=== PATIENT | female | born 1955 | race Caucasian/White ===

== ENCOUNTER → 2020-03-20 12:28 | Outpatient (BNVA) | payer MEDICARE, OTHER, SELFPAY | PROVIDERS: PCP Internal Medicine; Visit Provider Internal Medicine Gastroenterology | DX: Z13.89 Encounter for screening for other disorder (principal) | CPT/HCPCS: Q3014 ==

== ENCOUNTER 2020-05-21 09:00 | Day surgery (SDC) | payer MEDICARE, OTHER, SELFPAY ==
[2020-05-13 17:59] VITALS: BMI 26.9
--- NOTE | 2020-05-17 09:42 | HO.ANESPROP2 ---
Documented by User: Liyah Venessa 05/17/20 09:42 HPI - Anesthesia Eval Consult details Narrative: 65yo F for Colonoscopy PMFSH Active Problems Active Problems: All Active Problems (Updated 05/13/20 @ 17:54 by Jovana Meyers RN) Obstructive sleep apnea (Acute) Rectocele (Acute) Tubular adenoma of colon (Acute) GERD (gastroesophageal reflux disease) (Acute) Past Medical History Medical History Arthritis Asthma Depression GERD (gastroesophageal reflux disease) Hypothyroidism ALISON on CPAP Rectocele Tubular adenoma of colon Family History Family History Father No problems noted. Mother No problems noted. Sister Osteoporosis Surgical History Surgical History History of Hx laparoscopic cholecystectomy Hx of colonoscopy Social History Social History Household Members: Spouse Alcohol intake: current Alcohol intake frequency: holidays/special occasions only Smoking Status: Never smoker Second Hand Smoke Exposure: No Use of substances other than those prescribed or required for medical reasons: No Advance Directives: No Advance Directives Information Provided: No Advance Directives on File: No Recently lost weight without trying: No Current occupational status: retired Meds Allergies Allergy/AdvReac Type Severity Reaction Status Date / Time Environmental Allergy Unknown Unknown Verified 05/21/20 09:42 Erythromycin Allergy Unknown bloating, Verified 05/21/20 09:42 constipation erythromycin base AdvReac Intermediate STOMACH Verified 05/21/20 09:42 [ERYTHROMYCIN BASE] UPSET Home Medications Medication Instructions Recorded Confirmed Last Taken Type fluticasone propionate 50 1 spray INTRANASAL DAILY 03/20/20 05/13/20 Unknown History mcg/actuation nasal spray,suspension venlafaxine 75 mg capsule,extended 75 mg PO DAILY 03/20/20 05/13/20 Unknown History release 24 hr Ca carb-Ca gluc-Mg ox-Mg gluco 1 tab PO DAILY 05/13/20 05/13/20 Unknown History [Calcium Magnesium] boron 3 mg PO BID 05/13/20 05/13/20 Unknown History loratadine 10 mg PO DAILY 05/13/20 05/13/20 Unknown History multivitamin 1 tab PO DAILY 05/13/20 05/13/20 Unknown History thiamine mononitrate (vit B1) 100 mg PO DAILY 05/13/20 05/13/20 Unknown History venlafaxine 37.5 mg PO DAILY 05/13/20 05/13/20 Unknown History Exam Exam Date and Time: May 17, 2020941 Height,Weight and Vital Signs: Height 5 ft 5 in Weight 73.482 kg Assessment and Plan Assessment Anesthesia Assessment: Chart Reviewed Documented by User: Jennie Pino 05/21/20 09:53 [facility] Past Medical History Medical History Arthritis Asthma Depression GERD (gastroesophageal reflux disease) Hypothyroidism ALISON on CPAP Rectocele Tubular adenoma of colon Family History Family History Father No problems noted. Mother No problems noted. Sister Osteoporosis Family history of problems with anesthesia: No Surgical History Surgical History History of Hx laparoscopic cholecystectomy Hx of colonoscopy History of Problems with Anesthesia: No Social History Social History Household Members: Spouse Alcohol intake: current Alcohol intake frequency: holidays/special occasions only Smoking Status: Never smoker Second Hand Smoke Exposure: No Use of substances other than those prescribed or required for medical reasons: No Advance Directives: No Advance Directives Information Provided: No Advance Directives on File: No Recently lost weight without trying: No Current occupational status: retired Meds Allergies Allergy/AdvReac Type Severity Reaction Status Date / Time Environmental Allergy Unknown Unknown Verified 05/21/20 09:42 Erythromycin Allergy Unknown bloating, Verified 05/21/20 09:42 constipation erythromycin base AdvReac Intermediate STOMACH Verified 05/21/20 09:42 [ERYTHROMYCIN BASE] UPSET Home Medications Medication Instructions Recorded Confirmed Last Taken Type fluticasone propionate 50 1 spray INTRANASAL DAILY 03/20/20 05/13/20 Unknown History mcg/actuation nasal spray,suspension venlafaxine 75 mg capsule,extended 75 mg PO DAILY 03/20/20 05/13/20 Unknown History release 24 hr Ca carb-Ca gluc-Mg ox-Mg gluco 1 tab PO DAILY 05/13/20 05/13/20 Unknown History [Calcium Magnesium] boron 3 mg PO BID 05/13/20 05/13/20 Unknown History loratadine 10 mg PO DAILY 05/13/20 05/13/20 Unknown History multivitamin 1 tab PO DAILY 05/13/20 05/13/20 Unknown History thiamine mononitrate (vit B1) 100 mg PO DAILY 05/13/20 05/13/20 Unknown History venlafaxine 37.5 mg PO DAILY 05/13/20 05/13/20 Unknown History Exam Height,Weight and Vital Signs: Vital Signs Temp Pulse Resp BP Pulse Ox 05/21/20 09:36 97.5 F 89 16 143/83 H 98 Airway Mallampati Class: II TM Dist: >3cm Neck ROM: Full Heart: RRR Lungs: CTAB Assessment and Plan Assessment Anesthesia Assessment: Anesthesia Plan Discussed and Chart Reviewed Final Anesthetic Review NPO: Yes ASA Class: III Final Preanesthetic Review: No Changes in Pt Med Stat, Meds/Allgs Chart Reviewed, Consent Obtained/Reviewed and Anes Risks/Benef Reviewed Patient Risk: Intermediate Procedure Risk: Low Assessment/Block/Sedation in SS: Assess/Block/Sedation-SS Anesthetic Plan Anesthetic Plan: MAC: Disposition: Standard PACU
[2020-05-21 09:36] VITALS: BP 143/83; PULSE 89; RESP 16; TEMP 36.4; O2SAT 98; BMI 27.4
--- NOTE | 2020-05-21 09:36 | MHC.SHP ---
Pre-Procedural Eval Section B Chief Complaint: benign neoplasm of colon Details of Present Illness: COLON CANCER SCREENING--+FAMILY HX OF COLON POLYPS;PERSONAL HX TA HX ALISON ANX/DEPRESSIVE DISORDER--RECENT INCREASE IN EFFEXOR CONSTIPATION/RECTOCOELE Relevant Family History (Specify if Yes): Yes Relevant Social History: None Present Medications: see Short Stay Collaborative assessment Medical History: Significant History (HYPOTHRYROID ON REPLACEMENT, SEE ABOVE) History of Previous Operations: Relevant previous surgery/procedure and date(s) (S/P COLO) Allergies: Allergies Allergy/AdvReac Type Severity Reaction Status Date / Time Environmental Allergy Unknown Unverified 11/13/19 00:00 Erythromycin Allergy Unknown bloating, Unverified 11/13/19 00:00 constipation erythromycin base AdvReac Intermediate STOMACH Unverified 12/21/19 15:32 [ERYTHROMYCIN BASE] UPSET Review of Systems Sugical H&P ROS: Negative: Constitution, Cardiovascular and Neurological and Yes, Specify: Respiratory (USES ADVAIR, HAS NO RESCUE INHALER), Psychiatric (MEDS WORKING WELL) and Gastrointestinal (CONSTIPATION) Exam Surgical H&P Exam: Normal: HEENT, Normal: Heart, Normal: Lungs and Normal: Extremities Plan Diagnosis/Plan: Unchanged I have reviewed the history and physical and performed a pertinent physical examination on my patient. No changes have occurred unless specified.YES
[2020-05-21] MEDS: Lactated Ringers 1,000 ML 100 ML IVCONT (09:41)
[2020-05-21 10:30] VITALS: BP 124/71; PULSE 93; RESP 18; TEMP 36.3; O2SAT 100
--- NOTE | 2020-05-21 10:30 | PM.OP ---
Brief Operative Note Date of Service: 05/21/20 Pre-op diagnosis: COLON CANCER SCREENING, HX OF TA Post-op diagnosis: other (COLON POLYPS) Procedure: COLONOSCOPY WITH EXCISIONAL POLYPECTOMY X2(COLD BX FORCEPS) Implants: NO Surgeon: Enedelia Short MD Anesthesia: MAC (LIEBIENIC, INSULATION BLOWER) Estimated blood loss (mL): 5 Pathology: other (POLYP ON ILEOCECAL VALVE, TRANSVERSE COLON BOTH DIMINUTIVE.) Condition: stable Disposition: PACU
[2020-05-21 10:45] VITALS: BP 130/65; PULSE 74; RESP 20
--- NOTE | 2020-05-21 13:32 | W.PM.OPN ---
Operative Note Operative Note Date of Service: 05/21/20 Narrative: OPERATIVE NOTE Date of Service: 05/21/20 Pre-op diagnosis: COLON CANCER SCREENING, HX OF TA Post-op diagnosis: other (COLON POLYPS) Procedure: COLONOSCOPY WITH EXCISIONAL POLYPECTOMY X2(COLD BX FORCEPS) Implants: NO Surgeon: Enedelia Short MD Anesthesia: MAC (LIEBIENIC, [employer] SKIN) FINDINGS: MARIA ISABEL-Sphincter tone adequate. Scope introdued to the sigmoid colon--mild redundancy(? element of prolapse?). Scope advanced into descending, transverse colon with gentle assist into the cecum. PREP: GOOD Small polyp noted on valve removed excisionally, with cold bx forceps, second smaller polyp removed in similar fashion in the proximal transverse colon. No additional lesions noted. ARV-CLEAR--There was Anal Papillary hypertrophy noted. Estimated blood loss (mL): 5 Pathology: other (POLYP ON ILEOCECAL VALVE, TRANSVERSE COLON BOTH DIMINUTIVE.) Condition: stable Disposition: PACU PLAN: CURRENT RECOMMENDATIONS FOR REPEAT SCREENING IS 5 YEARS.
== END 2020-05-21 11:29 | disposition home or self-care (01) ==
PROVIDERS: PCP Internal Medicine; Visit Provider Internal Medicine Gastroenterology
PROC: 0DJD8ZZ Inspection of Lower Intestinal Tract, Via Natural or Artificial Opening Endoscopic (ICD-10-PCS; CPT 45378; principal; 2020-05-21 10:30)
DX: Z12.11 Encounter for screening for malignant neoplasm of colon (principal); D12.0 Benign neoplasm of cecum; K63.5 Polyp of colon; K62.89 Other specified diseases of anus and rectum; Q43.8 Other specified congenital malformations of intestine; Z86.010 Personal history of colon polyps; Z83.71 Family history of colonic polyps
CPT/HCPCS: 45380; 88305; J2405

== ENCOUNTER → 2020-06-12 14:29 | Outpatient (BNVA) | payer MEDICARE, OTHER, SELFPAY | PROVIDERS: PCP Internal Medicine; Visit Provider Internal Medicine Gastroenterology | DX: K64.4 Residual hemorrhoidal skin tags (principal); D12.6 Benign neoplasm of colon, unspecified | CPT/HCPCS: 99212 ==

== ENCOUNTER 2020-07-02 08:51 | Outpatient (REF) | payer MEDICARE, OTHER, SELFPAY | END 2020-07-02 08:52 | disposition home or self-care (01) | LOC: HO.LAB 08:51 | PROVIDERS: PCP Internal Medicine; Visit Provider Hospitalist | DX: G47.33 Obstructive sleep apnea (adult) (pediatric) (principal); J45.40 Moderate persistent asthma, uncomplicated | CPT/HCPCS: 36415; 82785; 86003; 99202 ==

== ENCOUNTER 2020-08-29 13:01 | Outpatient (REF) | payer MEDICARE, OTHER, SELFPAY ==
--- NOTE | ~2020-08-29 | XR_ITS ---
EXAMINATION: XR CHEST CLINICAL INFORMATION: Moderate persistent asthma. COMPARISON: Chest 03/13/2019 TECHNIQUE: 2 views of the chest were obtained. FINDINGS: No significant abnormality is noted involving the heart, lungs, mediastinum, bony thorax or soft tissues. XR/XR chest 2V IMPRESSION: Unremarkable chest examination.
--- NOTE | 2020-08-29 15:31 | PFT_ITS ---
INDICATION: Asthma. SPIROMETRY: The FEV1 to FVC of 79% with an FEV1 of 1.84 L, which is 77% predicted, and an FVC of 2.32 L, which is 74% predicted. Bronchodilators were not used due to the fact that she had recently used her bronchodilator. Maximum voluntary ventilation is 87% predicted. LUNG VOLUMES: Total lung capacity 95% predicted. DIFFUSION CAPACITY: DLCO 70% predicted. COMPARISONS: PFTs from May 2019. INTERPRETATION: No obstructive nor restrictive ventilatory defects identified. Again, bronchodilators were not used. Maximum voluntary ventilation within normal limits. Lung volumes within normal limits. The patient does have a mild isolated diffusion impairment. When compared to 2019, there was a trend increase in the FVC, no significant change in the FEV1, significant improvement in the total lung capacity, and no significant change in the diffusion capacity. My suspicion is that total lung capacity from 2019 was probably erroneous. Clinical correlation warranted. MD MUMTAZ [place]ANS / [id number]
== END 2020-08-29 13:02 | disposition home or self-care (01) ==
LOC: HO.RESP 13:01
PROVIDERS: PCP Internal Medicine; Visit Provider Hospitalist
DX: J45.40 Moderate persistent asthma, uncomplicated (principal); J30.9 Allergic rhinitis, unspecified; G47.33 Obstructive sleep apnea (adult) (pediatric); K21.9 Gastro-esophageal reflux disease without esophagitis
CPT/HCPCS: 71046; 94010; 94727; 94729; 99212

== ENCOUNTER 2020-09-10 09:18 | Outpatient (REF) | payer MEDICARE, OTHER, SELFPAY ==
[2020-09-10 12:04] LABS: Hematocrit 37.5 % (37-47); Hemoglobin 12.6 g/dl (12.0-16.0); Mean Corpuscular HGB Conc 33.6 g/dl (31.0-35.0); Mean Corpuscular Hemoglobin 31.4 pg (27.0-33.0); Mean Corpuscular Volume 93.5 fL (80-98); Mean Platelet Volume 9.8 fL (9.4-12.3); Platelet Count 217 X10*3/uL (160-400); Red Blood Count 4.01 X10*6/uL (4.20-5.50); Red Cell Distribution Width 11.8 % (11.0-16.0); White Blood Count 4.1 X10*3/uL (4.8-10.8)
[2020-09-10 12:38] LABS: TSH reflex Free T4 0.41 uIU/mL (0.32-4.0)
[2020-09-10 13:09] LABS: Alanine Aminotransferase 13 U/L (0-31); Albumin Level 3.7 g/dL (3.5-5.0); Alkaline Phosphatase 63 U/L (39-117); Anion Gap 10 (12-20); Aspartate Amino Transferase 20 U/L (5-31); Bilirubin Total 0.8 mg/dL (0.0-1.0); Blood Urea Nitrogen 12 mg/dL (9-16); Calcium 8.7 mg/dL (8.4-10.2); Carbon Dioxide 26 mmol/L (22-29); Chloride 109 mmol/L (96-108); Cholesterol 178 mg/dL; Estimated Glomerular Filt Rate > 60; Glucose Fasting 82 mg/dL (60-99); HDL Cholesterol 67 mg/dL; LDL Cholesterol Calculated 104 mg/dl; Potassium 3.8 mmol/L (3.3-5.1); Sodium 141 mmol/L (135-145); Total Protein 5.9 g/dL (6.5-8.0); Triglycerides 35 mg/dL
== END 2020-09-10 09:19 | disposition home or self-care (01) ==
LOC: HO.HMGCLDS 09:18
PROVIDERS: PCP Internal Medicine; Visit Provider Internal Medicine
DX: J45.40 Moderate persistent asthma, uncomplicated (principal); R60.9 Edema, unspecified
CPT/HCPCS: 36415; 80053; 80061; 84443; 85027

== ENCOUNTER 2020-09-23 11:30 | Outpatient (REF) | payer MEDICARE, OTHER, SELFPAY ==
--- NOTE | ~2020-09-23 | US_ITS ---
EXAMINATION: US THYROID CLINICAL INFORMATION: Nontoxic multinodular goiter. COMPARISON: Ultrasound thyroid soft tissues neck 09/22/2018. TECHNIQUE: Linear transducer grayscale and color Doppler examination with attention to the region of the thyroid. FINDINGS: SIZE: Measurements of the thyroid lobes and nodules are given in sagittal, anteroposterior and transverse dimensions respectively. Right Thyroid Lobe: 3.0 x 0.8 x 0.8 cm, volume 1.0 mL. Previously 2.8 x 0.7 x 0.7 cm, volume 0.6 mL. Parenchyma: The gland echotexture is heterogeneous. Thyroid vascularity is increased. Left Thyroid Lobe: 3.0 x 0.6 x 0.5 cm, volume 0.5 mL. Previously 2.5 x 0.5 x 0.6 cm, volume 0.4 mL. Parenchyma: The gland echotexture is heterogeneous. Thyroid vascularity is increased. Isthmus: 0.1 cm in maximum AP dimension. Previously 0.2 cm. Estimated total number of nodules greater than or equal to 1 cm: 0. Aircraft Mechanic nodules are described as follows: 1. Location: Right upper. Size: 0.3 x 0.2 x 0.2 cm, volume 0.01 mL. Previously: 0.3 x 0.2 x 0.3 cm, volume 0.01 mL. Nodule characteristics: Composition: Cystic(0). Echogenicity: Anechoic (0). Shape: Not taller than wide (0). Margins: Smooth (0). Echogenic Foci: None (0). ACR TI-RADS total points: 0 ACR TI-RADS category: 1 Significant change in size (>/= 20% in 2 dimensions and minimal increase of 2 mm or 50% or greater increase in volume): No Change in features: No Change in ACR TI-RADS risk category: No 2. Location: Left upper. Size: 0.3 x 0.2 x 0.2 cm, volume 0.01 mL. Previously: 0.3 x 0.1 x 0.2 cm, volume 0.003 mL. Nodule characteristics: Composition: Cystic(0). Echogenicity: Anechoic (0). Shape: Not taller than wide (0). Margins: Smooth (0). Echogenic Foci: None (0). ACR TI-RADS total points: 0 ACR TI-RADS category: 1 Significant change in size (>/= 20% in 2 dimensions and minimal increase of 2 mm or 50% or greater increase in volume): No Change in features: Yes. This appears cystic. Change in ACR TI-RADS risk category: No NODES: No lymphadenopathy is seen in the tissue surrounding the thyroid gland. US/US thyroid IMPRESSION: Small heterogeneous slightly hypervascular thyroid gland. Small bilateral cystic nodules.. ACR TI-RADS RECOMMENDATION REFERENCE: Ultrasound-guided fine-needle aspiration, followup ultrasound, no further follow up. * TR1 (0 point) and TR 2 (2 points): No FNA or follow up * TR3 (3 points): FNA if more than or equal to 2.5 cm in maximum dimension, followup ultrasound in 1, 3 and 5 years if 1.5 to 2.4 cm in maximum dimension. * TR4 (4-6 points): FNA if more than or equal to 1.5 cm in maximum dimension, followup ultrasound in 1, 2, 3 and 5 years if 1 to 1.4 cm in maximum dimension. * TR5 (more than or equal to 7 points): FNA if more than or equal to 1 cm in maximum dimension, followup ultrasound every year for 5 years if 0.5 to 0.9 cm in maximum dimension. * TR3, TR4 or TR5 nodules that are below the size threshold for follow up receive no follow up.
== END 2020-09-23 11:31 | disposition home or self-care (01) ==
LOC: HO.HMGCX 11:30
PROVIDERS: PCP Internal Medicine; Visit Provider Internal Medicine
DX: E04.2 Nontoxic multinodular goiter (principal)
CPT/HCPCS: 76536

== ENCOUNTER 2020-10-03 12:46 | Outpatient (REF) | payer MEDICARE, OTHER, SELFPAY ==
--- NOTE | ~2020-10-03 | MM_ITS ---
EXAMINATION: BONE DENSITOMETRY CLINICAL INDICATION: Other specified disorders of bone density and structure. COMPARISON: Previous BD dated 09/09/2018 and baseline BD dated 02/15/2015. TECHNIQUE: Using a [employer] DXA System (software version: 13.1) manufactured by [employer], dual-energy x-ray absorptiometry was performed of the lumbar spine and left hip. The images are of good technical quality. Summary results are attached. FINDINGS: AP SPINE L1-L4: Current: BMD 1.023 g/cm2, Z-score 0.0, T-score -1.3, osteopenia, 0.3% increase from previous, 5.5% decrease from baseline (<5% change is not significant). Prior: BMD 1.020 g/cm2. Baseline: BMD 1.082 g/cm2. LEFT FEMUR, NECK: Current: BMD 0.733 g/cm2, Z-score -0.9, T-score -2.2, osteopenia. Prior: BMD 0.763 g/cm2. Baseline: BMD 0.890 g/cm2. LEFT FEMUR, TOTAL: Current: BMD 0.751 g/cm2, Z-score -1.0, T-score -2.0, osteopenia, 3.5% decrease from previous, 12.7% decrease from baseline (<5% change is not significant). Prior: BMD 0.778 g/cm2. Baseline: BMD 0.860 g/cm2. IDENTIFIED RISK FACTORS: Recurrent falls, height loss, family history (parental hip fracture), history of fracture (adult). Early menopause, secondary osteoporosis. HISTORY OF FRACTURE: Other. MEDICATIONS: Calcium supplements or multivitamin. MM/XR DEXA axial skeleton IMPRESSION: 1. DIAGNOSIS: Osteopenia based on the lowest T-score value of -2.2 in the femoral neck applying World Health Organization criteria. 2. 10-YEAR FRACTURE RISK PREDICTION, FRAX: Major osteoporotic fracture (clinical spine, forearm, hip or shoulder) 32.3%. Hip fracture 4.8%. 3. Treatment Recommendations: NOF guidelines recommend consideration for treatment in postmenopausal women and men age 50 and older presenting with the following: -A hip or vertebral (clinical or morphometric) fracture. -T-score less than or equal to -2.5 at the femoral neck or spine after appropriate evaluation to exclude secondary causes. -Low bone mass at the hip or spine and a 10-year fracture probability by FRAX of greater than or equal to 3% for hip fracture or greater than or equal to 20% for major osteoporotic fracture based on the [place] adapted WHO algorithm. 4. Other Recommendations: All treatment decisions require clinical judgment and consideration of individual patient factors, including patient preferences, comorbidities, previous drug use, risk factors not captured in the FRAX model (e.g. frailty, falls, vitamin D deficiency, increased bone turnover, interval significant decline in bone density) and possible under or overestimation of fracture risk by FRAX. Additional medical evaluation for secondary cause of low bone mineral density may be appropriate. FUTURE SCAN RECOMMENDATION: People with diagnosed cases of osteoporosis or at high risk for fracture should have regular bone mineral density tests. For patients eligible for Medicare, routine testing is allowed once every 2 years. The testing frequency can be increased to one year for patients who have rapidly progressing disease, those who are receiving or discontinuing medical therapy to restore bone mass, or have additional risk factors.
--- NOTE | ~2020-10-03 | US_ITS ---
EXAMINATION: US DIAGNOSTIC ULTRASOUND BREAST, LEFT CLINICAL INFORMATION: Palpable abnormality left breast 2:00 position approximately 8 cm from the nipple.. COMPARISON: Mammography of same day as well as studies dating back to August 13, 2016. TECHNIQUE: Ultrasound of the breast is performed with real-time freeman scale imaging and color Doppler. FINDINGS: There is no focal suspicious finding. There is no solid mass, architectural abnormality, duct ectasia, or edema in the soft tissue planes. Results are discussed with the patient at time of visit. US/US breast LT limited IMPRESSION: No suspicious left breast findings. ASSESSMENT: BI-RADS 1: Negative RECOMMENDATION: Routine annual mammography screening due in 12 months. This patient's information was entered into a reminder system with a target due date for their next mammogram.
--- NOTE | ~2020-10-03 | MM_ITS ---
EXAMINATION: MM DIAGNOSTIC DIGITAL BREAST TOMOSYNTHESIS, BILATERAL US BREAST LIMITED, LEFT CLINICAL INFORMATION: Left breast lumps for 6 months. The lifetime risk of breast cancer based on the Tyrer-Cuzick Model is 5.2%. COMPARISON: Mammography: 10/02/2019 and studies dating back to 08/13/2016 TECHNIQUE: Digital breast tomosynthesis is performed in both the craniocaudal and mediolateral oblique views along with computer-aided detection (CAD). Synthesized 2-D images are generated from the tomosynthesis. Targeted left breast ultrasound. FINDINGS: There are scattered areas of fibroglandular density (ACR BI-RADS breast composition Category b). There are no significant masses, abnormal calcifications, or other abnormalities. Targeted left breast ultrasound did not demonstrate any abnormal cystic or solid masses. No region of abnormal distal sound shadowing. No edematous changes seen. Results are discussed with the patient at time of visit. MM/MM tomosynthesis diagnostic BI IMPRESSION: There are no significant changes from prior study. ASSESSMENT: BI-RADS 1: Negative. RECOMMENDATION: Routine annual mammography screening due in 12 months. This patient's information was entered into a reminder system with a target due date for their next mammogram.
== END 2020-10-03 12:47 | disposition home or self-care (01) ==
LOC: HO.MAMMO 12:46
PROVIDERS: Visit Provider Internal Medicine
DX: R92.8 Other abnormal and inconclusive findings on diagnostic imaging of breast (principal); M81.8 Other osteoporosis without current pathological fracture; M85.80 Other specified disorders of bone density and structure, unspecified site; Z78.0 Asymptomatic menopausal state
CPT/HCPCS: 76642; 77062; 77066; 77080

== ENCOUNTER → 2020-10-23 09:46 | Outpatient (BNVA) | payer MEDICARE, OTHER, SELFPAY | PROVIDERS: Visit Provider Internal Medicine | CPT/HCPCS: Q3014 ==

== ENCOUNTER 2020-10-30 09:46 | Outpatient (REF) | payer MEDICARE, OTHER, SELFPAY ==
[2020-10-30 11:11] LABS: Glucose Urine UA NEG (NEG); Leukocyte Esterase Urine NEG (NEG); Nitrite Urine NEG (NEG); Specific Gravity - Urine <= 1.005 (1.005-1.025); Urine Blood NEG (NEG); Urine Ketones NEG (NEG); Urine Protein NEG (NEG-TRACE)
[2020-10-30 11:13] LABS: Appearance Urine CLEAR; Color Urine STRAW
== END 2020-10-30 09:47 | disposition home or self-care (01) ==
LOC: HO.HMGCLDS 09:46
PROVIDERS: PCP Internal Medicine; Visit Provider Internal Medicine
DX: R30.0 Dysuria (principal)
CPT/HCPCS: 81003

== ENCOUNTER → 2021-02-25 14:05 | Outpatient (BNVA) | payer MEDICARE, OTHER, SELFPAY | PROVIDERS: PCP Internal Medicine; Visit Provider Hospitalist | DX: J45.40 Moderate persistent asthma, uncomplicated (principal); J30.9 Allergic rhinitis, unspecified; G47.33 Obstructive sleep apnea (adult) (pediatric); K21.9 Gastro-esophageal reflux disease without esophagitis | CPT/HCPCS: 99212 ==

== ENCOUNTER 2021-04-14 08:19 | Outpatient (REF) | payer MEDICARE, OTHER, SELFPAY ==
--- NOTE | ~2021-04-14 | FL_ITS ---
EXAMINATION: FL BARIUM SWALLOW CLINICAL INFORMATION: Gastroesophageal reflux disease without esophagitis. COMPARISON: None TECHNIQUE: Barium swallow examination is performed using fluoroscopic evaluation in addition to multiple fluoroscopic spot views. The patient is imaged both upright and prone and using both thick and thin sulfate along with effervescent granules. Fluoroscopy time: 8 minutes and 27 seconds. DAP: 20.99 Gycm2 Images: 68 FINDINGS: Following oral administration of thick barium and effervescent granules in upright view and different projections there is normal propagation bolus from the oral cavity through the pharynx, esophagus into stomach without any evidence of obstruction, narrowing or stricture. The course, caliber and peristalsis of the stomach and the duodenal bulb is normal. On placing patient supine and prone there is a small sliding hiatal hernia without any gastroesophageal reflux. Rest of the visualized course of the stomach is unremarkable. FL/FL barium swallow IMPRESSION: Small sliding hiatal hernia without reflux.
== END 2021-04-14 08:20 | disposition home or self-care (01) ==
LOC: HO.XRAY 08:19
PROVIDERS: PCP Internal Medicine; Visit Provider Hospitalist
DX: K21.9 Gastro-esophageal reflux disease without esophagitis (principal)
CPT/HCPCS: 74220

== ENCOUNTER → 2021-05-29 14:04 | Outpatient (BNVA) | payer MEDICARE, OTHER, SELFPAY | PROVIDERS: PCP Internal Medicine; Visit Provider Hospitalist | DX: J45.40 Moderate persistent asthma, uncomplicated (principal); J30.9 Allergic rhinitis, unspecified; G47.33 Obstructive sleep apnea (adult) (pediatric); K21.9 Gastro-esophageal reflux disease without esophagitis; K44.9 Diaphragmatic hernia without obstruction or gangrene | CPT/HCPCS: 99212 ==

== ENCOUNTER → 2021-06-19 11:35 | Outpatient (BNVA) | payer MEDICARE, OTHER, SELFPAY | PROVIDERS: PCP Internal Medicine; Referring Provider Internal Medicine; Visit Provider Internal Medicine Gastroenterology | DX: K44.9 Diaphragmatic hernia without obstruction or gangrene (principal); K21.9 Gastro-esophageal reflux disease without esophagitis; D12.6 Benign neoplasm of colon, unspecified | CPT/HCPCS: 99212 ==

== ENCOUNTER 2021-10-07 13:17 | Outpatient (REF) | payer MEDICARE, OTHER, SELFPAY ==
--- NOTE | ~2021-10-07 | MM_ITS ---
EXAMINATION: MM SCREENING DIGITAL BREAST TOMOSYNTHESIS, BILATERAL CLINICAL INFORMATION: Screening. Asymptomatic. The lifetime risk of breast cancer based on the Tyrer-Cuzick Model is 3%. COMPARISON: Mammography: 10/03/2020, 10/02/2019, 09/26/2018 TECHNIQUE: Digital breast tomosynthesis is performed in both the craniocaudal and mediolateral oblique views along with computer-aided detection (CAD). Synthesized 2D images are generated from the tomosynthesis. FINDINGS: There are scattered areas of fibroglandular density (ACR BI-RADS breast composition Category b). There are no significant masses, abnormal calcifications, or other abnormalities. Parenchymal pattern is similar to prior studies. The axilla are unremarkable. MM/MM tomosynthesis screening BI IMPRESSION: No mammographic evidence of malignancy. ASSESSMENT: BI-RADS 1: Negative RECOMMENDATION: Routine annual mammography screening. This patient's information was entered into a reminder system with a target due date for their next mammogram.
== END 2021-10-07 13:18 | disposition home or self-care (01) ==
LOC: HO.MAMMO 13:17
PROVIDERS: Visit Provider Internal Medicine
DX: Z12.31 Encounter for screening mammogram for malignant neoplasm of breast (principal)
CPT/HCPCS: 77063; 77067

== ENCOUNTER 2021-11-06 06:59 | Outpatient (REF) | payer MEDICARE, OTHER, SELFPAY ==
[2021-11-06 11:11] LABS: MANUAL DIFF FLAG NO
[2021-11-06 11:22] LABS: Basophils Percent Auto 0.9 % (0-2); Eosinophils Absolute Auto 0.1 X10*3/uL (0.0-0.4); Eosinophils Percent Auto 1.3 % (0-4); Hematocrit 39.8 % (37.0-47.0); Imm Gran Abs Auto 0.01 X10*3/uL (0.00-0.03); Imm Gran Pct Auto 0.2 % (0.0-0.4); Lymphocytes Absolute Auto 1.9 X10*3/uL (1.2-4.9); Lymphocytes Percent Auto 42.2 % (20-40); Mean Corpuscular HGB Conc 32.7 g/dl (31.0-35.0); Mean Corpuscular Hemoglobin 30.6 pg (27.0-33.0); Mean Corpuscular Volume 93.6 fL (80.0-98.0); Mean Platelet Volume 9.8 fL (9.4-12.3); Monocytes Absolute Auto 0.3 X10*3/uL (0.1-1.2); Monocytes Percent Auto 7.4 % (2-11); Neutrophils Absolute Auto 2.2 x10*3/uL (2.0-8.3); Platelet Count 266 X10*3/uL (160-400); Red Blood Count 4.25 X10*6/uL (4.20-5.50); Red Cell Distribution Width 11.9 % (11.0-16.0); White Blood Count 4.6 X10*3/uL (4.8-10.8)
[2021-11-06 11:42] LABS: Alanine Aminotransferase 16 U/L (0-31); Alkaline Phosphatase 76 U/L (39-117); Anion Gap 13 (12-20); Aspartate Amino Transferase 20 U/L (5-31); Bilirubin Total 0.6 mg/dL (0.0-1.0); Blood Urea Nitrogen 13 mg/dL (9-16); Calcium 8.9 mg/dL (8.4-10.2); Carbon Dioxide 27 mmol/L (22-29); Chloride 105 mmol/L (96-108); Cholesterol 239 mg/dL; Estimated Glomerular Filt Rate > 60; Glucose Fasting 95 mg/dL (60-99); HDL Cholesterol 71 mg/dL; LDL Cholesterol Calculated 161 mg/dl; Potassium 4.5 mmol/L (3.3-5.1); Sodium 140 mmol/L (135-145); Total Protein 6.5 g/dL (6.5-8.0); Triglycerides 35 mg/dL
[2021-11-06 12:00] LABS: TSH reflex Free T4 0.87 uIU/mL (0.32-4.0); Vitamin D 25-OH Total 33.8 ng/mL (>30)
[2021-11-06 12:06] LABS: Folate 19.6 ng/mL (> or = 4.0); Vitamin B12 702 pg/mL (200-900)
== END 2021-11-06 07:00 | disposition home or self-care (01) ==
LOC: HO.HMGCLDS 06:59
PROVIDERS: PCP Internal Medicine; Visit Provider Internal Medicine
DX: E03.9 Hypothyroidism, unspecified (principal); E04.2 Nontoxic multinodular goiter; G47.33 Obstructive sleep apnea (adult) (pediatric); J45.40 Moderate persistent asthma, uncomplicated
CPT/HCPCS: 36415; 80053; 80061; 82306; 82607; 82746; 84443; 85025

== ENCOUNTER 2021-11-17 10:32 | Outpatient (REF) | payer MEDICARE, OTHER, SELFPAY ==
--- NOTE | ~2021-11-17 | XR_ITS ---
EXAMINATION: XR KNEE, LEFT CLINICAL INFORMATION: Left knee pain. COMPARISON: Left knee done on 05/31/2019. TECHNIQUE: Four views of the left knee. FINDINGS: Moderate osteoarthrosis of the medial compartment, patellofemoral compartment and mild osteoarthrosis of the lateral compartment of the left knee, shows interval progression since 05/31/2019. Moderate diffuse osteopenia. No evidence of any joint effusion. Soft tissues are unremarkable. XR/XR knee LT 4V IMPRESSION: Tricompartmental osteoarthrosis with most pronounced changes seen at the medial compartment, shows significant disease progression since 05/31/2019.
== END 2021-11-17 10:33 | disposition home or self-care (01) ==
LOC: HO.HMGCX 10:32
PROVIDERS: PCP Internal Medicine; Visit Provider Physician Assistant
DX: M25.562 Pain in left knee (principal)
CPT/HCPCS: 73564

== ENCOUNTER 2021-12-18 13:00 | Outpatient (RCR) | payer MEDICARE, OTHER, SELFPAY ==
--- NOTE | 2021-11-12 17:30 | MHC.PT.EP ---
[facility] [place] Office [place] Office [place] Office [address] [phone] F: [phone] F: [phone] F: [phone] F: [phone] Physical Therapy Plan of Care Date of Evaluation: Date of Surgery: Diagnosis: Sciatica Assessment: Pt is a 66 y/o female referred to PT for eval and treat of sciatica who presents with signs and Sx consistent with R LE dysfunction with possible R hamstring injury resulting in decreased tolerance for standing, walking, negotiating stairs, performing heavy HH chores as well as pain with sit to stand transfers secondary to TTP for R hamstring group, decreased R LE strength, pain with R knee flexion MMT, gait abnormality, decreased B knee ROM and pain. Pt is deemed an appropriate candidate to receive skilled PT in order to address her physical limitations to improve her functional ability. Frequency and Duration: The patient will be seen 1 x / wk x 5 wks. Short Term Goals: initiate HEP. 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 Pt will be able to walk long distances with managed Sx; initial: limited to moderate distances d/t pain. Pt will no longer have pain with standing. improve R knee flexion MMT by at least 1/2 MMT grade. Treatment Plan: Modalities to reduce pain, spasms and effusion. Manual therapy to restore motion and function. Therapeutic exercise to improve strength and flexibility. Neuromuscular re-education for posture and balance. Therapeutic activities to return to functional activities of daily living. Electronically signed by: Almas Hernandez PT. Please sign and return to therapist. Thank you for your referral.
--- NOTE | 2021-12-18 16:31 | MHC.PT.DC ---
[facility] [place] Office [place] Office [place] Office [address] Nyla Kapoor [address] [facility] [phone] F: [phone] F: [phone] F: [phone] F: [phone] Physical Therapy Discharge Report Diagnosis: Sciatica Date of Surgery: Date of Evaluation: 11/12/21 Date of Discharge: 12/18/21 Treatments to Date: 10 Cancellations to Date: No Shows to Date: Discharge Status: Achieved Goals Improved Function Independent with HEP Discharge Summary: 12/18: Ruma has been an active and motivated participant in her therapy in and out of the clinic she is in agreement with DC at this time as he has met all of her therapeutic goals, is I with her home program, and has been managed of her symptoms. Electronically signed by: Almas Hernandez PT. Please sign and return to therapist. Thank you for your referral.
== END 2021-12-19 08:22 | disposition home or self-care (01) ==
LOC: HO.PTCHIC 13:00
PROVIDERS: PCP Internal Medicine; Visit Provider Internal Medicine
DX: M54.30 Sciatica, unspecified side (principal)
CPT/HCPCS: 97110; 97112; 97140; 97162

== ENCOUNTER → 2022-01-19 14:06 | Outpatient (BNVA) | payer MEDICARE, OTHER, SELFPAY | PROVIDERS: PCP Internal Medicine; Visit Provider Hospitalist | DX: J45.40 Moderate persistent asthma, uncomplicated (principal); R91.8 Other nonspecific abnormal finding of lung field; J45.909 Unspecified asthma, uncomplicated; G47.33 Obstructive sleep apnea (adult) (pediatric); K21.9 Gastro-esophageal reflux disease without esophagitis; K44.9 Diaphragmatic hernia without obstruction or gangrene | CPT/HCPCS: 99212 ==

== ENCOUNTER 2022-01-23 12:56 | Outpatient (REF) | payer MEDICARE, OTHER, SELFPAY ==
[2022-01-23 13:57] LABS: MANUAL DIFF FLAG NO
[2022-01-23 14:08] LABS: Basophils Percent Auto 0.6 % (0-2); Eosinophils Absolute Auto 0.1 X10*3/uL (0.0-0.4); Eosinophils Percent Auto 1.1 % (0-4); Hematocrit 36.1 % (37.0-47.0); Hemoglobin 12.3 g/dl (12.0-16.0); Imm Gran Abs Auto 0.02 X10*3/uL (0.00-0.03); Imm Gran Pct Auto 0.4 % (0.0-0.4); Lymphocytes Absolute Auto 1.5 X10*3/uL (1.2-4.9); Lymphocytes Percent Auto 32.8 % (20-40); Mean Corpuscular HGB Conc 34.1 g/dl (31.0-35.0); Mean Corpuscular Hemoglobin 31.4 pg (27.0-33.0); Mean Corpuscular Volume 92.1 fL (80.0-98.0); Mean Platelet Volume 9.4 fL (9.4-12.3); Monocytes Absolute Auto 0.5 X10*3/uL (0.1-1.2); Neutrophils Absolute Auto 2.6 x10*3/uL (2.0-8.3); Neutrophils Percent Auto 55.1 % (45-73); Platelet Count 226 X10*3/uL (160-400); Red Blood Count 3.92 X10*6/uL (4.20-5.50); Red Cell Distribution Width 11.7 % (11.0-16.0); White Blood Count 4.7 X10*3/uL (4.8-10.8)
[2022-01-23 14:30] LABS: Anion Gap 13 (12-20); Blood Urea Nitrogen 7 mg/dL (9-16); Calcium 8.9 mg/dL (8.4-10.2); Carbon Dioxide 27 mmol/L (22-29); Chloride 101 mmol/L (96-108); Estimated Glomerular Filt Rate > 60; Glucose Random 89 mg/dL (60-115); Potassium 3.8 mmol/L (3.3-5.1); Sodium 137 mmol/L (135-145)
== END 2022-01-23 12:57 | disposition home or self-care (01) ==
LOC: HO.HMGCLDS 12:56
PROVIDERS: PCP Internal Medicine; Visit Provider Internal Medicine
DX: J34.2 Deviated nasal septum (principal)
CPT/HCPCS: 36415; 80048; 85025

== ENCOUNTER 2022-03-18 12:18 | Outpatient (REF) | payer MEDICARE, OTHER, SELFPAY ==
[2022-03-18 14:01] LABS: Hematocrit 35.7 % (37.0-47.0); Hemoglobin 11.9 g/dl (12.0-16.0); Mean Corpuscular HGB Conc 33.3 g/dl (31.0-35.0); Mean Corpuscular Hemoglobin 31.1 pg (27.0-33.0); Mean Corpuscular Volume 93.2 fL (80.0-98.0); Mean Platelet Volume 9.4 fL (9.4-12.3); Platelet Count 277 X10*3/uL (160-400); Red Blood Count 3.83 X10*6/uL (4.20-5.50); Red Cell Distribution Width 11.6 % (11.0-16.0); White Blood Count 4.9 X10*3/uL (4.8-10.8)
[2022-03-18 14:04] LABS: Prothrombin Time 11.4 SEC (10.0-13.1)
[2022-03-18 14:07] LABS: Partial Thromboplastin Time 35.1 SEC (26.0-36.4)
[2022-03-23 04:23] LABS: Vitamin K1 692 pg/mL (130-1500)
== END 2022-03-18 12:19 | disposition home or self-care (01) ==
LOC: HO.HMGCLDS 12:18
PROVIDERS: PCP Internal Medicine; Visit Provider Internal Medicine
DX: R58 Hemorrhage, not elsewhere classified (principal)
CPT/HCPCS: 36415; 84597; 85027; 85610; 85730

== ENCOUNTER 2022-04-02 10:59 | Outpatient (REF) | payer MEDICARE, OTHER, SELFPAY ==
[2022-04-02 13:17] LABS: Hematocrit 37.6 % (37.0-47.0); Hemoglobin 12.8 g/dl (12.0-16.0); Mean Corpuscular Hemoglobin 31.6 pg (27.0-33.0); Mean Corpuscular Volume 92.8 fL (80.0-98.0); Mean Platelet Volume 9.5 fL (9.4-12.3); Platelet Count 241 X10*3/uL (160-400); Red Blood Count 4.05 X10*6/uL (4.20-5.50); Red Cell Distribution Width 11.7 % (11.0-16.0); White Blood Count 5.4 X10*3/uL (4.8-10.8)
[2022-04-02 14:05] LABS: Ferritin 77 ng/mL (10-250); Iron 92 mcg/dL (30-160); Percent Iron Saturation 33 % (15-50); Total Iron Binding Capacity 283 mcg/dL (228-428); Unsaturated Iron Binding 191 ug/dL
== END 2022-04-02 11:00 | disposition home or self-care (01) ==
LOC: HO.LAB 10:59
PROVIDERS: PCP Internal Medicine; Visit Provider Internal Medicine Gastroenterology
DX: D12.6 Benign neoplasm of colon, unspecified (principal); D64.9 Anemia, unspecified; K21.9 Gastro-esophageal reflux disease without esophagitis; N81.6 Rectocele; K44.9 Diaphragmatic hernia without obstruction or gangrene; K59.09 Other constipation
CPT/HCPCS: 36415; 82728; 83540; 85027; 99212

== ENCOUNTER 2022-05-04 12:10 | Outpatient (REF) | payer MEDICARE, OTHER, SELFPAY ==
[2022-05-04 14:08] LABS: MANUAL DIFF FLAG NO
[2022-05-04 14:20] LABS: Basophils Percent Auto 0.7 % (0-2); Eosinophils Absolute Auto 0.1 X10*3/uL (0.0-0.4); Eosinophils Percent Auto 1.3 % (0-4); Hematocrit 38.4 % (37.0-47.0); Hemoglobin 12.8 g/dl (12.0-16.0); Lymphocytes Absolute Auto 1.5 X10*3/uL (1.2-4.9); Lymphocytes Percent Auto 33.2 % (20-40); Mean Corpuscular HGB Conc 33.3 g/dl (31.0-35.0); Mean Corpuscular Hemoglobin 31.3 pg (27.0-33.0); Mean Corpuscular Volume 93.9 fL (80.0-98.0); Mean Platelet Volume 9.6 fL (9.4-12.3); Monocytes Absolute Auto 0.3 X10*3/uL (0.1-1.2); Monocytes Percent Auto 7.3 % (2-11); Neutrophils Absolute Auto 2.6 x10*3/uL (2.0-8.3); Neutrophils Percent Auto 57.5 % (45-73); Platelet Count 229 X10*3/uL (160-400); Red Blood Count 4.09 X10*6/uL (4.20-5.50); Red Cell Distribution Width 11.8 % (11.0-16.0); White Blood Count 4.5 X10*3/uL (4.8-10.8)
[2022-05-04 14:50] LABS: Alanine Aminotransferase 18 U/L (0-31); Alkaline Phosphatase 82 U/L (39-117); Anion Gap 12 (12-20); Aspartate Amino Transferase 24 U/L (5-31); Bilirubin Total 0.4 mg/dL (0.0-1.0); Blood Urea Nitrogen 10 mg/dL (9-16); Calcium 9.1 mg/dL (8.4-10.2); Carbon Dioxide 28 mmol/L (22-29); Chloride 106 mmol/L (96-108); Estimated Glomerular Filt Rate > 60; Glucose Random 92 mg/dL (60-115); Potassium 4.3 mmol/L (3.3-5.1); Sodium 142 mmol/L (135-145); Total Protein 6.2 g/dL (6.5-8.0)
[2022-05-04 15:06] LABS: Folate 17.4 ng/mL (> or = 4.0); TSH reflex Free T4 1.66 uIU/mL (0.32-4.0); Vitamin B12 708 pg/mL (200-900)
== END 2022-05-04 12:11 | disposition home or self-care (01) ==
LOC: HO.HMGCLDS 12:10
PROVIDERS: Visit Provider Internal Medicine
DX: R26.89 Other abnormalities of gait and mobility (principal); D64.9 Anemia, unspecified
CPT/HCPCS: 36415; 80053; 82607; 82746; 84443; 85025

== ENCOUNTER 2022-06-26 13:00 | Outpatient (RCR) | payer MEDICARE, OTHER, SELFPAY ==
--- NOTE | 2022-05-28 10:59 | MHC.PT.EP ---
[facility] [place] [facility] [place] [facility] [place] Office [address] [phone] F: [phone] F: [phone] F: [phone] F: [phone] Physical Therapy Plan of Care Date of Evaluation: Date of Surgery: Diagnosis: other abnormalities of gait and mobility Assessment: Patient is a 67 year old R handed female who presents with s/s consistent with abnormalities of gait and mobility. She does not work and has been having a tough time at home due to a who hoards. Patient past medical history includes depression and osteopenia. Current impairments include pain, balance, frequence falls, ROM, strength, activity tolerance and functional mobility. Functional limitations include decreased ability to walk, transfer, negotiate stairs, kneel, and garden. Patient is motivated with good rehab potential. Skilled PT will address impairments and functional limitations in order to achieve goals. Frequency and Duration: The patient will be seen 2x/week for 5 weeks Short Term Goals: I with HEP - 2 weeks DF 10 b/l - 3 weeks no falls for 3 weeks [employer] Goals: LEFS 58/80 - 5 weeks DGI improved by 4 points - 5 weeks LE strength 4/5 grossly - 5 weeks no falls for 5 weeks - 5 weeks Treatment Plan: Modalities to reduce pain, spasms and effusion. Manual therapy to restore motion and function. Therapeutic exercise to improve strength and flexibility. Neuromuscular re-education for posture and balance. Therapeutic activities to return to functional activities of daily living. Electronically signed by: Connor Mcmillan, PT Please sign and return to therapist. Thank you for your referral.
--- NOTE | 2022-09-14 08:49 | MHC.PT.DC ---
[facility] [place] [address] [facility] [place] [facility] [address] Nyla Kapoor [address] [phone] F: [phone] F: [phone] F: [phone] F: [phone] Physical Therapy Discharge Report Diagnosis: other abnormalities of gait and mobility Date of Surgery: Date of Evaluation: 05/28/22 Date of Discharge: 07/21/22 Treatments to Date: 9 Cancellations to Date: No Shows to Date: Discharge Status: Improved Function Independent with HEP Discharge Summary: 06/26/22: pt has progressed well over the course of skilled PT. denies any recent falls. DF 10. I with HEP. LE strength 4/5 grossly. 06/19: Pt reported some hall and calf discomfort Pt reports likely from over performing HR/ TR so these were skipped today. 06/19/22: pt progressing well with balance, strength. continue to progress as tolerated. 06/15/22: pt has been feeling a bit better but has had difficulty with new HEP since she lost the paper. I encouraged her to be consistent now that she has her new HEP again. 06/12/22: pt notes responding well to balance and strength components of program. progressed HEP with standing ex. 06/08/22: pt noted improved capabilities with balance work. Knee pain was too much on the stepper so held this as well as hip abductions with GTB. Step up leading with LLE was more challenging than the R. 06/05/22: pt has difficulty with wobble board > in ant/post. difficulty in single leg stance. conitnue to progress with focus on functional movement and safety. 06/01/22: pt has been feeling better overall with HEP. initiated balance intervention. assess response Nv. Patient is a 67 year old R handed female who presents with s/s consistent with abnormalities of gait and mobility. She does not work and has been having a tough time at home due to a who hoards. Patient past medical history includes depression and osteopenia. Current impairments include pain, balance, frequence falls, ROM, strength, activity tolerance and functional mobility. Functional limitations include decreased ability to walk, transfer, negotiate stairs, kneel, and garden. Patient is motivated with good rehab potential. Skilled PT will address impairments and functional limitations in order to achieve goals. Electronically signed by: Connor Mcmillan, PT Please sign and return to therapist. Thank you for your referral.
== END 2022-09-14 09:21 | disposition home or self-care (01) ==
LOC: HO.PTCHIC 13:00
PROVIDERS: PCP Internal Medicine; Visit Provider Internal Medicine
DX: R26.89 Other abnormalities of gait and mobility (principal)
CPT/HCPCS: 97110; 97112; 97163

== ENCOUNTER → 2022-07-02 13:01 | Outpatient (BNVA) | payer MEDICARE, OTHER, SELFPAY | PROVIDERS: PCP Internal Medicine; Visit Provider Internal Medicine Gastroenterology | DX: K59.09 Other constipation (principal); K21.9 Gastro-esophageal reflux disease without esophagitis; K44.9 Diaphragmatic hernia without obstruction or gangrene | CPT/HCPCS: 99212 ==

== ENCOUNTER → 2022-07-14 13:53 | Outpatient (BNVA) | payer MEDICARE, OTHER, SELFPAY | PROVIDERS: PCP Internal Medicine; Visit Provider Hospitalist | DX: J45.40 Moderate persistent asthma, uncomplicated (principal); J30.9 Allergic rhinitis, unspecified; G47.33 Obstructive sleep apnea (adult) (pediatric); K21.9 Gastro-esophageal reflux disease without esophagitis; K44.9 Diaphragmatic hernia without obstruction or gangrene | CPT/HCPCS: 99212 ==

== ENCOUNTER 2022-10-19 13:13 | Outpatient (REF) | payer MEDICARE, OTHER, SELFPAY ==
--- NOTE | ~2022-10-19 | MM_ITS ---
EXAMINATION: MM SCREENING DIGITAL BREAST TOMOSYNTHESIS, BILATERAL CLINICAL INFORMATION: Screening. Asymptomatic. The lifetime risk of breast cancer based on the Tyrer-Cuzick Model is 3.3%. COMPARISON: Mammography: This study is compared with prior exams dating back to 2018. TECHNIQUE: Digital breast tomosynthesis is performed in both the craniocaudal and mediolateral oblique views along with computer-aided detection (CAD). Synthesized 2D images are generated from the tomosynthesis. FINDINGS: The breasts are almost entirely fatty (ACR BI-RADS breast composition Category a). There are no significant masses, abnormal calcifications, or other abnormalities. MM/MM tomosynthesis screening BI IMPRESSION: No mammographic evidence of malignancy. ASSESSMENT: BI-RADS BI-RADS 1 - Negative RECOMMENDATION: Routine annual mammography screening. 1 year F/U This examination should not preclude the clinical evaluation of a suspicious palpable abnormality. This patient's information was entered into a reminder system with a target due date for their next mammogram.
== END 2022-10-19 13:14 | disposition home or self-care (01) ==
LOC: HO.MAMMO 13:13
PROVIDERS: PCP Internal Medicine; Visit Provider Internal Medicine
DX: Z12.31 Encounter for screening mammogram for malignant neoplasm of breast (principal)
CPT/HCPCS: 77063; 77067

== ENCOUNTER → 2022-10-19 13:30 | Outpatient (BNV) | payer MEDICARE, OTHER, SELFPAY | PROVIDERS: PCP Internal Medicine; Visit Provider Radiology Diagnostic Radiology | DX: Z12.31 Encounter for screening mammogram for malignant neoplasm of breast (principal) | CPT/HCPCS: 77063; 77067 ==

== ENCOUNTER 2022-10-27 08:49 | Outpatient (AMB) | payer MEDICARE, OTHER, SELFPAY ==
--- NOTE | 2022-10-27 10:07 | AM.OFFWIN_ITS ---
Intake Vital Signs 10/27/22 10:10 BP 118/70 Blood Pressure Location Lt brachial Position Sitting Pulse 76 Pulse Source Pulse Oximeter Temp 98.4 F Temp Source Temporal Artery Scan Pulse Oximetry (%) 96 Oxygen Delivery Method Room Air Intake Visit Reasons: EP, Bump on head Intake Note: Patient here because she had a fall about 3 weeks ago and has a bump on the left side of forehead and it has not gone away which is concerning to pt. Patient Tobacco Use Status: Never used Tobacco Allergies environmental allergies Allergy (Intermediate, Verified 10/27/22 10:09) Unknown erythromycin base [ERYTHROMYCIN BASE] Adverse Reaction (Intermediate, Verified 10/27/22 10:09) Stomach Upset, Bloating, Constipation Do you need a note to return to daycare/school/sports/work: No HPI HPI Comments History of Present Illness Details 67-year-old female presents for evaluation for a lump on the left side of her forehead along the hairline. Patient states that this lump has been there since her fall approximately 3 weeks ago. Patient states that she fell, tripped over a small fence in her yd, and hit her face on the ground. She does have some bruising to the left side of face radiating down to her neck, and some abrasions to her arms and knees. She is not reporting any pain or concerns due to that fall other than the lump on the side of her head. [facility] Medical History Annual physical exam Arthritis Asthma Chronic allergic rhinitis Depression Dysuria Edema External hemorrhoid GERD (gastroesophageal reflux disease) Hiatal hernia Hypothyroidism Mammogram normal Multinodular thyroid ALISON on CPAP Osteopenia Osteopenia Rectocele Seasonal allergic rhinitis Tubular adenoma of colon Varicose veins of both legs with edema Surgical History History of History of esophagogastroduodenoscopy (EGD) Hx laparoscopic cholecystectomy Hx of colonoscopy Family History Father Colon polyp Mother Colon polyp Sister Osteoporosis Colon polyp Sister Colon polyp Social History Household Members: Spouse Housing: House Alcohol intake: current Alcohol intake frequency: holidays/special occasions only Patient Tobacco Use Status: Never used Tobacco e-Cigarette/Vaping Use: Never Used Second Hand Smoke Exposure: No service: No Current occupational status: retired Cognitive needs: No Hearing needs: No Vision needs: Yes Review of Systems Const Details: Constitutional: No Fever, No Chills Cardiovascular: No Chest Pain, No SOB Respiratory: No Cough, No Dyspnea Gastrointestinal: No Nausea, No Vomiting, No Diarrhea, No abdominal Pain Genitourinary: No Dysuria, No Hematuria Musculoskeletal: No joint pain, No Myalgias, No Joint Swelling Skin: Small lump to the left forehead, bruising to the left eye, cheek, neck, healed abrasions to the arms and knees. No Skin lacerations, No rash Neuro: No Weakness, No Dizziness, No Headache All systems reviewed & are unremarkable except as noted in HPI and below Physical Exam Vital Signs: Last Vital Signs Temp 98.4 F 10/27/22 10:10 Pulse 76 10/27/22 10:10 BP 118/70 10/27/22 10:10 Pulse Ox 96 10/27/22 10:10 Oxygen Delivery Method Room Air 10/27/22 10:10 Appearance: Alert. Oriented X3. No acute distress. Eyes: Pupils equal, round and reactive to light. EOMI. No indication of entrapment. ENT: Pharynx normal. Neck: Normal inspection. Neck supple. CVS: Normal heart rate and rhythm. Pulses normal. Respiratory: No respiratory distress. Breath sounds normal. Skin: Left sided forehead ecchymosis extending down and surrounding the left orbit, infraorbital hollow to the posterior cheek and down to the sternocleidomastoid. Skin warm and dry. Multiple superficial abrasions to forearms and knees. Small approximately 1 mm in diameter movable hard lump to the left forehead. Extremities: No lower extremity edema. Gait well balanced well coordinated. Neuro: No motor deficit. No sensory deficit. Cranial nerves 2-12 intact. HEENT Head images: 1. 1 mm in diameter movable hard lump, nontender Assessment & Plan Assessment & Plan (1) Lump on face: Code(s): R22.0 - Localized swelling, mass and lump, head Plan 67-year-old female presents for evaluation for a lump on the left side of her forehead along the hairline. Patient states that this lump has been there since her fall approximately 3 weeks ago. Patient states that she fell, tripped over a small fence in her yd, and hit her face on the ground. She does have some bruising to the left side of face radiating down to her neck, and some abrasions to her arms and knees. She is not reporting any pain or concerns due to that fall other than the lump on the side of her head. Considering that this injury occurred 3 weeks ago, and patient has no neurovascular deficits, NIH stroke scale 0, [place] coma Scale 15, I do not feel that imaging is required at this time. She is ambulatory with an even steady gait, and is reporting no pain. The lump on her forehead is not tender to palpation, and is approximately 1 mm in diameter. This lump is movable, and I do not feel that this is associated with a possible foreign body as there are no abrasions or scabbing to the site. This could possibly be hematoma or soft tissue injury due to the fall. Low likelihood of infection or malignancy at this time. No further care required. Patient should follow-up with primary care provider. Patient verbalized understanding of discharge instructions. Verbalized understandings of signs and symptoms indicating need for emergent intervention. Patient Instructions: You were evaluated for a small hard spot on the hairline of the left forehead. Low likelihood of a foreign body or concerning mass. This is most likely due to the injuries sustained from her fall. Thank you for choosing this urgent care for evaluation. Please follow-up with primary care physician as needed. Return to the emergency department for any new, concerning, or worsening symptoms. Coding Level of Care Code Est Pt Level 3 (86744) Diagnoses Lump on face R22.0
[2022-10-27 10:10] VITALS: BP 118/70; PULSE 76; TEMP 36.9; O2SAT 96
== END 2022-10-27 10:23 | disposition home or self-care (01) ==
PROVIDERS: PCP Internal Medicine; Visit Provider Nurse Practitioner Family
DX: R22.0 Localized swelling, mass and lump, head (principal)
CPT/HCPCS: 99213

== ENCOUNTER 2022-11-04 08:55 | Outpatient (AMB) | payer MEDICARE, OTHER, SELFPAY ==
--- NOTE | 2022-11-04 08:57 | AM.OFFVISMDC ---
Intake Vital Signs 11/04/22 08:59 Height 5 ft 4 in Weight 141 lb BMI 24.2 BP 124/70 Blood Pressure Location Rt brachial Position Sitting Pulse 75 Pulse Source Pulse Oximeter Pulse Oximetry (%) 100 Oxygen Delivery Method Room Air Intake Visit Reasons: AWV Intake Note: Pt is here today for for AWV Allergies environmental allergies Allergy (Intermediate, Verified 11/04/22 09:00) Unknown erythromycin base [ERYTHROMYCIN BASE] Adverse Reaction (Intermediate, Verified 11/04/22 09:00) Stomach Upset, Bloating, Constipation Medication List - Last Reconciled 11/04/22 by Emmanuelle Paige MD azelastine-fluticasone 137-50 mcg/spray (Dymista) 1 spray intranasal BID 30 days boron citrate mg PO bupropion HCl 100 mg PO DAILY fluticasone propion-salmeterol 500-50 mcg/dose (Advair Diskus) 1 ea inhalation BID lamotrigine 150 mg PO DAILY levothyroxine 75 mcg PO DAILY 90 days loratadine 10 mg PO DAILY multivitamin 1 tab PO DAILY sennosides (senna) 8.6 mg PO BEDTIME 30 days thiamine mononitrate (vit B1) 100 mg PO DAILY venlafaxine ER 150 mg PO DAILY HPI AWV HPI Details Pt presents for annualInitiated the conversation about Advanced Directives. Advanced Directives help? patients prepare for current and future decisions about their medical treatment? and place of care. Discussed with patient that it is a process where a patients? current condition and prognosis are reviewed, their wishes for information? regarding their illness are elicited, and likely medical dilemmas are presented? and options discussed. The form can be amended as needed, reviewed yearly and? make changes as needed IPPE/AWV ? year old presents? for her ? Annual? Wellness Visit, initial visit.? Medical / Social History Reviewed? Past Medical History ?Yes? . ? [place]? of Care / Care Team list updated ?Yes . ? Surgical/Hospitalization? History ?Yes . ? Current Medications? (including OTC and supplements) ?Yes . ? Family History ?Yes? . ? Tobacco? Control form ?Yes . ? AUDIT-C (Alcohol use) form? ?Yes . ? Illicit drug use in Social? History ?Yes . ? Current diagnosis of? depression? ?No ? Appropriate PHQ2/PHQ9? completed ?Yes . ? Data entered by ?Medical? [facility] and reviewed by provider ? Fall Risk ? Fall? History? Have you had any falls with? injury in the past year? ?No . ? Have you had two or more? falls in the past year? ?No . ? Fall Risk Assessment: ?No? falls in the past year . ? HRA filled out by? the patient, reviewed by Provider and scanned. ? IPPE/AWV ? Balance? [place]? ?Yes . ? Tandem? walk ?Yes . ? Walk and? Turn ?Yes . ? Rise from? sit to stand ?Yes . ?Vision? Corrective? lens ?Yes ? Vision? screen ? Up-to-date, has an appointment [] for vision? screening and glaucoma screening ?Hearing? Whisper? test ?pass .? Initiated the conversation about Advanced Directives. Advanced Directives help? patients prepare for current and future decisions about their medical treatment? and place of care. Discussed with patient that it is a process where a patients? current condition and prognosis are reviewed, their wishes for information? regarding their illness are elicited, and likely medical dilemmas are presented? and options discussed. The form can be amended as needed, reviewed yearly and? make changes as needed Written? Plan?Completed. See Patient? Documents. [facility] Medical History Annual physical exam Arthritis Asthma Chronic allergic rhinitis Depression Dysuria Edema External hemorrhoid GERD (gastroesophageal reflux disease) Hiatal hernia Hypothyroidism Mammogram normal Multinodular thyroid ALISON on CPAP Osteopenia Osteopenia Rectocele Seasonal allergic rhinitis Tubular adenoma of colon Varicose veins of both legs with edema Surgical History History of History of esophagogastroduodenoscopy (EGD) Hx laparoscopic cholecystectomy Hx of colonoscopy Family History Father Colon polyp Mother Colon polyp Sister Osteoporosis Colon polyp Sister Colon polyp Social History Household Members: Spouse Housing: House Alcohol intake: current Alcohol intake frequency: holidays/special occasions only Patient Tobacco Use Status: Never used Tobacco e-Cigarette/Vaping Use: Never Used Second Hand Smoke Exposure: No service: No Current occupational status: retired Cognitive needs: No Hearing needs: No Vision needs: Yes Questionnaire Medicare Wellness Checkup [age] What gender do you identify with?: female During the past 4 weeks, how much have you been bothered by emotional problems such as feeling anxious, depressed, irritable, sad or downhearted, and blue?: not at all During the past 4 weeks, has your physical & emotional health limited your social activities with family, friends, neighbors, or groups?: not at all During the past 4 weeks, how much bodily pain have you generally had?: very mild pain During the past 4 weeks, was someone available to help you if you needed & wanted help?: yes, as much as I wanted During the past 4 weeks, what was the hardest physical activity you could do for at least 2 minutes?: heavy Can you get to places out of walking distance without help? (For eg., can you travel alone on buses, taxis or drive your car?): Yes Can you go shopping for groceries or clothes without someone's help?: Yes Can you prepare your own meals?: Yes Can you do your housework without help?: Yes Because of any health problems, do you need the help of another person with your personal care needs such as eating, bathing, dressing or getting around the house?: Yes Can you handle your own money without help?: Yes During the past 4 weeks, how would you rate your health in general?: very good During the past 4 weeks how have things been going for you?: pretty well Are you having difficulties driving your car?: no Do you always fasten your seat belt when you are in a car?: yes, usually During past 4 weeks, have you been bothered by the following: never: Trouble eating well?, Teeth or denture problems? and Problems using the telephone?, seldom: Falling or dizzy when standing up and Tiredness or fatigue? and always: Sexual problems? Have you fallen 2 or more times in the past year?: Yes Are you afraid of falling?: Yes Are you a smoker?: no During the past 4 weeks, how many drinks of wine, beer, or other alcoholic beverages did you have?: no alcohol at all Do you exercise for about 20 minutes 3 or more times a week?: yes, some of the time Have you been given information to help with the following?: no: Hazards in your house that might hurt you? and no: Keeping track of your medications? How often do you have trouble taking medicines the way you have been told to take them?: I always take medicine as prescribed How confident are you that you can control & manage most of your health problems?: very confident What is your race?: White Mini Mental State Exam (MMSE) Orientation What is the (year) (season) (date) (day) (month)?: year, season, date, day and month Where are we (state) ([facility]) (town or city) (hospital) (floor)?: state, county, town or city, hospital/clinic and floor Registration Name of 3 unrelated objects clearly and slowly, then ask patient to repeat all 3 of them. (1st repeat determines score. Make sure they can repeat all three): object 1, object 2 and object 3 Attention & Calculation (CHOOSE ONE) Spell WORLD backwards (DLROW): 5 letters Recall Ask patient to repeat the 3 items from question #3.: object 1, object 2 and object 3 Language Show patient a wristwatch & ask what it is. Repeat for pencil.: watch and pencil Ask the patient to repeat the phrase 'No ifs, ands, or buts' after you.: correct Ask the patient to 'take a piece of paper with their right hand' 'fold paper in half' 'place paper on floor': take paper in right hand, fold paper in half and place paper on floor Print the sentence 'CLOSE YOUR EYES' on a piece. If patient actually closes eyes then score.: followed written direction Give patient a blank piece of paper & ask to write a sentence. Score if it contains a noun & verb.: sentence contains subject and verb Ask patient to copy figure of intersecting pentagons exactly. Score if all 10 angles & 2 intersects are included.: all 10 angles present & 2 are intersected Score Score: 30 PHQ-9 Over the last 2 weeks, how often have you been bothered by any of the following problems? 1. Little interest or pleasure in doing things: not at all 2. Feeling down, depressed, or hopeless: not at all 3. Trouble falling or staying asleep, or sleeping too much: not at all 4. Feeling tired or having little energy: not at all 5. Poor appetite or overeating: not at all 6. Feeling bad about yourself - or that you are a failure or have let yourself or your family down: not at all 7. Trouble concentrating on things, such as reading the newspaper or watching television: not at all 8. Moving or speaking so slowly that other people could have noticed. Or the opposite - being so fidgety or restless that you have been moving around a lot more than usual: not at all 9. Thoughts that you would be better off or of hurting yourself in some way: not at all Total score: 0 Depression Screening Interpretation: Negative 52377 - PHQ-9 Billing: Yes Source: Developed by Drs. Shakeel Gonzalez, Raven Hernandez, Jim Hill and colleagues, with an educational jamee from [employer]. Review of Systems Const All systems reviewed & are unremarkable except as noted in HPI and below Reports no additional complaints Eyes Reports no additional complaints ENT Reports no additional complaints Card Reports no additional complaints Resp Reports no additional complaints GI Reports no additional complaints Reports no additional complaints Musc Reports no additional complaints Physical Exam Vital Signs: Last Vital Signs Pulse 75 11/04/22 08:59 BP 124/70 11/04/22 08:59 Pulse Ox 100 11/04/22 08:59 Oxygen Delivery Method Room Air 11/04/22 08:59 BMI result Body Mass Index 24.2 Const General: no acute distress HEENT Head: Yes normal to inspection Eyes General: appearance normal, both eyes and all related structures Neck Neck: Yes no lymphadenopathy and Yes supple Resp Effort & Inspection: normal respiratory effort Auscultation: clear to auscultation bilaterally Cardio Rhythm: regular rhythm Heart sounds: S1 normal heart sound present and S2 normal heart sound present GI Inspection: Yes normal to inspection Palpation (GI): Soft to palpation Percussion: Yes normal to percussion Auscultation: normal bowel sounds Skin General skin exam: no rashes or lesions noted Extrem General: Yes no clubbing, cyanosis or edema Assessment & Plan Assessment & Plan (1) Hyperlipidemia: Code(s): E78.5 - Hyperlipidemia, unspecified Plan: Continue low-cholesterol diet check lipid profile today (2) Annual physical exam: Code(s): Z00.00 - Encounter for general adult medical examination without abnormal findings Plan: Well-balanced diet regular exercise discussed with the patient she is up-to-date with mammogram colonoscopy and DEXA will be scheduled (3) Depression: Comment: f/u [facility] Code(s): F32.9 - Major depressive disorder, single episode, unspecified Plan: Continue current medications and follow-up with psychiatrist (4) Vitamin D deficiency: Code(s): E55.9 - Vitamin D deficiency, unspecified Plan: Check vitamin D3 level (5) Anemia: Code(s): D64.9 - Anemia, unspecified Plan: Check iron Orders: Orders Comprehensive [place]. Panel Fast Today E55.9 - Vitamin D deficiency, unspecified, E78.5 - Hyperlipidemia, unspecified, F32.9 - Major depressive disorder, single episode, unspecified, Z00.00 - Encounter for general adult medical examination without abnormal findings Lipid Panel Today E55.9 - Vitamin D deficiency, unspecified, E78.5 - Hyperlipidemia, unspecified, F32.9 - Major depressive disorder, single episode, unspecified, Z00.00 - Encounter for general adult medical examination without abnormal findings TSH reflex Free T4 Today E55.9 - Vitamin D deficiency, unspecified, E78.5 - Hyperlipidemia, unspecified, F32.9 - Major depressive disorder, single episode, unspecified, Z00.00 - Encounter for general adult medical examination without abnormal findings Vitamin D 25-OH Total Today E55.9 - Vitamin D deficiency, unspecified, E78.5 - Hyperlipidemia, unspecified, F32.9 - Major depressive disorder, single episode, unspecified, Z00.00 - Encounter for general adult medical examination without abnormal findings Complete Blood Count Auto Diff Today E55.9 - Vitamin D deficiency, unspecified, E78.5 - Hyperlipidemia, unspecified, F32.9 - Major depressive disorder, single episode, unspecified, Z00.00 - Encounter for general adult medical examination without abnormal findings XR DEXA axial skeleton Today E55.9 - Vitamin D deficiency, unspecified, E78.5 - Hyperlipidemia, unspecified, F32.9 - Major depressive disorder, single episode, unspecified, Z00.00 - Encounter for general adult medical examination without abnormal findings IRON PROFILE Today D64.9 - Anemia, unspecified Quality Reporting (2019) Depression/Bipolar (159/160/161/177) PHQ-9: Total score: 0 Coding Level of Care Code Medicare Subsequent (G0439) Diagnoses Hyperlipidemia E78.5 Annual physical exam Z00.00 Depression F32.9 Vitamin D deficiency E55.9 Anemia D64.9 CPT Codes Advance Care Planning - Time spent: 1-15 minutes, not on file ([id number]) Advance Care Planning Advance Care Planning discussion: Exists, not on file Forms completed: Health Care Proxy Time spent: 1-15 minutes, not on file
[2022-11-04 08:59] VITALS: BP 124/70; PULSE 75; O2SAT 100; BMI 24.2
== END 2022-11-04 09:41 | disposition home or self-care (01) ==
PROVIDERS: Visit Provider Internal Medicine
DX: Z00.00 Encounter for general adult medical examination without abnormal findings (principal); F32.9 Major depressive disorder, single episode, unspecified; E55.9 Vitamin D deficiency, unspecified; E78.5 Hyperlipidemia, unspecified; D64.9 Anemia, unspecified
CPT/HCPCS: 1124F; G0439

== ENCOUNTER 2022-11-04 09:41 | Outpatient (REF) | payer MEDICARE, OTHER, SELFPAY ==
[2022-11-04 11:14] LABS: MANUAL DIFF FLAG NO
[2022-11-04 11:55] LABS: Basophils Absolute Auto 0.1 X10*3/uL (0.0-0.2); Basophils Percent Auto 1.2 % (0-2); Eosinophils Absolute Auto 0.1 X10*3/uL (0.0-0.4); Eosinophils Percent Auto 2.9 % (0-4); Hematocrit 37.5 % (37.0-47.0); Hemoglobin 12.6 g/dl (12.0-16.0); Lymphocytes Absolute Auto 1.7 X10*3/uL (1.2-4.9); Mean Corpuscular HGB Conc 33.6 g/dl (31.0-35.0); Mean Corpuscular Hemoglobin 31.4 pg (27.0-33.0); Mean Corpuscular Volume 93.5 fL (80.0-98.0); Mean Platelet Volume 9.4 fL (9.4-12.3); Monocytes Absolute Auto 0.5 X10*3/uL (0.1-1.2); Monocytes Percent Auto 10.4 % (2-11); Neutrophils Absolute Auto 2.4 x10*3/uL (2.0-8.3); Neutrophils Percent Auto 49.5 % (45-73); Platelet Count 250 X10*3/uL (160-400); Red Blood Count 4.01 X10*6/uL (4.20-5.50); Red Cell Distribution Width 11.4 % (11.0-16.0); White Blood Count 4.8 X10*3/uL (4.8-10.8)
[2022-11-04 12:38] LABS: Alanine Aminotransferase 16 U/L (0-31); Albumin Level 3.9 g/dL (3.5-5.0); Alkaline Phosphatase 75 U/L (39-117); Anion Gap 16 (12-20); Aspartate Amino Transferase 22 U/L (5-31); Bilirubin Total 0.6 mg/dL (0.0-1.0); Blood Urea Nitrogen 9 mg/dL (9-16); Calcium 9.4 mg/dL (8.4-10.2); Carbon Dioxide 24 mmol/L (22-29); Chloride 103 mmol/L (96-108); Cholesterol 197 mg/dL; Estimated Glomerular Filt Rate > 60; Glucose Fasting 81 mg/dL (60-99); HDL Cholesterol 72 mg/dL; Iron 101 mcg/dL (30-160); LDL Cholesterol Calculated 118 mg/dl; Percent Iron Saturation 38 % (15-50); Potassium 3.9 mmol/L (3.3-5.1); Sodium 139 mmol/L (135-145); Total Iron Binding Capacity 265 mcg/dL (228-428); Total Protein 6.5 g/dL (6.5-8.0); Triglycerides 38 mg/dL; Unsaturated Iron Binding 164 ug/dL
[2022-11-04 12:43] LABS: TSH reflex Free T4 0.75 uIU/mL (0.32-4.0); Vitamin D 25-OH Total 61.8 ng/mL (>30)
== END 2022-11-04 09:42 | disposition home or self-care (01) ==
LOC: HO.HMGCLDS 09:41
PROVIDERS: PCP Internal Medicine; Visit Provider Internal Medicine
DX: Z00.00 Encounter for general adult medical examination without abnormal findings (principal); E55.9 Vitamin D deficiency, unspecified; E78.5 Hyperlipidemia, unspecified; F32.9 Major depressive disorder, single episode, unspecified; D64.9 Anemia, unspecified
CPT/HCPCS: 36415; 80053; 80061; 82306; 83540; 84443; 85025

== ENCOUNTER → 2022-12-03 10:30 | Outpatient (BNV) | payer MEDICARE, OTHER, SELFPAY | PROVIDERS: PCP Internal Medicine; Visit Provider Radiology Diagnostic Radiology | DX: M81.0 Age-related osteoporosis without current pathological fracture (principal) | CPT/HCPCS: 77080 ==

== ENCOUNTER 2022-12-03 10:40 | Outpatient (REF) | payer MEDICARE, OTHER, SELFPAY ==
--- NOTE | ~2022-12-03 | MM_ITS ---
EXAMINATION: BONE DENSITOMETRY CLINICAL INDICATION: Hyperlipidemia, unspecified. COMPARISON: Previous BD dated 10/03/2020 and baseline BD dated 02/15/2015. TECHNIQUE: Using a [employer] DXA System (software version: 13.1) manufactured by [id number], dual-energy x-ray absorptiometry was performed of the lumbar spine and left hip. The images are of good technical quality. Summary results are attached. FINDINGS: LEFT FEMUR, NECK: Current: BMD 0.726 g/cm2, Z-score -0.8, T-score -2.2, osteopenia. Prior: BMD 0.733 g/cm2. Baseline: BMD 0.890 g/cm2. LEFT FEMUR, TOTAL: Current: BMD 0.682 g/cm2, Z-score -1.4, T-score -2.6, osteoporosis, 9.2% decrease from previous, 20.7% decrease from baseline (<5% change is not significant). Prior: BMD 0.751 g/cm2. Baseline: BMD 0.860 g/cm2. AP SPINE L1-L4: Current: BMD 0.972 g/cm2, Z-score -0.4, T-score -1.7, osteopenia, 5.0% decrease from previous, 10.2% decrease from baseline (<5% change is not significant). Prior: BMD 1.023 g/cm2. Baseline: BMD 1.082 g/cm2. IDENTIFIED RISK FACTORS: Early menopause, secondary osteoporosis, history of fracture (adult), recurrent falls, osteoporosis. HISTORY OF FRACTURE: Other. MEDICATIONS: Calcium supplements or multivitamin, vitamin D. MM/XR DEXA axial skeleton IMPRESSION: 1. DIAGNOSIS: Osteoporosis based on the lowest T-score value of -2.6 in the total femur applying World Health Organization criteria. 2. 10-YEAR FRACTURE RISK PREDICTION, FRAX: According to the guidelines, FRAX calculation should only be performed on patients in the osteopenia bone density category. Therefore, FRAX was not performed on this patient. 3. Treatment Recommendations: NOF guidelines recommend consideration for treatment in postmenopausal women and men age 50 and older presenting with the following: -A hip or vertebral (clinical or morphometric) fracture. -T-score less than or equal to -2.5 at the femoral neck or spine after appropriate evaluation to exclude secondary causes. -Low bone mass at the hip or spine and a 10-year fracture probability by FRAX of greater than or equal to 3% for hip fracture or greater than or equal to 20% for major osteoporotic fracture based on the [place] adapted WHO algorithm. 4. Other Recommendations: All treatment decisions require clinical judgment and consideration of individual patient factors, including patient preferences, comorbidities, previous drug use, risk factors not captured in the FRAX model (e.g. frailty, falls, vitamin D deficiency, increased bone turnover, interval significant decline in bone density) and possible under or overestimation of fracture risk by FRAX. Additional medical evaluation for secondary cause of low bone mineral density may be appropriate. FUTURE SCAN RECOMMENDATION: People with diagnosed cases of osteoporosis or at high risk for fracture should have regular bone mineral density tests. For patients eligible for Medicare, routine testing is allowed once every 2 years. The testing frequency can be increased to one year for patients who have rapidly progressing disease, those who are receiving or discontinuing medical therapy to restore bone mass, or have additional risk factors.
== END 2022-12-03 10:41 | disposition home or self-care (01) ==
LOC: HO.MAMMO 10:40
PROVIDERS: PCP Internal Medicine; Visit Provider Internal Medicine
DX: Z13.820 Encounter for screening for osteoporosis (principal); Z78.0 Asymptomatic menopausal state
CPT/HCPCS: 77080

== ENCOUNTER 2022-12-31 13:05 | Outpatient (AMB) | payer MEDICARE, OTHER, SELFPAY ==
--- NOTE | 2022-12-31 13:13 | MHC.OFFVIS ---
Intake Vital Signs 12/31/22 13:14 Height 5 ft 4 in Weight 141 lb BMI 24.2 BP 130/72 Blood Pressure Location Lt brachial Position Sitting Pulse 88 Intake Visit Reasons: 4 month fu Intake Note: Patient follow for Patient denies any GI issues. Glove Stitcher Required: No Accompanied by: Self / Same As Patient Allergies environmental allergies Allergy (Intermediate, Verified 12/31/22 13:13) Unknown erythromycin base [ERYTHROMYCIN BASE] Adverse Reaction (Intermediate, Verified 12/31/22 13:13) Stomach Upset, Bloating, Constipation Medication List - Last Reconciled 12/31/22 by Shiv Mccann MD azelastine-fluticasone 137-50 mcg/spray (Dymista) 1 spray intranasal BID 30 days boron citrate mg PO bupropion HCl 100 mg PO DAILY calcium carbonate-mag hydroxid 350-150 mg tabs PO cholecalciferol (vitamin D3) 125 mcg PO DAILY compress.stocking,knee,reg,med As directed 15-20cm fluticasone propion-salmeterol 500-50 mcg/dose (Advair Diskus) 1 ea inhalation BID lamotrigine 150 mg PO DAILY levothyroxine 75 mcg PO DAILY 90 days loratadine 10 mg PO DAILY multivitamin 1 tab PO DAILY sennosides (senna) 8.6 mg PO BEDTIME 30 days thiamine mononitrate (vit B1) 100 mg PO DAILY venlafaxine ER (Effexor XR) 150 mg PO BEDTIME HPI 4 month fu HPI Details GI clinic visit for this 67 YF for fu of GERD, colon polyps and hemorrhoids Pt's daughter (Garry Marcelo) is also my patient. Patient has sleep apnea and uses a CPAP machine. ENDOSCOPIC STUDIES: 05/2020 [address] WAS PERFORMED [address] BLACKMAN: MARIA ISABEL-Sphincter tone adequate. Scope introdued to the sigmoid colon--mild redundancy(? element of prolapse?). Scope advanced into descending, transverse colon with gentle assist into the cecum.? PREP: GOOD Small polyp noted on valve removed excisionally, with cold bx forceps - TUBULAR ADENOMA on biopsy second smaller polyp removed in similar fashion in the proximal transverse colon. No additional lesions noted. ARV-CLEAR--There was Anal Papillary hypertrophy noted. 04/14/21 BARIUM SWALLOW SHOWED: Small sliding hiatal hernia without reflux. TODAY'S VISIT: Has a soft BM 3-4 times a day Every once in a while little mikel come out Has increased her water intake Has not noted acid reflux since the new year. Swallowing is fine Stopped taking the Senna since she was going fine - advised to take it prn. PAST VISIT: Intermittent constipation and takes Senna at bedtime for constipation. Constipation is better is she drinks a glass of water in the afternoon. Drinking warm water can help with constipation. On a vegan diet since October, due to high cholesterol Holidays were quite since daughter was sick and unable to come Still gets heartburn once in a while - infrequently she has regurgitation while working in the garden Switched to a vegan diet due to high cholesterol No heartburn since she changed her diet. Has been drinking a glass of warm water. Still has to use her finger to initiate a BM. Takes citrucil three times a day - advised to decrease to once a day Has to urinate three times at night. Thinks she has depression and can sleep till 10 am if she does not have anything planned. Takes a mood pill. Suicidal incident after she was started in [employer] and had to quit her job. Lives with a hoarder and finds it depressing to walk the halls while avoiding piled up objects. PAST VISITS: GERD well controlled with diet - stopped eating chocolate She was taking Prilosec and stopped due to concern for side effects Can have reflux if she bends down after lunch. Taking prune and citrucil twice a day for constipation Denies problems with hemorrhoids since she is having a BM daily [place] and chicken is hard to swallow. Barium swallow was normal Patient denies symptoms of heartburn, nausea, vomiting, change in appetite or weight.? Denies recent change in bowel habits, constipation, diarrhea, black stools or rectal bleeding. Family hx of colon polyps - parents and 2 siblings [facility] Medical History (Updated 12/31/22 @ 13:42 by Shiv Mccann MD) Hiatal hernia Varicose veins of both legs with edema Annual physical exam Mammogram normal Seasonal allergic rhinitis Dysuria Multinodular thyroid Osteopenia Edema Osteopenia Chronic allergic rhinitis External hemorrhoid Arthritis Depression ALISON on CPAP Asthma Hypothyroidism Rectocele Tubular adenoma of colon GERD (gastroesophageal reflux disease) Surgical History History of esophagogastroduodenoscopy (EGD) Hx laparoscopic cholecystectomy History of Hx of colonoscopy Family History Father Colon polyp Mother Colon polyp Sister Osteoporosis Colon polyp Sister Colon polyp Social History Household Members: Spouse Housing: House Alcohol intake: current Alcohol intake frequency: holidays/special occasions only Patient Tobacco Use Status: Never used Tobacco e-Cigarette/Vaping Use: Never Used Second Hand Smoke Exposure: No service: No Current occupational status: retired Cognitive needs: No Hearing needs: No Vision needs: Yes Review of Systems Const All systems reviewed & are unremarkable except as noted in HPI and below Physical Exam Vital Signs: Last Vital Signs Pulse 88 12/31/22 13:14 BP 130/72 12/31/22 13:14 BMI result Body Mass Index 30.6 Const General: healthy appearing and no acute distress Nutritional Appearance: average body habitus Orientation/consciousness: patient oriented x3 Limitations: no limitations HEENT Head: Yes normal to inspection Ears: hearing grossly normal bilaterally Eyes Sclerae: sclerae normal Pupils: Equal, round and reactive pupils present Neck Neck: Yes normal visual inspection Chest Chest palpation & inspection: normal inspection of the chest Resp Effort & Inspection: normal respiratory effort Auscultation: clear to auscultation bilaterally Cardio Palpation: normal PMI Rate: regular rate Rhythm: regular rhythm Heart sounds: S1 normal heart sound present, S2 normal heart sound present and no murmurs GI Palpation (GI): Soft to palpation, nontender and No hepatosplenomegaly present Auscultation: normal bowel sounds Rectal Exam - Female: deferred Skin General skin exam: no rashes or lesions noted Neuro General: patient oriented x3, gait normal and moves all extremities Cranial nerves: Yes Equal, round and reactive pupils present Psych Appearance: grossly normal Mental Status: mental status grossly normal Assessment & Plan Assessment & Plan (1) Chronic constipation: Code(s): K59.09 - Other constipation (2) Anemia: Code(s): D64.9 - Anemia, unspecified (3) GERD (gastroesophageal reflux disease): Code(s): K21.9 - Gastro-esophageal reflux disease without esophagitis Qualifiers: Esophagitis presence: without esophagitis Qualified Code(s): K21.9 - Gastro-esophageal reflux disease without esophagitis (4) Tubular adenoma of colon: Comment: May 2020 Small polyp noted on valve removed excisionally, with cold bx forceps - TUBULAR ADENOMA on biopsy second smaller hyperplastic polyp removed in similar fashion in the proximal transverse colon. Photograph of past colonoscopy reviewed - polyp over ICV appears to be a flat polyp Pt advised repeat colonoscopy in 3 yrs (05/2023) to check polypectomy site. Code(s): D12.6 - Benign neoplasm of colon, unspecified Plan 67 year female followed in GI for GERD, colon polyps and hemorrhoids Pt complains of dysphagia to solid food. Barium swallow was normal.? Dysphagia is likely due to esophageal motility disorder. Patient was advised to decrease Citrucel to once a day and takes senna at bedtime daily to every other day for constipation. Pt instructions: 1. Please drink 3-4 glasses of water a day. 2. You can take 4-5 dried apricots daily for constipation. 3. Warm water with 1-2 teaspoons of honey is a natural laxative Repeat CBC and iron studies checked for FU of mild anemia and repeat labs were normal. 12/31/22 Pt advised to schedule a colonoscopy for FU of colon polyps Patient was advised follow-up in 5 months Medications: New polyethylene glycol 3350 (Miralax) Mix Miralax with 64 oz(8 cups) of Crystal light. Take 2 tablets of Dulcolax qt 12 pm. Wait to have your 1st bowel movement, then begin drinking Miralax. Drink a glass of Miralax every 10-15 minutes until you are finished. You will drink at least another 4 cups of clear liquid of your choice over the next 2 hours. Please drink as many clear liquids as possible You may have clear liquids up to four hours before your procedure 17 grams PO DAILY 1 day 238 grams 0RF colon prep bisacodyl (Dulcolax (bisacodyl)) 10 mg (2 x 5 mg) PO BEDTIME 2 days 4 tabs 0RF colon prep Coding Level of Care Code Est Pt Level 4 (37963) Diagnoses Chronic constipation K59.09 Anemia D64.9 Gastroesophageal reflux disease without esophagitis K21.9 Esophagitis presence: without esophagitis Tubular adenoma of colon D12.6 Time Spent (min) 22
[2022-12-31 13:14] VITALS: BP 130/72; PULSE 88; BMI 24.2
== END 2022-12-31 15:21 | disposition home or self-care (01) ==
PROVIDERS: Visit Provider Internal Medicine Gastroenterology
DX: K59.09 Other constipation (principal); D64.9 Anemia, unspecified; K21.9 Gastro-esophageal reflux disease without esophagitis; D12.6 Benign neoplasm of colon, unspecified
CPT/HCPCS: 99214

== ENCOUNTER → 2022-12-31 13:05 | Outpatient (BNVA) | payer MEDICARE, OTHER, SELFPAY | PROVIDERS: Visit Provider Internal Medicine Gastroenterology | DX: K59.09 Other constipation (principal); D64.9 Anemia, unspecified; K21.9 Gastro-esophageal reflux disease without esophagitis; Z86.010 Personal history of colon polyps | CPT/HCPCS: 99212 ==

== ENCOUNTER 2023-01-17 15:02 | Emergency (ER) | payer MEDICARE, OTHER, SELFPAY ==
--- NOTE | ~2023-01-17 | CT_ITS ---
CT head/brain wo IV con CLINICAL INFORMATION: Reason for Exam head trauma/fall COMPARISON: No prior CT scan available for comparison. TECHNIQUE: Department standard protocol. This CT examination was performed using dose optimization techniques as appropriate, variously including the following: *Automated exposure control *Adjustment of mA and/or kV according to patient size (this includes techniques or standardized protocols for targeted exams where dose is matched to indication/reason for exam; i.e. extremities or head) *Use of iterative reconstruction technique DLP: 640 mGy-cm FINDINGS: CEREBRAL HEMISPHERES: There is no evidence of intra-axial or extra-axial mass, hemorrhage or acute infarct. BRAIN PARENCHYMA: Normal freeman-white matter differentiation. SUBDURAL SPACE: No bleed. BASAL GANGLIA AND PINEAL GLAND: Unremarkable VENTRICLES: Symmetric and normal in size. CEREBELLUM AND BRAINSTEM: No space-occupying mass, hemorrhage or acute infarct. CEREBELLOPONTINE ANGLES: No lesion found. ORBITS: No intraorbital mass. VESSELS: Unremarkable SKULL BASE: Unremarkable INCLUDED SINUSES AT SKULL BASE: Clear SKULL AND SKIN: There is extracalvarial subcutaneous hematoma right frontoparietal region at 3.[address]/CT head/brain wo IV con IMPRESSION: * No CT evidence of intracranial space-occupying mass, bleed or infarct. * Extracalvarial subcutaneous hematoma right frontoparietal region 3.4 cm.
--- NOTE | ~2023-01-17 | CT_ITS ---
EXAMINATION: CT FACIAL BONES CLINICAL INFORMATION: Fall COMPARISON: None TECHNIQUE: Noncontrast CT scan, DLP [address] examination was performed using dose optimization techniques as appropriate, variously including the following: *Automated exposure control *Adjustment of mA and/or kV according to patient size (this includes techniques or standardized protocols for targeted exams where dose is matched to indication/reason for exam; i.e. extremities or head) *Use of iterative reconstruction technique FINDINGS : SKULL BASE: Included structures at skull base are normal. BONES: Skull base, orbital bones, nasal bones, maxillary bones, mandibles, zygomatic arches, and included cervical vertebrae are normal. ORBITS: Globes are symmetric. Orbital structures are normal. SALIVARY GLANDS: Unremarkable SINUSES: Clear There are degenerative osteoarthritic changes involving both temporomandibular joints. CT/CT facial bones wo IV con IMPRESSION: * No CT evidence of facial bone fractures. 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
--- NOTE | ~2023-01-17 | XR_ITS ---
EXAMINATION: XR knee LT 4V, XR knee RT 4V CLINICAL INFORMATION: Female of 68 years with history of Reason for Exam Fall knee pain COMPARISON: Left knee 11/17/2021 TECHNIQUE: Four views of the each knee. FINDINGS: LEFT KNEE: Bones and soft tissues are normal. No fracture or joint effusion. Alignment is anatomic. There is narrowing of medial compartment of left knee joint and there is narrowing of patellofemoral compartment there is no evidence of joint effusion or fractures. RIGHT KNEE: Bones and soft tissues are normal. No fracture or joint effusion. Alignment is anatomic. Joint spaces are well maintained. No abnormal soft tissue calcification. The medial, lateral and patellofemoral compartments are preserved. No evidence of osteophytosis. No evidence of erosive changes. Mild hypertrophic overgrowth of the inferior patella. No suprapatellar joint effusion. No evidence of chondrocalcinosis or abnormal calcifications. No intra-articular foreign body. . XR/XR knee RT 4V IMPRESSION: Mild degenerative changes in left knee joint and medial and patellofemoral compartment Normal right knee.
--- NOTE | ~2023-01-17 | CT_ITS ---
EXAMINATION: CT CERVICAL SPINE without contrast CLINICAL INFORMATION: Reason for Exam Fall unto head COMPARISON: No prior CT available, TECHNIQUE: Computed axial sagittal and coronal images acquired using department's standard protocol. This CT examination was performed using dose optimization techniques as appropriate, variously including the following: *Automated exposure control *Adjustment of mA and/or kV according to patient size (this includes techniques or standardized protocols for targeted exams where dose is matched to indication/reason for exam; i.e. extremities or head) *Use of iterative reconstruction technique CONTRAST: None DLP: 1071 mGy-cm FINDINGS: SKULL BASE: Visualized structures at skull base are normal, Included facial sinuses are clear, CERVICAL VERTEBRAE: Seven cervical vertebrae identified maintaining proper height and alignment, DISCS: Loss of intervertebral disc spaces at C3-C4, C4-C5, C5-C6 suggests underlying degenerative disc disease. C1-C2: There is no CT evidence of significant osseous narrowing of the central canal or neural foramen. C2-C3: There is no CT evidence of significant osseous narrowing of the central canal or neural foramen. C3-C4: Bilateral facet joints arthropathy, combined with developed osteophyte ridge from the endplates cause narrowing of the right foramen, cannot rule out right foraminal stenosis. There is no fracture. C4-C5: Facet joints arthropathy. No fracture. Developed osteophyte from the edges of endplates, no significant osseous a stenosis of central canal or neural foramen. C5-C6: Degenerative disc disease and facet joints arthropathy, there is no significant central or foraminal stenosis. No fractures. C6-C7: There is no CT evidence of significant osseous narrowing of the central canal or neural foramen. C7-T1: There is no CT evidence of significant osseous narrowing of the central canal or neural foramen. PARAVERTEBRAL SOFT TISSUE: Paravertebral soft tissues unremarkable. CT/CT cervical spine wo IV con IMPRESSION: * No CT evidence of cervical spine fracture. * Loss of intervertebral disc spaces at C3-C4, C4-C5 and C5-C6 suggests underlying degenerative disc disease. * Developed osteophyte from the edges of endplates cause narrowing of the right foramen at C3-C4, cannot rule out right foraminal stenosis. If patient has neurological symptoms may consider correlation with MRI.
--- NOTE | ~2023-01-17 | XR_ITS ---
EXAMINATION: XR knee LT 4V, XR knee RT 4V CLINICAL INFORMATION: Female of 68 years with history of Reason for Exam Fall knee pain COMPARISON: Left knee 11/17/2021 TECHNIQUE: Four views of the each knee. FINDINGS: LEFT KNEE: Bones and soft tissues are normal. No fracture or joint effusion. Alignment is anatomic. There is narrowing of medial compartment of left knee joint and there is narrowing of patellofemoral compartment there is no evidence of joint effusion or fractures. RIGHT KNEE: Bones and soft tissues are normal. No fracture or joint effusion. Alignment is anatomic. Joint spaces are well maintained. No abnormal soft tissue calcification. The medial, lateral and patellofemoral compartments are preserved. No evidence of osteophytosis. No evidence of erosive changes. Mild hypertrophic overgrowth of the inferior patella. No suprapatellar joint effusion. No evidence of chondrocalcinosis or abnormal calcifications. No intra-articular foreign body. . XR/XR knee LT 4V IMPRESSION: Mild degenerative changes in left knee joint and medial and patellofemoral compartment Normal right knee.
[2023-01-17 15:12] VITALS: BP 151/71; PULSE 74; RESP 18; TEMP 36.3; O2SAT 99; BMI 23.5
--- NOTE | 2023-01-17 15:18 | ED_ITS ---
HPI - General Adult General Chief complaint: Fall Stated complaint: Fall/Hematoma to head Time Seen by Provider: 01/17/23 17:59 Source: patient and family Mode of arrival: ambulatory Limitations: no limitations History of Present Illness HPI narrative: 68-year-old female with a history of asthma, depression, arthritis, hypothyroidism, osteopenia presents to the ER with complaints of fall. Per patient she was walking in her garden when she believes she may have fallen on an object falling forward landing on both knees and hitting her right face. No loss of consciousness. Patient reports immediately after she had headache, felt nauseous and dizzy. Her nausea and dizziness have resolved but she still has mild headache. She denies any neck pain, vomiting, chest pain, abdominal pain, back pain. Patient does report that both her knees are painful and this is worsened with weight-bearing. She is unsure of her tetanus status. She denies any AC therapy use. Related Data Home Medications Medication Instructions Recorded Confirmed loratadine 10 mg tablet 10 mg PO DAILY 05/13/20 12/31/22 multivitamin 1 tab PO DAILY 05/13/20 12/31/22 thiamine mononitrate (vit B1) 100 100 mg PO DAILY 05/13/20 12/31/22 mg tablet boron citrate 3 mg tablet mg PO 11/03/21 12/31/22 lamotrigine 150 mg tablet 150 mg PO DAILY 01/23/22 12/31/22 bupropion HCl 100 mg tablet,12 hr 100 mg PO DAILY 07/14/22 12/31/22 sustained-release calcium carbonate-magnesium tab PO 12/31/22 12/31/22 hydroxide 350 mg-150 mg chewable tablet cholecalciferol (vitamin D3) 125 125 mcg PO DAILY 12/31/22 12/31/22 mcg (5,000 unit) capsule venlafaxine 150 mg 150 mg PO BEDTIME 12/31/22 12/31/22 capsule,extended release 24 hr (Effexor XR) Previous Rx's Medication Instructions Recorded sennosides 8.6 mg capsule (senna) 8.6 mg PO BEDTIME 30 days #30 caps 05/15/22 levothyroxine 75 mcg tablet 75 mcg PO DAILY 90 days #90 tabs 07/01/22 azelastine-fluticasone 137 mcg-50 1 spray intranasal BID 30 days #23 07/27/22 mcg/spray nasal spray (Dymista) grams fluticasone 500 mcg-salmeterol 50 1 ea inhalation BID #60 ea 09/17/22 mcg/dose blistr powdr for inhalation (Advair Diskus) compress.stocking,knee,reg,med #2 ea 12/11/22 bisacodyl 5 mg tablet,delayed 10 mg (2 x 5 mg) PO BEDTIME colon 12/31/22 release (Dulcolax (bisacodyl)) prep 2 days #4 tabs polyethylene glycol 3350 17 17 g PO DAILY colon prep 1 day 12/31/22 gram/dose oral powder (Miralax) #238 grams Allergies Allergy/AdvReac Type Severity Reaction Status Date / Time environmental allergies Allergy Intermediate Unknown Verified 12/31/22 13:13 erythromycin base AdvReac Intermediate Stomach Verified 12/31/22 13:13 [ERYTHROMYCIN BASE] Upset, Bloating, Constipation Review of Systems 2 Review of Systems: Yes all other systems are reviewed and are negative Constitutional: Constitutional: Reports no additional constitutional complaints, Denies body ache(s), Denies chills, Denies fever(s), Reports headache(s) and Denies weakness Eyes: Eyes: Reports no additional eye complaints and Denies change in vision ENT: Reports system reviewed and no additional complaints, except as documented, Reports dizziness, Reports headache(s), Denies nasal congestion, Denies nasal discharge and Denies neck pain Cardiovascular: Cardiovascular: Reports no additional cardiovascular complaints, Denies chest pain, Denies leg edema and Denies dyspnea Respiratory: Respiratory: Reports no additional respiratory complaints, Denies cough and Denies dyspnea Gastrointestinal: Gastrointestinal: Reports no additional gastrointestinal complaints, Denies abdominal pain, Denies diarrhea, Reports nausea and Denies vomiting Genitourinary: Genitourinary: Reports no additional female genitourinary complaints and Denies urinary incontinence Musculoskeletal: Musculoskeletal: Reports no additional musculoskeletal complaints, Denies back pain, Reports arthralgias, Denies joint swelling, Denies neck pain, Denies numbness and Denies tingling Integumentary/Breasts: Skin/Breast: Reports system reviewed and no additional complaints, except as docu, Denies rash and Reports wounds Neurologic: Reports system reviewed and no additional complaints, except as documented, Denies Abnormal speech present, Reports dizziness, Reports headache(s), Denies numbness, Denies tingling and Denies weakness [facility] Past Medical History Attestation statement: The following information was validated with the patient. Source: old records reviewed and nursing notes reviewed Medical History Hiatal hernia Varicose veins of both legs with edema Annual physical exam Mammogram normal Seasonal allergic rhinitis Dysuria Multinodular thyroid Osteopenia Edema Osteopenia Chronic allergic rhinitis External hemorrhoid Arthritis Depression ALISON on CPAP Asthma Hypothyroidism Rectocele Tubular adenoma of colon GERD (gastroesophageal reflux disease) Surgical History History of esophagogastroduodenoscopy (EGD) Hx laparoscopic cholecystectomy History of Hx of colonoscopy Family History Family History Father Colon polyp Mother Colon polyp Sister Osteoporosis Colon polyp Sister Colon polyp Social History Social History Household Members: Spouse Housing: House Alcohol intake: current Alcohol intake frequency: holidays/special occasions only Patient Tobacco Use Status: Never used Tobacco e-Cigarette/Vaping Use: Never Used Second Hand Smoke Exposure: No Advance Directives: No Advance Directives Information Provided: Yes service: No Current occupational status: retired Cognitive needs: No Hearing needs: No Vision needs: Yes Physical Exam ED Vital Signs: Vital Signs - 24 hr 01/17/23 15:12 Temperature 97.4 F Pulse Rate 74 Respiratory Rate 18 Blood Pressure 151/71 H Pulse Oximetry 99 Oxygen Delivery Method Room Air BMI result Body Mass Index 23.5 Const General: cooperative, healthy appearing, comfortable and no acute distress Orientation/consciousness: patient oriented x3 Limitations: no limitations HENMT Other: no hemotypanum Head: Yes normal to inspection, No Tapia's sign and Yes raccoon eyes (right side ) Head images: 2 1. +ecchymosis/swelling/abrasion Ears: hearing grossly normal bilaterally and TM's normal bilaterally General nose exam: Normal external nose present Face and sinus: Yes normal facial exam Mouth: Normal oral and palatal mucosa present Throat: Yes posterior oropharynx normal Eyes General: appearance normal, both eyes and all related structures Pupils: Equal, round and reactive pupils present Neck Other: No cervical midline tenderness, step-offs deformities Neck: Yes normal visual inspection, Yes full ROM and Yes no lymphadenopathy Chest Chest palpation & inspection: normal inspection of the chest Resp Effort & Inspection: normal respiratory effort Auscultation: clear to auscultation bilaterally Cardio Rate: regular rate Rhythm: regular rhythm Peripheral pulses: Peripheral pulses 2+ throughout GI Inspection: Yes normal to inspection Palpation (GI): Soft to palpation and nontender Auscultation: normal bowel sounds Back/Spine/Pelvis Thoracic/Lumbar Spine: thoracic and lumbar spine normal to inspection Skin General skin exam: no rashes or lesions noted Neuro General: patient oriented x3, moves all extremities, no focal motor deficits and normal sensation to monofilament Cranial nerves: Yes CN's II-XII intact bilaterally, Yes Equal, round and reactive pupils present, Yes Bilaterally intact EOM present, Yes Nystagmus not present, Yes Normal facial strength present and Yes Midline tongue present Cognition (Neuro): normal cognition Speech: No Abnormal speech present Motor exam (neuro): 5/5 motor strength present throughout Sensory Exam: Normal double simultaneous stimulation for sensation Coordination: [id number] test normal Extrem Other: to bilateral anterior knees there are abrasions with local ecchymosis. Passive and active flexion and extension of the knees are normal. Normal distal sensation. Normal DP and PT pulses distal. Normal active and passive range of motion of the ankles bilaterally Course Course Course Narrative: RME: 68 yold female presents to the ED for right frontal hematoma after tripping and falling unto her head in the garden. patient states bilateral knee pain Reevaluation(s) Reevaluation #1: Reviewed imaging. Abrasions cleansed by nursing. Randolph bandages applied to knees. Tetanus updated. APAP for pain. will discharge home with head injury care. Reviewed worrisome signs and symptoms of when to return to the emergency room. Comfortable plan for discharge home. Procedures Orthopedic Splinting/Casting Injury #1: Side: right Lower Extremity Injury Location: knee Lower Extremity Immobilizer: Randolph wrap Injury #2: Side: left Lower Extremity Injury Location: knee Lower Extremity Immobilizer: Randolph wrap Medical Decision Making Medical Decision Making MDM Narrative: 68-year-old female with a history of asthma, depression, arthritis, hypothyroidism, osteopenia presents to the ER with complaints of fall. Per patient she was walking in her garden when she believes she may have fallen on an object falling forward landing on both knees and hitting her right face. No loss of consciousness. Patient reports immediately after she had headache, felt nauseous and dizzy. Her nausea and dizziness have resolved but she still has mild headache. She denies any neck pain, vomiting, chest pain, abdominal pain, back pain. Patient does report that both her knees are painful and this is worsened with weight-bearing. She is unsure of her tetanus status. She denies any AC therapy use. To the right face there is a racoon eye with abrasion, no tapia sign or hemotypanum. Normal neuro exam with no focal deficits. to bilateral anterior knees there are abrasions with local ecchymosis. Passive and active flexion and extension of the knees are normal. Normal distal sensation. Normal DP and PT pulses distal. Normal active and passive range of motion of the ankles bilaterally. Will review CT head/facial bones/cervical spine from triage, x-ray of bilateral knees. Will need tetanus updated, APAP for pain Differential Diagnosis Differential Diagnoses: The differential diagnosis associated with the presentation includes -head-contusion, concussion, ICH, skull fracture -knee-contusion, fracture, low concern for vascular injury/dislocation Admission/Observation Consideration of admission/observation: Escalation of care including admission/observation considered Negative CT head/facial bones/cervical spine and x-rays with no need for emergent consultation from specialist, transfer to tertiary care center or admission Independent Interpretation I performed an independent interpretation of an: Plain X-Ray and CT Scan Interpretation: I independently reviewed the CT scan/x-ray and agree with rad report Radiology Impression Discussion of test interpretation with radiology: I have reviewed the radiologist's reading. Radiologist Impression: FINDINGS: CEREBRAL HEMISPHERES: There is no evidence of intra-axial or extra-axial mass, hemorrhage or acute infarct. BRAIN PARENCHYMA: Normal freeman-white matter differentiation. SUBDURAL SPACE: No bleed. BASAL GANGLIA AND PINEAL GLAND: Unremarkable VENTRICLES: Symmetric and normal in size. CEREBELLUM AND BRAINSTEM: No space-occupying mass, hemorrhage or acute infarct. CEREBELLOPONTINE ANGLES: No lesion found. ORBITS: No intraorbital mass. VESSELS: Unremarkable SKULL BASE: Unremarkable INCLUDED SINUSES AT SKULL BASE: Clear SKULL AND SKIN: There is extracalvarial subcutaneous hematoma right frontoparietal region at 3.[address]/CT head/brain wo IV con IMPRESSION: * No CT evidence of intracranial space-occupying mass, bleed or infarct. * Extracalvarial subcutaneous hematoma right frontoparietal region 3.[address] [address] [address] Scan Report Signed Patient: Ruma Marcelo MR#: [id number] : 1955 Acct:[id number] Age/Sex: 68 / F ADM Date: 01/17/23 Loc: HO.ED Attending Dr: Ordering Physician: Kelton Brewer Date of Service: 01/17/23 Procedure(s): CT facial bones wo IV con Accession Number(s): [id number] cc: Kelton Brewer; Emmanuelle Paige MD~ EXAMINATION: CT FACIAL BONES CLINICAL INFORMATION: Fall COMPARISON: None TECHNIQUE: Noncontrast CT scan, DLP [address] examination was performed using dose optimization techniques as appropriate, variously including the following: *Automated exposure control *Adjustment of mA and/or kV according to patient size (this includes techniques or standardized protocols for targeted exams where dose is matched to indication/reason for exam; i.e. extremities or head) *Use of iterative reconstruction technique FINDINGS : SKULL BASE: Included structures at skull base are normal. BONES: Skull base, orbital bones, nasal bones, maxillary bones, mandibles, zygomatic arches, and included cervical vertebrae are normal. ORBITS: Globes are symmetric. Orbital structures are normal. SALIVARY GLANDS: Unremarkable SINUSES: Clear There are degenerative osteoarthritic changes involving both temporomandibular joints. CT/CT facial bones wo IV con IMPRESSION: * No CT evidence of facial bone fractures. 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 [address] [address] [address] Scan Report Signed Patient: Ruma Marcelo MR#: [id number] : 1955 Acct:[id number] Age/Sex: 68 / F ADM Date: 01/17/23 Loc: HO.ED Attending Dr: Ordering Physician: Kelton Brewer Date of Service: 01/17/23 Procedure(s): CT cervical spine wo IV con Accession Number(s): [id number] cc: Kelton Brewer; Emmanuelle Paige MD~ EXAMINATION: CT CERVICAL SPINE without contrast CLINICAL INFORMATION: Reason for Exam Fall unto head COMPARISON: No prior CT available, TECHNIQUE: Computed axial sagittal and coronal images acquired using department's standard protocol. This CT examination was performed using dose optimization techniques as appropriate, variously including the following: *Automated exposure control *Adjustment of mA and/or kV according to patient size (this includes techniques or standardized protocols for targeted exams where dose is matched to indication/reason for exam; i.e. extremities or head) *Use of iterative reconstruction technique CONTRAST: None DLP: 1071 mGy-cm FINDINGS: SKULL BASE: Visualized structures at skull base are normal, Included facial sinuses are clear, CERVICAL VERTEBRAE: Seven cervical vertebrae identified maintaining proper height and alignment, DISCS: Loss of intervertebral disc spaces at C3-C4, C4-C5, C5-C6 suggests underlying degenerative disc disease. C1-C2: There is no CT evidence of significant osseous narrowing of the central canal or neural foramen. C2-C3: There is no CT evidence of significant osseous narrowing of the central canal or neural foramen. C3-C4: Bilateral facet joints arthropathy, combined with developed osteophyte ridge from the endplates cause narrowing of the right foramen, cannot rule out right foraminal stenosis. There is no fracture. C4-C5: Facet joints arthropathy. No fracture. Developed osteophyte from the edges of endplates, no significant osseous a stenosis of central canal or neural foramen. C5-C6: Degenerative disc disease and facet joints arthropathy, there is no significant central or foraminal stenosis. No fractures. C6-C7: There is no CT evidence of significant osseous narrowing of the central canal or neural foramen. C7-T1: There is no CT evidence of significant osseous narrowing of the central canal or neural foramen. PARAVERTEBRAL SOFT TISSUE: Paravertebral soft tissues unremarkable. CT/CT cervical spine wo IV con IMPRESSION: * No CT evidence of cervical spine fracture. * Loss of intervertebral disc spaces at C3-C4, C4-C5 and C5-C6 suggests underlying degenerative disc disease. * Developed osteophyte from the edges of endplates cause narrowing of the right foramen at C3-C4, cannot rule out right foraminal stenosis. If patient has neurological symptoms may consider correlation with MRI. [address] [address] XRay Report Signed Patient: Ruma Marcelo MR#: [id number] : 1955 Acct:[id number] Age/Sex: 68 / F ADM Date: 01/17/23 Loc: HO.ED Attending Dr: Ordering Physician: Kelton Brewer Date of Service: 01/17/23 Procedure(s): XR knee LT 4V Accession Number(s): [id number] cc: Kelton Brewer; Emmanuelle Paige MD~ EXAMINATION: XR knee LT 4V, XR knee RT 4V CLINICAL INFORMATION: Female of 68 years with history of Reason for Exam Fall knee pain COMPARISON: Left knee 11/17/2021 TECHNIQUE: Four views of the each knee. FINDINGS: LEFT KNEE: Bones and soft tissues are normal. No fracture or joint effusion. Alignment is anatomic. There is narrowing of medial compartment of left knee joint and there is narrowing of patellofemoral compartment there is no evidence of joint effusion or fractures. RIGHT KNEE: Bones and soft tissues are normal. No fracture or joint effusion. Alignment is anatomic. Joint spaces are well maintained. No abnormal soft tissue calcification. The medial, lateral and patellofemoral compartments are preserved. No evidence of osteophytosis. No evidence of erosive changes. Mild hypertrophic overgrowth of the inferior patella. No suprapatellar joint effusion. No evidence of chondrocalcinosis or abnormal calcifications. No intra-articular foreign body. . XR/XR knee LT 4V IMPRESSION: Mild degenerative changes in left knee joint and medial and patellofemoral compartment Normal right knee. Independent Historian Clinical information obtained from an independent historian. History obtained from or confirmed by: Spouse Tests considered The following testing was considered but not selected: Ct cervical spine shows - Developed osteophyte from the edges of endplates cause narrowing of the right foramen at C3-C4, cannot rule out right foraminal stenosis. If patient has neurological symptoms may consider correlation with MRI. No pain exam with normal neuro, no need for emergent MRI Discharge Plan Discharge Clinical Impression: Contusion of knee, left, Contusion of knee, right, Abrasion, Concussion Patient Disposition: Home, Self-Care Instructions: Concussion (ED), Contusion in Adults (ED) Additional Instructions: take Tylenol for pain as needed Use the Randolph bandages for compression Apply ice elevate the legs Get plenty of brain rest. Limit screen time. Return for worsening headache, vomiting, behavior change. Prescriptions: No Action senna 8.6 mg capsule 8.6 mg PO BEDTIME 30 Days Qty: 30 3RF levothyroxine 75 mcg tablet 75 mcg PO DAILY 90 Days Qty: 90 11RF azelastine-fluticasone [Dymista] 137-50 mcg/spray spray,non-aerosol 1 spray intranasal BID 30 Days Qty: 23 6RF Rx Instructions: administer into each nostril fluticasone propion-salmeterol [Advair Diskus] 500-50 mcg/dose blister with device 1 ea inhalation BID Qty: 60 6RF (DME) compress.stocking,knee,reg,med Misc See Rx Instructions .Route Qty: 2 2RF Rx Instructions: As directed 15-20cm multivitamin Tablet 1 tab PO DAILY loratadine 10 mg Tablet 10 mg PO DAILY thiamine mononitrate (vit B1) 100 mg Tablet 100 mg PO DAILY boron citrate 3 mg tablet PO lamotrigine 150 mg tablet 150 mg PO DAILY bupropion HCl 100 mg tablet sustained-release 12 hr 100 mg PO DAILY venlafaxine [Effexor XR] 150 mg capsule,extended release 24hr 150 mg PO BEDTIME cholecalciferol (vitamin D3) 125 mcg (5,000 unit) capsule 125 mcg PO DAILY calcium carbonate-mag hydroxid 350-150 mg tablet,chewable PO bisacodyl [Dulcolax (bisacodyl)] 5 mg tablet,delayed release (DR/EC) 10 mg PO BEDTIME 2 Days Qty: 4 0RF polyethylene glycol 3350 [Miralax] 17 gram/dose powder 17 g PO DAILY 1 Days Qty: 238 0RF Rx Instructions: Mix Miralax with 64 oz(8 cups) of Crystal light. Take 2 tablets of Dulcolax qt 12 pm. Wait to have your 1st bowel movement, then begin drinking Miralax. Drink a glass of Miralax every 10-15 minutes until you are finished. You will drink at least another 4 cups of clear liquid of your choice over the next 2 hours. Please drink as many clear liquids as possible You may have clear liquids up to four hours before your procedure Referrals: Emmanuelle Paige MD [Primary Care Provider] - 1 week
[2023-01-17] MEDS: Acetaminophen 325 MG TABLET 975 MG PO (18:47)
[2023-01-17] MEDS: Diphth,Pertus(ACell),Tet Adult 0.5 ML SYRINGE IM (18:51)
== END 2023-01-17 19:10 | disposition home or self-care (01) ==
PROVIDERS: Emergency Provider Emergency Medicine; PCP Internal Medicine
DX: S06.0X0A Concussion without loss of consciousness, initial encounter (principal); S80.02XA Contusion of left knee, initial encounter; S80.01XA Contusion of right knee, initial encounter; S00.81XA Abrasion of other part of head, initial encounter; R51.9 Headache, unspecified; M54.2 Cervicalgia; R11.2 Nausea with vomiting, unspecified; R42 Dizziness and giddiness; W01.10XA Fall on same level from slipping, tripping and stumbling with subsequent striking against unspecified object, initial encounter; Y93.9 Activity, unspecified; Y92.9 Unspecified place or not applicable; Y99.9 Unspecified external cause status; Z79.899 Other long term (current) drug therapy; Z23 Encounter for immunization
CPT/HCPCS: 29505; 70450; 70486; 72125; 73564; 90471; 90715; 99282; 99284

== ENCOUNTER 2023-01-29 11:04 | Outpatient (AMB) | payer MEDICARE, OTHER, SELFPAY ==
[2023-01-29 11:08] VITALS: BP 110/70; PULSE 88; TEMP 36.3; O2SAT 98; BMI 24.0
--- NOTE | 2023-01-29 11:08 | MHC.OFFWIV ---
Intake Vital Signs 01/29/23 11:08 Height 5 ft 4 in Weight 140 lb BMI 24.0 BP 110/70 Blood Pressure Location Rt brachial Position Sitting Pulse 88 Pulse Source Pulse Oximeter Temp 97.4 F Pulse Oximetry (%) 98 Oxygen Delivery Method Room Air Intake Visit Reasons: EP, rash in left lower leg Intake Note: pt is here today for rash on left lower leg Patient Tobacco Use Status: Never used Tobacco Allergies environmental allergies Allergy (Intermediate, Verified 01/29/23 11:08) Unknown erythromycin base [ERYTHROMYCIN BASE] Adverse Reaction (Intermediate, Verified 01/29/23 11:08) Stomach Upset, Bloating, Constipation Do you need a note to return to daycare/school/sports/work: No HPI HPI Comments History of Present Illness Details This is a 68-year-old female who presents to the office today for sick visit. Patient complaining of a rash on her left lower extremity that has been present for 1-2 months. She denies any fevers or chills. She is otherwise feeling well without chest pain, shortness breath, abdominal pain, or nausea/vomiting/diarrhea [facility] Medical History Hiatal hernia Varicose veins of both legs with edema Annual physical exam Mammogram normal Seasonal allergic rhinitis Dysuria Multinodular thyroid Osteopenia Edema Osteopenia Chronic allergic rhinitis External hemorrhoid Arthritis Depression ALISON on CPAP Asthma Hypothyroidism Rectocele Tubular adenoma of colon GERD (gastroesophageal reflux disease) Surgical History History of esophagogastroduodenoscopy (EGD) Hx laparoscopic cholecystectomy History of Hx of colonoscopy Family History Father Colon polyp Mother Colon polyp Sister Osteoporosis Colon polyp Sister Colon polyp Social History Household Members: Spouse Housing: House Alcohol intake: current Alcohol intake frequency: holidays/special occasions only Patient Tobacco Use Status: Never used Tobacco e-Cigarette/Vaping Use: Never Used Second Hand Smoke Exposure: No service: No Current occupational status: retired Cognitive needs: No Hearing needs: No Vision needs: Yes Review of Systems Const All systems reviewed & are unremarkable except as noted in HPI and below Reports no additional complaints Eyes Reports no additional complaints ENT Reports no additional complaints Card Reports no additional complaints Resp Reports no additional complaints GI Reports no additional complaints Reports no additional complaints Musc Reports no additional complaints Skin/Breast Reports system reviewed and no additional complaints, except as documented Neuro Reports no additional complaints Psych Reports no additional complaints Endo Reports no additional complaints Royal/Lymph Reports no additional complaints Aller/Immun Reports no additional complaints Physical Exam Const Other: Vital signs reviewed. Constitutional: Non-toxic appearing. No acute distress. Well-developed and well-nourished. HEENT: Normocephalic and atraumatic. Skin: Small area of brown hyperpigmentation on the anterior hall of left lower extremity. No erythema or fluctuance/induration. No lymphangitic streaking. No drainage. Neck: Full and painless range of motion. No cervical lymphadenopathy. Cardio: Regular rate. No lower extremity edema. No JVD. Pulmonary: No respiratory distress. No accessory muscle usage. Gastrointestinal: Soft, nontender, and nondistended in all 4 quadrants. Musculoskeletal: Normal range of motion in joints throughout the body. No deformity or other signs of injury. Neuro: Alert and oriented x4. Cranial nerves 2-12 grossly intact. No focal deficits appreciated. Psych: Normal mood and affect. Assessment & Plan Assessment & Plan (1) Venous stasis of lower extremity: Code(s): I87.8 - Other specified disorders of veins Plan: This is a 68-year-old female presenting to the office complaining of a rash of her left lower extremity. On physical examination, there is no rash or erythema but there is an area of hyperpigmentation on the anterior hall of her left lower extremity. Patient wears a compression stocking of her right lower extremity due to swelling but does not wear compression stocking of her left lower extremity. History and physical most consistent with venous stasis changes of the left lower extremity; no evidence of cellulitis or contact/irritant dermatitis. Her vital signs are stable, her physical exam is otherwise benign, and she is overall nontoxic appearing. I recommended patient follow-up with her primary care physician as soon as possible as she very likely has venous insufficiency/chronic venous stasis. Patient was encouraged to elevate her lower extremities as much as possible as well as avoid long periods of sitting/standing. Patient verbalizes her understanding and she is in agreement with the plan. Coding Level of Care Code Est Pt Level 3 (68652) Diagnoses Venous stasis of lower extremity I87.8
== END 2023-01-29 11:33 | disposition home or self-care (01) ==
PROVIDERS: PCP Internal Medicine; Visit Provider Physician Assistant Medical
DX: I87.8 Other specified disorders of veins (principal)
CPT/HCPCS: 99213

== ENCOUNTER 2023-03-05 12:13 | Outpatient (AMB) | payer MEDICARE, OTHER, SELFPAY ==
--- NOTE | 2023-03-05 12:37 | MHC.PC.OV ---
Vital Signs 03/05/23 12:38 Height 5 ft 4 in Weight 142 lb 8 oz BMI 24.5 BP 130/74 Blood Pressure Location Lt brachial Position Sitting Pulse 84 Pulse Source Pulse Oximeter Pulse Oximetry (%) 100 Oxygen Delivery Method Room Air Intake Visit Reasons: discuss rash Intake Note: pt is here for a rash on her left lower leg Allergies environmental allergies Allergy (Intermediate, Verified 03/05/23 12:42) Unknown erythromycin base [ERYTHROMYCIN BASE] Adverse Reaction (Intermediate, Verified 03/05/23 12:42) Stomach Upset, Bloating, Constipation Tobacco use date assessed: 03/05/23 Fall risk assessment: 2 + Falls in past year Last assessed Fall Risk: 03/05/23 Dental Screening Dental Screen Date: 03/05/23 Did you have a dental visit in the last 12 months?: Yes Did you have a dental problem in the last 6 months where you did not have access to dental care?: No Was dental information given to patient?: Patient has dentist HPI discuss rash HPI Details PATIENT PRESENTS FOR THE FOLLOW-UP OF CHRONIC ASTHMA CONTROLLED ON BREO. CHRONIC DEPRESSION IS STABLE ON CURRENT MEDICATIONS AND PATIENT FOLLOWS UP WITH PSYCHIATRIST. She complains of persistent brownish discoloration of her both shins left more than right. She was prescriber cream by urgent care provider without significant improvement [facility] Medical History Hiatal hernia Varicose veins of both legs with edema Annual physical exam Mammogram normal Seasonal allergic rhinitis Dysuria Multinodular thyroid Osteopenia Edema Osteopenia Chronic allergic rhinitis External hemorrhoid Arthritis Depression ALISON on CPAP Asthma Hypothyroidism Rectocele Tubular adenoma of colon GERD (gastroesophageal reflux disease) Surgical History History of esophagogastroduodenoscopy (EGD) Hx laparoscopic cholecystectomy History of Hx of colonoscopy Family History Father Colon polyp Mother Colon polyp Sister Osteoporosis Colon polyp Sister Colon polyp Social History Household Members: Spouse Housing: House Alcohol intake: current Alcohol intake frequency: holidays/special occasions only Patient Tobacco Use Status: Never used Tobacco e-Cigarette/Vaping Use: Never Used Second Hand Smoke Exposure: No service: No Current occupational status: retired Cognitive needs: No Hearing needs: No Vision needs: Yes Questionnaire Thrive Questionnaire Date Thrive assessed: 01/23/22 ALBERTA-7 AMB Questionnaire ALBERTA-7 Date ALBERTA - 7 assessed: 01/23/22 Source: Developed by Drs. Shakeel Gonzalez, Raven Hernandez, Jim Hill and colleagues, with an educational jamee from [employer]. Review of Systems Const All systems reviewed & are unremarkable except as noted in HPI and below Eyes Reports no additional complaints ENT Reports no additional complaints Card Reports no additional complaints Resp Reports no additional complaints GI Reports no additional complaints Physical exam (Primary Care) Vital Signs: Last Vital Signs Pulse 84 03/05/23 12:38 BP 130/74 03/05/23 12:38 Pulse Ox 100 03/05/23 12:38 Oxygen Delivery Method Room Air 03/05/23 12:38 BMI result Body Mass Index 24.5 Tobacco/Smoking Status: Tobacco use Status Tobacco use date assessed 03/05/23 03/05/23 12:46 Patient Tobacco Use Status Never used Tobacco 03/05/23 12:46 e-Cigarette/Vaping Use Never Used 03/05/23 12:46 Thrive Assessment: Date of Thrive Assessment Date Thrive assessed 01/23/22 03/05/23 12:46 Const General: no acute distress HENMT Face and sinus: Yes normal facial exam Neck Neck: Yes supple Resp Auscultation: clear to auscultation bilaterally Cardio Rhythm: regular rhythm Heart sounds: S1 normal heart sound present and S2 normal heart sound present Skin Other: Chronic venous stasis discoloration of both shins left more than right no ulcers or edema Assessment and Plan Assessment & Plan (1) Hyperlipidemia: Code(s): E78.5 - Hyperlipidemia, unspecified Plan: cont low cholesterol diet (2) Depression: Comment: f/u [facility] Code(s): F32.9 - Major depressive disorder, single episode, unspecified Plan: cont meds and f/u with psychiatry (3) Asthma: Code(s): J45.909 - Unspecified asthma, uncomplicated Qualifiers: Asthma severity: moderate Asthma persistence: persistent Asthma complication type: uncomplicated Qualified Code(s): J45.40 - Moderate persistent asthma, uncomplicated Plan: cont Breo (4) Venous insufficiency of both lower extremities: Code(s): I87.2 - Venous insufficiency (chronic) (peripheral) Plan: Pt was advised to wear compression knee highs Medications: Discontinued fluticasone propion-salmeterol 500-50 mcg/dose (Advair Diskus) Discontinued Reason: Doctor's Order 1 ea inhalation BID 60 ea 6RF Coding Level of Care Code Est Pt Level 4 (59128) Diagnoses Hyperlipidemia E78.5 Depression F32.9 Moderate persistent asthma without complication J45.40 Asthma severity: moderate Asthma persistence: persistent Asthma complication type: uncomplicated Venous insufficiency of both lower extremities I87.2
[2023-03-05 12:38] VITALS: BP 130/74; PULSE 84; O2SAT 100; BMI 24.5
== END 2023-03-05 14:03 | disposition home or self-care (01) ==
PROVIDERS: PCP Internal Medicine; Visit Provider Internal Medicine
DX: E78.5 Hyperlipidemia, unspecified (principal); F33.9 Major depressive disorder, recurrent, unspecified; J45.40 Moderate persistent asthma, uncomplicated; I87.2 Venous insufficiency (chronic) (peripheral)
CPT/HCPCS: 99214

== ENCOUNTER 2023-04-12 07:15 | Day surgery (SDC) | payer MEDICARE, OTHER, SELFPAY ==
[2023-04-08 14:28] VITALS: BMI 24.5
--- NOTE | 2023-04-09 11:45 | HO.ANESPROP2 ---
Documented by User: Liyah Clifford NP 04/09/23 11:46 HPI - Anesthesia Eval Consult details Narrative: 68yo F for Colonoscopy PMFSH Active Problems Active Problems: All Active Problems (Updated 04/08/23 @ 14:30 by Lorna Zarate RN) Venous insufficiency of both lower extremities (Acute) Postmenopausal (Acute) Vitamin D deficiency (Acute) Lump on face (Acute) Memory loss (Acute) Frequent falls (Acute) Poor balance (Acute) Blurred vision (Acute) Chronic constipation (Acute) Anemia (Acute) Bleeding (Acute) Hyperlipidemia (Acute) Deviated nasal septum (Acute) Sciatica (Acute) Deviated nasal septum (Acute) Obstructive sleep apnea (Acute) Hiatal hernia (Acute) Varicose veins of both legs with edema (Acute) Annual physical exam (Acute) Mammogram normal (Acute) Seasonal allergic rhinitis (Acute) Dysuria (Acute) Depression (Acute) Multinodular thyroid (Acute) Osteopenia (Acute) Hypothyroidism (Acute) Edema (Acute) Osteopenia (Acute) Chronic allergic rhinitis (Acute) External hemorrhoid (Acute) Asthma (Acute) Rectocele (Acute) Tubular adenoma of colon (Acute) GERD (gastroesophageal reflux disease) (Acute) Past Medical History Medical History Environmental allergies Hiatal hernia Varicose veins of both legs with edema Annual physical exam Mammogram normal Seasonal allergic rhinitis Dysuria Multinodular thyroid Edema Osteopenia Chronic allergic rhinitis External hemorrhoid Arthritis Depression ALISON on CPAP Asthma Hypothyroidism Rectocele Tubular adenoma of colon GERD (gastroesophageal reflux disease) Family History Family History Father Colon polyp Mother Colon polyp Sister Osteoporosis Colon polyp Sister Colon polyp Family history of problems with anesthesia: No Surgical History Surgical History History of esophagogastroduodenoscopy (EGD) Hx laparoscopic cholecystectomy History of Hx of colonoscopy History of Problems with Anesthesia: No Social History Social History Household Members: Spouse Housing: House Alcohol intake: current Alcohol intake frequency: holidays/special occasions only Patient Tobacco Use Status: Never used Tobacco e-Cigarette/Vaping Use: Never Used Second Hand Smoke Exposure: No Are you DNR?: No Advance Directives: No Advance Directives Information Provided: Yes service: No Current occupational status: retired Cognitive needs: No Hearing needs: No Vision needs: Yes Meds Allergies Allergy/AdvReac Type Severity Reaction Status Date / Time erythromycin base AdvReac Intermediate Stomach Verified 03/05/23 12:42 [ERYTHROMYCIN BASE] Upset, Bloating, Constipation Home Medications Medication Instructions Recorded Confirmed Last Taken Type loratadine 10 mg tablet 10 mg PO DAILY 05/13/20 03/05/23 Unknown History multivitamin 1 tab PO DAILY 05/13/20 03/05/23 Unknown History thiamine mononitrate (vit B1) 100 100 mg PO DAILY 05/13/20 03/05/23 Unknown History mg tablet boron citrate 3 mg tablet mg PO 11/03/21 03/05/23 Unknown History lamotrigine 150 mg tablet 150 mg PO DAILY 01/23/22 03/05/23 04/12/23 History bupropion HCl 100 mg tablet,12 hr 100 mg PO DAILY 07/14/22 03/05/23 04/12/23 History sustained-release calcium carbonate-magnesium tab PO 12/31/22 03/05/23 Unknown History hydroxide 350 mg-150 mg chewable tablet cholecalciferol (vitamin D3) 125 125 mcg PO DAILY 12/31/22 03/05/23 Unknown History mcg (5,000 unit) capsule venlafaxine 150 mg 150 mg PO BEDTIME 12/31/22 03/05/23 04/12/23 History capsule,extended release 24 hr (Effexor XR) Exam Height,Weight and Vital Signs: Height 5 ft 4 in Weight 64.864 kg Pertinent Lab Results Pertinent Lab Results: Laboratory Tests 11/04/22 07:47 WBC 4.8 Hgb 12.6 Hct 37.5 Plt Count 250 Sodium 139 Potassium 3.9 Chloride 103 Carbon Dioxide 24 BUN 9 Creatinine 0.69 Assessment and Plan Assessment Anesthesia Assessment: Chart Reviewed Final Anesthetic Review Family History of Problems with Anesthesia: No History of Problems with Anesthesia: No Documented by User: Teri Strong MD 04/12/23 09:36 [facility] Past Medical History Medical History Environmental allergies Hiatal hernia Varicose veins of both legs with edema Annual physical exam Mammogram normal Seasonal allergic rhinitis Dysuria Multinodular thyroid Edema Osteopenia Chronic allergic rhinitis External hemorrhoid Arthritis Depression ALISON on CPAP Asthma Hypothyroidism Rectocele Tubular adenoma of colon GERD (gastroesophageal reflux disease) Family History Family History Father Colon polyp Mother Colon polyp Sister Osteoporosis Colon polyp Sister Colon polyp Surgical History Surgical History History of esophagogastroduodenoscopy (EGD) Hx laparoscopic cholecystectomy History of Hx of colonoscopy Social History Social History Household Members: Spouse Housing: House Alcohol intake: current Alcohol intake frequency: holidays/special occasions only Patient Tobacco Use Status: Never used Tobacco e-Cigarette/Vaping Use: Never Used Second Hand Smoke Exposure: No Are you DNR?: No Advance Directives: No Advance Directives Information Provided: Yes service: No Current occupational status: retired Cognitive needs: No Hearing needs: No Vision needs: Yes Meds Allergies Allergy/AdvReac Type Severity Reaction Status Date / Time erythromycin base AdvReac Intermediate Stomach Verified 03/05/23 12:42 [ERYTHROMYCIN BASE] Upset, Bloating, Constipation Home Medications Medication Instructions Recorded Confirmed Last Taken Type loratadine 10 mg tablet 10 mg PO DAILY 05/13/20 03/05/23 Unknown History multivitamin 1 tab PO DAILY 05/13/20 03/05/23 Unknown History thiamine mononitrate (vit B1) 100 100 mg PO DAILY 05/13/20 03/05/23 Unknown History mg tablet boron citrate 3 mg tablet mg PO 11/03/21 03/05/23 Unknown History lamotrigine 150 mg tablet 150 mg PO DAILY 01/23/22 03/05/23 04/12/23 History bupropion HCl 100 mg tablet,12 hr 100 mg PO DAILY 07/14/22 03/05/23 04/12/23 History sustained-release calcium carbonate-magnesium tab PO 12/31/22 03/05/23 Unknown History hydroxide 350 mg-150 mg chewable tablet cholecalciferol (vitamin D3) 125 125 mcg PO DAILY 12/31/22 03/05/23 Unknown History mcg (5,000 unit) capsule venlafaxine 150 mg 150 mg PO BEDTIME 12/31/22 03/05/23 04/12/23 History capsule,extended release 24 hr (Effexor XR) Exam Airway Mallampati Class: II TM Dist: >3cm Neck ROM: Limited Loose/Missing/Broken Teeth: No Heart: RRR Lungs: CTA Assessment and Plan Assessment Anesthesia Assessment: Anesthesia Plan Discussed Final Anesthetic Review NPO: Yes ASA Class: III Final Preanesthetic Review: Meds/Allgs Chart Reviewed, Consent Obtained/Reviewed and Anes Risks/Benef Reviewed Patient Risk: Intermediate Procedure Risk: Low Anesthetic Plan Anesthetic Plan: MAC: Disposition: Standard PACU
[2023-04-12 08:17] VITALS: BP 152/74; PULSE 73; RESP 16; TEMP 36.9; O2SAT 100
--- NOTE | 2023-04-12 08:43 | MHC.SHP ---
Pre-Procedural Eval Section A Date of Service: 04/12/23 The patient is an INPATIENT: No The History & Physical has been completed within 30 days and I have reviewed it.: No Section B Chief Complaint: Colon cancer screening Relevant Family History (Specify if Yes): Yes Relevant Social History: None Present Medications: see Short Stay Collaborative assessment Medical History: Significant History (Dysuria Multinodular thyroid Osteopenia Edema Osteopenia Chronic allergic rhinitis External hemorrhoid Arthritis Depression ALISON on CPAP Asthma Hypothyroidism Rectocele Tubular adenoma of colon GERD (gastroesophageal reflux disease)) History of Previous Operations: Relevant previous surgery/procedure and date(s) (History of esophagogastroduodenoscopy (EGD) Hx laparoscopic cholecystectomy History of Hx of colonoscopy) Allergies: Allergies Allergy/AdvReac Type Severity Reaction Status Date / Time erythromycin base AdvReac Intermediate Stomach Verified 03/05/23 12:42 [ERYTHROMYCIN BASE] Upset, Bloating, Constipation Review of Systems Sugical H&P ROS: Negative: Constitution, Cardiovascular, Respiratory and Gastrointestinal Exam Surgical H&P Exam: Normal: Heart, Normal: Lungs, Normal: Extremities and Normal: Abdomen Plan Diagnosis/Plan: Unchanged I have reviewed the history and physical and performed a pertinent physical examination on my patient. No changes have occurred unless specified. Time Spent With Patient Time: Total time managing care of this patient today ____ minutes.
--- NOTE | 2023-04-12 09:22 | P.OP_ITS ---
Operative Note Operative Note Date of Service: 04/12/23 Narrative: COLONOSCOPY TILL CECUM WITH BIOPSIES, SNARE POLYPECTOMY AND HEMOCLIP PLACEMENT Pre-op diagnosis: Surveillance for colon polyps Post-op diagnosis:? Colon polyps, diverticulosis, hemorrhoids Endoscopist:? Shiv Mccann MD Anesthesia:?MAC Consent: Indications for the procedure and potential complications of bleeding, perforation, reaction to medications and missed diagnosis were discussed with the patient and informed consent was obtained. Instrument: Olympus PCF H 190 L variable stiffness pediatric colonoscope Monitoring: Vital signs and clinical assessment, intermittent blood pressure monitoring, continuous EKG monitoring, Pulse oximetry and Carbon Dioxide monitoring were done throughout the procedure. Please see anesthesia flowsheet. Colon withdrawl time was 31 minutes. Procedure: The patient was placed in the left lateral decubitis position and pre-procedure medications were administered. After a digital rectal examination of the ano-rectum, the video colonoscope was inserted into the rectum and advanced through the colon to the cecum. The colonoscope was slowly withdrawn in a retrograde panoramic fashion and the colon mucosa was carefully examined including a retroflexed view of the rectum. Findings and interventions are described below. Procedure Difficulty: Colon was long and tortuous and there was spasm and loop formation. LLQ pressure was applied to intubate the transverse colon Findings: Terminal Ileum: Not evaluated Cecum: A 4-5 mm sessile polyp - removed with a cold biopsy Ascending Colon: Four 10 to 15 mm sessile polyps - removed with a hot snare. Transverse Colon: A 2 cms pedunculated polyp at 60 cms - removed with a hot snare. Polypectomy site was closed with 1 hemoclip. A 10-12 mm sessile polyp - removed with a hot snare Descending Colon: Moderate diverticulosis Sigmoid Colon: A 10 mm sessile polyp - removed with a hot snare. Severe diverticulosis with luminal narrowing Rectum: Normal Ano-rectum: Small internal hemorrhoids Colon preparation: Good after some irrigation [place] Bowel Preparation Scale Right colon; 2 Transverse colon: 2 Left colon; 2 (0 = Unprepared colon segment with mucosa not seen due to solid stool that cannot be cleared. 1 = Portion of mucosa of the colon segment seen, but other areas of the colon segment not well seen due to staining, residual stool and/or opaque liquid. 2 = Minor amount of residual staining, small fragments of stool and/or opaque liquid, but mucosa of colon segment seen well. 3 = Entire mucosa of colon segment seen well with no residual staining, small fragments of stool or opaque liquid) Impression and Post Procedure Diagnosis: Colonoscopy Findings: One small and seven medium sized polyps removed Moderate to severe diverticulosis seen in the left colon Small hemorrhoids on retroflexed exam. Plan: Await pathology results Patient has an appointment on 04/29/22 in the GI Clinic with Shiv Mccann M.D. Repeat Colonoscopy interval based on path results - in 2 years if polyps are adenomatous and 5 years if polyps are hyperplastic. Above findings were reviewed with the patient and colon polyps and diverticulosis handouts were given in the discharge area
[2023-04-12 10:25] VITALS: BP 131/71; PULSE 68; RESP 16; TEMP 36.1; O2SAT 100
[2023-04-12 10:40] VITALS: BP 134/64; PULSE 68; RESP 16; TEMP 36.9; O2SAT 100
== END 2023-04-12 11:41 | disposition home or self-care (01) ==
PROVIDERS: PCP Internal Medicine; Visit Provider Internal Medicine Gastroenterology
PROC: 0DJD8ZZ Inspection of Lower Intestinal Tract, Via Natural or Artificial Opening Endoscopic (ICD-10-PCS; CPT 45378; principal; 2023-04-12 09:20)
DX: Z12.11 Encounter for screening for malignant neoplasm of colon (principal); Z86.010 Personal history of colon polyps; D12.0 Benign neoplasm of cecum; D12.2 Benign neoplasm of ascending colon; D12.3 Benign neoplasm of transverse colon; K63.5 Polyp of colon; K57.30 Diverticulosis of large intestine without perforation or abscess without bleeding; K64.8 Other hemorrhoids; K64.4 Residual hemorrhoidal skin tags; K21.9 Gastro-esophageal reflux disease without esophagitis; E04.2 Nontoxic multinodular goiter; E03.9 Hypothyroidism, unspecified; N81.6 Rectocele; M85.80 Other specified disorders of bone density and structure, unspecified site; G47.33 Obstructive sleep apnea (adult) (pediatric); J45.909 Unspecified asthma, uncomplicated; R30.0 Dysuria; R60.9 Edema, unspecified; F32.A Depression, unspecified; Z79.899 Other long term (current) drug therapy; Z99.89 Dependence on other enabling machines and devices; Z88.1 Allergy status to other antibiotic agents; Z90.49 Acquired absence of other specified parts of digestive tract
CPT/HCPCS: 45385; 45380; 88305; J1100; J2405; J2704

== ENCOUNTER → 2023-04-12 07:15 | Outpatient (BNV) | payer MEDICARE, OTHER, SELFPAY | PROVIDERS: PCP Internal Medicine; Visit Provider Internal Medicine Gastroenterology | DX: Z12.11 Encounter for screening for malignant neoplasm of colon (principal); D12.0 Benign neoplasm of cecum; D12.2 Benign neoplasm of ascending colon; D12.3 Benign neoplasm of transverse colon; D12.5 Benign neoplasm of sigmoid colon; K57.30 Diverticulosis of large intestine without perforation or abscess without bleeding; K64.8 Other hemorrhoids | CPT/HCPCS: 45380; 45385 ==

== ENCOUNTER 2023-04-29 13:31 | Outpatient (AMB) | payer MEDICARE, OTHER, SELFPAY ==
[2023-04-29 13:44] VITALS: BP 136/76; PULSE 83; BMI 23.8
--- NOTE | 2023-04-29 13:44 | A.OFFVIS_ITS ---
Intake Vital Signs 04/29/23 13:44 Height 5 ft 4 in Weight 138 lb 14.259 oz BMI 23.8 BP 136/76 Blood Pressure Location Lt brachial Position Sitting Pulse 83 Intake Visit Reasons: S/P [place]; Dr. Mccann Intake Note: Ruma presents in the office as a follow up colonoscopy. CC: She is not having any concerns at this time. Administrative Assistant Coordinator Required: No Allergies erythromycin base [ERYTHROMYCIN BASE] Adverse Reaction (Intermediate, Verified 04/29/23 13:48) Stomach Upset, Bloating, Constipation Medication List - Last Reconciled 04/29/23 by Shiv Mccann MD alendronate 70 mg PO QWEEK azelastine-fluticasone 137-50 mcg/spray 1 spray intranasal BID boron citrate mg PO Breo Ellipta 200-25 mcg/dose (fluticasone furoate-vilanterol) 1 inh inhalation DAILY NS bupropion HCl 100 mg PO DAILY calcium carbonate-mag hydroxid 350-150 mg tabs PO cholecalciferol (vitamin D3) 125 mcg PO DAILY compress.stocking,knee,reg,med As directed 15-20cm lamotrigine 150 mg PO DAILY levothyroxine 75 mcg PO DAILY 90 days loratadine 10 mg PO DAILY multivitamin 1 tab PO DAILY thiamine mononitrate (vit B1) 100 mg PO DAILY venlafaxine ER (Effexor XR) 150 mg PO BEDTIME HPI S/P [place]; Dr. Mccann HPI Details GI clinic visit for this 67 YF for fu of GERD, colon polyps and hemor rhoids Pt's daughter (Garry Marcelo) is also my patient. Patient has sleep apnea and uses a CPAP machine. ENDOSCOPIC STUDIES: 04/12/23 COLONOSCOPY SHOWED: One small and seven medium sized polyps removed Moderate to severe diverticulosis seen in the left colon Small hemorrhoids on retroflexed exam. Plan: Repeat Colonoscopy interval based on path results - in 2 years if polyps are adenomatous and 5 years if polyps are hyperplastic. 05/[address] BLACKMAN: MARIA ISABEL-Sphincter tone adequate. Scope introdued to the sigmoid colon--mild redundancy(? element of prolapse?). Scope advanced into descending, transverse colon with gentle assist into the cecum.? PREP: GOOD Small polyp noted on valve removed excisionally, with cold bx forceps - TUBULAR ADENOMA on biopsy second smaller polyp removed in similar fashion in the proximal transverse colon. No additional lesions noted. ARV-CLEAR--There was Anal Papillary hypertrophy noted. 04/14/21 BARIUM SWALLOW SHOWED:Small slid ing hiatal hernia without reflux. TODAY'S VISIT: Patient is accompanied by her Colonoscopy and bx results erviewed. Pt had a BM about a week after having the colonoscopy. Notes intermittent hard stools. PAST VISIT: Has a soft BM 3-4 times a day Every once in a while little mikel come out Has increased her water intake Has not noted acid reflux since the new year. Swallowing is fine Stopped taking the Senna since she was going fine - advised to take it prn. Intermittent constipation and takes Senna at bedtime for constipation. Constipation is better is she drinks a glass of water in the afternoon. Drinking warm water can help with constipation. On a vegan diet since October, due to high cholesterol Holidays were quite since daughter was sick and unable to come Still gets heartburn once in a while - infrequently she has regurgitation while working in the garden Switched to a vegan diet due to high cholesterol No heartburn since she changed her diet. Has been drinking a glass of warm water. Still has to use her finger to initiate a BM. Takes citrucil three times a day - advised to decrease to once a day Has to urinate three times at night. Thinks she has depression and can sleep till 10 am if she does not have anything planned. Takes a mood pill. Suicidal incident after she was started in [employer] and had to quit her job. Lives with a hoarder and finds it depressing to walk the halls while avoiding piled up objects. PAST VISITS: GERD well controlled with diet - stopped eating chocolate She was taking Prilosec and stopped due to concern for side effects Can have reflux if she bends down after lunch. Taking prune and citrucil twice a day for constipation Denies problems with hemorrhoids since she is having a BM daily Baxter and chicken is hard to swallow. Barium swallow was normal Patient denies symptoms of heartburn, nausea, vomiting, change in appetite or weight.? Denies recent change in bowel habits, constipation, diarrhea, black stools or rectal bleeding. Family hx of colon polyps - parents and 2 siblings [facility] Medical History Environmental allergies Hiatal hernia Varicose veins of both legs with edema Annual physical exam Mammogram normal Seasonal allergic rhinitis Dysuria Multinodular thyroid Edema Osteopenia Chronic allergic rhinitis External hemorrhoid Arthritis Depression ALISON on CPAP Asthma Hypothyroidism Rectocele Tubular adenoma of colon GERD (gastroesophageal reflux disease) Surgical History History of esophagogastroduodenoscopy (EGD) Hx laparoscopic cholecystectomy History of Hx of colonoscopy Family History Father Colon polyp Mother Colon polyp Sister Osteoporosis Colon polyp Sister Colon polyp Social History Household Members: Spouse Housing: House Alcohol intake: current Alcohol intake frequency: holidays/special occasions only Patient Tobacco Use Status: Never used Tobacco e-Cigarette/Vaping Use: Never Used Second Hand Smoke Exposure: No service: No Current occupational status: retired Cognitive needs: No Hearing needs: No Vision needs: Yes Review of Systems Const All systems reviewed & are unremarkable except as noted in HPI and below Physical Exam Vital Signs: Last Vital Signs Pulse 83 04/29/23 13:44 BP 136/76 04/29/23 13:44 BMI result Body Mass Index 23.8 Const General: healthy appearing and no acute distress Nutritional Appearance: average body habitus Orientation/consciousness: patient oriented x3 Limitations: no limitations HEENT Head: Yes normal to inspection Ears: hearing grossly normal bilaterally Eyes Sclerae: sclerae normal Pupils: Equal, round and reactive pupils present Neck Neck: Yes normal visual inspection Chest Chest palpation & inspection: normal inspection of the chest Resp Effort & Inspection: normal respiratory effort Auscultation: clear to auscultation bilaterally Cardio Palpation: normal PMI Rate: regular rate Rhythm: regular rhythm Heart sounds: S1 normal heart sound present, S2 normal heart sound present and no murmurs GI Palpation (GI): Soft to palpation, nontender and No hepatosplenomegaly present Auscultation: normal bowel sounds Rectal Exam - Female: deferred Skin General skin exam: no rashes or lesions noted Neuro General: patient oriented x3, gait normal and moves all extremities Cranial nerves: Yes Equal, round and reactive pupils present Psych Appearance: grossly normal Mental Status: mental status grossly normal Assessment & Plan Assessment & Plan (1) Chronic constipation: Code(s): K59.09 - Other constipation (2) Anemia: Code(s): D64.9 - Anemia, unspecified (3) Hiatal hernia: Code(s): K44.9 - Diaphragmatic hernia without obstruction or gangrene (4) Tubular adenoma of colon: Comment: May 2020 Small polyp noted on valve removed excisionally, with cold bx forceps - TUBULAR ADENOMA on biopsy second smaller hyperplastic polyp removed in similar fashion in the proximal transverse colon. Photograph of past colonoscopy reviewed - polyp over ICV appears to be a flat polyp Pt advised repeat colonoscopy in 3 yrs (05/2023) to check polypectomy site. Code(s): D12.6 - Benign neoplasm of colon, unspecified (5) GERD (gastroesophageal reflux disease): Code(s): K21.9 - Gastro-esophageal reflux disease without esophagitis Qualifiers: Esophagitis presence: without esophagitis Qualified Code(s): K21.9 - Gastro-esophageal reflux disease without esophagitis (6) Rectocele: Code(s): N81.6 - Rectocele Plan 68 year female followed in GI for GERD, colon polyps and hemorrhoids Pt complains of dysphagia to solid food. Barium swallow was normal.? Dysphagia is likely due to esophageal motility disorder. Patient was advised to decrease Citrucel to once a day and takes senna at bedtime daily to every other day for constipation. Pt instructions: 1. Please drink 3-4 glasses of water a day. 2. You can take 4-5 dried apricots daily for constipation. 3. Warm water with 1-2 teaspoons of honey is a natural laxative Repeat CBC and iron studies checked for FU of mild anemia and repeat labs were normal. 04/29/23 colonoscopy results were reviewed. Patient was advised to take MiraLax twice a week for intermittent constipation. Patient was advised follow-up in 12 months Medications: New polyethylene glycol 3350 (Miralax) 17 grams orally twice a week; 238 grams 3RF 30 days K59.09 - Other constipation Coding Level of Care Code Est Pt Level 3 (50001) Diagnoses Chronic constipation K59.09 Anemia D64.9 Hiatal hernia K44.9 Tubular adenoma of colon D12.6 Gastroesophageal reflux disease without esophagitis K21.9 Esophagitis presence: without esophagitis Rectocele N81.6 Time Spent (min) 18
== END 2023-04-29 14:36 | disposition home or self-care (01) ==
PROVIDERS: PCP Internal Medicine; Visit Provider Internal Medicine Gastroenterology
DX: K59.09 Other constipation (principal); D64.9 Anemia, unspecified; K44.9 Diaphragmatic hernia without obstruction or gangrene; D12.6 Benign neoplasm of colon, unspecified; K21.9 Gastro-esophageal reflux disease without esophagitis; N81.6 Rectocele
CPT/HCPCS: 99213

== ENCOUNTER → 2023-04-29 13:31 | Outpatient (BNVA) | payer MEDICARE, OTHER, SELFPAY | PROVIDERS: PCP Internal Medicine; Visit Provider Internal Medicine Gastroenterology | DX: K59.09 Other constipation (principal); D64.9 Anemia, unspecified; K44.9 Diaphragmatic hernia without obstruction or gangrene; D12.6 Benign neoplasm of colon, unspecified; K21.9 Gastro-esophageal reflux disease without esophagitis; N81.6 Rectocele | CPT/HCPCS: 99212 ==

== ENCOUNTER 2023-06-22 06:34 | Emergency (ER) | payer MEDICARE, OTHER, SELFPAY ==
[2023-06-22 06:47] VITALS: BP 162/82; PULSE 80; O2SAT 99
[2023-06-22 06:55] VITALS: BP 159/79; PULSE 75; RESP 18; TEMP 36.9; O2SAT 98; BMI 23.7
[2023-06-22 07:12] LABS: MANUAL DIFF FLAG NO
[2023-06-22 07:17] LABS: Basophils Absolute Auto 0.1 X10*3/uL (0.0-0.2); Basophils Percent Auto 1.4 % (0-2); Eosinophils Absolute Auto 0.1 X10*3/uL (0.0-0.4); Eosinophils Percent Auto 3.1 % (0-4); Hematocrit 38.7 % (37.0-47.0); Hemoglobin 13.1 g/dl (12.0-16.0); Imm Gran Abs Auto 0.01 X10*3/uL (0.00-0.03); Imm Gran Pct Auto 0.2 % (0.0-0.4); Lymphocytes Absolute Auto 1.8 X10*3/uL (1.2-4.9); Lymphocytes Percent Auto 43.4 % (20-40); Mean Corpuscular HGB Conc 33.9 g/dl (31.0-35.0); Mean Corpuscular Hemoglobin 31.6 pg (27.0-33.0); Mean Corpuscular Volume 93.5 fL (80.0-98.0); Mean Platelet Volume 9.1 fL (9.4-12.3); Monocytes Absolute Auto 0.4 X10*3/uL (0.1-1.2); Monocytes Percent Auto 9.2 % (2-11); Neutrophils Absolute Auto 1.8 x10*3/uL (2.0-8.3); Neutrophils Percent Auto 42.7 % (45-73); Platelet Count 206 X10*3/uL (160-400); Red Blood Count 4.14 X10*6/uL (4.20-5.50); Red Cell Distribution Width 11.6 % (11.0-16.0); White Blood Count 4.2 X10*3/uL (4.8-10.8)
[2023-06-22 07:21] LABS: Prothrombin Time 11.6 SEC (11.1-13.3)
--- NOTE | 2023-06-22 08:04 | ED.EPISTAXIS ---
History of Present Illness General Chief Complaint: Epistaxis Stated Complaint: NOSEBLEED Time Seen by Provider: 06/22/23 08:03 Source: patient Mode of arrival: ambulatory Limitations: no limitations History of Present Illness HPI Narrative: This is a 68-year-old female presenting with nosebleed that started at approximately 06:00 this morning patient woke up with a nosebleed. Got nervous because the blood did not seem to stop, she reports her entire life she has been getting nose bleeds every day her entire life. Patient has no known bleeding disorders, not on blood thinners. Denies trauma to nose. Denies headache, vision changes, dizziness, weakness, nausea, vomiting, abdominal pain, chest pain and shortness of breath. Related Data Home Medications Medication Instructions Recorded Confirmed loratadine 10 mg tablet 10 mg PO DAILY 05/13/20 04/29/23 multivitamin 1 tab PO DAILY 05/13/20 04/29/23 thiamine mononitrate (vit B1) 100 100 mg PO DAILY 05/13/20 04/29/23 mg tablet boron citrate 3 mg tablet mg PO 11/03/21 04/29/23 lamotrigine 150 mg tablet 150 mg PO DAILY 01/23/22 04/29/23 bupropion HCl 100 mg tablet,12 hr 100 mg PO DAILY 07/14/22 04/29/23 sustained-release calcium carbonate-magnesium tab PO 12/31/22 04/29/23 hydroxide 350 mg-150 mg chewable tablet cholecalciferol (vitamin D3) 125 125 mcg PO DAILY 12/31/22 04/29/23 mcg (5,000 unit) capsule venlafaxine 150 mg 150 mg PO BEDTIME 12/31/22 04/29/23 capsule,extended release 24 hr (Effexor XR) Previous Rx's Medication Instructions Recorded compress.stocking,knee,reg,med #2 ea 01/29/23 Breo Ellipta 200 mcg-25 mcg/dose 1 inh inhalation DAILY #60 ea 02/23/23 powder for inhalation (fluticasone furoate-vilanterol) levothyroxine 75 mcg tablet 75 mcg PO DAILY 90 days #90 tabs 03/31/23 polyethylene glycol 3350 17 17 g PO .COMPLEX 30 days #238 grams 04/29/23 gram/dose oral powder (Miralax) azelastine 137 mcg-fluticasone 50 1 spray intranasal BID #23 grams 06/17/23 mcg/spray nasal spray alendronate 70 mg tablet 70 mg PO QWEEK #13 tabs 06/22/23 Allergies Allergy/AdvReac Type Severity Reaction Status Date / Time erythromycin base AdvReac Intermediate Stomach Verified 06/22/23 06:58 [ERYTHROMYCIN BASE] Upset, Bloating, Constipation Review of Systems Review of Systems: Yes all other systems are reviewed and are negative PMFSH Past Medical History Attestation statement: The following information was validated with the patient. Source: old records reviewed and nursing notes reviewed Medical History Environmental allergies Hiatal hernia Varicose veins of both legs with edema Annual physical exam Mammogram normal Seasonal allergic rhinitis Dysuria Multinodular thyroid Edema Osteopenia Chronic allergic rhinitis External hemorrhoid Arthritis Depression ALISON on CPAP Asthma Hypothyroidism Rectocele Tubular adenoma of colon GERD (gastroesophageal reflux disease) Surgical History History of esophagogastroduodenoscopy (EGD) Hx laparoscopic cholecystectomy History of Hx of colonoscopy Family History Family History Father Colon polyp Mother Colon polyp Sister Osteoporosis Colon polyp Sister Colon polyp Social History Social History Household Members: Spouse Housing: House Alcohol intake: current Alcohol intake frequency: holidays/special occasions only Patient Tobacco Use Status: Never used Tobacco e-Cigarette/Vaping Use: Never Used Second Hand Smoke Exposure: No Advance Directives: Yes Advance Directives Information Provided: Yes Advance Directives on File: No service: No Current occupational status: retired Cognitive needs: No Hearing needs: No Vision needs: Yes Physical Exam Vital Signs: Vital Signs: Last Vital Signs Temp 98.4 F 06/22/23 06:55 Pulse 75 06/22/23 06:55 Resp 18 06/22/23 06:55 BP 159/79 H 06/22/23 06:55 Pulse Ox 98 06/22/23 06:55 O2 Del Method Room Air 06/22/23 06:55 BMI result Body Mass Index 23.7 vss Appearance: Alert.? Oriented X3.? No acute distress.? Head: Normocephalic, atraumatic, no step-offs or deformities Eyes: Pupils equal, round and reactive to light.? ENT: Pharynx normal.? Neck: Normal inspection.? Neck supple.? CVS: Normal heart rate and rhythm.? Pulses normal.? Respiratory: No respiratory distress.? Breath sounds normal.? Abdomen: Soft and nontender.? Skin: Skin warm and dry.? Normal skin color.? Normal skin turgor.? Extremities: No lower extremity edema.? No calf ttp. 5/5 strength to bilateral upper and lower extremities Back: No midline tenderness, no C-spine tenderness, full range of motion, no CVA tenderness bilaterally Neuro: Oriented X 3.? No motor deficit.? No sensory deficit. CN 2-12 intact Course Reevaluation(s) Reevaluation #1: CBC no acute findings appears to be at her baseline. Coags unremarkable. Time: 08:07 Reevaluation #2: Not having bleeding anymore. Will have her follow up with PCP and likely hematology but will require pcp referral she tells me she will call. Educated patient on diagnosis and treatment plan, answered all question, patient verbalizes understanding. At this time patient will be discharged home, advised to return with new or worsening symptoms. Educated on worrisome signs and symptoms and when to return. At this time I feel comfortable discharge home. Time: 08:45 Reevaluation #3: Patient sent home w/ Afrin. Educated patient on diagnosis and treatment plan, answered all question, patient verbalizes understanding. At this time patient will be discharged home, advised to return with new or worsening symptoms. Educated on worrisome signs and symptoms and when to return. At this time I feel comfortable discharge home. Medical Decision Making Medical Decision Making [facility] [place] Narrative: [id number] 68-year-old female presents with complaints of nosebleed that started upon waking at 06:00. Not on blood thinner no trauma. Physical exam nose is no longer bleeding. Dried blood noted in the right nares. History and physical exam concerning for epistaxis likely a posterior bleed. No signs of hypertensive urgency, emergency, stroke, acute blood loss anemia. Unlikely metabolic derangements. Plan at this time basic labs and coags ordered. Differential Diagnosis Differential Diagnoses: The differential diagnosis associated with the presentation includes History and physical exam concerning for epistaxis likely a posterior bleed. No signs of hypertensive urgency, emergency, stroke, acute blood loss anemia. Unlikely metabolic derangements. Admission/Observation Consideration of admission/observation: Escalation of care including admission/observation considered Unlikely Lab Data MDM Lab Attestation statement: I reviewed the patient's lab results. 06/22/23 07:07 Labs: Lab Results 06/22/23 Range/Units 07:07 WBC 4.2 L (4.8-10.8) X10*3/uL RBC 4.14 L (4.20-5.50) X10*6/uL Hgb 13.1 (12.0-16.0) g/dl Hct 38.7 (37.0-47.0) % MCV 93.5 (80.0-98.0) fL MCH 31.6 (27.0-33.0) pg MCHC 33.9 (31.0-35.0) g/dl RDW 11.6 (11.0-16.0) % Plt Count 206 (160-400) X10*3/uL MPV 9.1 L (9.4-12.3) fL Immature Gran % (Auto) 0.2 (0.0-0.4) % Neut % (Auto) 42.7 L (45-73) % Lymph % (Auto) 43.4 H (20-40) % [place] % (Auto) 9.2 (2-11) % Eos % (Auto) 3.1 (0-4) % Baso % (Auto) 1.4 (0-2) % Lymph # (Auto) 1.8 (1.2-4.9) X10*3/uL [place] # (Auto) 0.4 (0.1-1.2) X10*3/uL Eos # (Auto) 0.1 (0.0-0.4) X10*3/uL Baso # (Auto) 0.1 (0.0-0.2) X10*3/uL Abs Immat Gran (auto) 0.01 (0.00-0.03) X10*3/uL Absolute Neuts (auto) 1.8 L (2.0-8.3) x10*3/uL Absolute Nucleated RBC 0.000 (0.0-0.012) X10*3/uL Nucleated RBC % (auto) 0.0 (0.0-0.2) /100WBC PT 11.6 (11.1-13.3) SEC INR 1.0 (0.9-1.1) Chronic Conditions Patient?s care impacted by: Other (ALISON, deviated septum, venous insufficiency, hiatal hernia, hypothyroidism, external hemorrhoids, asthma, rectocele, GERD, tubular adenoma of the colon) Critical Care Time Critical Care Time Critical Care Time: No Discharge Plan Discharge Clinical Impression: Epistaxis Patient Disposition: Home, Self-Care Instructions: Nosebleed (ED) Additional Instructions: Take your medications as prescribed. If you were prescribed antibiotics today, it is important that you take your medication to their entirety, do not skip any doses, do not finish them early. Follow-up with your primary care provider this week. Return to the emergency department with new or worsening symptoms. Such as fevers, chills, chest pain, shortness of breath, nausea, vomiting, dizziness, headache, vision changes, lethargy In case of emergency call 911 Prescriptions: No Action (DME) compress.stocking,knee,reg,med Misc See Rx Instructions .Route Qty: 2 2RF Rx Instructions: As directed 15-20cm fluticasone furoate-vilanterol [Breo Ellipta] 200-25 mcg/dose blister with device 1 inh inhalation DAILY Qty: 60 6RF levothyroxine 75 mcg tablet 75 mcg PO DAILY 90 Days Qty: 90 0RF azelastine-fluticasone 137-50 mcg/spray spray,non-aerosol 1 spray intranasal BID Qty: 23 6RF alendronate 70 mg tablet 70 mg PO QWEEK Qty: 13 3RF multivitamin Tablet 1 tab PO DAILY loratadine 10 mg Tablet 10 mg PO DAILY thiamine mononitrate (vit B1) 100 mg Tablet 100 mg PO DAILY boron citrate 3 mg tablet PO lamotrigine 150 mg tablet 150 mg PO DAILY bupropion HCl 100 mg tablet sustained-release 12 hr 100 mg PO DAILY polyethylene glycol 3350 [Miralax] 17 gram/dose powder 17 g PO .COMPLEX 30 Days Qty: 238 3RF Rx Instructions: 17 grams orally twice a week; venlafaxine [Effexor XR] 150 mg capsule,extended release 24hr 150 mg PO BEDTIME cholecalciferol (vitamin D3) 125 mcg (5,000 unit) capsule 125 mcg PO DAILY calcium carbonate-mag hydroxid 350-150 mg tablet,chewable PO Referrals: ED Physician,Generic [Physician] - 2 days Stand Alone Forms: Work/School Release
[2023-06-22 09:38] VITALS: BP 119/73; PULSE 77; RESP 16; TEMP 36.8; O2SAT 100
[2023-06-22] MEDS: Oxymetazoline HCl 0.05 % Nasal 15 ML SPRAY 2 SPRAY NOSTRIL-B (09:42)
[2023-06-22 09:45] VITALS: BP 119/73; PULSE 77; RESP 16; TEMP 36.8; O2SAT 100
--- NOTE | 2023-06-22 09:46 | PC.NURSE ---
pt provided w/ afrin to take home. medication not administered at this time d/t epistaxis episode subsiding prior to being discharged. pt provided w/ d/c paperwork. [place] [facility] time.
== END 2023-06-22 09:47 | disposition home or self-care (01) ==
PROVIDERS: Emergency Provider Emergency Medicine; PCP Internal Medicine
DX: R04.0 Epistaxis (principal); G47.33 Obstructive sleep apnea (adult) (pediatric); E03.9 Hypothyroidism, unspecified; Z79.899 Other long term (current) drug therapy
CPT/HCPCS: 36415; 85025; 85610; 99283; 99284

== ENCOUNTER 2023-07-27 15:10 | Emergency (ER) | payer MEDICARE, OTHER, SELFPAY ==
[2023-07-27] VITALS (8 sets, daily range): BP systolic 110–142; BP diastolic 55–64; PULSE 66–76; RESP 15–19; TEMP 35.9–36.6; O2SAT 96–100; BMI 25.7
--- NOTE | 2023-07-27 | ECG_ITS ---
Test Reason : SYNCOPE Blood Pressure : / mmHG Vent. Rate : 067 BPM Atrial Rate : 000 BPM P-R Int : 000 ms QRS Dur : 078 ms QT Int : 402 ms P-R-T Axes : 000 079 069 degrees QTc Int : 424 ms Poor data quality Normal sinus rhythm Normal ECG When compared with ECG of 29-APR-2017 11:00, No significant changes seen Referred By: Generic ED Physician Electronically Signed By:NATHANIEL PHILLIPS MD
--- NOTE | ~2023-07-27 | XR_ITS ---
EXAMINATION: XR CHEST CLINICAL INFORMATION: Syncope. COMPARISON: Chest radiograph 08/29/2020. TECHNIQUE: Frontal view of the chest was obtained. FINDINGS: Normal heart size. Mildly increased interstitial markings compared to 2020. No dense consolidation, pleural effusion or pneumothorax. No acute osseous findings. XR/XR chest 1V IMPRESSION: Mildly increased interstitial markings are indeterminate could be related with small airways disease or atypical/viral infection. No consolidation or pleural effusion.
[2023-07-27 15:39] LABS: Hematocrit 38.5 % (37.0-47.0); Hemoglobin 13.1 g/dl (12.0-16.0); Mean Corpuscular Hemoglobin 31.7 pg (27.0-33.0); Mean Corpuscular Volume 93.2 fL (80.0-98.0); Mean Platelet Volume 9.2 fL (9.4-12.3); Platelet Count 206 X10*3/uL (160-400); Red Blood Count 4.13 X10*6/uL (4.20-5.50); Red Cell Distribution Width 11.6 % (11.0-16.0); White Blood Count 4.5 X10*3/uL (4.8-10.8)
--- NOTE | 2023-07-27 15:42 | PC.NURSE ---
pt biba from home d/t possible vasovagal episode. pt was outside doing yardwork when she went back into the house to have a BM. pt states that she remembers bearing down and the next thing she knew - she woke up on the ground. pt's daughter found pt on ground. pt originally denied feeling dizzy/lightheaded but then stated that sx increased w/ movement of the bed when she was being changed into hospital attire. upon ED arrival - pt a&ox4, vss and up to date, nsr on the circus rider. pt denies pain. no sob/wob noted. respirations even and unlabored. 20gIV placed in the left forearm - labs obtained/sent to lab. ekg performed by tech. orthostatic vs currently being performed by tech. pt waiting to be seen by ED provider. plan of care ongoing. call vance placed within reach.
--- NOTE | 2023-07-27 16:06 | ED.GENADULT ---
HPI - General Adult General Chief complaint: Syncope Stated complaint: syncopal episode on toilet Time Seen by Provider: 07/27/23 16:05 Source: patient, EMS and RN notes reviewed Mode of arrival: EMS Limitations: no limitations History of Present Illness HPI narrative: Patient is a 68-year-old female with history of osteopenia, arthritis, depression, ALISON, asthma, hypothyroidism, GERD presenting to the emergency department after feeling lightheaded at home. EMS reported to RN that daughter found patient on the floor of the bathroom. Patient is denying this, states that she was sitting on the toilet leaning forward with her head hanging down and that EMS needed to assist her in pulling up her pants when they arrived. She states that she was outside for a few minutes in the garden but came back inside because she did not have the correct tool. Once inside, she felt the urge to have a bowel movement and went to the bathroom. States that while sitting on the toilet she felt hot and lightheaded. She denies actual syncope or loss of consciousness. She denies any nausea or vomiting. She denies any recent illness. She does report that she is currently being worked up for Alzheimer's by her primary care provider. She denies any chest pain, palpitations, dyspnea. Denies abdominal pain or nausea at this time. MD complaint: presyncope/syncope Onset (ago): hour(s) Related Data Home Medications ?Medication ?Instructions ?Recorded ?Confirmed loratadine 10 mg tablet 10 mg PO DAILY 05/13/20 04/29/23 multivitamin 1 tab PO DAILY 05/13/20 04/29/23 thiamine mononitrate (vit B1) 100 100 mg PO DAILY 05/13/20 04/29/23 mg tablet boron citrate 3 mg tablet mg PO 11/03/21 04/29/23 lamotrigine 150 mg tablet 150 mg PO DAILY 01/23/22 04/29/23 bupropion HCl 100 mg tablet,12 hr 100 mg PO DAILY 07/14/22 04/29/23 sustained-release calcium carbonate-magnesium tab PO 12/31/22 04/29/23 hydroxide 350 mg-150 mg chewable tablet cholecalciferol (vitamin D3) 125 125 mcg PO DAILY 12/31/22 04/29/23 mcg (5,000 unit) capsule venlafaxine 150 mg 150 mg PO BEDTIME 12/31/22 04/29/23 capsule,extended release 24 hr (Effexor XR) Previous Rx's ?Medication ?Instructions ?Recorded compress.stocking,knee,reg,med #2 ea 01/29/23 Breo Ellipta 200 mcg-25 mcg/dose 1 inh inhalation DAILY #60 ea 02/23/23 powder for inhalation (fluticasone furoate-vilanterol) polyethylene glycol 3350 17 17 g PO .COMPLEX 30 days #238 grams 04/29/23 gram/dose oral powder (Miralax) azelastine 137 mcg-fluticasone 50 1 spray intranasal BID #23 grams 06/17/23 mcg/spray nasal spray alendronate 70 mg tablet 70 mg PO QWEEK #13 tabs 06/22/23 levothyroxine 75 mcg tablet 75 mcg PO DAILY 90 days #90 tabs 07/16/23 Allergies Allergy/AdvReac Type Severity Reaction Status Date / Time erythromycin base AdvReac Intermediate Stomach Verified 07/27/23 15:27 [ERYTHROMYCIN BASE] Upset, Bloating, Constipation Review of Systems Review of Systems: As per HPI. Yes all other systems are reviewed and are negative Constitutional: Constitutional: Reports as per HPI PMF Past Medical History Medical History Environmental allergies Hiatal hernia Varicose veins of both legs with edema Annual physical exam Mammogram normal Seasonal allergic rhinitis Dysuria Multinodular thyroid Edema Osteopenia Chronic allergic rhinitis External hemorrhoid Arthritis Depression ALISON on CPAP Asthma Hypothyroidism Rectocele Tubular adenoma of colon GERD (gastroesophageal reflux disease) Surgical History History of esophagogastroduodenoscopy (EGD) Hx laparoscopic cholecystectomy History of Hx of colonoscopy Family History Family History Father Colon polyp Mother Colon polyp Sister Osteoporosis Colon polyp Sister Colon polyp Social History Social History Household Members: Spouse Housing: House Alcohol intake: current Alcohol intake frequency: holidays/special occasions only Patient Tobacco Use Status: Never used Tobacco Smoked in Last 30 Days: No e-Cigarette/Vaping Use: Never Used Second Hand Smoke Exposure: No Use of substances other than those prescribed or required for medical reasons: No Advance Directives: No Advance Directives Information Provided: No Do you have a plan to hurt others: No Plan service: No Current occupational status: retired Cognitive needs: No Hearing needs: No Vision needs: Yes Physical Exam ED Vital Signs: Vital Signs - 24 hr 07/27/23 15:24 07/27/23 15:40 07/27/23 15:41 Temperature 97.5 F Pulse Rate 73 67 Respiratory Rate 16 Blood Pressure 111/55 L 113/57 L Pulse Oximetry 99 100 Oxygen Delivery Method Room Air Room Air 07/27/23 15:41 07/27/23 15:43 07/27/23 15:50 Temperature 97.8 F Pulse Rate 70 73 67 Respiratory Rate 19 Blood Pressure 110/57 L 111/58 L 119/61 Pulse Oximetry 98 Oxygen Delivery Method Room Air 07/27/23 18:33 Temperature 96.7 F L Pulse Rate 76 Respiratory Rate 16 Blood Pressure 142/61 H Pulse Oximetry 100 Oxygen Delivery Method Room Air BMI result Body Mass Index 25.7 Vital signs have been reviewed and appear to be correct. Blood pressure normal. Heart rate normal. Respiratory rate normal. Temperature normal. Oxygen saturation normal. Const General: cooperative, healthy appearing and no acute distress Orientation/consciousness: oriented to person, oriented to place, oriented to time and patient oriented x3 Limitations: no limitations HENMT Head: Yes normocephalic and Yes atraumatic Ears: external ears normal General nose exam: Normal external nose present Face and sinus: Yes face symmetric Mouth: oropharynx normal and moist mucous membranes Throat: Yes uvula midline Eyes Pupils: Equal, round and reactive pupils present Neck Neck: Yes normal visual inspection and Yes supple Resp Effort & Inspection: normal respiratory effort and able to speak in complete sentences Auscultation: clear to auscultation bilaterally Cardio Rate: regular rate Rhythm: regular rhythm Heart sounds: S1 normal heart sound present and S2 normal heart sound present GI Palpation (GI): Soft to palpation and nontender Auscultation: normoactive bowel sounds General: Yes no CVA tenderness Back/Spine/Pelvis Back: no CVA tenderness Skin General skin exam: elasticity normal and turgor normal Neuro General: oriented to person, oriented to place, oriented to time, patient oriented x3, tone normal, moves all extremities, Normal light touch and pain sensation, no focal motor deficits, CN's II-XI intact bilaterally and deep tendon reflexes 2+ bilaterally Cranial nerves: Yes Equal, round and reactive pupils present Cognition (Neuro): normal cognition Motor exam (neuro): 5/5 motor strength present throughout, Pronator motor function not present, no tremor noted, Normal motor muscle tone present throughout and Motor abnormalities not present Sensory Exam: Normal double simultaneous stimulation for sensation Extrem General: Yes full ROM, Yes no pedal edema and Yes no calf tenderness Psych Mental Status: mental status grossly normal Affect: normal affect Thought process: Normal thought process present Medical Decision Making Medical Decision Making MDM Narrative: Patient is a 68-year-old female with history of osteopenia, arthritis, depression, ALISON, asthma, hypothyroidism, GERD presenting to the emergency department after feeling lightheaded at home. On exam patient is awake, A+Ox3, VS WNL, afebrile, normal neurological exam without focal deficits, physical exam findings as above. Given reported symptoms and physical exam findings, initial differential includes cardiac arrhythmia, electrolyte abnormality, dehydration, syncope. EMS initially reported that patient was found by her daughter on the floor of the bathroom. Spoke with patient's daughter, Netta, via telephone who states that this is not the case, that she found the patient leaning forward on the toilet with her eyes open and patient was not found on the floor. CT head and C-spine initially ordered which patient refused, after speaking with patient's daughter and clarifying that patient did not fall to the floor, do not feel this imaging is indicated. Patient is also A+Ox3 and within sound mind to refuse this exam. Labs unremarkable, negative troponin, no evidence of APRIL . EKG shows normal sinus rhythm. No evidence of orthostatic intolerance on orthostatic vital signs. X-ray notable for mildly increased interstitial markings, no consolidation or effusion. My interpretation is in agreement with the radiologist's interpretation. Viral swabs negative. Urinalysis shows trace leukocytes, negative nitrites, no bacteria noted. Will wait for culture before initiating treatment with antibiotics as patient is asymptomatic. Feel patient is stable for discharge home at this time. Spoke with Netta, patient's daughter, via telephone who is in agreement with this, and patient is agreeable as well. All results discussed with patient all questions answered. Instructed patient to follow-up with primary care provider. Return precautions discussed at bedside. Patient verbalized understanding of and agreement with plan. Differential Diagnosis Differential Diagnoses: The differential diagnosis associated with the presentation includes As per [facility]. Admission/Observation Consideration of admission/observation: Escalation of care including admission/observation considered Patient would have been admitted to the hospital had their work up had any findings where hospital admission was appropriate and their clinical presentation warranted hospital admission. Lab Data [facility] Lab Attestation statement: I reviewed the patient's lab results. As per [facility] 07/27/23 15:33 07/27/23 16:32 Labs: Lab Results 07/27/23 07/27/23 07/27/23 Range/Units 15:33 16:32 17:02 WBC 4.5 L (4.8-10.8) X10*3/uL RBC 4.13 L (4.20-5.50) X10*6/uL Hgb 13.1 (12.0-16.0) g/dl Hct 38.5 (37.0-47.0) % MCV 93.2 (80.0-98.0) fL MCH 31.7 (27.0-33.0) pg MCHC 34.0 (31.0-35.0) g/dl RDW 11.6 (11.0-16.0) % Plt Count 206 (160-400) X10*3/uL MPV 9.2 L (9.4-12.3) fL Absolute Nucleated RBC 0.000 (0.0-0.012) X10*3/uL Nucleated RBC % (auto) 0.0 (0.0-0.2) /100WBC PT 12.0 (11.1-13.3) SEC INR 1.0 (0.9-1.1) Sodium 138 (135-145) mmol/L Potassium 4.0 (3.3-5.1) mmol/L Chloride 107 (96-108) mmol/L Carbon Dioxide 22 (22-29) mmol/L Anion Gap 13 (12-20) BUN 12 (9-16) mg/dL Creatinine 0.73 (0.5-1.4) mg/dL Estim Creat Clear Calc 68.9 Estimated GFR > 60 Random Glucose 107 (60-115) mg/dL Calcium 9.5 (8.4-10.2) mg/dL Total Bilirubin 0.3 (0.0-1.0) mg/dL AST 28 (5-31) U/L ALT 20 (0-31) U/L Alkaline Phosphatase 68 (39-117) U/L Troponin I High Sens < 2.7 (<3.5-17.0) ng/L Total Protein 6.7 (6.5-8.0) g/dL Albumin 4.0 (3.5-5.0) g/dL Urine Color Urine Appearance Urine pH (5.0-9.0) Ur Specific [place] (1.005-1.025) Urine Protein (Neg-Trace) mg/dL Urine Glucose (UA) (Negative) mg/dL Urine Ketones (Negative) mg/dL Urine Blood (Negative) Urine Nitrite (Negative) Ur Leukocyte Esterase (Negative) Urine RBC (0-2) /HPF Urine WBC (0-5) /HPF Ur Squamous Epith Cells (0-2) /HPF Urine Bacteria (None Seen) Hyaline Casts (0-2) /LPF Influenza Type A (PCR) (Negative) Influenza Type B (PCR) (Negative) RSV RNA Qual (PCR) (Negative) SARS-CoV-2 RNA (RT-PCR) (Negative) 07/27/23 07/27/23 Range/Units 18:20 18:45 WBC (4.8-10.8) X10*3/uL RBC (4.20-5.50) X10*6/uL Hgb (12.0-16.0) g/dl Hct (37.0-47.0) % MCV (80.0-98.0) fL MCH (27.0-33.0) pg MCHC (31.0-35.0) g/dl RDW (11.0-16.0) % Plt Count (160-400) X10*3/uL MPV (9.4-12.3) fL Absolute Nucleated RBC (0.0-0.012) X10*3/uL Nucleated RBC % (auto) (0.0-0.2) /100WBC PT (11.1-13.3) SEC INR (0.9-1.1) Sodium (135-145) mmol/L Potassium (3.3-5.1) mmol/L Chloride (96-108) mmol/L Carbon Dioxide (22-29) mmol/L Anion Gap (12-20) BUN (9-16) mg/dL Creatinine (0.5-1.4) mg/dL Estim Creat Clear Calc Estimated GFR Random Glucose (60-115) mg/dL Calcium (8.4-10.2) mg/dL Total Bilirubin (0.0-1.0) mg/dL AST (5-31) U/L ALT (0-31) U/L Alkaline Phosphatase (39-117) U/L Troponin I High Sens (<3.5-17.0) ng/L Total Protein (6.5-8.0) g/dL Albumin (3.5-5.0) g/dL Urine Color Yellow Urine Appearance Clear Urine pH 6.5 (5.0-9.0) Ur Specific [place] 1.010 (1.005-1.025) Urine Protein Trace (Neg-Trace) mg/dL Urine Glucose (UA) Negative (Negative) mg/dL Urine Ketones Negative (Negative) mg/dL Urine Blood Negative (Negative) Urine Nitrite Negative (Negative) Ur Leukocyte Esterase Trace H (Negative) Urine RBC 0-2 (0-2) /HPF Urine WBC 6-10 H (0-5) /HPF Ur Squamous Epith Cells 0-2 (0-2) /HPF Urine Bacteria None Seen (None Seen) Hyaline Casts 0-2 (0-2) /LPF Influenza Type A (PCR) NEGATIVE (Negative) Influenza Type B (PCR) NEGATIVE (Negative) RSV RNA Qual (PCR) NEGATIVE (Negative) SARS-CoV-2 RNA (RT-PCR) NEGATIVE (Negative) Independent Interpretation I performed an independent interpretation of an: Plain X-Ray Interpretation: No evidence of pneumonia on chest x-ray. Radiology Impression Discussion of test interpretation with radiology: I have reviewed the radiologist's reading. Radiologist Impression: XR/XR chest 1V IMPRESSION: Mildly increased interstitial markings are indeterminate could be related with small airways disease or atypical/viral infection. No consolidation or pleural effusion. External Record Review External record reviewed: Inpatient record, Office record and Outpatient record Discharge Plan Discharge Clinical Impression: Vasovagal near syncope Patient Disposition: Home, Self-Care Instructions: Near Syncope (ED), Syncope in Older Adults (ED) Additional Instructions: You were evaluated in the emergency department today after feeling lightheaded while using the bathroom. Your evaluation including labs, urinalysis, viral testing, chest x-ray, and EKG did not reveal evidence of any conditions requiring emergent medical treatment at this time. Please follow-up with your primary care provider. Return to the emergency department if you develop chest pain, palpitations, shortness of breath, additional episodes of dizziness or lightheadedness, fainting or any other concerning symptoms. Prescriptions: No Action (DME) compress.stocking,knee,reg,med Misc See Rx Instructions .Route Qty: 2 2RF Rx Instructions: As directed 15-20cm fluticasone furoate-vilanterol [Breo Ellipta] 200-25 mcg/dose blister with device 1 inh inhalation DAILY Qty: 60 6RF azelastine-fluticasone 137-50 mcg/spray spray,non-aerosol 1 spray intranasal BID Qty: 23 6RF alendronate 70 mg tablet 70 mg PO QWEEK Qty: 13 3RF levothyroxine 75 mcg tablet 75 mcg PO DAILY 90 Days Qty: 90 1RF multivitamin Tablet 1 tab PO DAILY loratadine 10 mg Tablet 10 mg PO DAILY thiamine mononitrate (vit B1) 100 mg Tablet 100 mg PO DAILY boron citrate 3 mg tablet PO lamotrigine 150 mg tablet 150 mg PO DAILY bupropion HCl 100 mg tablet sustained-release 12 hr 100 mg PO DAILY polyethylene glycol 3350 [Miralax] 17 gram/dose powder 17 g PO .COMPLEX 30 Days Qty: 238 3RF Rx Instructions: 17 grams orally twice a week; venlafaxine [Effexor XR] 150 mg capsule,extended release 24hr 150 mg PO BEDTIME cholecalciferol (vitamin D3) 125 mcg (5,000 unit) capsule 125 mcg PO DAILY calcium carbonate-mag hydroxid 350-150 mg tablet,chewable PO Print Language: Croatian
[2023-07-27 16:56] LABS: Alanine Aminotransferase 20 U/L (0-31); Alkaline Phosphatase 68 U/L (39-117); Anion Gap 13 (12-20); Aspartate Amino Transferase 28 U/L (5-31); Bilirubin Total 0.3 mg/dL (0.0-1.0); Blood Urea Nitrogen 12 mg/dL (9-16); Calcium 9.5 mg/dL (8.4-10.2); Carbon Dioxide 22 mmol/L (22-29); Chloride 107 mmol/L (96-108); Creatinine Clr Calc Pharmacy 68.9; Estimated Glomerular Filt Rate > 60; Glucose Random 107 mg/dL (60-115); Sodium 138 mmol/L (135-145); Total Protein 6.7 g/dL (6.5-8.0)
[2023-07-27 17:04] LABS: Troponin-I High Sensitivity < 2.7 ng/L (<3.5-17.0)
--- NOTE | 2023-07-27 17:29 | PC.NURSE ---
pt refusing for scans to be obtained d/t worry of cost. PA notified/aware. plan of care ongoing.
--- NOTE | 2023-07-27 17:37 | PC.NURSE ---
Nteta (daughter's) phone number - [phone]
[2023-07-27 18:31] LABS: Appearance Urine Clear; Color Urine Yellow; Glucose Urine UA Negative (Negative); Leukocyte Esterase Urine Trace (Negative); Nitrite Urine Negative (Negative); PH 6.5 (5.0-9.0); UMIC TRIGGER UACC YES; Urine Blood Negative (Negative); Urine Ketones Negative (Negative); Urine Protein Trace mg/dL (Neg-Trace)
[2023-07-27 18:36] LABS: Bacteria Urine None Seen (None Seen); Hyaline Casts Urine 0-2 /LPF (0-2); RBC Urine 0-2 /HPF (0-2); Squamous Epithelial Cell Urine 0-2 /HPF (0-2); UACC Culture Trigger YES
[2023-07-27 19:33] LABS: Influenza A PCR NEGATIVE (Negative); Influenza B PCR NEGATIVE (Negative); Resp Syncy Virus RNA Qual PCR NEGATIVE (Negative); SARS COV2 PCR INHOUSE NEGATIVE (Negative)
--- NOTE | 2023-07-27 19:33 | PC.NURSE ---
This RN assumed pt care @ 1900. Pt ca&ox3, no signs of distress. Pt resting comfortably in bed. Plan of care ongoing.
--- NOTE | 2023-07-27 19:58 | PC.NURSE ---
Provider d/c pt, spoke with daughter and on his way to come and get the pt. Plan of care ongoing.
== END 2023-07-27 20:17 | disposition home or self-care (01) ==
PROVIDERS: Registered Nurse Emergency; Emergency Provider Emergency Medicine Emergency Medical Services; PCP Internal Medicine
DX: R55 Syncope and collapse (principal); E78.5 Hyperlipidemia, unspecified; D64.9 Anemia, unspecified; R30.0 Dysuria; J45.909 Unspecified asthma, uncomplicated; Z03.818 Encounter for observation for suspected exposure to other biological agents ruled out; Z79.899 Other long term (current) drug therapy
CPT/HCPCS: 0241U; 36415; 71045; 80053; 81001; 84484; 85027; 85610; 87086; 93005; 99283; 99285

== ENCOUNTER → 2023-07-27 15:31 | Outpatient (BNV) | payer MEDICARE, OTHER, SELFPAY | PROVIDERS: Emergency Provider Emergency Medicine Emergency Medical Services; Visit Provider Internal Medicine Cardiovascular Disease | DX: R55 Syncope and collapse (principal) | CPT/HCPCS: 93010 ==

== ENCOUNTER 2023-10-28 13:16 | Outpatient (REF) | payer MEDICARE, OTHER, SELFPAY | END 2023-10-28 13:17 | disposition home or self-care (01) | LOC: HO.MAMMO 13:16 | PROVIDERS: PCP Internal Medicine; Visit Provider Internal Medicine | DX: Z12.31 Encounter for screening mammogram for malignant neoplasm of breast (principal) | CPT/HCPCS: 77063; 77067 ==

== ENCOUNTER → 2023-10-28 13:30 | Outpatient (BNV) | payer MEDICARE, OTHER, SELFPAY | PROVIDERS: PCP Internal Medicine; Visit Provider Radiology Diagnostic Radiology | DX: Z12.31 Encounter for screening mammogram for malignant neoplasm of breast (principal) | CPT/HCPCS: 77063; 77067 ==

== ENCOUNTER 2023-11-08 08:52 | Outpatient (AMB) | payer MEDICARE, OTHER, SELFPAY ==
[2023-11-08 08:54] VITALS: BP 125/78; PULSE 89; O2SAT 100; BMI 25.5
--- NOTE | 2023-11-08 08:54 | AM.OFFVISMDC ---
Intake Vital Signs 11/08/23 08:54 Height 5 ft 4 in Weight 148 lb 8 oz BMI 25.5 BP 125/78 Blood Pressure Location Rt brachial Position Standing Pulse 89 Pulse Source Pulse Oximeter Pulse Oximetry (%) 100 Oxygen Delivery Method Room Air Intake Visit Reasons: SWV Allergies erythromycin base [ERYTHROMYCIN BASE] Adverse Reaction (Intermediate, Verified 11/08/23 08:54) Stomach Upset, Bloating, Constipation Medication List - Last Reconciled 11/08/23 by Emmanuelle Paige MD alendronate 70 mg PO QWEEK azelastine-fluticasone 137-50 mcg/spray 1 spray intranasal BID boron citrate mg PO Breo Ellipta 200-25 mcg/dose (fluticasone furoate-vilanterol) 1 inh inhalation DAILY NS bupropion HCl SR 100 mg PO DAILY calcium carbonate-mag hydroxid 350-150 mg tabs PO cholecalciferol (vitamin D3) 125 mcg PO DAILY compress.stocking,knee,reg,med As directed 15-20cm lamotrigine 150 mg PO DAILY levothyroxine 75 mcg PO DAILY 90 days loratadine 10 mg PO DAILY multivitamin 1 tab PO DAILY polyethylene glycol 3350 (Miralax) 17 grams orally twice a week; 30 days thiamine mononitrate (vit B1) 100 mg PO DAILY venlafaxine 25 mg PO DAILY venlafaxine ER (Effexor XR) 150 mg PO BEDTIME Do you need a note to return to daycare/school/sports/work: No HPI SWV HPI Details Initiated the conversation about Advanced Directives. Advanced Directives help? patients prepare for current and future decisions about their medical treatment? and place of care. Discussed with patient that it is a process where a patients? current condition and prognosis are reviewed, their wishes for information? regarding their illness are elicited, and likely medical dilemmas are presented? and options discussed. The form can be amended as needed, reviewed yearly and? make changes as needed IPPE/AWV ? year old presents? for her ? Annual? Wellness Visit, initial visit.? Medical / Social History Reviewed? Past Medical History ?Yes? . ? [facility]? of Care / Care Team list updated ?Yes . ? Surgical/Hospitalization? History ?Yes . ? Current Medications? (including OTC and supplements) ?Yes . ? Family History ?Yes? . ? Tobacco? Control form ?Yes . ? AUDIT-C (Alcohol use) form? ?Yes . ? Illicit drug use in Social? History ?Yes . ? Current diagnosis of? depression? ?No ? Appropriate PHQ2/PHQ9? completed ?Yes . ? Data entered by ?Medical? [facility] Work[facility] and reviewed by provider ? Fall Risk ? Fall? History? Have you had any falls with? injury in the past year? ?No . ? Have you had two or more? falls in the past year? ?No . ? Fall Risk Assessment: ?No? falls in the past year . ? HRA filled out by? the patient, reviewed by Provider and scanned. ? IPPE/AWV ? Balance? [place]? ?Yes . ? Tandem? walk ?Yes . ? Walk and? Turn ?Yes . ? Rise from? sit to stand ?Yes . ?Vision? Corrective? lens ?Yes ? Vision? screen ? Up-to-date, has an appointment [] for vision? screening and glaucoma screening ?Hearing? Whisper? test ?pass .? Initiated the conversation about Advanced Directives. Advanced Directives help? patients prepare for current and future decisions about their medical treatment? and place of care. Discussed with patient that it is a process where a patients? current condition and prognosis are reviewed, their wishes for information? regarding their illness are elicited, and likely medical dilemmas are presented? and options discussed. The form can be amended as needed, reviewed yearly and? make changes as needed Written? Plan?Completed. See Patient? Documents. [facility] Medical History (Updated 11/08/23 @ 15:57 by Emmanuelle Paige MD) Memory loss Environmental allergies Hiatal hernia Varicose veins of both legs with edema Annual physical exam Mammogram normal Seasonal allergic rhinitis Dysuria Multinodular thyroid Edema Osteopenia Chronic allergic rhinitis External hemorrhoid Arthritis Depression ALISON on CPAP Asthma Hypothyroidism Rectocele Tubular adenoma of colon GERD (gastroesophageal reflux disease) Surgical History History of esophagogastroduodenoscopy (EGD) Hx laparoscopic cholecystectomy History of Hx of colonoscopy Family History Father Colon polyp Mother Colon polyp Sister Osteoporosis Colon polyp Sister Colon polyp Social History Household Members: Spouse Housing: House Alcohol intake: current Alcohol intake frequency: holidays/special occasions only Patient Tobacco Use Status: Never used Tobacco e-Cigarette/Vaping Use: Never Used Second Hand Smoke Exposure: No service: No Current occupational status: retired Cognitive needs: No Hearing needs: No Vision needs: Yes Questionnaire Medicare Wellness Checkup [age] What gender do you identify with?: female During the past 4 weeks, how much have you been bothered by emotional problems such as feeling anxious, depressed, irritable, sad or downhearted, and blue?: extremely During the past 4 weeks, has your physical & emotional health limited your social activities with family, friends, neighbors, or groups?: extremely During the past 4 weeks, how much bodily pain have you generally had?: moderate pain During the past 4 weeks, was someone available to help you if you needed & wanted help?: yes, as much as I wanted During the past 4 weeks, what was the hardest physical activity you could do for at least 2 minutes?: moderate Can you get to places out of walking distance without help? (For eg., can you travel alone on buses, taxis or drive your car?): No Can you go shopping for groceries or clothes without someone's help?: No Can you prepare your own meals?: No Can you do your housework without help?: No Because of any health problems, do you need the help of another person with your personal care needs such as eating, bathing, dressing or getting around the house?: No Can you handle your own money without help?: No During the past 4 weeks, how would you rate your health in general?: fair During the past 4 weeks how have things been going for you?: good & bad parts about equal Are you having difficulties driving your car?: yes, often Do you always fasten your seat belt when you are in a car?: yes, usually During past 4 weeks, have you been bothered by the following: never: Trouble eating well? and Teeth or denture problems?, sometimes: Falling or dizzy when standing up and Problems using the telephone? and always: Sexual problems? and Tiredness or fatigue? Have you fallen 2 or more times in the past year?: No Are you afraid of falling?: Yes Are you a smoker?: no During the past 4 weeks, how many drinks of wine, beer, or other alcoholic beverages did you have?: no alcohol at all Do you exercise for about 20 minutes 3 or more times a week?: no, I usually do not exercise this much Have you been given information to help with the following?: yes: Hazards in your house that might hurt you? and yes: Keeping track of your medications? How often do you have trouble taking medicines the way you have been told to take them?: I always take medicine as prescribed How confident are you that you can control & manage most of your health problems?: not very confident What is your race?: White Mini Mental State Exam (MMSE) Orientation What is the (year) (season) (date) (day) (month)?: year, season, date, day and month Where are we (state) (county) (town or city) (hospital) (floor)?: state, county, town or city, hospital/clinic and floor Registration Name of 3 unrelated objects clearly and slowly, then ask patient to repeat all 3 of them. (1st repeat determines score. Make sure they can repeat all three): object 1, object 2 and object 3 Attention & Calculation (CHOOSE ONE) Spell WORLD backwards (DLROW): 2 letters Recall Ask patient to repeat the 3 items from question #3.: object 1 Language Show patient a wristwatch & ask what it is. Repeat for pencil.: watch and pencil Ask the patient to repeat the phrase 'No ifs, ands, or buts' after you.: correct Ask the patient to 'take a piece of paper with their right hand' 'fold paper in half' 'place paper on floor': take paper in right hand, fold paper in half and place paper on floor Print the sentence 'CLOSE YOUR EYES' on a piece. If patient actually closes eyes then score.: followed written direction Give patient a blank piece of paper & ask to write a sentence. Score if it contains a noun & verb.: sentence contains subject and verb Score Score: 24 PHQ-9 Over the last 2 weeks, how often have you been bothered by any of the following problems? 1. Little interest or pleasure in doing things: nearly every day 2. Feeling down, depressed, or hopeless: nearly every day 3. Trouble falling or staying asleep, or sleeping too much: nearly every day 4. Feeling tired or having little energy: nearly every day 5. Poor appetite or overeating: more than half the days 6. Feeling bad about yourself - or that you are a failure or have let yourself or your family down: not at all 7. Trouble concentrating on things, such as reading the newspaper or watching television: nearly every day 8. Moving or speaking so slowly that other people could have noticed. Or the opposite - being so fidgety or restless that you have been moving around a lot more than usual: not at all 9. Thoughts that you would be better off or of hurting yourself in some way: not at all Total score: 17 Depression Screening Interpretation: Positive Depression Screening Done: Yes 42710 - PHQ-9 Billing: Yes Source: Developed by Drs. Shakeel Gonzalez, Raven Hernandez, Jim Hill and colleagues, with an educational jamee from [employer]. Review of Systems Const All systems reviewed & are unremarkable except as noted in HPI and below Eyes Reports no additional complaints ENT Reports no additional complaints Card Reports no additional complaints Resp Reports no additional complaints GI Reports no additional complaints Reports no additional complaints Physical Exam Vital Signs: Last Vital Signs Pulse 89 11/08/23 08:54 BP 125/78 11/08/23 08:54 Pulse Ox 100 11/08/23 08:54 Oxygen Delivery Method Room Air 11/08/23 08:54 BMI result Body Mass Index 25.5 Const General: no acute distress HEENT Head: Yes normal to inspection Eyes General: appearance normal, both eyes and all related structures Neck Neck: Yes no lymphadenopathy and Yes supple Resp Effort & Inspection: normal respiratory effort Auscultation: clear to auscultation bilaterally Cardio Rhythm: regular rhythm Heart sounds: S1 normal heart sound present and S2 normal heart sound present GI Inspection: Yes normal to inspection Palpation (GI): Soft to palpation Percussion: Yes normal to percussion Auscultation: normal bowel sounds Extrem General: Yes no clubbing, cyanosis or edema Assessment & Plan Assessment & Plan (1) Hypothyroidism: Code(s): E03.9 - Hypothyroidism, unspecified Plan: Continue levothyroxine check TSH (2) Depression: Comment: f[facility]u [facility] Code(s): F32.9 - Major depressive disorder, single episode, unspecified Plan: Follow-up with the Psychiatry (3) Annual physical exam: Code(s): Z00.00 - Encounter for general adult medical examination without abnormal findings Plan: Well-balanced diet regular physical activity discussed with the patient (4) Hyperlipidemia: Code(s): E78.5 - Hyperlipidemia, unspecified Plan: Continue low-cholesterol diet (5) Vitamin D deficiency: Code(s): E55.9 - Vitamin D deficiency, unspecified Plan: Continue vitamin-D. (6) Memory loss: Code(s): R41.3 - Other amnesia Plan: Follow-up with neurology Orders: Orders Comprehensive [place]. Panel Fast Today E03.9 - Hypothyroidism, unspecified, E55.9 - Vitamin D deficiency, unspecified, E78.5 - Hyperlipidemia, unspecified, F32.9 - Major depressive disorder, single episode, unspecified, Z00.00 - Encounter for general adult medical examination without abnormal findings Lipid Panel Today E03.9 - Hypothyroidism, unspecified, E55.9 - Vitamin D deficiency, unspecified, E78.5 - Hyperlipidemia, unspecified, F32.9 - Major depressive disorder, single episode, unspecified, Z00.00 - Encounter for general adult medical examination without abnormal findings TSH reflex Free T4 Today E03.9 - Hypothyroidism, unspecified, E55.9 - Vitamin D deficiency, unspecified, E78.5 - Hyperlipidemia, unspecified, F32.9 - Major depressive disorder, single episode, unspecified, Z00.00 - Encounter for general adult medical examination without abnormal findings Complete Blood Count Auto Diff Today E03.9 - Hypothyroidism, unspecified, E55.9 - Vitamin D deficiency, unspecified, E78.5 - Hyperlipidemia, unspecified, F32.9 - Major depressive disorder, single episode, unspecified, Z00.00 - Encounter for general adult medical examination without abnormal findings Vitamin B12 and Folate Today E03.9 - Hypothyroidism, unspecified, E55.9 - Vitamin D deficiency, unspecified, E78.5 - Hyperlipidemia, unspecified, F32.9 - Major depressive disorder, single episode, unspecified, Z00.00 - Encounter for general adult medical examination without abnormal findings Vitamin D 25-OH Total Today E03.9 - Hypothyroidism, unspecified, E55.9 - Vitamin D deficiency, unspecified, E78.5 - Hyperlipidemia, unspecified, F32.9 - Major depressive disorder, single episode, unspecified, Z00.00 - Encounter for general adult medical examination without abnormal findings IRON PROFILE Today E03.9 - Hypothyroidism, unspecified, E55.9 - Vitamin D deficiency, unspecified, E78.5 - Hyperlipidemia, unspecified, F32.9 - Major depressive disorder, single episode, unspecified, Z00.00 - Encounter for general adult medical examination without abnormal findings Quality Reporting (2019) Depression/Bipolar (159/160/161/177) PHQ-9: Total score: 17 Coding Level of Care Code Medicare Subsequent (G0439) Diagnoses Hypothyroidism E03.9 Depression F32.9 Annual physical exam Z00.00 Hyperlipidemia E78.5 Vitamin D deficiency E55.9 Memory loss R41.3 CPT Codes Advance Care Planning - Advance Care Planning discussion: On file, no changes ([id number]) Advance Care Planning - Time spent: 1-15 minutes, on File ([id number]) Advance Care Planning Advance Care Planning discussion: On file, no changes Forms completed: Health Care Proxy Time spent: 1-15 minutes, on File
== END 2023-11-08 11:48 | disposition home or self-care (01) ==
PROVIDERS: PCP Internal Medicine; Visit Provider Internal Medicine
DX: Z00.00 Encounter for general adult medical examination without abnormal findings (principal); E03.9 Hypothyroidism, unspecified; F33.9 Major depressive disorder, recurrent, unspecified; E78.5 Hyperlipidemia, unspecified; E55.9 Vitamin D deficiency, unspecified; R41.3 Other amnesia
CPT/HCPCS: 1123F; G0439

== ENCOUNTER 2023-11-23 07:09 | Outpatient (REF) | payer MEDICARE, OTHER, SELFPAY ==
[2023-11-23 09:55] LABS: MANUAL DIFF FLAG NO
[2023-11-23 10:12] LABS: Basophils Absolute Auto 0.1 X10*3/uL (0.0-0.2); Basophils Percent Auto 1.1 % (0-2); Eosinophils Absolute Auto 0.1 X10*3/uL (0.0-0.4); Eosinophils Percent Auto 3.1 % (0-4); Hematocrit 39.5 % (37.0-47.0); Hemoglobin 13.3 g/dl (12.0-16.0); Imm Gran Abs Auto 0.01 X10*3/uL (0.00-0.03); Imm Gran Pct Auto 0.2 % (0.0-0.4); Lymphocytes Absolute Auto 2.2 X10*3/uL (1.2-4.9); Lymphocytes Percent Auto 48.7 % (20-40); Mean Corpuscular HGB Conc 33.7 g/dl (31.0-35.0); Mean Corpuscular Hemoglobin 32.2 pg (27.0-33.0); Mean Corpuscular Volume 95.6 fL (80.0-98.0); Monocytes Absolute Auto 0.4 X10*3/uL (0.1-1.2); Monocytes Percent Auto 9.1 % (2-11); Neutrophils Absolute Auto 1.7 x10*3/uL (2.0-8.3); Neutrophils Percent Auto 37.8 % (45-73); Platelet Count 222 X10*3/uL (160-400); Red Blood Count 4.13 X10*6/uL (4.20-5.50); Red Cell Distribution Width 12.1 % (11.0-16.0); White Blood Count 4.5 X10*3/uL (4.8-10.8)
[2023-11-23 10:33] LABS: Alanine Aminotransferase 26 U/L (0-31); Alkaline Phosphatase 65 U/L (39-117); Anion Gap 11 (12-20); Aspartate Amino Transferase 27 U/L (5-31); Bilirubin Total 0.3 mg/dL (0.0-1.0); Blood Urea Nitrogen 10 mg/dL (9-16); Calcium 9.4 mg/dL (8.4-10.2); Carbon Dioxide 30 mmol/L (22-29); Chloride 103 mmol/L (96-108); Cholesterol 253 mg/dL (<200); Estimated Glomerular Filt Rate > 60; Glucose Fasting 85 mg/dL (60-99); HDL Cholesterol 94 mg/dL (>40); Iron 75 mcg/dL (30-160); LDL Cholesterol Calculated 149 mg/dL (<100); Percent Iron Saturation 25 % (15-50); Potassium 4.6 mmol/L (3.3-5.1); Sodium 139 mmol/L (135-145); Total Iron Binding Capacity 299 mcg/dL (228-428); Total Protein 6.7 g/dL (6.5-8.0); Triglycerides 53 mg/dL (<150); Unsaturated Iron Binding 224 ug/dL
[2023-11-23 10:54] LABS: TSH reflex Free T4 15.83 uIU/mL (0.32-4.0); Vitamin D 25-OH Total 87.4 ng/mL (>30)
[2023-11-23 10:58] LABS: Folate 11.7 ng/mL (> or = 4.0); Vitamin B12 551 pg/mL (200-900)
[2023-11-23 13:15] LABS: Free T4 (Free Thyroxine) 0.83 ng/dL (0.71-1.85)
== END 2023-11-23 07:10 | disposition home or self-care (01) ==
LOC: HO.HMGCLDS 07:09
PROVIDERS: PCP Internal Medicine; Visit Provider Internal Medicine
DX: Z00.00 Encounter for general adult medical examination without abnormal findings (principal); E03.9 Hypothyroidism, unspecified; F32.9 Major depressive disorder, single episode, unspecified; E78.5 Hyperlipidemia, unspecified; E55.9 Vitamin D deficiency, unspecified
CPT/HCPCS: 36415; 80053; 80061; 82306; 82607; 82746; 83540; 84439; 84443; 85025

== ENCOUNTER 2024-01-20 07:26 | Outpatient (REF) | payer MEDICARE, OTHER, SELFPAY ==
[2024-01-20 11:28] LABS: TSH reflex Free T4 4.74 uIU/mL (0.32-4.0)
[2024-01-20 12:10] LABS: Free T4 (Free Thyroxine) 1.12 ng/dL (0.71-1.85)
== END 2024-01-20 07:27 | disposition home or self-care (01) ==
LOC: HO.HMGCLDS 07:26
PROVIDERS: PCP Internal Medicine; Visit Provider Internal Medicine
DX: E78.5 Hyperlipidemia, unspecified (principal); E03.9 Hypothyroidism, unspecified
CPT/HCPCS: 36415; 84439; 84443

== ENCOUNTER 2024-02-01 12:23 | Outpatient (AMB) | payer MEDICARE, OTHER, SELFPAY ==
--- NOTE | 2024-02-01 12:26 | MHC.PC.OV ---
Vital Signs 02/01/24 12:27 Height 5 ft 4 in Weight 154 lb BMI 26.4 BP 134/76 Blood Pressure Location Lt brachial Position Sitting Pulse 83 Pulse Source Pulse Oximeter Pulse Oximetry (%) 99 Oxygen Delivery Method Room Air Intake Visit Reasons: Labs f/u Intake Note: Pt is here today for a follow up visit on labs. Allergies erythromycin base [ERYTHROMYCIN BASE] Adverse Reaction (Intermediate, Verified 02/01/24 12:28) Stomach Upset, Bloating, Constipation Medication List - Last Reconciled 02/01/24 by Emmanuelle Paige MD alendronate 70 mg PO QWEEK azelastine-fluticasone 137-50 mcg/spray 1 spray intranasal BID boron citrate mg PO Breo Ellipta 200-25 mcg/dose (fluticasone furoate-vilanterol) 1 inh inhalation DAILY NS bupropion HCl SR 100 mg PO DAILY calcium carbonate-mag hydroxid 350-150 mg tabs PO cholecalciferol (vitamin D3) 125 mcg PO DAILY compress.stocking,knee,reg,med As directed 15-20cm lamotrigine 150 mg PO DAILY levothyroxine 88 mcg PO DAILY loratadine 10 mg PO DAILY multivitamin 1 tab PO DAILY polyethylene glycol 3350 (Miralax) 17 grams orally twice a week; 30 days thiamine mononitrate (vit B1) 100 mg PO DAILY venlafaxine 25 mg PO DAILY venlafaxine ER (Effexor XR) 150 mg PO BEDTIME Tobacco use date assessed: 02/01/24 Fall risk assessment: No Falls in past year Last assessed Fall Risk: 02/01/24 Dental Screening Dental Screen Date: 02/01/24 Did you have a dental visit in the last 12 months?: Yes Did you have a dental problem in the last 6 months where you did not have access to dental care?: No Was dental information given to patient?: Patient has dentist HPI Labs f/u HPI Details Pt presents for f/u hypothyroid, osteoporosis, chronic asthma, chronic depression controlled on medications, vascular dementia. [facility] Medical History (Updated 02/01/24 @ 13:29 by Emmanuelle Paige MD) Environmental allergies Hiatal hernia Varicose veins of both legs with edema Annual physical exam Mammogram normal Seasonal allergic rhinitis Dysuria Multinodular thyroid Edema Osteopenia Chronic allergic rhinitis External hemorrhoid Arthritis Depression ALISON on CPAP Asthma Hypothyroidism Rectocele Tubular adenoma of colon GERD (gastroesophageal reflux disease) Surgical History History of esophagogastroduodenoscopy (EGD) Hx laparoscopic cholecystectomy History of Hx of colonoscopy Family History Father Colon polyp Mother Colon polyp Sister Osteoporosis Colon polyp Sister Colon polyp Social History Household Members: Spouse Housing: House Alcohol intake: current Alcohol intake frequency: holidays/special occasions only Patient Tobacco Use Status: Never used Tobacco e-Cigarette/Vaping Use: Never Used Second Hand Smoke Exposure: No service: No Current occupational status: retired Cognitive needs: No Hearing needs: No Vision needs: Yes Questionnaire Thrive Questionnaire Date Thrive assessed: 11/01/23 I am a: Patient What is your living situation today?: I have a steady place to live Within the past 12 months, did the food you bought not last and you didn't have the money to get more?: Never true Within the past 12 months, did you worry whether your food would run out before you got money to buy more?: Never true Do you have trouble paying for medicines?: No Do you have trouble getting transportation to medical appointments?: No Do you have trouble paying your heating and electricity bill?: No Do you have trouble taking care of your child, family member or friend?: No Do you have trouble with day-to-day activities such as bathing, preparing meals, shopping, managing finances, etc.?: Yes Are you currently unemployed and looking for a job?: No Are you interested in more education?: No Please select the resources that you would like help with: Care for elder or disabled Currently or been in a relationship where the following occur: No concerns reported THRIVE Score: 0 AUDIT C Alcohol Use Questionnaire (AUDIT-C) 1. How often do you have a drink containing alcohol?: Never 3. How often do you have six or more drinks on one occasion?: Never Total Score: 0 ALBERTA-7 AMB Questionnaire ALBERTA-7 Date ALBERTA - 7 assessed: 01/23/22 Source: Developed by Drs. Shakeel Gonzalez, Raven Jim Holliday and colleagues, with an educational jamee from [employer]. Review of Systems Const All systems reviewed & are unremarkable except as noted in HPI and below ENT Reports no additional complaints Card Reports no additional complaints Resp Reports no additional complaints GI Reports no additional complaints Reports no additional complaints Physical exam (Primary Care) Vital Signs: Last Vital Signs Pulse 83 02/01/24 12:27 BP 134/76 02/01/24 12:27 Pulse Ox 99 02/01/24 12:27 Oxygen Delivery Method Room Air 02/01/24 12:27 BMI result Body Mass Index 26.4 Tobacco/Smoking Status: Tobacco use Status Tobacco use date assessed 02/01/24 02/01/24 12:34 Patient Tobacco Use Status Never used Tobacco 02/01/24 12:27 e-Cigarette/Vaping Use Never Used 02/01/24 12:27 Thrive Assessment: Date of Thrive Assessment Date Thrive assessed 11/01/23 02/01/24 12:27 Currently or been in a relationship where the following occur: No concerns reported Const General: no acute distress HENMT Head: Yes normal to inspection Mouth: Normal oral and palatal mucosa present Eyes General: appearance normal, both eyes and all related structures Neck Neck: Yes supple Resp Effort & Inspection: normal respiratory effort Auscultation: clear to auscultation bilaterally Cardio Rhythm: regular rhythm Heart sounds: S1 normal heart sound present and S2 normal heart sound present GI Inspection: Yes normal to inspection Palpation (GI): Soft to palpation Percussion: Yes normal to percussion Auscultation: normal bowel sounds Coding Level of Care Code Est Pt Level 4 (06339) Diagnoses Hypothyroidism E03.9 Hyperlipidemia E78.5 Depression F32.9 Moderate persistent asthma without complication J45.40 Asthma severity: moderate Asthma persistence: persistent Asthma complication type: uncomplicated Osteoporosis M81.0 Vascular dementia F01.50 Assessment & Plan Assessment & Plan (1) Hypothyroidism: Code(s): E03.9 - Hypothyroidism, unspecified Category: Medical Plan: Increase levothyroxine to 100 mcg check TSH in 2 months (2) Hyperlipidemia: Code(s): E78.5 - Hyperlipidemia, unspecified Category: Medical Plan: Continue low-cholesterol diet check lipid profile (3) Depression: Comment: f[facility]u [facility] Code(s): F32.9 - Major depressive disorder, single episode, unspecified Category: Medical Plan: Continue medications and follow-up with the Psychiatry (4) Asthma: Code(s): J45.909 - Unspecified asthma, uncomplicated Category: Medical Qualifiers: Asthma severity: moderate Asthma persistence: persistent Asthma complication type: uncomplicated Qualified Code(s): J45.40 - Moderate persistent asthma, uncomplicated Plan: Controlled on Breo (5) Osteoporosis: Comment: DEXA 11/2022 T score -2.6, started Fosamax Code(s): M81.0 - Age-related osteoporosis without current pathological fracture Category: Medical Plan: Continue Fosamax (6) Vascular dementia: Comment: Follows up with Neurology Code(s): F01.50 - Vascular dementia, unspecified severity, without behavioral disturbance, psychotic disturbance, mood disturbance, and anxiety Category: Medical Plan: Follow-up with neurology Orders: Orders TSH reflex Free T4 2 Months E03.9 - Hypothyroidism, unspecified Lipid Panel 2 Months E03.9 - Hypothyroidism, unspecified Comprehensive [place]. Panel Fast 6 Months E03.9 - Hypothyroidism, unspecified, E04.2 - Nontoxic multinodular goiter, E78.5 - Hyperlipidemia, unspecified Complete Blood Count Auto Diff 6 Months E03.9 - Hypothyroidism, unspecified, E04.2 - Nontoxic multinodular goiter, E78.5 - Hyperlipidemia, unspecified Lipid Panel 6 Months E03.9 - Hypothyroidism, unspecified, E04.2 - Nontoxic multinodular goiter, E78.5 - Hyperlipidemia, unspecified TSH reflex Free T4 6 Months E03.9 - Hypothyroidism, unspecified, E04.2 - Nontoxic multinodular goiter, E78.5 - Hyperlipidemia, unspecified Medications: New levothyroxine 100 mcg PO DAILY 90 tabs 0RF
[2024-02-01 12:27] VITALS: BP 134/76; PULSE 83; O2SAT 99; BMI 26.4
== END 2024-02-01 13:01 | disposition home or self-care (01) ==
LOC: HO.HMCC 12:23
PROVIDERS: PCP Internal Medicine; Visit Provider Internal Medicine
DX: E03.9 Hypothyroidism, unspecified (principal); F01.50 Vascular dementia, unspecified severity, without behavioral disturbance, psychotic disturbance, mood disturbance, and anxiety; E78.5 Hyperlipidemia, unspecified; F32.9 Major depressive disorder, single episode, unspecified; J45.40 Moderate persistent asthma, uncomplicated; M81.0 Age-related osteoporosis without current pathological fracture

== ENCOUNTER → 2024-02-01 12:23 | Outpatient (BNVA) | payer MEDICARE, OTHER, SELFPAY | PROVIDERS: PCP Internal Medicine; Visit Provider Internal Medicine | DX: E03.9 Hypothyroidism, unspecified (principal); E78.5 Hyperlipidemia, unspecified; F32.9 Major depressive disorder, single episode, unspecified; J45.40 Moderate persistent asthma, uncomplicated; M81.0 Age-related osteoporosis without current pathological fracture; F01.50 Vascular dementia, unspecified severity, without behavioral disturbance, psychotic disturbance, mood disturbance, and anxiety | CPT/HCPCS: 99212 ==

== ENCOUNTER 2024-04-13 10:26 | Outpatient (AMB) | payer MEDICARE, OTHER, SELFPAY ==
[2024-04-13 11:09] VITALS: BP 130/68; PULSE 84; TEMP 36.6; O2SAT 98; BMI 25.9
--- NOTE | 2024-04-13 11:09 | AM.OFFWIN_ITS ---
Intake Vital Signs 04/13/24 11:09 Height 5 ft 4 in Weight 151 lb BMI 25.9 BP 130/68 Blood Pressure Location Lt brachial Position Sitting Pulse 84 Pulse Source Pulse Oximeter Temp 97.8 F Temp Source Oral Pulse Oximetry (%) 98 Oxygen Delivery Method Room Air Intake Visit Reasons: EP RT hip/leg pain Intake Note: Pt is here today c/o Rt hip and leg pain: No injury noted Patient Tobacco Use Status: Never used Tobacco Allergies erythromycin base [ERYTHROMYCIN BASE] Adverse Reaction (Intermediate, Verified 02/01/24 12:28) Stomach Upset, Bloating, Constipation HPI HPI Comments History of Present Illness Details History of Present Illness - The patient is a 69-year-old female pr esenting with acute right-sided hip pain which radiates down her right leg. This pain initially manifested intermittently but began worsening two days ago, culminating in significant distress and difficulty with certain positions due to sharp, shooting pain. The patient identifies the origin of the pain as her right hip, extending down the right leg to the knee. Notably, she has not experienced any bowel or bladder incontinence. Previous attempts to manage pain with a heating pad did not yield relief. There is no history of falls or gastrointestinal bleeding. Physical Exam General: Cooperative, healthy appearing, comfortable, no acute distress and well developed Orientation: Patient oriented x3 Limitations: dementia Head: Normal to inspection Ears: Hearing grossly normal bilaterally Nose: Normal external nose present Face and sinus: Normal facial exam Eyes: Appearance normal, both eyes and all related structures Neck: Normal visual inspection and Yes full ROM Respiratory: Normal respiratory effort and able to speak in complete sentences Skin: No rashes or lesions noted Neuro: Patient oriented x3 Extremities: Normal to inspection, + straight leg test right side [facility] Medical History (Updated 04/13/24 @ 11:35 by Jolanta Eubanks PA-C) Environmental allergies Hiatal hernia Varicose veins of both legs with edema Annual physical exam Mammogram normal Seasonal allergic rhinitis Dysuria Multinodular thyroid Edema Osteopenia Chronic allergic rhinitis External hemorrhoid Arthritis Depression ALISON on CPAP Asthma Hypothyroidism Rectocele Tubular adenoma of colon GERD (gastroesophageal reflux disease) Surgical History History of esophagogastroduodenoscopy (EGD) Hx laparoscopic cholecystectomy History of Hx of colonoscopy Family History Father Colon polyp Mother Colon polyp Sister Osteoporosis Colon polyp Sister Colon polyp Social History Household Members: Spouse Housing: House Alcohol intake: current Alcohol intake frequency: holidays/special occasions only Patient Tobacco Use Status: Never used Tobacco e-Cigarette/Vaping Use: Never Used Second Hand Smoke Exposure: No service: No Current occupational status: retired Cognitive needs: No Hearing needs: No Vision needs: Yes Review of Systems Const All systems reviewed & are unremarkable except as noted in HPI and below Physical Exam Vital Signs: Last Vital Signs Temp 97.8 F 04/13/24 11:09 Pulse 84 04/13/24 11:09 BP 130/68 04/13/24 11:09 Pulse Ox 98 04/13/24 11:09 Oxygen Delivery Method Room Air 04/13/24 11:09 BMI result Body Mass Index 25.9 Assessment & Plan Assessment & Plan (1) Sciatica of right side: Code(s): M54.31 - Sciatica, right side Plan: The management plan for the patient's sciatica focuses on the administration of Aleve for its anti-inflammatory properties, taken every 12 hours ATC x 3 days then using PRN, while avoiding simultaneous use with other NSAIDs like ibuprofen, Advil or Motrin. The patient is also instructed to apply ice to the painful area to assist in reducing inflammation. Should this conservative treatment not suffice, referral for consideration of more potent medications such as oral steroids will be made. Immediate assessment via the ED would be required if she develops alarming symptoms like bowel or bladder incontinence. Additionally, education about sciatic nerve pain relief through specialized exercises from credible resources is provided to potentially prevent future episodes. Patient was informed and verbally consented to the use of an ambient scribe for clinic note documentation during this visit. Coding Level of Care Code Est Pt Level 3 (76517) Diagnoses Sciatica of right side M54.31
== END 2024-04-13 11:52 | disposition home or self-care (01) ==
PROVIDERS: PCP Internal Medicine; Visit Provider Physician Assistant
DX: M54.31 Sciatica, right side (principal)

== ENCOUNTER → 2024-04-13 10:26 | Outpatient (BNVA) | payer MEDICARE, OTHER, SELFPAY | PROVIDERS: PCP Internal Medicine; Visit Provider Physician Assistant | DX: M54.31 Sciatica, right side (principal) | CPT/HCPCS: 99212 ==

== ENCOUNTER 2024-04-20 08:55 | Outpatient (AMB) | payer MEDICARE, OTHER, SELFPAY ==
--- NOTE | 2024-04-20 09:22 | MHC.OFFWIV ---
Intake Vital Signs 04/20/24 09:23 Height 5 ft 4 in Weight 151 lb BMI 25.9 BP 120/66 Blood Pressure Location Rt brachial Position Sitting Pulse 88 Pulse Source Pulse Oximeter Pulse Oximetry (%) 97 Oxygen Delivery Method Room Air Intake Visit Reasons: EP pain on RT side from hip down Intake Note: Pt is here today for a walk in visit. Pt c/o pain R hip goes down her knee. Pt was seen for this last week in a walk in and was given Aleve which pt been taking and the pain is not better. Pt was told to come back to the walk in if not better and she will be given steroid. Patient Tobacco Use Status: Never used Tobacco Allergies erythromycin base [ERYTHROMYCIN BASE] Adverse Reaction (Intermediate, Verified 04/20/24 09:26) Stomach Upset, Bloating, Constipation HPI HPI Comments History of Present Illness Details History of Present Illness - The patient is a 69-year-old female presenting with persistence of right-sided sciatica symptoms. - Previously diagnosed with sciatica involving right-sided hip pain with radiation down the right leg. - Initially experienced symptoms two days prior to April 13 and advised to take Aleve at initial [place] visit. - patient states it did work initially while she was taking the Aleve but is soon as the Aleve wore off, her symptoms returned - she is here today with a family member. Physical Exam General: Cooperative, healthy appearing, comfortable, no acute distress and well developed Orientation: Patient oriented x3 Limitations: No limitations Head: Normal to inspection Ears: Hearing grossly normal bilaterally Nose: Normal external nose present Face and sinus: Normal facial exam Eyes: Appearance normal, both eyes and all related structures Neck: Normal visual inspection and Yes full ROM Respiratory: Normal respiratory effort and able to speak in complete sentences. Skin: No rashes or lesions noted Neuro: Patient oriented x3 Extremities: + straight leg test right side [facility] Medical History (Updated 04/13/24 @ 11:35 by Jolanta Eubanks PA-C) Environmental allergies Hiatal hernia Varicose veins of both legs with edema Annual physical exam Mammogram normal Seasonal allergic rhinitis Dysuria Multinodular thyroid Edema Osteopenia Chronic allergic rhinitis External hemorrhoid Arthritis Depression ALISON on CPAP Asthma Hypothyroidism Rectocele Tubular adenoma of colon GERD (gastroesophageal reflux disease) Surgical History History of esophagogastroduodenoscopy (EGD) Hx laparoscopic cholecystectomy History of Hx of colonoscopy Family History Father Colon polyp Mother Colon polyp Sister Osteoporosis Colon polyp Sister Colon polyp Social History Household Members: Spouse Housing: House Alcohol intake: current Alcohol intake frequency: holidays/special occasions only Patient Tobacco Use Status: Never used Tobacco e-Cigarette/Vaping Use: Never Used Second Hand Smoke Exposure: No service: No Current occupational status: retired Cognitive needs: No Hearing needs: No Vision needs: Yes Review of Systems Const All systems reviewed & are unremarkable except as noted in HPI and below Physical Exam Vital Signs: Last Vital Signs Pulse 88 04/20/24 09:23 BP 120/66 04/20/24 09:23 Pulse Ox 97 04/20/24 09:23 Oxygen Delivery Method Room Air 04/20/24 09:23 BMI result Body Mass Index 25.9 Assessment & Plan Assessment & Plan (1) Sciatica of right side: Code(s): M54.31 - Sciatica, right side Plan: For the recurrence of right-sided sciatica, focusing on effective symptom management remains a priority. Past recommendations included the use of Aleve, a decision based on initial symptom presentation. However, she only had temporary improvement in her symptoms with Aleve necessitating alternative interventions with the progression of symptoms. Therefore, we will RX 30mg prednisone x 5 days. Pt has no hx of GI bleeding, stomach ulcers or similar. Gave risks vs benefits of steroid use. Patient was informed and verbally consented to the use of an ambient scribe for clinic note documentation during this visit. Medications: New prednisone 30 mg (3 x 10 mg) PO DAILY 5 days 15 tabs 0RF Coding Level of Care Code Est Pt Level 3 (84483) Diagnoses Sciatica of right side M54.31
[2024-04-20 09:23] VITALS: BP 120/66; PULSE 88; O2SAT 97; BMI 25.9
== END 2024-04-20 10:19 | disposition home or self-care (01) ==
PROVIDERS: PCP Internal Medicine; Visit Provider Physician Assistant
DX: M54.31 Sciatica, right side (principal)

== ENCOUNTER → 2024-04-20 08:55 | Outpatient (BNVA) | payer MEDICARE, OTHER, SELFPAY | PROVIDERS: PCP Internal Medicine; Visit Provider Physician Assistant | DX: M54.31 Sciatica, right side (principal) | CPT/HCPCS: 99212 ==

== ENCOUNTER 2024-04-27 07:00 | Outpatient (REF) | payer MEDICARE, OTHER, SELFPAY ==
[2024-04-27 10:59] LABS: Cholesterol 187 mg/dL (<200); HDL Cholesterol 79 mg/dL (>40); LDL Cholesterol Calculated 95 mg/dL (<100); Triglycerides 66 mg/dL (<150)
== END 2024-04-27 07:01 | disposition home or self-care (01) ==
LOC: HO.HMGCLDS 07:00
PROVIDERS: PCP Internal Medicine; Visit Provider Internal Medicine
DX: E03.9 Hypothyroidism, unspecified (principal); Z13.220 Encounter for screening for lipoid disorders
CPT/HCPCS: 36415; 80061; 84443

== ENCOUNTER 2024-05-08 23:13 | Emergency (ER) | payer MEDICARE, OTHER, SELFPAY ==
--- NOTE | ~2024-05-08 | XR_ITS ---
CLINICAL HISTORY: pain doersum foot 3 view left foot Comparison: CR - FOOT LEFT COMPLETE [id number] - 07/04/15 11:33 EDT Findings: Bones are osteopenic. No ankle effusion. No radiopaque foreign body. Calcaneal plantar and Achilles enthesopathy noted. Os peroneus noted. IMPRESSION: 1. No acute findings. This document has been electronically signed by: Efrain Rodriguez MD, PHD on 05/09/2024 04:42:14
[2024-05-09 00:10] VITALS: BP 150/61; PULSE 79; RESP 18; TEMP 36.8; O2SAT 98; BMI 25.2
--- NOTE | 2024-05-09 01:01 | PC.NURSE ---
Pt a&ox4, no signs of distress. Pt reports mh of vascular dementia Pt reports only pain to touch Discoloration, swelling, cold and pain to palpation noted on pts left foot. Pedal pulses 2 + Pt reports onset yesterday Pts family at bedside Plan of care ongoing.
[2024-05-09 02:36] VITALS: BP 137/66; PULSE 69; RESP 16; TEMP 36.6; O2SAT 97
--- NOTE | 2024-05-09 03:50 | ED_ITS ---
HPI - Extremity Problem General Chief complaint: Extremity Problem Stated complaint: L foot swollen blue? Time Seen by Provider: 05/09/24 03:22 Source: patient and family Mode of arrival: ambulatory Limitations: no limitations History of Present Illness ED Provider: Dr. Alisha Vanegas HPI Narrative: Patient comes in the emergency room complaining of bruise on the dorsum of the left foot. Patient states that it does not hurt, denies any injury. Patient states that she noticed the ecchymosis on the dorsum of the foot and then came to the emergency room. Otherwise, patient has no complaints. Patient denies any additional leg swelling, denies any toe pain or discoloration. Denies any calf pain. Patient states that she is not on blood thinners. Related Data Home Medications ?Medication ?Instructions ?Recorded ?Confirmed loratadine 10 mg tablet 10 mg PO DAILY 05/13/20 02/01/24 multivitamin 1 tab PO DAILY 05/13/20 02/01/24 boron citrate 3 mg tablet mg PO 11/03/21 02/01/24 lamotrigine 150 mg tablet 150 mg PO DAILY 01/23/22 02/01/24 bupropion HCl 100 mg tablet,12 hr 100 mg PO DAILY 07/14/22 02/01/24 sustained-release calcium carbonate-magnesium tab PO 12/31/22 02/01/24 hydroxide 350 mg-150 mg chewable tablet venlafaxine 150 mg 150 mg PO BEDTIME 12/31/22 02/01/24 capsule,extended release 24 hr (Effexor XR) venlafaxine 25 mg tablet 25 mg PO DAILY 11/08/23 02/01/24 bupropion HCl 75 mg tablet mg PO QAM 04/20/24 carboxymethylcellulose sodium 0.5 1 drp ophthalmic (eye) QID PRN 04/20/24 % eye drops (Refresh Tears) cholecalciferol (vitamin D3) 125 125 mcg PO .every other day 04/20/24 mcg (5,000 unit) capsule memantine 10 mg tablet mg PO DAILY 04/20/24 sennosides 8.6 mg capsule (senna) 8.6 mg PO DAILY 04/20/24 thiamine mononitrate (vit B1) 100 400 mg PO DAILY 04/20/24 mg tablet vitamin A 1,250 1 cap PO DAILY 04/20/24 unit-ergocalciferol (vitamin D2) 135 unit capsule (Singaporean Cod Liver Oil) Previous Rx's ?Medication ?Instructions ?Recorded compress.stocking,knee,reg,med #2 ea 01/29/23 polyethylene glycol 3350 17 17 g PO .COMPLEX 30 days #238 grams 04/29/23 gram/dose oral powder (Miralax) alendronate 70 mg tablet 70 mg PO QWEEK #13 tabs 06/22/23 Breo Ellipta 200 mcg-25 mcg/dose 1 inh inhalation DAILY #180 ea 04/02/24 powder for inhalation (fluticasone furoate-vilanterol) prednisone 10 mg tablet 30 mg (3 x 10 mg) PO DAILY 5 days 04/20/24 #15 tabs azelastine 137 mcg-fluticasone 50 1 spray intranasal BID #23 grams 04/27/24 mcg/spray nasal spray levothyroxine 100 mcg tablet 100 mcg PO DAILY #90 tabs 04/27/24 Allergies Allergy/AdvReac Type Severity Reaction Status Date / Time erythromycin base AdvReac Intermediate Stomach Verified 05/09/24 00:16 [ERYTHROMYCIN BASE] Upset, Bloating, Constipation Review of Systems Review of Systems: Constitutional : No Weight loss, No Fever, No Chills, No Night Sweats, No Fatigue, No Malaise ENT/Mouth : No Hearing loss, No Ear Pain, No Nasal Congestion, No Sinus Pain, No Hoarseness, No sore throat, No Rhinorrhea, No Swallowing Difficulty Eyes: No Eye Pain, No Swelling, No Redness, No Foreign Body, No Discharge, No Vision Changes Cardiovascular : No Chest Pain, No SOB, No Dyspnea on Exertion, No Orthopnea, No Edema, No Palpitations Respiratory : No Cough, No Sputum, No Wheezing, No Smoke Exposure, No Dyspnea Gastrointestinal : No Nausea, No Vomiting, No Diarrhea, No Constipation, No abdominal Pain, No Hematochezia, No Melena Genitourinary : no irregular bleeding, No Dysuria, No Urinary Frequency, No Hematuria, No Urinary Incontinence, No Urgency, No Flank Pain, No Urinary Flow Changes, No Hesitancy Musculoskeletal : No joint pain, No Myalgias, No Joint Swelling Skin : Complaining of a bruise on the dorsum of the left foot Neuro : No Weakness, No Numbness, No Paresthesias, No Loss of Consciousness, No Dizziness, No Headache Psych : No Anxiety/Panic, No Depression, No SI/HI/AH/VH, No Social Issues, Heme/Lymph: No Bruising, No Bleeding,No Lymphadenopathy Endocrine : No Polyuria, No Polydipsia, No Temperature Intolerance [facility] Past Medical History Medical History Environmental allergies Hiatal hernia Varicose veins of both legs with edema Annual physical exam Mammogram normal Seasonal allergic rhinitis Dysuria Multinodular thyroid Edema Osteopenia Chronic allergic rhinitis External hemorrhoid Arthritis Depression ALISON on CPAP Asthma Hypothyroidism Rectocele Tubular adenoma of colon GERD (gastroesophageal reflux disease) Surgical History History of esophagogastroduodenoscopy (EGD) Hx laparoscopic cholecystectomy History of Hx of colonoscopy Family History Family History Father Colon polyp Mother Colon polyp Sister Osteoporosis Colon polyp Sister Colon polyp Social History Social History Household Members: Spouse Housing: House Alcohol intake: current Alcohol intake frequency: does not drink Patient Tobacco Use Status: Never used Tobacco Smoked in Last 30 Days: No e-Cigarette/Vaping Use: Never Used Second Hand Smoke Exposure: No Use of substances other than those prescribed or required for medical reasons: No Advance Directives: No Advance Directives Information Provided: Yes service: No Current occupational status: retired Cognitive needs: No Hearing needs: No Vision needs: Yes Physical Exam Vital Signs: Vital Signs: Last Vital Signs Temp 98.9 F 05/09/24 04:40 Pulse 72 05/09/24 04:40 Resp 16 05/09/24 04:40 BP 142/71 H 05/09/24 04:40 Pulse Ox 97 05/09/24 04:40 O2 Del Method Room Air 05/09/24 04:40 BMI result Body Mass Index 25.2 Const: Other: Appearance: Alert. Oriented X3. No acute distress. Eyes: Pupils equal, round and reactive to light. ENT: Pharynx normal. Neck: Normal inspection. Neck supple. No lymph nodes noted. No crepitus CVS: Normal heart rate and rhythm. Pulses normal. Normal S1 and S2 Respiratory: No respiratory distress. Breath sounds normal. No Wheezing. No rales Abdomen: Soft and nontender. No rigidity. No distention. Skin: Skin warm and dry. Normal skin color. Normal skin turgor. Extremities: No lower extremity edema. Of the left foot, there is ecchymosis and pain to palpation over the metatarsals 3rd and 4th. Good pedal pulses, toes within normal limits. No plantar foot pain on palpation or walking. Good steady gait. Patient has good capillary refill in toes. No ecchymosis on the plantar aspect of the foot. No pain to palpation in the ankle or the calf: No swelling, reproducible pain to palpation over the dorsum of the foot Neuro: Oriented X 3. No motor deficit. No sensory deficit. Moving all extremities. No slurred speech. CN 2 through 12 grossly intact Psych: calm, cooperative, normal affect Medical Decision Making Medical Decision Making MDM Narrative: My interpretation of x-ray: There is a heel spur. However, the metatarsals do not show any significant abnormality. Patient has an ecchymosis on the dorsum of the foot. Patient has good capillary refill, no swelling Patient denies any injury. However, patient does have history of vascular dementia. Patient is not on blood thinners X-rays negative Independent Interpretation I performed an independent interpretation of an: Plain X-Ray Radiology Impression Discussion of test interpretation with radiology: I have reviewed the radiologist's reading. Radiologist Impression: Bones are osteopenic. No ankle effusion. No radiopaque foreign body. Calcaneal plantar and Achilles enthesopathy noted. Os peroneus noted. IMPRESSION: 1. No acute findings. Discharge Plan Discharge Clinical Impression: Superficial bruising of foot Patient Disposition: Home, Self-Care Instructions: Foot Contusion (ED) Additional Instructions: Please follow-up with your primary care physician tomorrow. If you have any worsening or new symptoms, please return to the emergency room or call 911 Prescriptions: No Action (DME) compress.stocking,knee,reg,med Misc See Rx Instructions .Route Qty: 2 2RF Rx Instructions: As directed 15-20cm alendronate 70 mg tablet 70 mg PO QWEEK Qty: 13 3RF fluticasone furoate-vilanterol [Breo Ellipta] 200-25 mcg/dose blister with device 1 inh inhalation DAILY Qty: 180 1RF azelastine-fluticasone 137-50 mcg/spray spray,non-aerosol 1 spray intranasal BID Qty: 23 6RF levothyroxine 100 mcg tablet 100 mcg PO DAILY Qty: 90 0RF multivitamin Tablet 1 tab PO DAILY loratadine 10 mg Tablet 10 mg PO DAILY thiamine mononitrate (vit B1) 100 mg tablet 400 mg PO DAILY boron citrate 3 mg tablet PO lamotrigine 150 mg tablet 150 mg PO DAILY venlafaxine 25 mg tablet 25 mg PO DAILY bupropion HCl 100 mg tablet sustained-release 12 hr 100 mg PO DAILY polyethylene glycol 3350 [Miralax] 17 gram/dose powder 17 g PO .COMPLEX 30 Days Qty: 238 3RF Rx Instructions: 17 grams orally twice a week; venlafaxine [Effexor XR] 150 mg capsule,extended release 24hr 150 mg PO BEDTIME calcium carbonate-mag hydroxid 350-150 mg tablet,chewable PO cholecalciferol (vitamin D3) 125 mcg (5,000 unit) capsule 125 mcg PO .every other day memantine 10 mg tablet PO DAILY bupropion HCl 75 mg tablet PO QAM Singaporean Cod Liver Oil 1,250-135 unit capsule 1 cap PO DAILY Rx Instructions: 400 mg senna 8.6 mg capsule 8.6 mg PO DAILY carboxymethylcellulose sodium [Refresh Tears] 0.5 % drops 1 drp ophthalmic (eye) QID PRN prednisone 10 mg tablet 30 mg PO DAILY 5 Days Qty: 15 0RF Print Language: Comoran
[2024-05-09 04:40] VITALS: BP 142/71; PULSE 72; RESP 16; TEMP 37.2; O2SAT 97
[2024-05-09 05:09] VITALS: BP 142/71; PULSE 72; RESP 16; TEMP 37.2; O2SAT 97
== END 2024-05-09 05:12 | disposition home or self-care (01) ==
PROVIDERS: Emergency Provider Emergency Medicine
DX: S90.32XA Contusion of left foot, initial encounter (principal); M79.672 Pain in left foot; M77.32 Calcaneal spur, left foot; X58.XXXA Exposure to other specified factors, initial encounter; Y93.9 Activity, unspecified; Y92.9 Unspecified place or not applicable; Y99.8 Other external cause status; Z79.899 Other long term (current) drug therapy
CPT/HCPCS: 73630; 99283; 99284

== ENCOUNTER → 2024-05-09 03:30 | Outpatient (BNV) | payer MEDICARE, OTHER, SELFPAY | PROVIDERS: Emergency Provider Emergency Medicine; Visit Provider General Practice | DX: M79.672 Pain in left foot (principal) | CPT/HCPCS: 73630 ==

== ENCOUNTER → 2024-05-10 14:13 | Outpatient (BNVA) | payer MEDICARE, OTHER, SELFPAY | PROVIDERS: Visit Provider Internal Medicine | DX: F32.9 Major depressive disorder, single episode, unspecified (principal); J45.40 Moderate persistent asthma, uncomplicated; S90.32XA Contusion of left foot, initial encounter | CPT/HCPCS: 96127; 99212 ==

== ENCOUNTER 2024-05-31 11:03 | Outpatient (REF) | payer MEDICARE, OTHER, SELFPAY ==
--- OUTSIDE RECORDS SUMMARY | 2024-05-31 13:52 | XMS_ITS | Encounter Summary ---
Author Organization [facility] Address [address] [place] [address] Care Team Providers Care Optical Design Engineer Name Role Phone Maximiliano Haddad MD Primary Care Provider [phone] Matti Hubbard MD Primary Care Provider Un available Encounter Details Date Type Department Care Team Description 02/20/2011 Pt. Non Urgent Medic al Question Chiropractic - [address] [address] Harjit Palm D.C. Social History Tobacco Use Types Packs/Day Years Used Date Smoking Tobacco: Never Alcohol Use Standard Drinks/Week Comments Yes 0 (1 standard drink = 0.6 oz pur e alcohol) socially Sex Assigned at Date Recorded Not on file documented as of this encounter Plan of Treatment Not on file documented as of this encounter Visit Diagnoses Not on filedocumented in this encounter Care Teams Optical Design Engineer Relationship Specialty Start Date End Date Maximiliano Haddad MD [address] [place] [id number] PCP - General 01/17/1993 12/13/14 Matti Hubbard MD [address] [place] [id number] PCP - General Internal Medicine 12/14/14 documented as of this encounter
--- OUTSIDE RECORDS SUMMARY | 2024-05-31 13:52 | XMS_ITS | Encounter Summary ---
Author Organization [facility] Address [address] [place] [address] Care Team Providers Care Econometrics Professor Name Role Phone Matti Hubbard MD Primary Care Provider Un available Reason for Visit * Reason Onset Date Comments Special Procedure 05/09/2017 Encounter Details Date Type Department Care Team Description 05/09/2017 Telephone Gastroenterology - [address] [address] Aiden Ash MD Special Procedure Social History Tobacco Use Types Packs/Day Years Used Date Smoking Tobacco: Never Smokeless Tobacco: Never Alcohol Use Standard Drinks/Week Comments Yes 0 (1 standard drink = 0.6 oz pur e alcohol) 1 drink per mo @ most Sex Assigned at Date Recorded Not on file documented as of this encounter Miscellaneous Notes * Telephone Encounter - Daysi Alston - 05/09/2017 8:41 AM EST [facility] has contacted this patient 3 times to schedule her repeat colonoscopy with no response. She will be removed from 's waitlist. Has not been to [place] since 2014 documented in this encounter Plan of Treatment Not on file documented as of this encounter Visit Diagnoses Not on filedocumented in this encounter Care Teams Econometrics Professor Relationship Specialty Start Date End Date Matti Hubbard MD PCP - General Internal Medicine 12/14/14 documented as of this encounter
--- OUTSIDE RECORDS SUMMARY | 2024-05-31 13:52 | XMS_ITS | Encounter Summary ---
Author Organization [facility] Address [address] [place] [address] Care Team Providers Care Foam Rubber Curer Name Role Phone Maximiliano Haddad MD Primary Care Provider [phone] Matti Hubbard MD Primary Care Provider Un available Encounter Details Date Type Department Care Team Description 05/12/2014 Telephone Eye Services-[address] [address] Rafael Glass OD Social History Tobacco Use Types Packs/Day Years Used Date Smoking Tobacco: Never Smokeless Tobacco: Never Alcohol Use Standard Drinks/Week Comments Yes 0 (1 standard drink = 0.6 oz pur e alcohol) 1 drink per mo @ most Sex Assigned at Date Recorded Not on file documented as of this encounter Miscellaneous Notes * Telephone Encounter - Rafael Glass OD - 05/12/2014 9:06 AM EST Schedule 1 year follow up with me documented in this encounter Plan of Treatment Not on file documented as of this encounter Visit Diagnoses Not on filedocumented in this encounter Care Teams Foam Rubber Curer Relationship Specialty Start Date End Date Maximiliano Haddad MD [address] [place] [id number] PCP - General 01/17/1993 12/13/14 Matti Hubbard MD [address] [place] [address] PCP - General Internal Medicine 12/14/14 documented as of this encounter
--- OUTSIDE RECORDS SUMMARY | 2024-05-31 13:52 | XMS_ITS | Encounter Summary ---
Author Organization [facility] Address [address] [place] [address] Care Team Providers Care Teaching Supervisor Name Role Phone Maximiliano Haddad MD Primary Care Provider [phone] Matti Hubbard MD Primary Care Provider Un available Encounter Details Date Type Department Care Team Description 07/03/2013 [place] [facility] [place] Log Report Medical Records [address] [place] [address] Nuris Tsai MD Social History Tobacco Use Types Packs/Day Years [...] on filedocumented in this encounter Care Teams Teaching Supervisor Relationship Specialty Start Date End Date Maximiliano Haddad MD [address] [place], [place] [id number] PCP - General 01/17/1993 12/13/14 Matti Hubbard MD [address] [place], [place] [id number] PCP - General Internal Medicine 12/14/14 documented as of this encounter
--- OUTSIDE RECORDS SUMMARY | 2024-05-31 13:52 | XMS_ITS | Clinical Summary ---
Author Organization [facility] Address [address] [place] [address] Care Team Providers Care [employer] Supervisor Name Role Phone Matti Hubbard MD Primary Care Provider Un available Allergies Active Allergy Reactions Severity Noted Date Comments Erythromycin 05/15/2005 constipation Medications Medication Sig Dispensed Refills Start Date End Date Status CALCIUM + D 600-200 MG-UNIT OR TABS 2 tabs daily 0 Active MULTIVITAMIN OR 1 tab qd 0 Active OMEGA 3 OR 1 tab bid 0 Active LORATIDINE TABS 10 MG (RAPID) OR 1 TABLET DAILY 0 Active CYTOMEL 5 MCG OR TABS 1 TABLET DAILY 0 Active POTASSIUM 99 MG OR TABS 1 tab daily 0 Active MAGNESIUM 200 MG OR TABS 1 Tab daily. 0 Active DHEA OR 10 mg daily 0 Active L-THYROXINE 75 MCG OR TABS 1 TABLET DAILY 0 Active CITALOPRAM HYDROBROMIDE 20 MG OR TABS 1 TABLET DAILY 0 Active BUPROPION HCL 100 MG OR TABS 1 elida qd 0 Active VITAMIN B 12 OR 1 po qd 0 Active ALBUTEROL SULFATE (PROAIR HFA) 108 (90 BASE) MCG/ACT AERS Inhale 2 Puffs into the lungs every 4 hours as needed. 0 Active budesonide-formoterol (SYMBICORT) 160-4.5 MCG/ACT inhaler Inhale 2 Puffs into the lungs every 12 hours. use w chamber, rinse gargle and spit after each second puff. 3 Inhaler 3 05/29/2014 Active Mometasone Furo-Formoterol Fum (DULERA) 200-5 MCG/ACT Aerosol Inhale 2 Puffs into the lungs every 12 hours. use with chamber, then rinse, gargle and spit after each second puff 1 Inhaler 3 07/26/2014 Active fluticasone 50 MCG/ACT nasal sprayIndications:Aller gic rhinitis, cause unspecified,Asthma, mild persistent, uncomplicated,Gastroes ophageal reflux disease without esophagitis 2 Sprays by Each Nare route daily. 3 Bottle 1 09/18/2014 Active omeprazole (PRILOSEC) 20 MG capsuleIndications:All ergic rhinitis, cause unspecified,Asthma, mild persistent, uncomplicated,Gastroes ophageal reflux disease without esophagitis Take 1 Cap by mouth daily. TAKE 1 CAPSULE DAILY 90 Cap 1 09/18/2014 Active Active Problems Problem Noted Date Asthma 01/01/2014 Lumbago 05/17/2008 Thoracic or lumbosacral neuritis or radi culitis, unspecified 05/17/2008 Overview: IMO update Disorders of sacrum 05/17/2008 Overview: IMO update GERD (gastroesophageal reflux disease) 0 04/30/2008 Family history of colonic polyps 007 Overview: Mother, father, two sisters all with colonic polyps. Both sisters diagnosed with colonic polyps in their 50s. No first or second degree relatives with colonic malignancy as of 03/14/2012. History of colonic polyps 11/03/2006 Overview: Colonoscopy 05/14/2003, Dr. Avinash Pennington, [facility]. Incomplete examination to the hepatic flexure. 3-cm tubulovillous adenoma removed from the proximal descending colon. Subsequent barium enema examination negative. CN 03/14/2012: 1 cm polyp transverse colon: Tubular adenoma. Next CN in 5 yrs. Allergic rhinitis, cause unspecified 01/2007 Hypothyroidism 09/22/2005 Depressive disorder, not elsewhere class ified 09/22/2005 Resolved Problems Problem Noted Date Resolved Date known multiple gall stones on ultrasound 200601/24/2010 Overview: IMO update Immunizations Name Administration Dates Next Due Influenza (> 6 Months) 01/03/2013,01/18/2012, Tdap 04/30/2008 Family History Medical History Relation Name Comments Cataract Father Colon Polyps Father Cataract Mother Colon Polyps Mother CA Breast Mother's side cousin Glaucoma Paternal Grandmother Colon Polyps Sister 3 dx age 50's Colon Polyps Sister 4 dx age 50's Blindness Negative Hx CA Colon Negative Hx as of 07/2012 CA Ovarian Negative Hx Macular Degeneration Negative Hx Strabismus Negative Hx Relation Name Status Comments Father (Age 72) emphysema Mother alzheimers oste oporosis COLON POLYPS Mother's side Alive Paternal Grandmother Sister 1 Alive osteoporosis CO HALIMA POLYPS Sister 2 Alive osteoporoisis C OLON POLYPS Sister 3 Sister 4 Social History Tobacco Use Types Packs/Day Years Used Date Smoking Tobacco: Never Smokeless Tobacco: Never Alcohol Use Standard Drinks/Week Comments Yes 0 (1 standard drink = 0.6 oz pur e alcohol) 1 drink per mo @ most Sex Assigned at Date Recorded Not on file Last Filed Vital Signs Vital Sign Reading Time Taken Comments Blood Pressure 132/74 09/28/2014 9:00 AM EDT Pulse 80 09/28/2014 9:00 AM EDT Temperature 36.9 ??C (98.4 ??F) 09/28/2014 9:00 AM ED T Respiratory Rate 12 09/28/2014 9:00 AM EDT Oxygen Saturation 99% 09/28/2014 9:00 AM EDT Inhaled Oxygen Concentration - - Weight 76.2 kg (168 lb) 09/28/2014 9:00 AM EDT Height 165.1 cm (5' 5 ) 09/28/2014 9:00 AM EDT Body Mass Index 27.96 09/28/2014 9:00 AM EDT Plan of Treatment Health Maintenance Due Date Last Done Comments Covid-19 Vaccine (#1) 1955 TOBACCO CHECK/ADVISE 01/07/1972 SHINGLES VACCINE (1 of 2) 01/07/2004 MAMMOGRAM 12/19/2015 12/18/2014, 12/04, 12/23/2012, Additional history exists COLON CANCER SCREENING 03/14/2017 03/14/2012, 2006 DTAP/TDAP/TD (2 - Td or Tdap) 04/30/2018 04/30/2008 CHOLESTEROL SCREENING 07/07/2018 07/07/2013 , 07/08/2012, 07/19/2009, Additional history exists BONE DENSITY SCREENING 2019 07/07/2013, 2006, 05/02/2003 PNEUMOCOCCAL VACCINE (1 - PCV) 2019 INFLUENZA (#1) 2023 01/03/2013, 01/18/2012, BMI CHECK/ADVISE 04/05/2024 03/06/2014, , 07/21/2013, Additional history exists HEPATITIS C SCREENING Completed 07/07/2013 Insurance Payer Benefit Plan / Group Subscriber ID Effective Dates Phone Address Type [employer] CH/UNICARE/$2 %/20V/PPO [id number] 2009-Presen t [phone] [facility] [address] [place] [id number] PPO Fee-for-S ervice [employer] PPO $15 [place] [id number] 2003-Pres t [address] [place] [phone] PPO Fee-for-S ervice [employer] PPO $20 [place] [id number] 2012-Pres t [phone] [facility] [address] [place] [phone] PPO Fee-for-S ervice Care Teams [employer] Supervisor Relationship Specialty Start Date End Date Matti Hubbard MD PCP - General Internal Medicine 12/14/14
--- OUTSIDE RECORDS SUMMARY | 2024-05-31 13:52 | XMS_ITS | Encounter Summary ---
Author Organization [facility] Address [address] [place] [address] Care Team Providers Care Staff Software Engineer Name Role Phone Maximiliano Haddad MD Primary Care Provider [phone] Matti Hubbard MD Primary Care Provider Un available Encounter Details Date Type Department Care Team Description 06/17/2011 Pt. Non Urgent Medical Question Adult Medicine [address] [address] Maximiliano Haddad MD [address] [place] [phone] Social History Tobacco Use Types Packs/Day Years Used Date Smoking Tobacco: Never Alcohol Use Standard Drinks/Week Comments Yes 0 (1 standard drink = 0.6 oz pur e alcohol) socially Sex Assigned at Date Recorded Not on file documented as of this encounter Plan of Treatment Not on file documented as of this encounter Visit Diagnoses Not on filedocumented in this encounter Care Teams Staff Software Engineer Relationship Specialty Start Date End Date Maximiliano Haddad MD [address] [place] [phone] PCP - General 01/17/1993 12/13/14 Matti Hubbard MD [address] [place] [id number] PCP - General Internal Medicine 12/14/14 documented as of this encounter
--- OUTSIDE RECORDS SUMMARY | 2024-05-31 13:52 | XMS_ITS | Encounter Summary ---
Author Organization [facility] Address [address] [place] [address] Care Team Providers Care Hospital Scientist Name Role Phone Maximiliano Haddad MD Primary Care Provider [phone] Matti Hubbard MD Primary Care Provider Un available Encounter Details Date Type Department Care Team Description 04/19/2007 Hospital Medical Records [address] [place] [id number] Luther Gunderson MD Social History Tobacco Use Types Packs/Day [...] on filedocumented in this encounter Care Teams Hospital Scientist Relationship Specialty Start Date End Date Maximiliano Haddad MD [address] [place], [place] [id number] PCP - General 01/17/1993 12/13/14 Matti Hubbard MD [address] [place] [id number] PCP - General Internal Medicine 12/14/14 documented as of this encounter
[2024-05-31 14:37] LABS: Vitamin D 25-OH Total 51.3 ng/mL (>30)
== END 2024-05-31 11:04 | disposition home or self-care (01) ==
LOC: HO.HMGCLDS 11:03
PROVIDERS: PCP Internal Medicine; Visit Provider Internal Medicine
DX: E55.9 Vitamin D deficiency, unspecified (principal)
CPT/HCPCS: 36415; 82306

== ENCOUNTER 2024-06-26 14:02 | Outpatient (REF) | payer MEDICARE, OTHER, SELFPAY ==
--- NOTE | ~2024-06-26 | XR_ITS ---
EXAMINATION: XR CHEST CLINICAL INFORMATION: M54.9 - Dorsalgia, unspecified COMPARISON: 07/27/2023. TECHNIQUE: 2 views of the chest were obtained. FINDINGS: The cardiac, hilar, and mediastinal contours are normal. Mild aortic calcification. Lungs are diffusely hyperaerated, however clear bilaterally. There is no pneumothorax or pleural effusion. There is no focal osseous or soft tissue abnormality. Mild osteopenia and degenerative changes of the spine. XR/XR chest 2V IMPRESSION: Findings suggesting underlying COPD. No active superimposed disease. Electronically signed by: Lon Antonio MD 06/27/2024 04:45 PM EDT
--- NOTE | ~2024-06-26 | XR_ITS ---
EXAMINATION: XR THORACIC SPINE CLINICAL INFORMATION: M54.9 - Dorsalgia, unspecified COMPARISON: None available. TECHNIQUE: 3 views of the thoracic spine were obtained. FINDINGS: There is diffuse osteopenia. Minimal levoconvex scoliosis centered at T5-T6. Mildly exaggerated kyphosis. No fracture or compression deformity. Normal alignment without subluxation. Moderate diffuse disc degeneration and mild diffuse facet degeneration. There are cholecystectomy clips present. Imaged lungs, heart, mediastinal contents, and soft tissues appear normal. XR/XR thoracic spine 2V IMPRESSION: 1. No acute findings of the thoracic spine. Osteopenia. 2. Mild to moderate degenerative spondylosis. Electronically signed by: Lon Antonio MD 06/27/2024 04:13 PM EDT
== END 2024-06-26 14:03 | disposition home or self-care (01) ==
LOC: HO.HMGCX 14:02
PROVIDERS: PCP Internal Medicine; Visit Provider Internal Medicine
DX: E03.9 Hypothyroidism, unspecified (principal); J45.40 Moderate persistent asthma, uncomplicated; M85.80 Other specified disorders of bone density and structure, unspecified site; M54.9 Dorsalgia, unspecified
CPT/HCPCS: 71046; 72070; 99212

== ENCOUNTER 2024-06-26 14:02 | Outpatient (AMB) | payer MEDICARE, OTHER, SELFPAY ==
[2024-06-26 14:08] VITALS: BP 124/78; PULSE 90; RESP 18; TEMP 36.8; O2SAT 98; BMI 25.9
--- NOTE | 2024-06-26 14:08 | A.OFFPC_ITS ---
Vital Signs 06/26/24 14:08 Height 5 ft 4 in Weight 151 lb BMI 25.9 BP 124/78 Blood Pressure Location Lt brachial Position Sitting Respiration 18 Pulse 90 Pulse Source Pulse Oximeter Temp 98.2 F Temp Source Oral Pulse Oximetry (%) 98 Oxygen Delivery Method Room Air Intake Visit Reasons: eval chest pressure for years Intake Note: Pt is here today for a follow up visit on chest pressure for years now. Allergies erythromycin base [ERYTHROMYCIN BASE] Adverse Reaction (Intermediate, Verified 06/26/24 14:17) Stomach Upset, Bloating, Constipation Medication List - Last Reconciled 06/26/24 by Emmanuelle Paige MD alendronate 70 mg PO QWEEK azelastine-fluticasone 137-50 mcg/spray 1 spray intranasal BID boron citrate mg PO Breo Ellipta 200-25 mcg/dose (fluticasone furoate-vilanterol) 1 inh inhalation DAILY NS bupropion HCl mg PO QAM bupropion HCl SR 100 mg PO DAILY calcium carbonate-mag hydroxid 350-150 mg tabs PO carboxymethylcellulose sodium 0.5% (Refresh Tears) 1 drp ophthalmic (eye) QID PRN cholecalciferol (vitamin D3) 125 mcg PO .every other day compress.stocking,knee,reg,med As directed 15-20cm lamotrigine 150 mg PO DAILY levothyroxine 100 mcg PO DAILY loratadine 10 mg PO DAILY memantine mg PO DAILY multivitamin 1 tab PO DAILY polyethylene glycol 3350 (Miralax) 17 grams orally twice a week; 30 days sennosides (senna) 8.6 mg PO DAILY thiamine mononitrate (vit B1) 400 mg PO DAILY venlafaxine 25 mg PO DAILY venlafaxine ER (Effexor XR) 150 mg PO BEDTIME vitamin A-ergocalciferol (D2) 1,250-135 unit ([place] Cod Liver Oil) 1 cap PO DAILY Tobacco use date assessed: 06/26/24 Fall risk assessment: 1 Fall in past year Last assessed Fall Risk: 06/26/24 Dental Screening Dental Screen Date: 05/10/24 HPI eval chest pressure for years HPI Details Pt c/o pressure sensation in the midback for 2 months, on and off, wor se when lying down upon waking up. Patient denies pain during the day, chest pain, shortness or breath, wheezing, fever chills night sweats GERD symptoms. Hypothyroidism, chronic depression and anxiety and asthma stable on current medications. [facility] Medical History Environmental allergies Hiatal hernia Varicose veins of both legs with edema Annual physical exam Mammogram normal Seasonal allergic rhinitis Dysuria Multinodular thyroid Edema Osteopenia Chronic allergic rhinitis External hemorrhoid Arthritis Depression ALISON on CPAP Asthma Hypothyroidism Rectocele Tubular adenoma of colon GERD (gastroesophageal reflux disease) Surgical History History of esophagogastroduodenoscopy (EGD) Hx laparoscopic cholecystectomy History of Hx of colonoscopy Family History Father Colon polyp Mother Colon polyp Sister Osteoporosis Colon polyp Sister Colon polyp Social History Household Members: Spouse Housing: House Alcohol intake: current Alcohol intake frequency: does not drink Patient Tobacco Use Status: Never used Tobacco e-Cigarette/Vaping Use: Never Used Second Hand Smoke Exposure: No service: No Current occupational status: retired Cognitive needs: No Hearing needs: No Vision needs: Yes Questionnaire Thrive Questionnaire Date Thrive assessed: 05/10/24 I am a: Patient What is your living situation today?: I have a steady place to live Within the past 12 months, did the food you bought not last and you didn't have the money to get more?: Never true Within the past 12 months, did you worry whether your food would run out before you got money to buy more?: Never true Do you have trouble paying for medicines?: No Do you have trouble getting transportation to medical appointments?: No Do you have trouble paying your heating and electricity bill?: No Do you have trouble taking care of your child, family member or friend?: No Do you have trouble with day-to-day activities such as bathing, preparing meals, shopping, managing finances, etc.?: No Are you currently unemployed and looking for a job?: No Are you interested in more education?: No Please select the resources that you would like help with: Daily support Currently or been in a relationship where the following occur: No concerns reported THRIVE Score: 0 ALBERTA-7 AMB Questionnaire ALBERTA-7 Date ALBERTA - 7 assessed: 05/10/24 Source: Developed by Drs. Shakeel Gonzalez, Raven Hernandez, Jim Hill and colleagues, with an educational jamee from [employer]. Review of Systems Const All systems reviewed & are unremarkable except as noted in HPI and below ENT Reports no additional complaints Card Reports no additional complaints Resp Reports no additional complaints GI Reports no additional complaints Reports no additional complaints Physical exam (Primary Care) Vital Signs: Last Vital Signs Temp 98.2 F 06/26/24 14:08 Pulse 90 06/26/24 14:08 Resp 18 06/26/24 14:08 BP 124/78 06/26/24 14:08 Pulse Ox 98 06/26/24 14:08 Oxygen Delivery Method Room Air 06/26/24 14:08 BMI result Body Mass Index 25.9 Tobacco/Smoking Status: Tobacco use Status Tobacco use date assessed 06/26/24 06/26/24 14:21 Patient Tobacco Use Status Never used Tobacco 06/26/24 14:09 e-Cigarette/Vaping Use Never Used 06/26/24 14:09 Thrive Assessment: Date of Thrive Assessment Date Thrive assessed 05/10/24 06/26/24 14:09 Currently or been in a relationship where the following occur: No concerns reported Const General: no acute distress HENMT Head: Yes normal to inspection Ears: hearing grossly normal bilaterally Neck Neck: Yes no lymphadenopathy and Yes supple Resp Effort & Inspection: normal respiratory effort Auscultation: clear to auscultation bilaterally Cardio Rhythm: regular rhythm Heart sounds: S1 normal heart sound present and S2 normal heart sound present GI Inspection: Yes normal to inspection Palpation (GI): Soft to palpation Percussion: Yes normal to percussion Auscultation: normal bowel sounds Back/Spine/Pelvis Other: Reproducible tenderness in midthoracic region spinal and paraspinal right more than left Coding Level of Care Code Est Pt Level 4 (68255) Diagnoses Hypothyroidism E03.9 Moderate persistent asthma without complication J45.40 Asthma severity: moderate Asthma persistence: persistent Asthma complication type: uncomplicated Osteopenia M85.80 Mid back pain M54.9 Assessment & Plan Assessment & Plan (1) Hypothyroidism: Code(s): E03.9 - Hypothyroidism, unspecified Category: Medical Plan: Continue levothyroxine, check TSH (2) Asthma: Code(s): J45.909 - Unspecified asthma, uncomplicated Category: Medical Qualifiers: Asthma severity: moderate Asthma persistence: persistent Asthma complication type: uncomplicated Qualified Code(s): J45.40 - Moderate persistent asthma, uncomplicated Plan: Continue Breo (3) Osteopenia: Code(s): M85.80 - Other specified disorders of bone density and structure, unspecified site Category: Medical Plan: Continue alendronate vitamin-D (4) Mid back pain: Code(s): M54.9 - Dorsalgia, unspecified Category: Medical Plan: EKG showed normal sinus rhythm no ST-T changes. Will obtain x-ray of chest and thoracic spine and refer to physical therapy Orders: Orders TSH reflex Free T4 Today E03.9 - Hypothyroidism, unspecified XR thoracic spine 2V Today J45.40 - Moderate persistent asthma, uncomplicated, M54.9 - Dorsalgia, unspecified, M85.80 - Other specified disorders of bone density and structure, unspecified site AMB EKG-In Office Today E03.9 - Hypothyroidism, unspecified, M54.9 - Dorsalgia, unspecified, R60.9 - Edema, unspecified Complete Blood Count Auto Diff Today E03.9 - Hypothyroidism, unspecified XR chest 1V Today J45.40 - Moderate persistent asthma, uncomplicated, M54.9 - Dorsalgia, unspecified, M85.80 - Other specified disorders of bone density and structure, unspecified site Comprehensive Met. Panel Today E03.9 - Hypothyroidism, unspecified, M85.80 - Other specified disorders of bone density and structure, unspecified site PT Evaluation and Treatment Today M54.9 - Dorsalgia, unspecified
== END 2024-06-26 15:07 | disposition home or self-care (01) ==
LOC: HO.HMCC 14:04
PROVIDERS: PCP Internal Medicine; Visit Provider Internal Medicine
DX: E03.9 Hypothyroidism, unspecified (principal); J45.40 Moderate persistent asthma, uncomplicated; M85.80 Other specified disorders of bone density and structure, unspecified site; M54.9 Dorsalgia, unspecified

== ENCOUNTER → 2024-06-26 15:09 | Outpatient (BNV) | payer MEDICARE, OTHER, SELFPAY | PROVIDERS: PCP Internal Medicine; Visit Provider Radiology Diagnostic Radiology | DX: M54.9 Dorsalgia, unspecified (principal) | CPT/HCPCS: 71046; 72070 ==

== ENCOUNTER 2024-07-21 09:18 | Outpatient (REF) | payer MEDICARE, OTHER, SELFPAY ==
[2024-07-21 13:15] LABS: MANUAL DIFF FLAG NO
[2024-07-21 13:31] LABS: Basophils Percent Auto 1.2 % (0-2); Eosinophils Absolute Auto 0.1 X10*3/uL (0.0-0.4); Hemoglobin 11.6 g/dl (12.0-16.0); Imm Gran Abs Auto 0.03 X10*3/uL (0.00-0.03); Imm Gran Pct Auto 0.9 % (0.0-0.4); Lymphocytes Percent Auto 29.8 % (20-40); Mean Corpuscular HGB Conc 33.1 g/dl (31.0-35.0); Mean Corpuscular Hemoglobin 31.1 pg (27.0-33.0); Mean Corpuscular Volume 93.8 fL (80.0-98.0); Mean Platelet Volume 10.5 fL (9.4-12.3); Monocytes Absolute Auto 0.4 X10*3/uL (0.1-1.2); Monocytes Percent Auto 12.5 % (2-11); Neutrophils Absolute Auto 1.7 x10*3/uL (2.0-8.3); Neutrophils Percent Auto 52.6 % (45-73); Platelet Count 198 X10*3/uL (160-400); Red Blood Count 3.73 X10*6/uL (4.20-5.50); Red Cell Distribution Width 11.8 % (11.0-16.0); White Blood Count 3.3 X10*3/uL (4.8-10.8)
[2024-07-21 14:18] LABS: Alanine Aminotransferase 25 U/L (0-31); Albumin Level 3.8 g/dL (3.5-5.0); Anion Gap 8 (12-20); Aspartate Amino Transferase 29 U/L (5-31); Bilirubin Total 0.5 mg/dL (0.0-1.0); Blood Urea Nitrogen 8 mg/dL (9-16); Calcium 8.9 mg/dL (8.4-10.2); Carbon Dioxide 28 mmol/L (22-29); Chloride 103 mmol/L (96-108); Cholesterol 191 mg/dL (<200); Estimated Glomerular Filt Rate > 60; Glucose Fasting 75 mg/dL (60-99); Glucose Random 74 mg/dL (60-115); HDL Cholesterol 75 mg/dL (>40); LDL Cholesterol Calculated 109 mg/dL (<100); Potassium 3.6 mmol/L (3.3-5.1); Sodium 135 mmol/L (135-145); Total Protein 6.1 g/dL (6.5-8.0); Triglycerides 39 mg/dL (<150)
[2024-07-21 14:34] LABS: TSH reflex Free T4 0.07 uIU/mL (0.32-4.0)
[2024-07-21 15:35] LABS: Free T4 (Free Thyroxine) 1.41 ng/dL (0.71-1.85)
[2024-07-21 19:44] LABS: Alkaline Phosphatase 61 U/L (39-117)
== END 2024-07-21 09:19 | disposition home or self-care (01) ==
LOC: HO.HMGCLDS 09:18
PROVIDERS: PCP Internal Medicine; Visit Provider Internal Medicine
DX: M85.80 Other specified disorders of bone density and structure, unspecified site (principal); E03.9 Hypothyroidism, unspecified; E04.2 Nontoxic multinodular goiter; E78.5 Hyperlipidemia, unspecified
CPT/HCPCS: 36415; 80053; 80061; 84439; 84443; 85025

== ENCOUNTER 2024-08-01 13:28 | Outpatient (REF) | payer MEDICARE, OTHER, SELFPAY ==
[2024-08-01 16:01] LABS: MANUAL DIFF FLAG NO
[2024-08-01 16:07] LABS: Basophils Absolute Auto 0.1 X10*3/uL (0.0-0.2); Basophils Percent Auto 1.2 % (0-2); Eosinophils Absolute Auto 0.1 X10*3/uL (0.0-0.4); Eosinophils Percent Auto 2.6 % (0-4); Hematocrit 37.4 % (37.0-47.0); Hemoglobin 12.5 g/dl (12.0-16.0); Imm Gran Abs Auto 0.01 X10*3/uL (0.00-0.03); Imm Gran Pct Auto 0.2 % (0.0-0.4); Lymphocytes Absolute Auto 0.9 X10*3/uL (1.2-4.9); Lymphocytes Percent Auto 20.9 % (20-40); Mean Corpuscular HGB Conc 33.4 g/dl (31.0-35.0); Mean Corpuscular Hemoglobin 31.5 pg (27.0-33.0); Mean Corpuscular Volume 94.2 fL (80.0-98.0); Mean Platelet Volume 10.5 fL (9.4-12.3); Monocytes Absolute Auto 0.5 X10*3/uL (0.1-1.2); Monocytes Percent Auto 10.9 % (2-11); Neutrophils Absolute Auto 2.7 x10*3/uL (2.0-8.3); Neutrophils Percent Auto 64.2 % (45-73); Platelet Count 234 X10*3/uL (160-400); Red Blood Count 3.97 X10*6/uL (4.20-5.50); Red Cell Distribution Width 11.8 % (11.0-16.0); White Blood Count 4.2 X10*3/uL (4.8-10.8)
[2024-08-01 16:29] LABS: Iron 72 mcg/dL (30-160); Percent Iron Saturation 26 % (15-50); Total Iron Binding Capacity 275 mcg/dL (228-428); Unsaturated Iron Binding 203 ug/dL
[2024-08-01 16:47] LABS: TSH reflex Free T4 0.06 uIU/mL (0.32-4.0)
[2024-08-01 16:50] LABS: Folate 14.3 ng/mL (> or = 4.0); Vitamin B12 567 pg/mL (200-900)
[2024-08-01 17:44] LABS: Free T4 (Free Thyroxine) 1.32 ng/dL (0.71-1.85)
== END 2024-08-01 13:29 | disposition home or self-care (01) ==
LOC: HO.HMGCLDS 13:28
PROVIDERS: PCP Internal Medicine; Visit Provider Internal Medicine
DX: D64.9 Anemia, unspecified (principal); E03.9 Hypothyroidism, unspecified; M81.0 Age-related osteoporosis without current pathological fracture; M62.81 Muscle weakness (generalized); R26.89 Other abnormalities of gait and mobility; F01.50 Vascular dementia, unspecified severity, without behavioral disturbance, psychotic disturbance, mood disturbance, and anxiety; F32.9 Major depressive disorder, single episode, unspecified; E04.2 Nontoxic multinodular goiter; E78.5 Hyperlipidemia, unspecified; Z79.899 Other long term (current) drug therapy
CPT/HCPCS: 36415; 82607; 82746; 83540; 84439; 84443; 85025; 99212

== ENCOUNTER 2024-08-01 13:28 | Outpatient (AMB) | payer MEDICARE, OTHER, SELFPAY ==
--- NOTE | 2024-08-01 13:30 | A.OFFPC_ITS ---
Vital Signs 08/01/24 13:35 Height 5 ft 4 in Weight 149 lb BMI 25.6 BP 110/68 Blood Pressure Location Rt brachial Position Sitting Respiration 18 Pulse 81 Pulse Source Pulse Oximeter Temp 98.3 F Temp Source Oral Pulse Oximetry (%) 99 Oxygen Delivery Method Room Air Intake Visit Reasons: 6 months f/up Intake Note: Pt is here today for 6 months follow up visit on lab results and xray result. Allergies erythromycin base [ERYTHROMYCIN BASE] Adverse Reaction (Intermediate, Verified 08/01/24 13:36) Stomach Upset, Bloating, Constipation Medication List - Last Reconciled 08/01/24 by Emmanuelle Paige MD alendronate 70 mg PO QWEEK azelastine-fluticasone 137-50 mcg/spray 1 spray intranasal BID boron citrate mg PO Breo Ellipta 200-25 mcg/dose (fluticasone furoate-vilanterol) 1 inh inhalation DAILY NS bupropion HCl mg PO QAM calcium carbonate-mag hydroxid 350-150 mg tabs PO carboxymethylcellulose sodium 0.5% (Refresh Tears) 1 drp ophthalmic (eye) QID PRN cholecalciferol (vitamin D3) 125 mcg PO .every other day compress.stocking,knee,reg,med As directed 15-20cm lamotrigine 150 mg PO DAILY levothyroxine 1/2 tabl one day a week, then 1 tabl qd orally daily; loratadine 10 mg PO DAILY memantine mg PO DAILY multivitamin 1 tab PO DAILY polyethylene glycol 3350 (Miralax) 17 grams orally twice a week; 30 days sennosides (senna) 8.6 mg PO DAILY thiamine mononitrate (vit B1) 400 mg PO DAILY venlafaxine 25 mg PO DAILY venlafaxine ER (Effexor XR) 150 mg PO BEDTIME vitamin A-ergocalciferol (D2) 1,250-135 unit ([place] Cod Liver Oil) 1 cap PO DAILY Tobacco use date assessed: 08/01/24 Fall risk assessment: 2 + Falls in past year Last assessed Fall Risk: 08/01/24 Dental Screening Dental Screen Date: 05/10/24 HPI 6 months f/up HPI Details Pt presents for f/u asthma and hypothyroid, stable on meds. Patient complains of poor balance and lower extremity weakness when walking tripping over but denies any recent falls or head injury. [facility] Medical History (Updated 08/01/24 @ 14:11 by Emmanuelle Paige MD) Environmental allergies Hiatal hernia Varicose veins of both legs with edema Annual physical exam Mammogram normal Seasonal allergic rhinitis Dysuria Multinodular thyroid Edema Osteopenia Chronic allergic rhinitis External hemorrhoid Arthritis Depression ALISON on CPAP Asthma Hypothyroidism Rectocele Tubular adenoma of colon GERD (gastroesophageal reflux disease) Surgical History History of esophagogastroduodenoscopy (EGD) Hx laparoscopic cholecystectomy History of Hx of colonoscopy Family History Father Colon polyp Mother Colon polyp Sister Osteoporosis Colon polyp Sister Colon polyp Social History Household Members: Spouse Housing: House Alcohol intake: current Alcohol intake frequency: does not drink Patient Tobacco Use Status: Never used Tobacco e-Cigarette/Vaping Use: Never Used Second Hand Smoke Exposure: No service: No Current occupational status: retired Cognitive needs: No Hearing needs: No Vision needs: Yes Questionnaire Thrive Questionnaire Date Thrive assessed: 05/10/24 I am a: Patient What is your living situation today?: I have a steady place to live Within the past 12 months, did the food you bought not last and you didn't have the money to get more?: Never true Within the past 12 months, did you worry whether your food would run out before you got money to buy more?: Never true Do you have trouble paying for medicines?: No Do you have trouble getting transportation to medical appointments?: No Do you have trouble paying your heating and electricity bill?: No Do you have trouble taking care of your child, family member or friend?: No Do you have trouble with day-to-day activities such as bathing, preparing meals, shopping, managing finances, etc.?: No Are you currently unemployed and looking for a job?: No Are you interested in more education?: No Please select the resources that you would like help with: Daily support Currently or been in a relationship where the following occur: No concerns reported THRIVE Score: 0 ALBERTA-7 AMB Questionnaire ALBERTA-7 Date ALBERTA - 7 assessed: 05/10/24 Source: Developed by Drs. Shakeel Gonzalez, Raven Hernandez, Jim Hill and colleagues, with an educational jamee from [employer]. Review of Systems Const All systems reviewed & are unremarkable except as noted in HPI and below Reports no additional complaints Eyes Reports no additional complaints ENT Reports no additional complaints Card Reports no additional complaints Resp Reports no additional complaints Physical exam (Primary Care) Vital Signs: Last Vital Signs Temp 98.3 F 08/01/24 13:35 Pulse 81 08/01/24 13:35 Resp 18 08/01/24 13:35 BP 110/68 08/01/24 13:35 Pulse Ox 99 08/01/24 13:35 Oxygen Delivery Method Room Air 08/01/24 13:35 BMI result Body Mass Index 25.6 Tobacco/Smoking Status: Tobacco use Status Tobacco use date assessed 08/01/24 08/01/24 13:42 Patient Tobacco Use Status Never used Tobacco 08/01/24 13:30 e-Cigarette/Vaping Use Never Used 08/01/24 13:30 Thrive Assessment: Date of Thrive Assessment Date Thrive assessed 05/10/24 08/01/24 13:30 Currently or been in a relationship where the following occur: No concerns reported Const General: no acute distress HENMT Head: Yes normal to inspection Eyes General: appearance normal, both eyes and all related structures Neck Neck: Yes supple Resp Effort & Inspection: normal respiratory effort Auscultation: clear to auscultation bilaterally Cardio Rhythm: regular rhythm Heart sounds: S1 normal heart sound present and S2 normal heart sound present GI Inspection: Yes normal to inspection Neuro Cranial nerves: Yes CN's II-XII intact bilaterally Gait exam (Neuro): Staggering gait present Motor exam (neuro): Pronator motor function not present Romberg Test: Negative Coding Level of Care Code Est Pt Level 4 (24562) Diagnoses Anemia D64.9 Hypothyroidism E03.9 Osteoporosis M81.0 Muscle weakness of lower extremity M62.81 Poor balance R26.89 Vascular dementia F01.50 Depression F32.9 Assessment & Plan Assessment & Plan (1) Anemia: Code(s): D64.9 - Anemia, unspecified Category: Medical Plan: Check iron vitamin B12 level (2) Hypothyroidism: Code(s): E03.9 - Hypothyroidism, unspecified Category: Medical Plan: Decrease levothyroxine to a half a tablet 1 day a week and a type 1 tablet for the rest of the week and repeat TSH in 2 months (3) Osteoporosis: Comment: DEXA 11/2022 T score -2.6, started Fosamax Code(s): M81.0 - Age-related osteoporosis without current pathological fracture Category: Medical Plan: Continue Fosamax and vitamin-D 3 (4) Muscle weakness of lower extremity: Code(s): M62.81 - Muscle weakness (generalized) Category: Medical Plan: Referred to physical therapy for deconditioning (5) Poor balance: Code(s): R26.89 - Other abnormalities of gait and mobility Category: Medical Plan: Referred to physical therapy and start walker (6) Vascular dementia: Comment: Follows up with Neurology Code(s): F01.50 - Vascular dementia, unspecified severity, without behavioral disturbance, psychotic disturbance, mood disturbance, and anxiety Category: Medical Plan: Continue Namenda follow-up with Neurology (7) Depression: Comment: f/u [facility] Code(s): F32.9 - Major depressive disorder, single episode, unspecified Category: Medical Plan: Continue current medications and follow-up with the Psychiatry Orders: Orders Vitamin B12 and Folate Today D64.9 - Anemia, unspecified Complete Blood Count Auto Diff 2 Months D64.9 - Anemia, unspecified, E03.9 - Hypothyroidism, unspecified TSH reflex Free T4 2 Months D64.9 - Anemia, unspecified, E03.9 - Hypothyroidism, unspecified IRON PROFILE Today D64.9 - Anemia, unspecified PT Evaluation and Treatment Today M62.81 - Muscle weakness (generalized), R26.89 - Other abnormalities of gait and mobility Medications: New walker with a seat 1 ea 0RF M62.81 - Muscle weakness (generalized), R26.89 - Other abnormalities of gait and mobility Changed From levothyroxine 100 mcg PO DAILY 90 tabs 1RF To levothyroxine 1/2 tabl one day a week, then 1 tabl qd orally daily; 90 tabs 1RF
[2024-08-01 13:35] VITALS: BP 110/68; PULSE 81; RESP 18; TEMP 36.8; O2SAT 99; BMI 25.6
== END 2024-08-01 14:21 | disposition home or self-care (01) ==
LOC: HO.HMCC 13:28
PROVIDERS: PCP Internal Medicine; Visit Provider Internal Medicine
DX: D64.9 Anemia, unspecified (principal); F01.50 Vascular dementia, unspecified severity, without behavioral disturbance, psychotic disturbance, mood disturbance, and anxiety; E03.9 Hypothyroidism, unspecified; M81.0 Age-related osteoporosis without current pathological fracture; M62.81 Muscle weakness (generalized); R26.89 Other abnormalities of gait and mobility; F32.9 Major depressive disorder, single episode, unspecified

== ENCOUNTER 2024-08-15 13:44 | Outpatient (REF) | payer MEDICARE, OTHER, SELFPAY ==
--- OUTSIDE RECORDS SUMMARY | 2024-08-15 14:53 | XMS_ITS | Encounter Summary ---
Author Organization [facility] Address [address] [place] [address] Care Team Providers Care Senior Ui Developer Name Role Phone Matti Hubbard MD Primary Care Provider Un available Reason for Visit * Reason Onset Date Comments Special Procedure 05/09/2017 Encounter Details Date Type Department Care Team Description 05/09/2017 Telephone Gastroenterology - [address] [address] Aiden Ash MD Special Procedure Social History [...] Daysi Alston - 05/09/2017 8:41 AM EST [facility] has contacted this patient 3 times to schedule her repeat colonoscopy with no response. She will be removed from 's waitlist. Has not been to [place] since 2014 documented in this encounter Plan of Treatment Not on file documented as of this encounter Visit Diagnoses Not on filedocumented in this encounter Care Teams Senior Ui Developer Relationship Specialty Start Date End Date Matti Hubbard MD PCP - General Internal Medicine 12/14/14 documented as of this encounter
--- OUTSIDE RECORDS SUMMARY | 2024-08-15 14:53 | XMS_ITS | Encounter Summary ---
Author Organization [facility] Address [address] [place] [address] Care Team Providers Care Hand Ii Blocker Name Role Phone Maximiliano Haddad MD Primary Care Provider [phone] Matti Hubbard MD Primary Care Provider Un available Encounter Details Date Type Department Care Team Description 10/13/2013 Pt. Non Urgent Medical Question Adult Medicine [facility] [address] [place] [address] Maximiliano Haddad MD [address] [place] [address] Social History Tobacco Use Types Packs/Day Years Used Date Smoking Tobacco: Never Smokeless Tobacco: Never Alcohol Use Standard Drinks/Week Comments Yes 0 (1 standard drink = 0.6 oz pur e alcohol) 1 drink per mo @ most Sex Assigned at Date Recorded Not on file documented as of this encounter Progress Notes * Ana RodriguezP.N. - 10/13/2013 4:12 PM EDTFrom: Ruma A Fozia To: Maximiliano Haddad MD Sent: 10/13/2013 4:11 PM EDT Subject: Pulmonology apt is not until January 01 Thank you for arranging for another xray. My Pulmonology apt. is not until 01/01 which is why I am asking for the xray. It seems a very long time to me to be coughing from to now and 01/01 seems abit late in the game. I will go to that apt. too unless we figure out why I am coughing before that. Thanks again, Ruma Marcelo documented in this encounter Plan of Treatment Not on file documented as of this encounter Visit Diagnoses Not on filedocumented in this encounter Care Teams Hand Ii Blocker Relationship Specialty Start Date End Date Maximiliano Haddad MD [address] [place] [address] PCP - General 01/17/1993 12/13/14 Matti Hubbard MD [address] [place] [address] PCP - General Internal Medicine 12/14/14 documented as of this encounter
--- OUTSIDE RECORDS SUMMARY | 2024-08-15 14:53 | XMS_ITS | Encounter Summary ---
Author Organization [facility] Address [address] [place] [address] Care Team Providers Care Back Tender Cloth Printing Name Role Phone Maximiliano Haddad MD Primary Care Provider [phone] Matti Hubbard MD Primary Care Provider Un available Encounter Details Date Type Department Care Team Description 06/17/2011 Pt. Non Urgent Medical Question Adult Medicine [address] [address] Maximiliano Haddad MD [address] [place] [address] Social History Tobacco Use Types Packs/Day Years Used Date Smoking Tobacco: Never Alcohol Use Standard Drinks/Week Comments Yes 0 (1 standard drink = 0.6 oz pur e alcohol) socially Sex Assigned at Date Recorded Not on file documented as of this encounter Plan of Treatment Not on file documented as of this encounter Visit Diagnoses Not on filedocumented in this encounter Care Teams Back Tender Cloth Printing Relationship Specialty Start Date End Date Maximiliano Haddad MD [address] [place] [address] PCP - General 01/17/1993 12/13/14 Matti Hubbard MD [address] [place] [address] PCP - General Internal Medicine 12/14/14 documented as of this encounter
--- OUTSIDE RECORDS SUMMARY | 2024-08-15 14:53 | XMS_ITS | Encounter Summary ---
Author Organization [facility] Address [address] [place] [address] Care Team Providers Care Construction Carpenters Helper Name Role Phone Maximiliano Haddad MD Primary Care Provider [phone] Matti Hubbard MD Primary Care Provider Un available Encounter Details Date Type Department Care Team Description 07/03/2013 Director Of Solutions Architecture Report Medical Records [address] [place], [place] [phone] Nuris Tsai MD Social History Tobacco Use [...] on filedocumented in this encounter Care Teams Construction Carpenters Helper Relationship Specialty Start Date End Date Maximiliano Haddad MD [address] [place], [place] [phone] PCP - General 01/17/1993 12/13/14 Matti Hubbard MD [address] [place], [place] [phone] PCP - General Internal Medicine 12/14/14 documented as of this encounter
--- OUTSIDE RECORDS SUMMARY | 2024-08-15 14:53 | XMS_ITS | Encounter Summary ---
Author Organization [facility] Address [address] [place] [address] Care Team Providers Care Hotbed Lever Operator Name Role Phone Maximiliano Haddad MD Primary Care Provider [phone] Matti Hubbard MD Primary Care Provider Un available Encounter Details Date Type Department Care Team Description 06/01/2014 Pickle Maker Report Medical Records [address] [place] [address] Nuris Tsai MD Social History Tobacco Use [...] on filedocumented in this encounter Care Teams Hotbed Lever Operator Relationship Specialty Start Date End Date Maximiliano Haddad MD [address] [place], [place] [phone] PCP - General 01/17/1993 12/13/14 Matti Hubbard MD [address] [place], [place] [phone] PCP - General Internal Medicine 12/14/14 documented as of this encounter
--- OUTSIDE RECORDS SUMMARY | 2024-08-15 14:53 | XMS_ITS | Encounter Summary ---
Author Organization [facility] Address [address] [place] [address] Care Team Providers Care Waterproof Bag Sewer Name Role Phone Maximiliano Haddad MD Primary Care Provider [phone] Matti Hubbard MD Primary Care Provider Un available Encounter Details Date Type Department Care Team Description 05/17/2012 Multiple Drum Sander Report Medical Records [address] [place] [address] Varun Trujillo MD Social History Tobacco Use Types Packs/Day [...] on filedocumented in this encounter Care Teams Waterproof Bag Sewer Relationship Specialty Start Date End Date Maximiliano Haddad MD [address] [place], [place] [phone] PCP - General 01/17/1993 12/13/14 Matti Hubbard MD [address] [place] [address] PCP - General Internal Medicine 12/14/14 documented as of this encounter
--- OUTSIDE RECORDS SUMMARY | 2024-08-15 14:53 | XMS_ITS | Clinical Summary ---
Author Organization [facility] Address [address] [place] [address] Care Team Providers Care Technology Coach Name Role Phone Matti Hubbard MD Primary [...] 11/03/2006 Overview: Colonoscopy 05/14/2003, Dr. Avinash Pennington, [facility]. Incomplete examination to the hepatic flexure. [...] 05/02/2003 PNEUMOCOCCAL VACCINE (1 - PCV) 2019 BMI CHECK/ADVISE 04/05/2024 03/06/2014, , 07/21/2013, Additional history exists INFLUENZA (Season Ended) 2024 01/03/2013, 01/03, 12/23/2009 HEPATITIS C SCREENING Completed 07/07/2013 Insurance Payer Benefit Plan / Group Subscriber ID Effective Dates Phone Address Type [employer] CH/UNICARE/$2 %/20V/PPO [id number] 2009-Presen t [phone] [facility] [address] [place] [id number] PPO Fee-for-S ervice [employer] PPO $15 [place] [id number] 2003-Presen t [address] [place] [phone] PPO Fee-for-S ervice [employer] PPO $20 [place] [id number] 2012-Presen t [facility] [address] [place] [phone] PPO Fee-for-S ervice Care Teams Technology Coach Relationship Specialty Start Date End Date Matti Hubbard MD PCP - General Internal Medicine 12/14/14
== END 2024-08-15 13:45 | disposition home or self-care (01) ==
LOC: HO.SH 13:44
PROVIDERS: Visit Provider Internal Medicine
DX: Z01.118 Encounter for examination of ears and hearing with other abnormal findings (principal); H90.3 Sensorineural hearing loss, bilateral
CPT/HCPCS: 92557; 92567

== ENCOUNTER 2024-08-15 14:57 | Outpatient (REF) | payer SELFPAY ==
--- NOTE | 2024-08-15 15:56 | MHC.AU.HA1 ---
Hearing Aid Evaluation Date of Visit: 08/15/24 Historical Information: Description of Hearing: Borderline normal gradually sloping to moderate sensorineural hearing loss, bilateral. Current personal amplification information, if applicable: None. Summary: Accompanied by and daughter. Amplification recommended to facilitate improved communication. Discussed hearing aid styles, technology levels, costs. Recommended SADIFeng Hendrix selected rechargeable, active performance level. Has Gogiro phone that she may like to pair with for streaming calls. Hearing Aid Prescription: Based on the individual?s shared listening needs, communication environments, dexterity, desire for connectivity, and personal preferences, the following prescription for amplification has been made: Right ear: Make, Model, Color: Phonak Audeo I 70 chestnut Battery Size: Rechargeable University Intern/Slim Tube: 1 M Type of Earmold/Dome/CShell/SlimTip: sm vented Left ear: Make, Model, Color: Phonak Audeo I 70 chestnut Battery Size: Rechargeable University Intern/Slim Tube: 1M Type of Earmold/Dome/CShell/SlimTip: sm vented Plan of Care: Patient wishes to purchase hearing aids as prescribed Action Taken/Action Needed: Medical Clearance to be requested from PCP/ENT Hearing Instrument Fitting to be scheduled when materials arrive Comments: Client to contact insurance to confirm hearing aid benefit and get instructions to submit for reimbursement. Primary Diagnosis: H90.3 Bilateral Sensorineural Hearing Loss Signature: Provider: Addison Kaplan, CCC-A
--- OUTSIDE RECORDS SUMMARY | 2024-08-15 15:58 | XMS_ITS | Encounter Summary ---
Author Organization [facility] Address [address] [place] [address] Care Team Providers Care Price Changer Name Role Phone Maximiliano Haddad MD Primary Care Provider [phone] Matti Hubbard MD Primary Care Provider Un available Encounter Details Date Type Department Care Team Description 07/03/2013 Sales And Merchandising Representative Report Medical Records [address] [place], [place] [phone] Nuris Tsai MD Social History Tobacco Use [...] on filedocumented in this encounter Care Teams Price Changer Relationship Specialty Start Date End Date Maximiliano Haddad MD [address] [place], [place] [phone] PCP - General 01/17/1993 12/13/14 Matti Hubbard MD [address] [place], [place] [phone] PCP - General Internal Medicine 12/14/14 documented as of this encounter
--- OUTSIDE RECORDS SUMMARY | 2024-08-15 15:58 | XMS_ITS | Encounter Summary ---
Author Organization [facility] Address [address] [place] [address] Care Team Providers Care Shotblast Equipment Operator Name Role Phone Maximiliano Haddad MD Primary Care Provider [phone] Matti Hubbard MD Primary Care Provider Un available Encounter Details Date Type Department Care Team Description 05/12/2014 Telephone Eye Services-[address] [address] Rafael Glass OD Social History Tobacco Use [...] on filedocumented in this encounter Care Teams Shotblast Equipment Operator Relationship Specialty Start Date End Date Maximiliano Haddad MD [address] [place] [address] PCP - General 01/17/1993 12/13/14 Matti Hubbard MD [address] [place] [address] PCP - General Internal Medicine 12/14/14 documented as of this encounter
--- OUTSIDE RECORDS SUMMARY | 2024-08-15 15:58 | XMS_ITS | Encounter Summary ---
Author Organization [facility] Address [address] [place] [address] Care Team Providers Care Manager Adult Name Role Phone Maximiliano Haddad MD Primary Care Provider [phone] Matti Hubbard MD Primary Care Provider Un available Encounter Details Date Type Department Care Team Description 07/24/2013 Darklight Inspector Report Medical Records [address] [place] [address] Nuris Tsai MD Social History Tobacco Use [...] on filedocumented in this encounter Care Teams Manager Adult Relationship Specialty Start Date End Date Maximiliano Haddad MD [address] [place], [place] [phone] PCP - General 01/17/1993 12/13/14 Matti Hubbard MD [address] [place], [place] [phone] PCP - General Internal Medicine 12/14/14 documented as of this encounter
--- OUTSIDE RECORDS SUMMARY | 2024-08-15 15:58 | XMS_ITS | Encounter Summary ---
Author Organization [facility] Address [address] [place] [address] Care Team Providers Care Enrollment Management Coordinator Name Role Phone Maximiliano Haddad MD Primary Care Provider [phone] Matti Hubbard MD Primary Care Provider Un available Encounter Details Date Type Department Care Team Description 02/20/2011 Pt. Non Urgent Medic al Question Chiropractic - [address] [address] Harjit Palm D.C. Social History Tobacco Use [...] on filedocumented in this encounter Care Teams Enrollment Management Coordinator Relationship Specialty Start Date End Date Maximiliano Haddad MD [address] [place] [address] PCP - General 01/17/1993 12/13/14 Matti Hubbard MD [address] [place] [address] PCP - General Internal Medicine 12/14/14 documented as of this encounter
--- OUTSIDE RECORDS SUMMARY | 2024-08-15 15:58 | XMS_ITS | Encounter Summary ---
Author Organization [facility] Address [address] [place] [address] Care Team Providers Care Collections Representative Name Role Phone Maximiliano Haddad MD Primary Care Provider [phone] Matti Hubbard MD Primary Care Provider Un available Encounter Details Date Type Department Care Team Description 05/17/2012 Back Up Worker Report Medical Records [address] [place] [address] Varun Trujillo MD Social History Tobacco Use [...] on filedocumented in this encounter Care Teams Collections Representative Relationship Specialty Start Date End Date Maximiliano Haddad MD [address] [place], [place] [phone] PCP - General 01/17/1993 12/13/14 Matti Hubbard MD [address] [place] [address] PCP - General Internal Medicine 12/14/14 documented as of this encounter
== END 2024-08-15 14:58 | disposition home or self-care (01) ==
LOC: HO.HAP 14:57
PROVIDERS: Visit Provider Internal Medicine
DX: Z46.1 Encounter for fitting and adjustment of hearing aid (principal); H90.3 Sensorineural hearing loss, bilateral
CPT/HCPCS: 92590

== ENCOUNTER 2024-09-15 14:00 | Outpatient (RCR) | payer MEDICARE, OTHER, SELFPAY ==
--- NOTE | 2024-08-16 14:47 | MHC.PT.EP ---
[facility] [place] Office [place] Office [place] Office [address] Nyla Kapoor [address] [phone] F: [phone] F: [phone] F: [phone] F: [phone] Physical Therapy Plan of Care Date of Evaluation: 08/16/24 Date of Surgery: n/a Diagnosis: abnormalities of gait and balance Assessment: Patient is a 69 year old female presenting to PT with complaints of balance issues. Pt reports onset of pain began about 2 years ago due to insidious onset. She presents today with impairments in balance, gait mechanics, endurance, LE strength. Pt's current occupation is retired, with baseline physical activities including ambulating, stair negotiation, ADLs. Pt expresses long-term goal of reducing pain, and is motivated to work towards this in PT. Clinical presentation today is most consistent with signs and sx associated with abnormalities of gait and balance and pt will benefit from skilled PT 2 week x 4 weeks to address the following problems and impairments noted upon evaluation: balance, gait mechanics, endurance, LE strength. These problems limit the patient with the following functional activities: ambulating, stair negotiation, ADLs. The prescribed treatment plan of care is medically necessary. Co-morbidities of osteopenia, depression, vascular dementia were identified and taken into considerations of plan of care. Pt was educated on HEP, role of PT, prognosis, POC. Frequency and Duration: The patient will be seen 2 x week x 4 weeks Short Term Goals: Pt will demonstrate improved LE MMT strength B by 1/3 grade in 2 weeks. Pt will demonstrate ability to awning hanger helper tandem with min to no sway x 30 sec in 2 weeks Pt will demonstrate ability to perform STS without use of UE in 2 weeks. Fdc Goals: Pt will demonstrate improved LEFI score by 9 points in 4 weeks for improved functional mobility. Pt will demonstrate improved TUG score by 3 sec in 4 weeks for decreased risk of falls. Pt will demonstrate improved DGI score by 2 points in 4 weeks for decreased risk of falls. Treatment Plan: Modalities to reduce pain, spasms and effusion. Manual therapy to restore motion and function. Therapeutic exercise to improve strength and flexibility. Neuromuscular re-education for posture and balance. Therapeutic activities to return to functional activities of daily living. Electronically signed by: Shira Jaquez, PT, DPT, ATC Please sign and return to therapist. Thank you for your referral.
--- NOTE | 2024-10-16 11:08 | MHC.PT.DC ---
[facility] [place] Office [place] Office [place] Office [address] Nyla Kapoor 140 [facility] [phone] F: [phone] F: [phone] F: [phone] F: [phone] Physical Therapy Discharge Report Diagnosis: abnormalities of gait and balance Date of Surgery: n/a Date of Evaluation: 08/16/24 Date of Discharge: 10/16/24 Treatments to Date: 5 Cancellations to Date: 0 No Shows to Date: 0 Discharge Status: Discharge Summary: Pt has not attended skilled PT in > 30 days. Therefore to be d/c. Electronically signed by: Shira Jaquez, PT, DPT, ATC Please sign and return to therapist. Thank you for your referral.
== END 2024-10-16 11:08 | disposition home or self-care (01) ==
LOC: HO.PTCHIC 14:00
PROVIDERS: PCP Internal Medicine; Visit Provider Internal Medicine
DX: M62.81 Muscle weakness (generalized) (principal); R26.89 Other abnormalities of gait and mobility; M54.9 Dorsalgia, unspecified
CPT/HCPCS: 97110; 97112; 97162

== ENCOUNTER 2024-09-21 10:30 | Outpatient (AMB) | payer MEDICARE, OTHER, SELFPAY ==
--- NOTE | 2024-09-21 10:36 | A.OFFVIS_ITS ---
Vital Signs 09/21/24 10:37 Height 5 ft 4 in Weight 148 lb BMI 25.4 BP 126/63 Blood Pressure Location Lt brachial Position Sitting Pulse 80 Pulse Oximetry (%) 96 Oxygen Delivery Method Room Air Intake Visit Reasons: 1 year f/u anemia Intake Note: Patient yearly follow up for Anemia. Patient cc: constipation, denies any other GI issues. 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 Accompanied by: Family/Other Allergies erythromycin base (ERYTHROMYCIN BASE) Adverse Reaction (Intermediate, Verified 09/21/24 10:44) Stomach Upset, Bloating, Constipation Medication List - Last Reconciled 09/21/24 by Shiv Mccann MD alendronate 70 mg PO QWEEK azelastine-fluticasone 137-50 mcg/spray 1 spray intranasal BID boron citrate mg PO Breo Ellipta 200-25 mcg/dose (fluticasone furoate-vilanterol) 1 inh inhalation DAILY NS calcium carbonate-mag hydroxid 350-150 mg tabs PO carboxymethylcellulose sodium 0.5% (Refresh Tears) 1 drp ophthalmic (eye) QID PRN cholecalciferol (vitamin D3) 125 mcg PO .every other day compress.stocking,knee,reg,med As directed 15-20cm lamotrigine 150 mg PO DAILY levothyroxine 1/2 tabl one day a week, then 1 tabl qd orally daily; loratadine 10 mg PO DAILY memantine 28 mg PO DAILY multivitamin 1 tab PO DAILY polyethylene glycol 3350 (Miralax) 17 grams orally twice a week; 30 days sennosides (senna) 8.6 mg PO DAILY thiamine mononitrate (vit B1) 400 mg PO DAILY venlafaxine 25 mg PO DAILY venlafaxine ER (Effexor XR) 150 mg PO BEDTIME vitamin A-ergocalciferol (D2) 1,250-135 unit (Liberian Cod Liver Oil) 1 cap PO DAILY walker with a seat HPI HPI 1 year f/u anemia: Details: GI clinic visit for this 69 YF for fu of GERD, colon polyps and hemorrhoids - last seen 04/29/23 Pt's daughter (Garry Marcelo) is also my patient. Patient has sleep apnea and uses a CPAP machine. TODAY'S VISIT: Patient cc: constipation, denies any other GI issues. Pt is accompanied by her daughter Netta Pt has been diagnosed with vascular dementia and daughter is accompanying her to all her appointments Denies heartburn, dysphagia, abd pain. Constipation improved with medication - has not needed Miralax recently Takes 2 Senna tab daily, honey, dates and prunes. PAST VISIT: Colonoscopy and bx results erviewed. Pt had a BM about a week after having the colonoscopy. Notes intermittent hard stools. Has a soft BM 3-4 times a day Every once in a while little mikel come out Has increased her water intake Has not noted acid reflux since the new year. Swallowing is fine Stopped taking the Senna since she was going fine - advised to take it prn. Intermittent constipation and takes Senna at bedtime for constipation. Constipation is better is she drinks a glass of water in the afternoon. Drinking warm water can help with constipation. On a vegan diet since October, due to high cholesterol Holidays were quite since daughter was sick and unable to come Still gets heartburn once in a while - infrequently she has regurgitation while working in the garden Switched to a vegan diet due to high cholesterol No heartburn since she changed her diet. Has been drinking a glass of warm water. Still has to use her finger to initiate a BM. Takes citrucil three times a day - advised to decrease to once a day Has to urinate three times at night. Thinks she has depression and can sleep till 10 am if she does not have anything planned. Takes a mood pill. Suicidal incident after she was started in [place] and had to quit her job. Lives with a hoarder and finds it depressing to walk the halls while avoiding piled up objects. PAST VISITS: GERD well controlled with diet - stopped eating chocolate She was taking Prilosec and stopped due to concern for side effects Can have reflux if she bends down after lunch. Taking prune and citrucil twice a day for constipation Denies problems with hemorrhoids since she is having a BM daily [place] and chicken is hard to swallow. Barium swallow was normal Patient denies symptoms of heartburn, nausea, vomiting, change in appetite or weight.? Denies recent change in bowel habits, constipation, diarrhea, black stools or rectal bleeding. Family hx of colon polyps - parents and 2 siblings ENDOSCOPIC STUDIES: 04/12/23 COLONOSCOPY SHOWED: One small and seven medium sized polyps removed Moderate to severe diverticulosis seen in the left colon Small hemorrhoids on retroflexed exam. Plan: Repeat Colonoscopy interval based on path results - in 2 years if polyps are adenomatous and 5 years if polyps are hyperplastic. 05/[address] BLACKMAN: MARIA ISABEL-Sphincter tone adequate. Scope introdued to the sigmoid colon--mild redundancy(? element of prolapse?). Scope advanced into descending, transverse colon with gentle assist into the cecum.? PREP: GOOD Small polyp noted on valve removed excisionally, with cold bx forceps - TUBULAR ADENOMA on biopsy second smaller polyp removed in similar fashion in the proximal transverse colon. No additional lesions noted. ARV-CLEAR--There was Anal Papillary hypertrophy noted. 04/14/21 BARIUM SWALLOW SHOWED:Small sliding hiatal hernia without reflux. [facility] Medical History Environmental allergies Hiatal hernia Varicose veins of both legs with edema Annual physical exam Mammogram normal Seasonal allergic rhinitis Dysuria Multinodular thyroid Edema Osteopenia Chronic allergic rhinitis External hemorrhoid Arthritis Depression ALISON on CPAP Asthma Hypothyroidism Rectocele Tubular adenoma of colon GERD (gastroesophageal reflux disease) Surgical History History of esophagogastroduodenoscopy (EGD) Hx laparoscopic cholecystectomy History of Hx of colonoscopy Family History Father Colon polyp Mother Colon polyp Sister Osteoporosis Colon polyp Sister Colon polyp Social History Household Members: Spouse Housing: House Alcohol intake: current Alcohol intake frequency: does not drink Patient Tobacco Use Status: Never used Tobacco e-Cigarette/Vaping Use: Never Used Second Hand Smoke Exposure: No service: No Current occupational status: retired Cognitive needs: No Hearing needs: No Vision needs: Yes Review of Systems Const Denies fever(s), Denies headache(s), Reports weight gain and Denies weight loss Eyes Denies eye discharge and Denies irritation ENT Reports Normal hearing present, Denies dysphagia, Denies dizziness and Denies headache(s) Card Denies chest pain, Denies leg edema and Denies dyspnea on exertion Resp Denies cough, Denies dyspnea on exertion and Denies wheezing GI Denies abdominal pain, Denies change in bowel habits, Denies dysphagia and Denies heartburn Denies difficulty voiding, Denies dysuria and Reports other (Frequent urination) Musc Denies back pain, Reports arthralgias and Reports other (Arthritis) Skin/Breast Denies pruritus, Denies rash and Denies jaundice Neuro Reports Normal hearing present, Denies Abnormal speech present, Denies dizziness, Denies headache(s), Reports memory loss (Vascular dementia) and Denies seizure-like activity Psych Reports anxiety, Reports depression, Reports memory loss (Vascular dementia) and Denies panic attacks Endo Denies cold intolerance, Denies flushing and Denies heat intolerance Royal/Lymph Denies easy bleeding and Denies easy bruising Aller/Immun Denies wheezing Physical Exam Vital Signs: Last Vital Signs Pulse 80 09/21/24 10:37 BP 126/63 09/21/24 10:37 Pulse Ox 96 09/21/24 10:37 Oxygen Delivery Method Room Air 09/21/24 10:37 BMI result Body Mass Index 25.4 Const General: healthy appearing and no acute distress Nutritional Appearance: average body habitus Orientation/consciousness: patient oriented x3 Limitations: other limitations (Diagnosed with dementia) HEENT Head: Yes normal to inspection Ears: hearing grossly normal bilaterally Eyes Sclerae: sclerae normal Pupils: Equal, round and reactive pupils present Neck Neck: Yes normal visual inspection Chest Chest palpation & inspection: normal inspection of the chest Resp Effort & Inspection: normal respiratory effort Auscultation: clear to auscultation bilaterally Cardio Palpation: normal PMI Rate: regular rate Rhythm: regular rhythm Heart sounds: S1 normal heart sound present, S2 normal heart sound present and no murmurs GI Palpation (GI): Soft to palpation, nontender and No hepatosplenomegaly present Auscultation: normal bowel sounds Rectal Exam - Female: deferred Skin General skin exam: no rashes or lesions noted Neuro General: patient oriented x3, gait normal and moves all extremities Cranial nerves: Yes Equal, round and reactive pupils present and Yes Normal hearing present Speech: No Abnormal speech present Psych Appearance: grossly normal Mental Status: mental status grossly normal Assessment & Plan Assessment & Plan (1) GERD (gastroesophageal reflux disease): Code(s): K21.9 - Gastro-esophageal reflux disease without esophagitis Category: Medical Qualifiers: Esophagitis presence: without esophagitis Qualified Code(s): K21.9 - Gastro-esophageal reflux disease without esophagitis (2) Tubular adenoma of colon: Comment: May 2020 Small polyp noted on valve removed excisionally, with cold bx forceps - TUBULAR ADENOMA on biopsy second smaller hyperplastic polyp removed in similar fashion in the proximal transverse colon. Photograph of past colonoscopy reviewed - polyp over ICV appears to be a flat polyp Pt advised repeat colonoscopy in 3 yrs (05/2023) to check polypectomy site. Code(s): D12.6 - Benign neoplasm of colon, unspecified Category: Medical (3) Hiatal hernia: Code(s): K44.9 - Diaphragmatic hernia without obstruction or gangrene Category: Medical (4) Chronic constipation: Code(s): K59.09 - Other constipation Category: Medical Plan 69 year female followed in GI for GERD, colon polyps and hemorrhoids Pt complains of dysphagia to solid food. Barium swallow was normal.? Dysphagia is likely due to esophageal motility disorder. Patient was advised to decrease Citrucel to once a day and takes senna at bedtime daily to every other day for constipation. Pt instructions: 1. Please drink 3-4 glasses of water a day. 2. You can take 4-5 dried apricots daily for constipation. 3. Warm water with 1-2 teaspoons of honey is a natural laxative Repeat CBC and iron studies checked for FU of mild anemia and repeat labs were normal. 04/29/23 colonoscopy results were reviewed. Patient was advised to take MiraLax twice a week for intermittent constipation. 09/21/24 Pt has been diagnosed with vascular dementia and daughter is accompanying her to all her appointments Denies heartburn, dysphagia, abd pain. Constipation improved with medication - has not needed Miralax recently Takes 2 Senna tab daily, honey, dates and prunes. Patient advised to schedule a colonoscopy in 2025 - for follow-up of multiple colon polyps. Patient was advised follow-up in 9 months Orders: Orders Colonoscopy - GI Use Only Today Coding Level of Care Code Est Pt Level 4 (62550) Diagnoses Gastroesophageal reflux disease without esophagitis K21.9 Esophagitis presence: without esophagitis Tubular adenoma of colon D12.6 Hiatal hernia K44.9 Chronic constipation K59.09 Time Spent (min) 21
[2024-09-21 10:37] VITALS: BP 126/63; PULSE 80; O2SAT 96; BMI 25.4
--- OUTSIDE RECORDS SUMMARY | 2024-09-21 11:58 | XMS_ITS | Encounter Summary ---
Author Organization [facility] Address [address] [place] [address] Care Team Providers Care Progress Worker Name Role Phone Maximiliano Haddad MD Primary Care Provider [phone] Matti Hubbard MD Primary Care Provider Un available Encounter Details Date Type Department Care Team Description 04/19/2007 Hospital Medical Records [address] [place] [id number] Luther Gunderson MD Social History Tobacco Use [...] on filedocumented in this encounter Care Teams Progress Worker Relationship Specialty Start Date End Date Maximiliano Haddad MD [address] [place], [place] [id number] PCP - General 01/17/1993 12/13/14 Matti Hubbard MD [address] [place] [id number] PCP - General Internal Medicine 12/14/14 documented as of this encounter
== END 2024-09-21 11:16 | disposition home or self-care (01) ==
LOC: HO.HGI 10:31
PROVIDERS: Visit Provider Internal Medicine Gastroenterology
DX: K21.9 Gastro-esophageal reflux disease without esophagitis (principal); D12.6 Benign neoplasm of colon, unspecified; K44.9 Diaphragmatic hernia without obstruction or gangrene; K59.09 Other constipation
CPT/HCPCS: 99214

== ENCOUNTER → 2024-09-21 10:30 | Outpatient (BNVA) | payer MEDICARE, OTHER, SELFPAY | PROVIDERS: Visit Provider Internal Medicine Gastroenterology | DX: K21.9 Gastro-esophageal reflux disease without esophagitis (principal); K44.9 Diaphragmatic hernia without obstruction or gangrene; K59.09 Other constipation; D12.6 Benign neoplasm of colon, unspecified | CPT/HCPCS: 99212 ==

== ENCOUNTER 2024-09-22 08:45 | Outpatient (REF) | payer SELFPAY ==
--- NOTE | 2024-09-22 13:17 | MHC.AU.HA2 ---
Hearing Instrument Fitting- Adult- Binaural Date of Visit: 09/22/24 Hearing Instruments Dispensed: Right Ear: Make, Model, Color, Serial Number: Phonak Audeo I 70 chestnut Railroad Firer/Fireman Repair Warranty: 09/24/2027 Railroad Firer/Fireman Loss and Damage Warranty: 09/24/2027 [facility] Service Plan: n/a Battery Size: Rechargeable Science And Operations Officer/Slim Tube: 1 M Earmold/Dome/CShell/SlimTip: sm vented Type of Wax Guard: Cerustop Left Ear: Make, Model, Color, Serial Number: Phonak Audeo I 70 chestnut Railroad Firer/Fireman Repair Warranty: 09/24/2027 Railroad Firer/Fireman Loss and Damage Warranty: 09/24/2027 [facility] Service Plan: n/a Battery Size: Rechargeable Science And Operations Officer/Slim Tube: 1M Earmold/Dome/CShell/SlimTip: sm vented Type of Wax Guard: Cerustop Accessories/Assistive Technology: Phonak Foot Orthopedist MAGNOLIA S#[id number] Summary of Fitting: Accompanied by daughter. Fit with and oriented to binaural Phonak Audeo I 70 R HAs. Verified to NAL NL2 targets. Counseled on adjustment to amplification. Good subjective comfort and benefit reported. Reviewed charging, maintenance, precautions. Practiced insertion and removal. Not paired with a phone at this time. Provided itemized receipt for insurance reimbursement. Recommendations: Recommendations: A hearing instrument follow-up was scheduled. Diagnosis Code(s): Primary Diagnosis: H90.3 Bilateral Sensorineural Hearing Loss Signature: Provider: Addison Kaplan, [facility]
== END 2024-09-22 08:46 | disposition home or self-care (01) ==
LOC: HO.HAP 08:45
PROVIDERS: Visit Provider Internal Medicine
DX: Z46.1 Encounter for fitting and adjustment of hearing aid (principal); H90.3 Sensorineural hearing loss, bilateral
CPT/HCPCS: V5261; V5299

== ENCOUNTER 2024-10-13 10:56 | Outpatient (REF) | payer SELFPAY ==
--- NOTE | 2024-10-13 14:25 | MHC.AU.HA3 ---
Hearing Instrument Follow-Up- Binaural Date of Visit: 10/13/24 Right Ear: Make, Model, Color, Serial Number: Joseph Saleho I 70 chestnut Parking Enforcement Specialist Repair Warranty: 09/24/2027 Parking Enforcement Specialist Loss and Damage Warranty: 09/24/2027 [facility] Service Plan: n/a Battery Size: Rechargeable Snow Removal/Plowing/Slim Tube: 1 M Earmold/Dome/CShell/SlimTip:sm vented Type of Wax Guard: Cerustop Dispensed By: [facility] Date of Fittin09/22/2024 Left Ear: Make, Model, Color, Serial Number: Joseph Loweo I 70 chestnut Parking Enforcement Specialist Repair Warranty: 09/24/2027 Parking Enforcement Specialist Loss and Damage Warranty: 09/24/2027 [facility] Service Plan: n/a Battery Size: Rechargeable Snow Removal/Plowing/Slim Tube: 1M Earmold/Dome/CShell/SlimTip: sm vented Type of Wax Guard: Cerustop Dispensed By: [facility] Date of Fittin09/22/2024 Follow-Up Summary: Seen for follow up. Reports things are going great with the hearing aids. Reports hearing well, comfortable, no concerns. Reports consistent daily use. Daughter notes seeing improvement. Practiced changing domes and wax guards today. Recommendations: Recommendations: Hearing instrument follow-up or maintenance as needed. Diagnosis Code(s): Primary Diagnosis: H90.3 Bilateral Sensorineural Hearing Loss Signature: Provider: Addison Kaplan, [facility]
== END 2024-10-13 10:57 | disposition home or self-care (01) ==
LOC: HO.HAP 10:56
PROVIDERS: Visit Provider Internal Medicine
DX: Z13.89 Encounter for screening for other disorder (principal)

== ENCOUNTER 2024-10-19 12:23 | Outpatient (REF) | payer OTHER, MEDICARE, SELFPAY ==
[2024-10-19 16:08] LABS: MANUAL DIFF FLAG NO
[2024-10-19 16:19] LABS: Hematocrit 35.5 % (37.0-47.0); Hemoglobin 11.9 g/dl (12.0-16.0); Imm Gran Abs Auto 0.01 X10*3/uL (0.00-0.03); Imm Gran Pct Auto 0.3 % (0.0-0.4); Lymphocytes Absolute Auto 1.0 X10*3/uL (1.2-4.9); Mean Corpuscular HGB Conc 33.5 g/dl (31.0-35.0); Mean Corpuscular Hemoglobin 31.5 pg (27.0-33.0); Mean Corpuscular Volume 93.9 fL (80.0-98.0); NRBC Abs Auto 0.000 X10*3/uL (0.0-0.012); NRBC Pct Auto 0.0 /100WBC (0.0-0.2); Platelet Count 201 X10*3/uL (160-400); Red Blood Count 3.78 X10*6/uL (4.20-5.50); White Blood Count 3.8 X10*3/uL (4.8-10.8)
[2024-10-19 16:40] LABS: Alanine Aminotransferase 19 U/L (0-31); Albumin Level 4.1 g/dL (3.5-5.0); Alkaline Phosphatase 66 U/L (39-117); Anion Gap 9 (12-20); Aspartate Amino Transferase 26 U/L (5-31); Blood Urea Nitrogen 7 mg/dL (9-16); Calcium 9.2 mg/dL (8.4-10.2); Carbon Dioxide 28 mmol/L (22-29); Chloride 105 mmol/L (96-108); Estimated Glomerular Filt Rate > 60; Potassium 4.0 mmol/L (3.3-5.1); Sodium 138 mmol/L (135-145); Total Protein 6.3 g/dL (6.5-8.0)
[2024-10-19 17:02] LABS: Folate 13.2 ng/mL (> or = 4.0); Vitamin B12 620 pg/mL (200-900)
[2024-10-19 18:50] LABS: Free T4 (Free Thyroxine) 1.28 ng/dL (0.71-1.85)
== END 2024-10-19 12:24 | disposition home or self-care (01) ==
LOC: HO.HMGCLDS 12:23
PROVIDERS: PCP Internal Medicine; Visit Provider Internal Medicine
DX: Z01.818 Encounter for other preprocedural examination (principal); E03.9 Hypothyroidism, unspecified; E55.9 Vitamin D deficiency, unspecified; J44.9 Chronic obstructive pulmonary disease, unspecified; F32.9 Major depressive disorder, single episode, unspecified; F01.50 Vascular dementia, unspecified severity, without behavioral disturbance, psychotic disturbance, mood disturbance, and anxiety; G47.33 Obstructive sleep apnea (adult) (pediatric); H26.9 Unspecified cataract; Z79.899 Other long term (current) drug therapy
CPT/HCPCS: 36415; 80053; 82306; 82607; 82746; 84439; 84443; 85025; 99212

== ENCOUNTER 2024-10-19 12:23 | Outpatient (AMB) | payer MEDICARE, OTHER, SELFPAY ==
--- NOTE | 2024-10-19 12:30 | A.OFFPC_ITS ---
Vital Signs 10/19/24 12:31 Height 5 ft 4 in Weight 147 lb BMI 25.2 BP 132/76 Blood Pressure Location Lt brachial Position Sitting Respiration 18 Pulse 90 Pulse Source Pulse Oximeter Temp 98.0 F Temp Source Oral Pulse Oximetry (%) 98 Oxygen Delivery Method Room Air Intake Visit Reasons: Pre op cataract surgery Intake Note: Pt is here today for a pre op visit. Pt is having cataract surgery on 10/26/24. Allergies erythromycin base (ERYTHROMYCIN BASE) Adverse Reaction (Intermediate, Verified 10/19/24 12:35) Stomach Upset, Bloating, Constipation Tobacco use date assessed: 08/01/24 Fall risk assessment: 2 + Falls in past year Last assessed Fall Risk: 10/19/24 Dental Screening Dental Screen Date: 05/10/24 HPI Pre op cataract surgery HPI Details Pt presents for preop for catarct surgery. COPD and hypothyroidism are stable on current medications. Patient is established with rehab aide and has tried different medications without significant improvement. Patient is looking for a therapist. Neuropsychiatric evaluation indicated early dementia patient was started on Namenda. She has not been using her CPAP regularly because of ill-fitting face mask. [facility] Medical History (Updated 10/19/24 @ 13:53 by Emmanuelle Paige MD) COPD (chronic obstructive pulmonary disease) Vascular dementia Environmental allergies Hiatal hernia Varicose veins of both legs with edema Annual physical exam Mammogram normal Seasonal allergic rhinitis Dysuria Multinodular thyroid Edema External hemorrhoid Arthritis Depression ALISON on CPAP Hypothyroidism Rectocele Tubular adenoma of colon GERD (gastroesophageal reflux disease) Surgical History History of esophagogastroduodenoscopy (EGD) Hx laparoscopic cholecystectomy History of Hx of colonoscopy Family History Father Colon polyp Mother Colon polyp Sister Osteoporosis Colon polyp Sister Colon polyp Social History Household Members: Spouse Housing: House Alcohol intake: current Alcohol intake frequency: does not drink Patient Tobacco Use Status: Never used Tobacco e-Cigarette/Vaping Use: Never Used Second Hand Smoke Exposure: No service: No Current occupational status: retired Cognitive needs: No Hearing needs: No Vision needs: Yes Questionnaire Thrive Questionnaire Date Thrive assessed: 05/10/24 I am a: Patient What is your living situation today?: I have a steady place to live Within the past 12 months, did the food you bought not last and you didn't have the money to get more?: Never true Within the past 12 months, did you worry whether your food would run out before you got money to buy more?: Never true Do you have trouble paying for medicines?: No Do you have trouble getting transportation to medical appointments?: No Do you have trouble paying your heating and electricity bill?: No Do you have trouble taking care of your child, family member or friend?: No Do you have trouble with day-to-day activities such as bathing, preparing meals, shopping, managing finances, etc.?: No Are you currently unemployed and looking for a job?: No Are you interested in more education?: No Please select the resources that you would like help with: Daily support Currently or been in a relationship where the following occur: No concerns reported THRIVE Score: 0 ALBERTA-7 AMB Questionnaire ALBERTA-7 Date ALBERTA - 7 assessed: 05/10/24 Source: Developed by Drs. Shakeel Gonzalez, Raven Hernandez, Jim Hill and colleagues, with an educational jamee from [employer]. Review of Systems Const All systems reviewed & are unremarkable except as noted in HPI and below Eyes Reports no additional complaints ENT Reports no additional complaints Card Reports no additional complaints Resp Reports no additional complaints GI Reports no additional complaints Reports no additional complaints Physical exam (Primary Care) Vital Signs: Last Vital Signs Temp 98.0 F 10/19/24 12:31 Pulse 90 10/19/24 12:31 Resp 18 10/19/24 12:31 BP 132/76 10/19/24 12:31 Pulse Ox 98 10/19/24 12:31 Oxygen Delivery Method Room Air 10/19/24 12:31 BMI result Body Mass Index 25.2 Tobacco/Smoking Status: Tobacco use Status Tobacco use date assessed 08/01/24 10/19/24 12:31 Patient Tobacco Use Status Never used Tobacco 10/19/24 12:31 e-Cigarette/Vaping Use Never Used 10/19/24 12:31 Thrive Assessment: Date of Thrive Assessment Date Thrive assessed 05/10/24 10/19/24 12:31 Currently or been in a relationship where the following occur: No concerns reported Const General: no acute distress HENMT Head: Yes normal to inspection General nose exam: Normal external nose present Face and sinus: Yes normal facial exam Mouth: Normal oral and palatal mucosa present Throat: Yes posterior oropharynx normal Eyes General: appearance normal, both eyes and all related structures Neck Neck: Yes no lymphadenopathy and Yes supple Resp Effort & Inspection: normal respiratory effort Auscultation: clear to auscultation bilaterally Cardio Rhythm: regular rhythm Heart sounds: S1 normal heart sound present and S2 normal heart sound present GI Inspection: Yes normal to inspection Palpation (GI): Soft to palpation Percussion: Yes normal to percussion Auscultation: normal bowel sounds Coding Level of Care Code Est Pt Level 4 (92642) Complex EM visit Add On G2211 Diagnoses Hypothyroidism E03.9 Vitamin D deficiency E55.9 COPD (chronic obstructive pulmonary disease) J44.9 Depression F32.9 Vascular dementia F01.50 Obstructive sleep apnea G47.33 Cataract H26.9 Assessment & Plan Assessment & Plan (1) Hypothyroidism: Code(s): E03.9 - Hypothyroidism, unspecified Category: Medical Plan: Continue levothyroxine check TSH level (2) Vitamin D deficiency: Code(s): E55.9 - Vitamin D deficiency, unspecified Category: Medical Plan: Continue vitamin-D (3) COPD (chronic obstructive pulmonary disease): Code(s): J44.9 - Chronic obstructive pulmonary disease, unspecified Category: Medical Plan: Continue Breo (4) Depression: Comment: For 40 years, treated with multiple medications in the past, f/u [facility] Code(s): F32.9 - Major depressive disorder, single episode, unspecified Category: Medical Plan: Patient was advised to get established with psychiatrist MD due to complicated long-lasting depression and start psychotherapy (5) Vascular dementia: Comment: Neuropsychiatric evaluation at [facility], brain MR small-vessel disease, no acute abnormalities, started on Namenda without improvement, referred to [facility] Neurology Code(s): F01.50 - Vascular dementia, unspecified severity, without behavioral disturbance, psychotic disturbance, mood disturbance, and anxiety Category: Medical Plan: Referred to [facility] Neurology (6) Obstructive sleep apnea: Code(s): G47.33 - Obstructive sleep apnea (adult) (pediatric) Category: Medical Plan: Compliance with the CPAP use discussed with the patient (7) Cataract: Code(s): H26.9 - Unspecified cataract Category: Medical Plan: Patient is medically cleared for cataract surgery Orders: Orders Complete Blood Count Auto Diff Today E03.9 - Hypothyroidism, unspecified, E55.9 - Vitamin D deficiency, unspecified, J44.9 - Chronic obstructive pulmonary disease, unspecified Vitamin B12 and Folate Today E03.9 - Hypothyroidism, unspecified, E55.9 - Vitamin D deficiency, unspecified, J44.9 - Chronic obstructive pulmonary disease, unspecified Comprehensive Met. Panel Today E03.9 - Hypothyroidism, unspecified, E55.9 - Vitamin D deficiency, unspecified, J44.9 - Chronic obstructive pulmonary disease, unspecified TSH reflex Free T4 Today E03.9 - Hypothyroidism, unspecified, E55.9 - Vitamin D deficiency, unspecified, J44.9 - Chronic obstructive pulmonary disease, unspecified Vitamin D 25-OH Total Today E03.9 - Hypothyroidism, unspecified, E55.9 - Vitamin D deficiency, unspecified, J44.9 - Chronic obstructive pulmonary disease, unspecified Referrals Neurology Referral F03.90 - Unspecified dementia, unspecified severity, without behavioral disturbance, psychotic disturbance, mood disturbance, and anxiety
[2024-10-19 12:31] VITALS: BP 132/76; PULSE 90; RESP 18; TEMP 36.7; O2SAT 98; BMI 25.2
--- OUTSIDE RECORDS SUMMARY | 2024-10-19 12:56 | XMS_ITS | Encounter Summary ---
Author Organization [facility] Address [address] [place] [address] Care Team Providers Care Seating Captain Name Role Phone Maximiliano Haddad MD Primary Care Provider [phone] Matti Hubbard MD Primary Care Provider Un available Encounter Details Date Type Department Care Team Description 04/19/2007 Hospital Medical Records [address] [place] [id number] Luther Gunderson MD Social History Tobacco Use [...] on filedocumented in this encounter Care Teams Seating Captain Relationship Specialty Start Date End Date Maximiliano Haddad MD [address] [place], [place] [phone] PCP - General 01/17/1993 12/13/14 Matti Hubbard MD [address] [place] [id number] PCP - General Internal Medicine 12/14/14 documented as of this encounter
== END 2024-10-19 13:57 | disposition home or self-care (01) ==
PROVIDERS: PCP Internal Medicine; Visit Provider Internal Medicine
DX: E03.9 Hypothyroidism, unspecified (principal); E55.9 Vitamin D deficiency, unspecified; J44.9 Chronic obstructive pulmonary disease, unspecified; F32.9 Major depressive disorder, single episode, unspecified; F01.50 Vascular dementia, unspecified severity, without behavioral disturbance, psychotic disturbance, mood disturbance, and anxiety; G47.33 Obstructive sleep apnea (adult) (pediatric); H26.9 Unspecified cataract

== ENCOUNTER 2024-11-02 12:50 | Outpatient (REF) | payer MEDICARE, OTHER, SELFPAY ==
--- OUTSIDE RECORDS SUMMARY | 2024-11-02 13:00 | XMS_ITS | Clinical Summary ---
Author Organization [facility] Address [address] [address] Phone Care Team Providers Care Computer Support Analyst Name Role Phone Unavailable Primary Care Provider Unavailabl e Allergies Active Allergy Reactions Criticality Noted Date Comments Erythromycin 02/12/2022 Medications fluticasone propion-salmete roL (ADVAIR DISKUS) 500-50 mcg/dose DISKUS Inhale 500 mcg/actuation of fluticasone into the lungs. Active azelastine (ASTELIN) 137 mcg (0.1 %) nasal spray 1 spray by Nasal route 2 (two) times a day. Use in each nostril as directed Active Ca cit-D3-mag#11-z yis-wwms-ilz-junie r (CALTRATE 600+D) 600 mg calcium- 800 unit-50 mg Tab Take 1 tablet by mouth daily. Active methylcellulose (CITRUCEL) 500 mg Tab Take 1 g by mouth daily. Active venlafaxine (EFFEXOR-XR) 150 MG 24 hr capsule Take 150 mg by mouth daily. Active fluticasone propionate (FLONASE) 50 mcg/actuation nasal spray 1 spray by Nasal route daily. Active lamoTRIgine (LAMICTAL) 150 MG IMMEDIATE release tablet Take 150 mg by mouth daily. Active levothyroxine (SYNTHROID, LEVOTHROID) 75 MCG tablet Take 75 mcg by mouth every morning. Active loratadine (CLARITIN) 10 mg tablet Take 10 mg by mouth daily. Active dpjbxxel-bkw-id rrous gluconate (CENTRUM WITH IRON) 9 mg iron/15 mL Liqd Take 15 mL by mouth daily. Active thiamine (VITAMIN B-1) 100 MG tablet Take 100 mg by mouth daily. Active Social History Tobacco Use Types Packs/Day Years Used Date Smoking Tobacco: Never Smokeless Tobacco: Never Tobacco Cessation:Counseling Given: Not Answered Alcohol Use Standard Drinks/Week Comments Yes 0 (1 standard drink = 0.6 oz pur e alcohol) on holidays Education Answer Date Recorded Are you interested in more education? Not on tray e 08/01/2022 Are you concerned about learning? Not on file 08/01/2022 No 08/01/2022 No 08/01/2022 Digital Access Answer Date Recorded No 08/30/2022 No 08/30/2022 No 08/30/2022 Reliable internet access at home? Not on file 08/30/2022 Device with a working camera? Not on file Comments No Sex and Gender Information Value Date Recorded Sex Assigned at Not on file Legal Sex Female 12:23 PM EDT Gender Identity Not on file Sexual Orientation Not on file Last Filed Vital Signs Vital Sign Reading Time Taken Comments Blood Pressure 127/75 02/12/2022 1:00 PM EST Pulse 78 02/12/2022 1:00 PM EST Temperature 36.5 C (97.7 F) 02/12/2022 11:45 AM EST Respiratory Rate 16 02/12/2022 1:00 PM EST Oxygen Saturation 99% 02/12/2022 1:00 PM EST Inhaled Oxygen Concentration - - Weight 65.3 kg (144 lb) 02/12/2022 7:59 AM EST Height 162.6 cm (5' 4 ) 02/12/2022 7:59 AM EST Body Mass Index 24.72 02/12/2022 7:59 AM EST Plan of Treatment Health Maintenance Due Date Last Done Comments LIPID PANEL 1954 TSH LEVEL 1954 DEPRESSION SCREENING 1966 HEPATITIS C SCREENING 01/07/1972 MAMMOGRAM 1994 COLOGUARD 1999 COLONOSCOPY 1999 COLORECTAL CANCER SCREENING 1999 FIT TEST 1999 FOBT 1999 SIGMOIDOSCOPY 1999 VIRTUAL COLONOSCOPY 1999 PNEUMOCOCCAL VACCINES (50+ years) (2 of 2 - PCV) 03/16/2017 03/16/2016 OSTEOPOROSIS SCREENING INITIAL (ONE-TIME) 2019 ZOSTER VACCINES (2 of 2) 08/27/2021 07/02/2021 COVID-19 VACCINE ( season) 2023 02/06/2022, 07/15/2021, 02/14/2021, Additional history exists Adult Td,Tdap Booster 03/16/2026 03/16/2016, 009 RSV VACCINE (1 - 1-dose 75+ series) 2029 SMOKING STATUS SCREENING (Once After 26 Yrs) Completed 02/12/2022 HEPATITIS A VACCINES Aged Out No long er eligible based on patient's age to complete this topic HIB VACCINES Aged Out No longer eligi ble based on patient's age to complete this topic MENINGOCOCCAL VACCINES (ACWY) Aged Out No longer eligible based on patient's age to complete this topic MENINGOCOCCAL VACCINES (B) Aged Out N o longer eligible based on patient's age to complete this topic Medical Devices Not on file Insurance MEDICARE PART A & B [facility] MEDICARE SUPPLEMENT MEDICARE PART A & B [facility] SUPPLEMENT MEDICARE PART A & B [facility] MEDICARE SUPPLEMENT MEDICARE PART A & B [facility] MEDICARE SUPPLEMENT MEDICARE PART A & B [facility] MEDICARE SUPPLEMENT MEDICARE PART A & B [facility] MEDICARE SUPPLEMENT MEDICARE PART A & B [facility] MEDIC[facility] SUPPLEMENT MEDICARE PART A & B [facility] MEDICARE SUPPLEMENT MEDICARE PART A & B [facility] MEDICARE SUPPLEMENT Additional Source Comments The information contained in this document represents components of the legal health record. It is not the complete legal health record.[facility]
--- OUTSIDE RECORDS SUMMARY | 2024-11-02 13:00 | XMS_ITS | Encounter Summary ---
Author Organization [facility] Address [address] [place] [address] Care Team Providers Care Low Voltage Electrician Name Role Phone Maximiliano Haddad MD Primary Care Provider [phone] Matti Hubbard MD Primary Care Provider Un available Encounter Details Date Type Department Care Team Description 04/19/2007 Hospital Medical Records [address] [place] [id number] Luther Gunderson MD Social History Tobacco Use [...] on filedocumented in this encounter Care Teams Low Voltage Electrician Relationship Specialty Start Date End Date Maximiliano Haddad MD [address] [place], [place] [phone] PCP - General 01/17/1993 12/13/14 Matti Hubbard MD [address] [place] [id number] PCP - General Internal Medicine 12/14/14 documented as of this encounter
== END 2024-11-02 12:51 | disposition home or self-care (01) ==
LOC: HO.MAMMO 12:50
PROVIDERS: PCP Internal Medicine; Visit Provider Internal Medicine
DX: Z12.31 Encounter for screening mammogram for malignant neoplasm of breast (principal)
CPT/HCPCS: 77063; 77067

== ENCOUNTER → 2024-11-02 13:00 | Outpatient (BNV) | payer MEDICARE, OTHER, SELFPAY | PROVIDERS: PCP Internal Medicine; Visit Provider Internal Medicine | DX: Z12.31 Encounter for screening mammogram for malignant neoplasm of breast (principal) | CPT/HCPCS: 77063; 77067 ==

== ENCOUNTER 2024-11-20 13:06 | Outpatient (AMB) | payer MEDICARE, OTHER, SELFPAY ==
[2024-11-20 13:22] VITALS: BP 134/66; PULSE 77; TEMP 36.7; O2SAT 97; BMI 25.4
--- NOTE | 2024-11-20 13:22 | MHC.OFFWIV ---
Intake Vital Signs 11/20/24 13:22 Height 5 ft 4 in Weight 148 lb BMI 25.4 BP 134/66 Blood Pressure Location Rt brachial Position Sitting Pulse 77 Pulse Source Pulse Oximeter Temp 98.0 F Temp Source Oral Pulse Oximetry (%) 97 Oxygen Delivery Method Room Air Intake Visit Reasons: EP-head pain from a fall Intake Note: pt presents with pain to left head/face, left elbow and left hippain after falling approximately 1.5 hours ago Patient Tobacco Use Status: Never used Tobacco Allergies erythromycin base (ERYTHROMYCIN BASE) Adverse Reaction (Intermediate, Verified 11/20/24 13:27) Stomach Upset, Bloating, Constipation Do you need a note to return to daycare/school/sports/work: No HPI HPI Comments History of Present Illness Details History of Present Illness - The patient is a 69-year-old female presenting with her daughter for a fall with head injury. - The fall occurred on the porch, resulting in the patient hitting her head on concrete. - The incident happened at approximately 12:10 PM today. - Post-fall, the patient experienced dizziness and required assistance to get up but she had no LOC and was able to call to her daughter who is her child care worker to help her up. - The patient has a history of concussion but is not on blood thinners or aspirin. - Complaints of pain in the elbow, cheek, and hip were noted post-fall. - The patient lives with her daughter and father, who are her caregivers. - The patient has a diagnosis of dementia, which is managed by her daughter. - She denies IKNG, confusion new from her baseline, CP, SOB, dizziness, weakness, swelling, abd pain, n/v/d. Physical Exam General: Cooperative, healthy appearing, comfortable, no acute distress and well developed Orientation: Patient oriented x3, no confusion or disorientation noted Limitations: No limitations Head: Normal to inspection, no bruising or tenderness noted Ears: Hearing grossly normal bilaterally Face and sinus: Normal facial exam, no bruising or tenderness noted Eyes: Appearance normal, both eyes and all related structures, no blurry vision Neck: Normal visual inspection, full ROM Respiratory: Normal respiratory effort and able to speak in complete sentences. Skin: No rashes or lesions noted, bruising noted on elbow Neuro: Patient oriented x3, CN 2-12 intact, gait normal, no dizziness or blurry vision currently Back/spine: no TTP cervical, thoracic or lumbar spine, tenderness noted on the back of the hip Extremities: Small bruise noted on the left lateral elbow. No swelling, FROM of the left elbow. Hand marketing ambassador is intact. Strength is 5/5 on the UE and LE. Patient was informed and verbally consented to the use of an ambient scribe for clinic note documentation during this visit. ON LICENSE OF [facility] Medical History (Updated 10/19/24 @ 13:53 by Emmanuelle Paige MD) COPD (chronic obstructive pulmonary disease) Vascular dementia Environmental allergies Hiatal hernia Varicose veins of both legs with edema Annual physical exam Mammogram normal Seasonal allergic rhinitis Dysuria Multinodular thyroid Edema External hemorrhoid Arthritis Depression ALISON on CPAP Hypothyroidism Rectocele Tubular adenoma of colon GERD (gastroesophageal reflux disease) Surgical History History of esophagogastroduodenoscopy (EGD) Hx laparoscopic cholecystectomy History of Hx of colonoscopy Family History Father Colon polyp Mother Colon polyp Sister Osteoporosis Colon polyp Sister Colon polyp Social History Household Members: Spouse Housing: House Alcohol intake: current Alcohol intake frequency: does not drink Patient Tobacco Use Status: Never used Tobacco e-Cigarette/Vaping Use: Never Used Second Hand Smoke Exposure: No service: No Current occupational status: retired Cognitive needs: No Hearing needs: No Vision needs: Yes Review of Systems Const All systems reviewed & are unremarkable except as noted in HPI and below Physical Exam Vital Signs: Last Vital Signs Temp 98.0 F 11/20/24 13:22 Pulse 77 11/20/24 13:22 BP 134/66 11/20/24 13:22 Pulse Ox 97 11/20/24 13:22 Oxygen Delivery Method Room Air 11/20/24 13:22 BMI result Body Mass Index 25.4 Assessment & Plan Assessment & Plan (1) Fall: Code(s): W19.XXXA - Unspecified fall, initial encounter Qualifiers: Encounter type: initial encounter Qualified Code(s): W19.XXXA - Unspecified fall, initial encounter (2) Head pain: Code(s): R51.9 - Headache, unspecified Qualifiers: Headache type: post-traumatic Headache chronicity pattern: acute headache Intractability: not intractable Qualified Code(s): G44.319 - Acute post-traumatic headache, not intractable (3) Left elbow pain: Code(s): M25.522 - Pain in left elbow Plan Most likely fall at home No signs of concussion today in the office plan - Monitor for 24 hours for signs of severe headache, persistent vomiting, or confusion. - No immediate need for CT scan as the patient is not displaying significant concussion symptoms. - Continue to monitor for any recurrent symptoms or complications. - rest and ice to the elbow - tylenol or motrin as needed - follow up with PCP Coding Level of Care Code Est Pt Level 4 (01174) Diagnoses Fall, initial encounter W19.XXXA Encounter type: initial encounter Acute post-traumatic headache, not intractable G44.319 Headache type: post-traumatic Headache chronicity pattern: acute headache Intractability: not intractable Left elbow pain M25.522
--- OUTSIDE RECORDS SUMMARY | 2024-11-20 14:00 | XMS_ITS | Encounter Summary ---
Author Organization [facility] Address [address] [facility] [address] [place] [phone] Phone Care Team Providers Care Metal Control Coordinator Name Role Phone Unavailable Primary Care Provider Unavailabl e Encounter Details Date Type Department Care Team (Late st Contact Info) Description 02/12/2022 Procedure Pass [place] Admitting Dept - Virtual Department [address] [place] [address] Social History Tobacco Use Types Packs/Day Years Used Date Smoking Tobacco: Never Smokeless Tobacco: Never Alcohol Use Standard Drinks/Week Comments Yes 0 (1 standard drink = 0.6 oz pur e alcohol) on holidays Comments No Sex and Gender Information Value Date Recorded Sex Assigned at Not on file Legal Sex Female 12:23 PM EDT Gender Identity Not on file Sexual Orientation Not on file documented as of this encounter Plan of Treatment Not on file documented as of this encounter Visit Diagnoses Not on filedocumented in this encounter Additional Source Comments The information contained in this document represents components of the legal health record. It is not the complete legal health record.[facility]
== END 2024-11-20 15:57 | disposition home or self-care (01) ==
PROVIDERS: PCP Internal Medicine; Visit Provider Physician Assistant Medical
DX: G44.319 Acute post-traumatic headache, not intractable (principal); M25.522 Pain in left elbow; W19.XXXA Unspecified fall, initial encounter

== ENCOUNTER → 2024-11-20 13:06 | Outpatient (BNVA) | payer MEDICARE, OTHER, SELFPAY | PROVIDERS: PCP Internal Medicine; Visit Provider Physician Assistant Medical | DX: G44.319 Acute post-traumatic headache, not intractable (principal); M25.522 Pain in left elbow; Z91.81 History of falling | CPT/HCPCS: 99212 ==

== ENCOUNTER 2024-11-22 14:57 | Outpatient (REF) | payer MEDICARE, OTHER, SELFPAY ==
--- NOTE | 2024-11-22 15:01 | PFT_ITS ---
Indication: COPD Spirometry FEV1 to FVC 81%; FEV1 1.92 L; FVC 2.36 L. No significant response to bronchodilators noted. Lung Volumes Total lung capacity 84% predicted; residual volume 92% predicted Diffusion Capacity DLCO 76% predicted Comparisons None Interpretation No obstructive nor restrictive ventilatory defects identified. No significant response to bronchodilators noted. Lung volumes are low normal and there is a mild diffusion impairment. No evidence of any obstructive airway disease. If asthma is in your differential, a methacholine challenge may be helpful for assessing for hyperreactive airways. Clinical correlation warranted. [facility]
[2024-11-22 15:43] VITALS: PULSE 85; O2SAT 99
--- OUTSIDE RECORDS SUMMARY | 2024-11-22 15:52 | XMS_ITS | Encounter Summary ---
Author Organization [facility] Address [address] [facility] [address] [place] [phone] Phone Care Team Providers Care Tool Grinding Technician Name Role Phone Unavailable Primary Care Provider Unavailabl e Encounter Details Date Type Department Care Team (Late st Contact Info) Description 02/12/2022 Procedure Pass [place] Admitting Dept - Virtual Department [address] [place] [address] Social History Tobacco Use Types Packs/Day Years [...] It is not the complete legal health record[facility]
== END 2024-11-22 14:58 | disposition home or self-care (01) ==
LOC: HO.RESP 14:57
PROVIDERS: PCP Internal Medicine; Visit Provider Internal Medicine
DX: J44.9 Chronic obstructive pulmonary disease, unspecified (principal)
CPT/HCPCS: 94010; 94640; 94727; 94729

== ENCOUNTER → 2024-11-22 15:01 | Outpatient (BNV) | payer MEDICARE, OTHER, SELFPAY | PROVIDERS: PCP Internal Medicine; Visit Provider Hospitalist | DX: J44.9 Chronic obstructive pulmonary disease, unspecified (principal) | CPT/HCPCS: 94060; 94727; 94729 ==

== ENCOUNTER 2024-12-05 13:36 | Outpatient (AMB) | payer MEDICARE, OTHER, SELFPAY ==
[2024-12-05 14:30] VITALS: BP 124/74; PULSE 76; RESP 17; TEMP 36.6; O2SAT 97; BMI 25.4
--- NOTE | 2024-12-05 14:30 | A.OFFPC_ITS ---
Vital Signs 12/05/24 14:30 Height 5 ft 4 in Weight 148 lb BMI 25.4 BP 124/74 Blood Pressure Location Lt brachial Position Sitting Respiration 17 Pulse 76 Pulse Source Pulse Oximeter Temp 97.8 F Temp Source Oral Pulse Oximetry (%) 97 Oxygen Delivery Method Room Air Intake Visit Reasons: Pre op cataract surgery 12/11/24 Intake Note: Pt is here today for a pre op visit. Pt is having cataract surgery on 12/11/24. Allergies erythromycin base (ERYTHROMYCIN BASE) Adverse Reaction (Intermediate, Verified 12/05/24 14:32) Stomach Upset, Bloating, Constipation Medication List - Last Reconciled 12/05/24 by Emmanuelle Paige MD alendronate 70 mg PO QWEEK azelastine-fluticasone 137-50 mcg/spray 1 spray intranasal BID boron citrate mg PO Breo Ellipta 200-25 mcg/dose (fluticasone furoate-vilanterol) 1 inh inhalation DAILY NS calcium carbonate-mag hydroxid 350-150 mg tabs PO carboxymethylcellulose sodium 0.5% (Refresh Tears) 1 drp ophthalmic (eye) QID PRN cholecalciferol (vitamin D3) 125 mcg PO .every other day compress.stocking,knee,reg,med As directed 15-20cm inulin (Fiber Gummies) PO lamotrigine 250 mg PO DAILY levothyroxine 1/2 tabl one day a week, then 1 tabl qd orally daily; loratadine 10 mg PO DAILY memantine 28 mg PO DAILY multivitamin 1 tab PO DAILY polyethylene glycol 3350 (Miralax) 17 grams orally twice a week; 30 days sennosides (senna) 8.6 mg PO DAILY thiamine mononitrate (vit B1) 400 mg PO DAILY venlafaxine 25 mg PO DAILY venlafaxine ER (Effexor XR) 150 mg PO BEDTIME vitamin A-ergocalciferol (D2) 1,250-135 unit (Citizen [place] Cod Liver Oil) 1 cap PO DAILY walker with a seat Tobacco use date assessed: 12/05/24 Fall risk assessment: 2 + Falls in past year Last assessed Fall Risk: 12/05/24 Dental Screening Dental Screen Date: 05/10/24 HPI Pre op cataract surgery 12/11/24 HPI Details COPD hypothyroidism stable on current medications. Patient is established with Psychiatry and Neurology for depression and dementia. Pt presents for preop cataract surgery. [facility] Medical History COPD (chronic obstructive pulmonary disease) Vascular dementia Environmental allergies Hiatal hernia Varicose veins of both legs with edema Annual physical exam Mammogram normal Seasonal allergic rhinitis Dysuria Multinodular thyroid Edema External hemorrhoid Arthritis Depression ALISON on CPAP Hypothyroidism Rectocele Tubular adenoma of colon GERD (gastroesophageal reflux disease) Surgical History History of esophagogastroduodenoscopy (EGD) Hx laparoscopic cholecystectomy History of Hx of colonoscopy Family History Father Colon polyp Mother Colon polyp Sister Osteoporosis Colon polyp Sister Colon polyp Social History Household Members: Spouse Housing: House Alcohol intake: current Alcohol intake frequency: does not drink Patient Tobacco Use Status: Never used Tobacco e-Cigarette/Vaping Use: Never Used Second Hand Smoke Exposure: No service: No Current occupational status: retired Cognitive needs: No Hearing needs: No Vision needs: Yes Questionnaire Thrive Questionnaire Date Thrive assessed: 05/10/24 I am a: Patient What is your living situation today?: I have a steady place to live Within the past 12 months, did the food you bought not last and you didn't have the money to get more?: Never true Within the past 12 months, did you worry whether your food would run out before you got money to buy more?: Never true Do you have trouble paying for medicines?: No Do you have trouble getting transportation to medical appointments?: No Do you have trouble paying your heating and electricity bill?: No Do you have trouble taking care of your child, family member or friend?: No Do you have trouble with day-to-day activities such as bathing, preparing meals, shopping, managing finances, etc.?: No Are you currently unemployed and looking for a job?: No Are you interested in more education?: No Please select the resources that you would like help with: Daily support Currently or been in a relationship where the following occur: No concerns reported THRIVE Score: 0 AUDIT C Alcohol Use Questionnaire (AUDIT-C) 1. How often do you have a drink containing alcohol?: Never 3. How often do you have six or more drinks on one occasion?: Never Total Score: 0 ALBERTA-7 AMB Questionnaire ALBERTA-7 Date ALBERTA - 7 assessed: 05/10/24 Source: Developed by Drs. Shakeel Gonzalez, Raven Hernandez, Jim Hill and colleagues, with an educational jamee from [employer]. Review of Systems Const All systems reviewed & are unremarkable except as noted in HPI and below Eyes Reports no additional complaints ENT Reports no additional complaints Card Reports no additional complaints Resp Reports no additional complaints GI Reports no additional complaints Reports no additional complaints Physical exam (Primary Care) Vital Signs: Last Vital Signs Temp 97.8 F 12/05/24 14:30 Pulse 76 12/05/24 14:30 Resp 17 12/05/24 14:30 BP 124/74 12/05/24 14:30 Pulse Ox 97 12/05/24 14:30 Oxygen Delivery Method Room Air 12/05/24 14:30 BMI result Body Mass Index 25.4 Tobacco/Smoking Status: Tobacco use Status Tobacco use date assessed 12/05/24 12/05/24 14:35 Patient Tobacco Use Status Never used Tobacco 12/05/24 14:35 e-Cigarette/Vaping Use Never Used 12/05/24 14:35 Thrive Assessment: Date of Thrive Assessment Date Thrive assessed 05/10/24 12/05/24 14:35 Currently or been in a relationship where the following occur: No concerns reported Const General: no acute distress HENMT Head: Yes normal to inspection Face and sinus: Yes normal facial exam Eyes General: appearance normal, both eyes and all related structures Neck Neck: Yes supple Resp Effort & Inspection: normal respiratory effort Auscultation: clear to auscultation bilaterally Cardio Rhythm: regular rhythm Heart sounds: S1 normal heart sound present and S2 normal heart sound present GI Inspection: Yes normal to inspection Palpation (GI): Soft to palpation Percussion: Yes normal to percussion Auscultation: normal bowel sounds Coding Level of Care Code Est Pt Level 4 (54796) Diagnoses Hypothyroidism E03.9 COPD (chronic obstructive pulmonary disease) J44.9 Cataract H26.9 Assessment & Plan Assessment & Plan (1) Hypothyroidism: Code(s): E03.9 - Hypothyroidism, unspecified Category: Medical Plan: Continue levothyroxine (2) COPD (chronic obstructive pulmonary disease): Code(s): J44.9 - Chronic obstructive pulmonary disease, unspecified Category: Medical Plan: Continue Breo (3) Cataract: Code(s): H26.9 - Unspecified cataract Category: Medical Plan: Patient is medically cleared for cataract surgery Orders: Orders TSH reflex Free T4 2 Months E03.9 - Hypothyroidism, unspecified Complete Blood Count Auto Diff 2 Months D64.9 - Anemia, unspecified, E03.9 - Hypothyroidism, unspecified Comprehensive Met. Panel 2 Months D64.9 - Anemia, unspecified, E03.9 - Hypothyroidism, unspecified Immunofixation Pnl, Serum 2 Months D64.9 - Anemia, unspecified, E03.9 - Hypothyroidism, unspecified Medications: Changed From levothyroxine 1/2 tabl one day a week, then 1 tabl qd orally daily; 90 tabs 1RF To levothyroxine 1 tabl qd except Wednesday orally daily; 90 tabs 1RF
--- OUTSIDE RECORDS SUMMARY | 2024-12-05 14:53 | XMS_ITS | Clinical Summary ---
Author Organization [facility] Address [address] [address] Phone Care Team Providers Care Grain Operator Name Role Phone Unavailable Primary Care Provider [...] each nostril as directed Active Ca cit-D3-mag#11-z dhm-eupb-ymm-junie r (CALTRATE 600+D) 600 mg calcium- 800 [...] Take 10 mg by mouth daily. Active guslpksv-hqm-te rrous gluconate (CENTRUM WITH IRON) 9 mg [...] file Insurance MEDICARE PART A & B [facility] MEDICARE SUPPLEMENT MEDICARE PART A & [facility] SUPPLE[facility] MEDICARE PART A & B [facility]ION MEDICARE SUPPLEMENT MEDICARE PART A & B [facility] MEDICARE SUPPLEMENT MEDICARE PART A & B [facility] MEDICARE SUPPLEMENT MEDICARE PART A & B [facility] MEDICARE SUPPLEMENT MEDICARE PART A & [facility] MEDICARE SUPPLEMENT MEDICARE PART A & B [facility]ION MEDICARE SUPPLEMENT MEDICARE PART A & B [facility] MEDICARE SUPPLEMENT Additional Source Comments The information contained in this document represents components of the legal health record. It is not the complete legal health record.[facility]
--- OUTSIDE RECORDS SUMMARY | 2024-12-05 14:53 | XMS_ITS | Encounter Summary ---
Author Organization [facility] Address [address] [place] [address] Care Team Providers Care Stress Engineer Name Role Phone Maximiliano Haddad MD Primary Care Provider [phone] Matti Hubbard MD Primary Care Provider Un available Encounter Details Date Type Department Care Team Description 08/29/2010 Pt. Non Urgent Medic al Question Chiropractic - [address] [address] Harjit Palm D.C. Social History Tobacco Use [...] on filedocumented in this encounter Care Teams Stress Engineer Relationship Specialty Start Date End Date Maximiliano Haddad MD [address] [place] [address] PCP - General 01/17/1993 12/13/14 Matti Hubbard MD [address] [place] [address] PCP - General Internal Medicine 12/14/14 documented as of this encounter
--- OUTSIDE RECORDS SUMMARY | 2024-12-05 14:53 | XMS_ITS | Clinical Summary ---
Author Organization [facility] Address [address] [place] [address] Care Team Providers Care Aquarium Tank Attendant Name Role Phone Matti Hubbard MD Primary [...] 11/03/2006 Overview: Colonoscopy 05/14/2003, Dr. Avinash Pennington, [facility]. Incomplete examination to the hepatic flexure. [...] 80 09/28/2014 9:00 AM EDT Temperature 36.9 C (98.4 F) 09/28/2014 9:00 AM EDT Respiratory Rate 12 09/28/2014 9:00 AM EDT [...] 03/06/2014, , 07/21/2013, Additional history exists INFLUENZA (#1) 2024 01/03/2013, 01/18/2012, HEPATITIS C SCREENING Completed 07/07/2013 Insurance Payer Benefit Plan / Group Subscriber ID Effective Dates Phone Address Type [employer] CH/UNICARE/$2 %/20V/PPO [id number] 2009-[facility]en t [facility] [address] [place] [address] PPO Fee-for-S ervice [employer] PPO $15 [place] [id number] 2003-Pres t [address] [place] [phone] PPO Fee-for-S ervice [employer] PPO $[id number] [place] [id number] 2012-[facility] t [facility] [address] [place] [address] PPO Fee-for-S ervice Care Teams Aquarium Tank Attendant Relationship Specialty Start Date End Date Matti Hubbard MD PCP - General Internal Medicine 12/14/14
--- OUTSIDE RECORDS SUMMARY | 2024-12-05 14:53 | XMS_ITS | Encounter Summary ---
Author Organization [facility] Address [address] [facility] [address] [place] [address] Phone Care Team Providers Care Filler Machine Operator Name Role Phone Unavailable Primary Care Provider Unavailabl e Encounter Details Date Type Department Care Team (Late st Contact Info) Description 02/12/2022 Procedure Pass OR Admitting Dept - Virtual Department [address] [place] [address] Social History Tobacco Use Types Packs/Day Years [...] It is not the complete legal health record.[facility]
--- OUTSIDE RECORDS SUMMARY | 2024-12-05 14:53 | XMS_ITS | Encounter Summary ---
Author Organization [facility] Address [address] [place] [address] Care Team Providers Care Watch And Clock Repairer Name Role Phone Maximiliano Haddad MD Primary Care Provider [phone] Matti Hubbard MD Primary Care Provider Un available Encounter Details Date Type Department Care Team Description 06/17/2011 Pt. Non Urgent Medical Question Adult Medicine [address] [address] Maximiliano Haddad MD [address] [place] [address] Social History Tobacco Use Types Packs/Day Years Used Date Smoking Tobacco: Never Alcohol Use Standard Drinks/Week Comments Yes 0 (1 standard drink = 0.6 oz pur e alcohol) socially Sex Assigned at Date Recorded Not on file documented as of this encounter Plan of Treatment Not on file documented as of this encounter Visit Diagnoses Not on filedocumented in this encounter Care Teams Watch And Clock Repairer Relationship Specialty Start Date End Date Maximiliano Haddad MD [address] [place] [address] PCP - General 01/17/1993 12/13/14 Matti Hubbard MD [address] [place] [address] PCP - General Internal Medicine 12/14/14 documented as of this encounter
--- OUTSIDE RECORDS SUMMARY | 2024-12-05 14:53 | XMS_ITS | Encounter Summary ---
Author Organization [facility] Address [address] [place] [address] Care Team Providers Care Play Writer Name Role Phone Maximiliano Haddad MD Primary Care Provider [phone] Matti Hubbard MD Primary Care Provider Un available Encounter Details Date Type Department Care Team Description 03/12/2011 Pt. Referral Request [facility] [place] [address] [place] [address] Md Markell Social History Tobacco Use Types Packs/Day Years Used Date Smoking Tobacco: Never Alcohol Use Standard Drinks/Week Comments Yes 0 (1 standard drink = 0.6 oz pur e alcohol) socially Sex Assigned at Date Recorded Not on file documented as of this encounter Plan of Treatment Not on file documented as of this encounter Visit Diagnoses Not on filedocumented in this encounter Care Teams Play Writer Relationship Specialty Start Date End Date Maximiliano Haddad MD [address] [place] [address] PCP - General 01/17/1993 12/13/14 Matti Hubbard MD [address] [place] [address] PCP - General Internal Medicine 12/14/14 documented as of this encounter
--- OUTSIDE RECORDS SUMMARY | 2024-12-05 14:53 | XMS_ITS | Encounter Summary ---
Author Organization [facility] Address [address] [place] [address] Care Team Providers Care Network Infrastructure Architect Name Role Phone Maximiliano Haddad MD Primary Care Provider [phone] Matti Hubbard MD Primary Care Provider Un available Encounter Details Date Type Department Care Team Description 07/03/2013 Making Machine Operator Report Medical Records [address] [place], [place] [id number] Nuris Tsai MD Social History Tobacco Use [...] on filedocumented in this encounter Care Teams Network Infrastructure Architect Relationship Specialty Start Date End Date Maximiliano Haddad MD [address] [place], [place] [phone] PCP - General 01/17/1993 12/13/14 Matti Hubbard MD [address] [place], [place] [phone] PCP - General Internal Medicine 12/14/14 documented as of this encounter
--- OUTSIDE RECORDS SUMMARY | 2024-12-05 14:53 | XMS_ITS | Encounter Summary ---
Author Organization [facility] Address [address] [place] [address] Care Team Providers Care Political Science Professor Name Role Phone Maximiliano Haddad MD Primary Care Provider [phone] Matti Hubbard MD Primary Care Provider Un available Encounter Details Date Type Department Care Team Description 05/17/2012 Supervisor Plating And Point Assembly Report Medical Records [address] [place] [address] Varun Trujillo MD Social History Tobacco Use [...] on filedocumented in this encounter Care Teams Political Science Professor Relationship Specialty Start Date End Date Maximiliano Haddad MD [address] [place], [place] [phone] PCP - General 01/17/1993 12/13/14 Matti Hubbard MD [address] [place] [address] PCP - General Internal Medicine 12/14/14 documented as of this encounter
--- OUTSIDE RECORDS SUMMARY | 2024-12-05 14:53 | XMS_ITS | Encounter Summary ---
Author Organization [facility] Address [address] [place] [address] Care Team Providers Care Supervisor International Reservations Name Role Phone Maximiliano Haddad MD Primary Care Provider [phone] Matti Hubbard MD Primary Care Provider Un available Encounter Details Date Type Department Care Team Description 07/24/2013 Food Safety Auditor Report Medical Records [address] [place] [address] Nuris Tsai MD Social History Tobacco Use [...] on filedocumented in this encounter Care Teams Supervisor International Reservations Relationship Specialty Start Date End Date Maximiliano Haddad MD [address] [place], [place] [phone] PCP - General 01/17/1993 12/13/14 Matti Hubbard MD [address] [place], [place] [phone] PCP - General Internal Medicine 12/14/14 documented as of this encounter
== END 2024-12-05 14:58 | disposition home or self-care (01) ==
LOC: HO.HMCC 13:37
PROVIDERS: PCP Internal Medicine; Visit Provider Internal Medicine
DX: E03.9 Hypothyroidism, unspecified (principal); J44.9 Chronic obstructive pulmonary disease, unspecified; H26.9 Unspecified cataract

== ENCOUNTER → 2024-12-05 13:36 | Outpatient (BNVA) | payer MEDICARE, OTHER, SELFPAY | PROVIDERS: PCP Internal Medicine; Visit Provider Internal Medicine | DX: G47.33 Obstructive sleep apnea (adult) (pediatric) (principal); J44.9 Chronic obstructive pulmonary disease, unspecified; E03.9 Hypothyroidism, unspecified; F32.A Depression, unspecified; F03.90 Unspecified dementia, unspecified severity, without behavioral disturbance, psychotic disturbance, mood disturbance, and anxiety; H26.9 Unspecified cataract; Z79.899 Other long term (current) drug therapy; Z99.89 Dependence on other enabling machines and devices | CPT/HCPCS: 99212 ==

== ENCOUNTER 2024-12-07 09:20 | Outpatient (REF) | payer MEDICARE, OTHER, SELFPAY ==
--- NOTE | ~2024-12-07 | US_ITS ---
EXAMINATION: US PELVIS LIMITED (BLADDER) CLINICAL INFORMATION: Urgency of urination.. COMPARISON: None available. TECHNIQUE: Real-time imaging of the bladder. FINDINGS: BLADDER: Fluid-filled. Bilateral ureteral jets are demonstrated. Prevoid bladder volume is 349 mL. Postvoid bladder volume is 20 mL. US/US bladder IMPRESSION: 20 cc of residual urine in a post void image.. Electronically signed by: Gt Cutler MD 12/07/2024 09:41 AM EDT
--- OUTSIDE RECORDS SUMMARY | 2024-12-07 10:00 | XMS_ITS | Clinical Summary ---
Author Organization [facility] Address [address] [address] Phone Care Team Providers Care Supervisor Component Assembler Name Role Phone Unavailable Primary Care Provider [...] each nostril as directed Active Ca cit-D3-mag#11-z bsl-fhvl-zkd-junie r (CALTRATE 600+D) 600 mg calcium- 800 [...] Take 10 mg by mouth daily. Active kuiskobx-ogo-ct rrous gluconate (CENTRUM WITH IRON) 9 mg [...] file Insurance MEDICARE PART A & B [facility] MEDICARE SUPPLEMENT MEDICARE PART A & B [facility] [employer] MEDICARE SUPPLEMENT MEDICARE PART A & B [employer] [facility] EXTENSION MEDICARE SUPPLEMENT MEDICARE PART A & B [facility] MEDICARE SUPPLEMENT MEDICARE PART A & B [facility] MEDICARE SUPPLEMENT MEDICARE PART A & B [facility] MEDICARE SUPPLEMENT MEDICARE PART A & B [facility] EXTENSION MEDICARE SUPPLEMENT MEDICARE PART A & B [facility] MEDICARE SUPPLEMENT MEDICARE PART A & B [facility] MEDICARE SUPPLEMENT Additional Source Comments The information contained in this document represents components of the legal health record. It is not the complete legal health record.[facility]
--- OUTSIDE RECORDS SUMMARY | 2024-12-07 10:00 | XMS_ITS | Encounter Summary ---
Author Organization [facility] Address [address] [facility] [address] [place] [address] Phone Care Team Providers Care Machinist Supervisor Outside Name Role Phone Unavailable Primary Care Provider Unavailabl e Encounter Details Date Type Department Care Team (Late st Contact Info) Description 02/12/2022 Procedure Pass OR Admitting Dept - Virtual Department [address] [place] [address] Social History Tobacco Use Types Packs/Day Years [...] It is not the complete legal health record.[facility]
== END 2024-12-07 09:21 | disposition home or self-care (01) ==
LOC: HO.HMGCX 09:20
PROVIDERS: PCP Internal Medicine; Visit Provider Internal Medicine
DX: R39.15 Urgency of urination (principal)
CPT/HCPCS: 76857

== ENCOUNTER → 2024-12-07 09:22 | Outpatient (BNV) | payer MEDICARE, OTHER, SELFPAY | PROVIDERS: PCP Internal Medicine; Visit Provider Radiology Diagnostic Radiology | DX: R39.15 Urgency of urination (principal) | CPT/HCPCS: 76857 ==

== ENCOUNTER 2024-12-19 12:26 | Emergency (ER) | payer MEDICARE, OTHER, SELFPAY ==
[2024-12-19 12:32] VITALS: BP 150/90; PULSE 65; O2SAT 100
[2024-12-19 12:35] VITALS: BP 146/75; PULSE 63; RESP 15; TEMP 36.9; O2SAT 100; BMI 24.2
--- NOTE | 2024-12-19 12:48 | ECG_ITS ---
Test Reason : CHEST PAIN Blood Pressure : */* mmHG Vent. Rate : 64 BPM Atrial Rate : 64 BPM P-R Int : 174 ms QRS Dur : 80 ms QT Int : 414 ms P-R-T Axes : 80 71 70 degrees QTcB Int : 427 ms Normal sinus rhythm Low voltage QRS Borderline ECG When compared with ECG of 27-Jul-2023 15:31, No significant changes seen Referred By: Daniela Ghotra Electronically Signed By: KERMIT CORONADO
[2024-12-19 13:13] LABS: MANUAL DIFF FLAG NO
[2024-12-19] MEDS: Lactated Ringers 1,000 ML 999 ML IV (13:13)
--- NOTE | 2024-12-19 13:15 | ED.NAVMDI ---
HPI - Nausea/Vomiting/Diarrhea General Chief complaint: Weakness Stated complaint: WEAK,NAUSEA SINCE T-1,VOMITED TODAY PER EMS Time Seen by Provider: 12/19/24 12:34 Source: patient, EMS and old records reviewed Mode of arrival: EMS Limitations: no limitations History of Present Illness ED Provider: DWIGHT HPI Narrative: 69 yo female with PMH of COPD, cataract, vascular dementia, anemia, HLD, ALISON, sciatica, depression, GERD here with c/o not feeling well after shopping today. She tells me she felt weak and her heart was racing. She then vomited. She notes this happened yesterday as well. I asked about pain she states she has pressure on her chest. She denies abdominal pain or diarrhea. She had her L cataract surgery yesterday. She was sitting in a cool car for 10 min per daughter before this all started. The patient states she feels pressure on her chest. She had a similar episode yesterday too but was less severe. MD elicited complaint: nausea, vomiting and other (CP) Onset (ago): hour(s) (1) Associated nausea: Yes Associated abdominal pain: No Location of pain: chest Pain consistency: constant Severity: moderate Quality: other (pressure) Exacerbating factors: none Relieving factors: none Context: other Associated symptoms: chest pain, loss of appetite, malaise and nausea/vomiting Related Data Home Medications ?Medication ?Instructions ?Recorded ?Confirmed loratadine 10 mg tablet 10 mg PO DAILY 05/13/20 12/05/24 multivitamin 1 tab PO DAILY 05/13/20 12/05/24 boron citrate 3 mg tablet mg PO 11/03/21 12/05/24 calcium carbonate-magnesium tab PO 12/31/22 12/05/24 hydroxide 350 mg-150 mg chewable tablet venlafaxine 150 mg 150 mg PO BEDTIME 12/31/22 12/05/24 capsule,extended release 24 hr (Effexor XR) venlafaxine 25 mg tablet 25 mg PO DAILY 11/08/23 12/05/24 carboxymethylcellulose sodium 0.5 1 drp ophthalmic (eye) QID PRN 04/20/24 12/05/24 % eye drops (Refresh Tears) cholecalciferol (vitamin D3) 125 125 mcg PO .every other day 04/20/24 12/05/24 mcg (5,000 unit) capsule sennosides 8.6 mg capsule (senna) 8.6 mg PO DAILY 04/20/24 12/05/24 thiamine mononitrate (vit B1) 100 400 mg PO DAILY 04/20/24 12/05/24 mg tablet vitamin A 1,250 1 cap PO DAILY 04/20/24 12/05/24 unit-ergocalciferol (vitamin D2) 135 unit capsule (Cub[place] Cod Liver Oil) memantine 28 mg capsule 28 mg PO DAILY 09/21/24 12/05/24 sprinkle,extended release 24hr inulin [Fiber Gummies] PO 10/19/24 12/05/24 lamotrigine 150 mg tablet 250 mg PO DAILY 11/20/24 12/05/24 Previous Rx's ?Medication ?Instructions ?Recorded polyethylene glycol 3350 17 17 g PO .COMPLEX 30 days #238 grams 04/29/23 gram/dose oral powder (Miralax) alendronate 70 mg tablet 70 mg PO QWEEK #13 tabs 05/11/24 compress.stocking,knee,reg,med #2 ea 06/01/24 walker #1 ea 09/19/24 Breo Ellipta 200 mcg-25 mcg/dose 1 inh inhalation DAILY #180 ea 10/02/24 powder for inhalation (fluticasone furoate-vilanterol) azelastine 137 mcg-fluticasone 50 1 spray intranasal BID #23 grams 11/12/24 mcg/spray nasal spray levothyroxine 100 mcg tablet See Rx Instructions PO DAILY #90 12/05/24 tabs Allergies Allergy/AdvReac Type Severity Reaction Status Date / Time erythromycin base AdvReac Intermediate Stomach Verified 12/19/24 12:39 (ERYTHROMYCIN BASE) Upset, Bloating, Constipation Review of Systems Review of Systems: Constitutional : No Weight loss, No Fever, No Chills ENT/Mouth : No sore throat, No Rhinorrhea Eyes: No Eye Pain, No Swelling Cardiovascular : pos Chest Pain, no SOB, no Dyspnea on Exertion, No Orthopnea, No Edema, No Palpitations Respiratory : No Cough, No Sputum Gastrointestinal : pos Nausea, pos Vomiting, No Diarrhea, No abdominal Pain, No Hematochezia, No Melena Genitourinary : No Dysuria, No Urinary Frequency Musculoskeletal : No joint pain, No Myalgias, No Joint Swelling Skin : No Skin Lesions, No rash Neuro : pos Weakness, No Numbness, No Dizziness, No Headache Psych : No Anxiety/Panic, No Depression All other systems reviewed and are negative Gastrointestinal: Gastrointestinal: Reports nausea PMFSH Past Medical History Attestation statement: The following information was validated with the patient. Source: old records reviewed Medical History COPD (chronic obstructive pulmonary disease) Vascular dementia Environmental allergies Hiatal hernia Varicose veins of both legs with edema Annual physical exam Mammogram normal Seasonal allergic rhinitis Dysuria Multinodular thyroid Edema External hemorrhoid Arthritis Depression ALISON on CPAP Hypothyroidism Rectocele Tubular adenoma of colon GERD (gastroesophageal reflux disease) Surgical History History of esophagogastroduodenoscopy (EGD) Hx laparoscopic cholecystectomy History of Hx of colonoscopy Family History Family History Father Colon polyp Mother Colon polyp Sister Osteoporosis Colon polyp Sister Colon polyp Social History Social History Household Members: Spouse Housing: House Alcohol intake: current Alcohol intake frequency: does not drink Patient Tobacco Use Status: Never used Tobacco e-Cigarette/Vaping Use: Never Used Second Hand Smoke Exposure: No Advance Directives: Yes Advance Directives Information Provided: Yes Advance Directives on File: No service: No Current occupational status: retired Cognitive needs: No Hearing needs: No Vision needs: Yes Physical Exam Vital Signs: Vital Signs: Last Vital Signs Temp 98.4 F 12/19/24 12:35 Pulse 70 12/19/24 16:00 Resp 19 12/19/24 16:00 BP 170/76 H 12/19/24 16:00 Pulse Ox 99 12/19/24 16:00 O2 Del Method Room Air 12/19/24 16:00 BMI result Body Mass Index 24.2 Appearance: Alert. Oriented X2.5 slightly confused on time. No acute distress. Eyes: Pupils equal, round and reactive to light. ENT: Pharynx normal. Neck: Normal inspection. Neck supple. CVS: Normal heart rate and rhythm. Pulses normal. Respiratory: No respiratory distress. Breath sounds normal. Abdomen: Soft and nontender. Skin: Skin warm and dry. Normal skin color. Normal skin turgor. Extremities: No lower extremity edema. Neuro: Oriented X 2.5. No motor deficit. No sensory deficit. CN2-12 intact Course Course Course Narrative: patient states she feels much better will repeat trop at 4pm Medications Administered Discontinued Medications Generic Name Dose Route Start Last Admin Trade Name Toya PRN Reason Stop Dose Admin Lactated Ringer's 1,000 mls @ 999 mls/hr 12/19/24 12:47 12/19/24 13:13 Lr IV 12/19/24 13:47 999 mls/hr .Q1H1M ONE Administration Acetaminophen 1,000 mg in 100 mls @ 400 mls/hr 12/19/24 12:54 12/19/24 13:19 Ofirmev IV 12/19/24 13:08 Not Given ONCE ONE Ondansetron HCl 4 mg 12/19/24 12:47 12/19/24 13:12 Ondansetron Hcl 4 Mg/2 Ml Vial IVPUSH 12/19/24 12:48 4 mg ONCE ONE Administration Medical Decision Making Medical Decision Making [facility] Narrative: 69 yo female with PMH of COPD, cataract, vascular dementia, anemia, HLD, ALISON, sciatica, depression, GERD here with c/o not feeling well feeling weak with chest pressure and nausea. She declines pain medications. She is low prob VTE, she had similar episode yesterday. At this time will obtain ddimer, trop x 2, repeat EKG. 2nd troponin is negative. D-dimer negative On reassessment patient remains chest pain-free. Discuss with the patient her results. We will plan to discharge patient at this time. Differential Diagnosis Differential Diagnoses: The differential diagnosis associated with the presentation includes ACS, low prob VTE, distal pulses intact doubt dissection Admission/Observation Consideration of admission/observation: Escalation of care including admission/observation considered Lab Data [facility] Lab Attestation statement: I reviewed the patient's lab results. ddimer negative 12/19/24 13:04 12/19/24 13:03 Labs: Lab Results 12/19/24 12/19/24 12/19/24 Range/Units 13:03 13:04 14:02 WBC 4.9 (4.8-10.8) X10*3/uL RBC 3.36 L (4.20-5.50) X10*6/uL Hgb 10.8 L (12.0-16.0) g/dl Hct 30.7 L (37.0-47.0) % MCV 91.4 (80.0-98.0) fL MCH 32.1 (27.0-33.0) pg MCHC 35.2 H (31.0-35.0) g/dl RDW 11.8 (11.0-16.0) % Plt Count 166 (160-400) X10*3/uL MPV 9.5 (9.4-12.3) fL Immature Gran % (Auto) 0.4 (0.0-0.4) % Neut % (Auto) 55.7 (45-73) % Lymph % (Auto) 30.4 (20-40) % [place] % (Auto) 10.3 (2-11) % Eos % (Auto) 2.0 (0-4) % Baso % (Auto) 1.2 (0-2) % Lymph # (Auto) 1.5 (1.2-4.9) X10*3/uL [place] # (Auto) 0.5 (0.1-1.2) X10*3/uL Eos # (Auto) 0.1 (0.0-0.4) X10*3/uL Baso # (Auto) 0.1 (0.0-0.2) X10*3/uL Abs Immat Gran (auto) 0.02 (0.00-0.03) X10*3/uL Absolute Neuts (auto) 2.8 (2.0-8.3) x10*3/uL Absolute Nucleated RBC 0.000 (0.0-0.012) X10*3/uL Nucleated RBC % (auto) 0.0 (0.0-0.2) /100WBC D-Dimer High Sensitivty 212 NG/ML Sodium 136 (135-145) mmol/L Potassium 3.6 (3.3-5.1) mmol/L Chloride 103 (96-108) mmol/L Carbon Dioxide 26 (22-29) mmol/L Anion Gap 11 L (12-20) BUN 10 (9-16) mg/dL Creatinine 0.63 (0.5-1.4) mg/dL Estim Creat Clear Calc 71.7 Estimated GFR > 60 Random Glucose 92 (60-115) mg/dL Calcium 8.1 L D (8.4-10.2) mg/dL Magnesium 2.1 (1.6-2.6) mg/dL Total Bilirubin 0.3 (0.0-1.0) mg/dL Direct Bilirubin 0.1 (0.0-0.5) mg/dL AST 28 (5-31) U/L ALT 17 (0-31) U/L Alkaline Phosphatase 59 (39-117) U/L Troponin I High Sens < 2.7 (<3.5-17.0) ng/L Total Protein 5.7 L (6.5-8.0) g/dL Albumin 3.7 (3.5-5.0) g/dL Lipase 21 (8-78) U/L Urine Color Yellow Urine Appearance Cloudy Urine pH >= 9.0 (5.0-9.0) Ur Specific [place] 1.010 (1.005-1.025) Urine Protein Negative (Neg-Trace) mg/dL Urine Glucose (UA) Negative (Negative) mg/dL Urine Ketones Trace (Negative) mg/dL Urine Blood Negative (Negative) Urine Nitrite Negative (Negative) Ur Leukocyte Esterase Negative (Negative) 12/19/24 Range/Units 16:09 WBC (4.8-10.8) X10*3/uL RBC (4.20-5.50) X10*6/uL Hgb (12.0-16.0) g/dl Hct (37.0-47.0) % MCV (80.0-98.0) fL MCH (27.0-33.0) pg MCHC (31.0-35.0) g/dl RDW (11.0-16.0) % Plt Count (160-400) X10*3/uL MPV (9.4-12.3) fL Immature Gran % (Auto) (0.0-0.4) % Neut % (Auto) (45-73) % Lymph % (Auto) (20-40) % [place] % (Auto) (2-11) % Eos % (Auto) (0-4) % Baso % (Auto) (0-2) % Lymph # (Auto) (1.2-4.9) X10*3/uL [place] # (Auto) (0.1-1.2) X10*3/uL Eos # (Auto) (0.0-0.4) X10*3/uL Baso # (Auto) (0.0-0.2) X10*3/uL Abs Immat Gran (auto) (0.00-0.03) X10*3/uL Absolute Neuts (auto) (2.0-8.3) x10*3/uL Absolute Nucleated RBC (0.0-0.012) X10*3/uL Nucleated RBC % (auto) (0.0-0.2) /100WBC D-Dimer High Sensitivty NG/ML Sodium (135-145) mmol/L Potassium (3.3-5.1) mmol/L Chloride (96-108) mmol/L Carbon Dioxide (22-29) mmol/L Anion Gap (12-20) BUN (9-16) mg/dL Creatinine (0.5-1.4) mg/dL Estim Creat Clear Calc Estimated GFR Random Glucose (60-115) mg/dL Calcium (8.4-10.2) mg/dL Magnesium (1.6-2.6) mg/dL Total Bilirubin (0.0-1.0) mg/dL Direct Bilirubin (0.0-0.5) mg/dL AST (5-31) U/L ALT (0-31) U/L Alkaline Phosphatase (39-117) U/L Troponin I High Sens < 2.7 (<3.5-17.0) ng/L Total Protein (6.5-8.0) g/dL Albumin (3.5-5.0) g/dL Lipase (8-78) U/L Urine Color Urine Appearance Urine pH (5.0-9.0) Ur Specific [place] (1.005-1.025) Urine Protein (Neg-Trace) mg/dL Urine Glucose (UA) (Negative) mg/dL Urine Ketones (Negative) mg/dL Urine Blood (Negative) Urine Nitrite (Negative) Ur Leukocyte Esterase (Negative) Independent Interpretation I performed an independent interpretation of an: EKG Interpretation: Rate: 64 Rhythm: NSR [place]: normal Normal P waves. Normal ABRAN. Normal QRS complex. ST T wave : inverted t waves V1 and V2, no JAGDEEP, hx of same in past qTC: 427 prior studies: hx of T wave inversions in the past The study has been interpreted contemporaneously by me. EKG #2 Rate: 66 Rhythm: NSR [place]: normal Normal P waves. Normal ABRAN. Normal QRS complex. ST T wave : normal no JAGDEEP, inverted t waves V1 and V2 qTC: 446 prior studies: no change The study has been interpreted contemporaneously by me. . Independent Historian Clinical information obtained from an independent historian. History obtained from or confirmed by: EMS and Other (daughter) External Record Review External record reviewed: Outpatient record Discharge Plan Discharge Clinical Impression: Weakness Nausea & vomiting Qualifiers: Vomiting type: unspecified Qualified Code(s): R11.2 - Nausea with vomiting, unspecified Patient Disposition: Home, Self-Care Additional Instructions: Your labwork and ekg did not show any signs of acute cardiac ischemia. Please follow up with your primary care doctor to ensure that you are improving. Prescriptions: No Action alendronate 70 mg tablet 70 mg PO QWEEK Qty: 13 3RF (DME) compress.stocking,knee,reg,med Misc See Rx Instructions .Route Qty: 2 2RF Rx Instructions: As directed 15-20cm (DME) walker Misc See Rx Instructions .Route Qty: 1 0RF Rx Instructions: with a seat fluticasone furoate-vilanterol [Breo Ellipta] 200-25 mcg/dose blister with device 1 inh inhalation DAILY Qty: 180 1RF azelastine-fluticasone 137-50 mcg/spray spray,non-aerosol 1 spray intranasal BID Qty: 23 6RF multivitamin Tablet 1 tab PO DAILY loratadine 10 mg Tablet 10 mg PO DAILY thiamine mononitrate (vit B1) 100 mg tablet 400 mg PO DAILY boron citrate 3 mg tablet PO lamotrigine 150 mg tablet 250 mg PO DAILY venlafaxine 25 mg tablet 25 mg PO DAILY polyethylene glycol 3350 [Miralax] 17 gram/dose powder 17 g PO .COMPLEX 30 Days Qty: 238 3RF Rx Instructions: 17 grams orally twice a week; levothyroxine 100 mcg tablet See Rx Instructions PO DAILY Qty: 90 1RF Rx Instructions: 1 tabl qd except Wednesday orally daily; venlafaxine [Effexor XR] 150 mg capsule,extended release 24hr 150 mg PO BEDTIME calcium carbonate-mag hydroxid 350-150 mg tablet,chewable PO cholecalciferol (vitamin D3) 125 mcg (5,000 unit) capsule 125 mcg PO .every other day Cuban Cod Liver Oil 1,250-135 unit capsule 1 cap PO DAILY Rx Instructions: 400 mg senna 8.6 mg capsule 8.6 mg PO DAILY carboxymethylcellulose sodium [Refresh Tears] 0.5 % drops 1 drp ophthalmic (eye) QID PRN memantine 28 mg capsule,sprinkle,ER 24hr 28 mg PO DAILY inulin [Fiber Gummies] PO Print Language: Thai
[2024-12-19 13:16] LABS: Hematocrit 30.7 % (37.0-47.0); Hemoglobin 10.8 g/dl (12.0-16.0); Imm Gran Abs Auto 0.02 X10*3/uL (0.00-0.03); Imm Gran Pct Auto 0.4 % (0.0-0.4); Lymphocytes Absolute Auto 1.5 X10*3/uL (1.2-4.9); Mean Corpuscular HGB Conc 35.2 g/dl (31.0-35.0); Mean Corpuscular Hemoglobin 32.1 pg (27.0-33.0); Mean Corpuscular Volume 91.4 fL (80.0-98.0); NRBC Abs Auto 0.000 X10*3/uL (0.0-0.012); NRBC Pct Auto 0.0 /100WBC (0.0-0.2); Platelet Count 166 X10*3/uL (160-400); Red Blood Count 3.36 X10*6/uL (4.20-5.50); White Blood Count 4.9 X10*3/uL (4.8-10.8)
[2024-12-19 13:22] LABS: D Dimer High Sensitivity 212 NG/ML
--- NOTE | 2024-12-19 13:29 | ECG_ITS ---
Test Reason : CHEST PAIN Blood Pressure : */* mmHG Vent. Rate : 66 BPM Atrial Rate : 66 BPM P-R Int : 176 ms QRS Dur : 78 ms QT Int : 426 ms P-R-T Axes : 86 82 76 degrees QTcB Int : 446 ms Normal sinus rhythm Normal ECG When compared with ECG of 19-Dec-2024 12:50, No significant change was found Referred By: Daniela Ghotra Electronically Signed By: KERMIT CORONADO
[2024-12-19 13:44] LABS: Alanine Aminotransferase 17 U/L (0-31); Albumin Level 3.7 g/dL (3.5-5.0); Alkaline Phosphatase 59 U/L (39-117); Anion Gap 11 (12-20); Aspartate Amino Transferase 28 U/L (5-31); Blood Urea Nitrogen 10 mg/dL (9-16); Calcium 8.1 mg/dL (8.4-10.2); Carbon Dioxide 26 mmol/L (22-29); Chloride 103 mmol/L (96-108); Creatinine Clr Calc Pharmacy 71.7; Estimated Glomerular Filt Rate > 60; Lipase 21 U/L (8-78); Magnesium 2.1 mg/dL (1.6-2.6); Potassium 3.6 mmol/L (3.3-5.1); Sodium 136 mmol/L (135-145); Total Protein 5.7 g/dL (6.5-8.0)
[2024-12-19 13:53] LABS: Troponin-I High Sensitivity < 2.7 ng/L (<3.5-17.0)
[2024-12-19 14:22] LABS: Appearance Urine Cloudy; Glucose Urine UA Negative (Negative); PH >= 9.0 (5.0-9.0); Specific Gravity - Urine 1.010 (1.005-1.025)
--- NOTE | 2024-12-19 15:46 | PC.NURSE ---
Pt remains A&O X4 VSS NAD States chest heaviness and KING are improved. Pt ambulated to and from BR (stretch brought near BR as pt concerned she would fall) chioma well and able to use toilet by self X4. No vomiting since admit.
[2024-12-19 16:00] VITALS: BP 170/76; PULSE 70; RESP 19; O2SAT 99
[2024-12-19 16:42] LABS: Troponin-I High Sensitivity < 2.7 ng/L (<3.5-17.0)
--- OUTSIDE RECORDS SUMMARY | 2024-12-19 17:05 | XMS_ITS | Encounter Summary ---
Author Organization [facility] Address [address] [place] [phone] Phone Care Team Providers Care Bed Operator Name Role Phone Unavailable Primary Care Provider Unavailabl e Encounter Details Date Type Department Care Team (Late st Contact Info) Description 02/12/2022 Procedure Pass OR Admitting Dept - Virtual Department [address] [place] [address] Social History Tobacco Use Types Packs/Day Years [...] It is not the complete legal health record.[facility]
--- OUTSIDE RECORDS SUMMARY | 2024-12-19 17:05 | XMS_ITS | Clinical Summary ---
Author Organization [facility] Address [address] [address] Phone Care Team Providers Care Sausage Cutter Name Role Phone Unavailable Primary Care Provider [...] each nostril as directed Active Ca cit-D3-mag#11-z coz-fukt-zqq-junie r (CALTRATE 600+D) 600 mg calcium- 800 [...] Take 10 mg by mouth daily. Active hrahcmhc-tal-pw rrous gluconate (CENTRUM WITH IRON) 9 mg [...] ZOSTER VACCINES (2 of 2) 08/27/2021 07/02/2021 INFLUENZA VACCINE (#1) 2024 2, 01/09/2021, 01/03/2019, Additional history exists COVID-19 VACCINE (2024- season) 2024 02/06/2022, 07/15/2021, 02/14/2021, Additional history exists Adult [...] file Insurance MEDICARE PART A & B [facility] [employer] MEDICARE SUPPLEMENT MEDICARE PART A & B [employer] MEDICARE SUPPLEMENT MEDICARE PART A & B [employer] MEDICARE SUPPLEMENT MEDICARE PART A & B [facility] MEDICARE SUPPLEMENT MEDICARE PART A & B [facility] [employer] MEDICARE SUPPLEMENT MEDICARE PART A & B [facility] [employer] MEDICARE SUPPLEMENT MEDICARE PART A & B [employer] MEDICARE SUPPLEMENT MEDICARE PART A & B [employer] MEDICARE SUPPLEMENT MEDICARE PART A & B [facility] [employer] MEDICARE SUPPLEMENT Additional Source Comments The information contained in this document represents components of the legal health record. It is not the complete legal health record.[facility]
[2024-12-19 17:58] VITALS: BP 170/76; PULSE 70; RESP 19; TEMP 36.6; O2SAT 99
== END 2024-12-19 18:01 | disposition home or self-care (01) ==
PROVIDERS: Emergency Medicine; Emergency Provider Student in an Organized Health Care Education/Training Program; PCP Internal Medicine
DX: R53.1 Weakness (principal); R11.2 Nausea with vomiting, unspecified; R00.2 Palpitations; R07.89 Other chest pain; Z98.890 Other specified postprocedural states
CPT/HCPCS: 36415; 80048; 80076; 81003; 83690; 83735; 84484; 85025; 85379; 93005; 96361; 96374; 99284; J0131; J2405; J7120

== ENCOUNTER → 2024-12-19 12:48 | Outpatient (BNV) | payer MEDICARE, OTHER, SELFPAY | PROVIDERS: Emergency Provider Student in an Organized Health Care Education/Training Program; PCP Internal Medicine; Visit Provider Internal Medicine | DX: R07.89 Other chest pain (principal) | CPT/HCPCS: 93010 ==

== ENCOUNTER 2025-02-02 09:27 | Outpatient (REF) | payer MEDICARE, OTHER, SELFPAY ==
--- OUTSIDE RECORDS SUMMARY | 2025-02-02 10:26 | XMS_ITS | Encounter Summary ---
Author Organization [facility] Address [address] [facility] [address] [place] [phone] Phone Care Team Providers Care Atmospheric Drier Tender Name Role Phone Unavailable Primary Care Provider Unavailabl e Encounter Details Date Type Department Care Team (Late st Contact Info) Description 02/12/2022 Procedure Pass OR Admitting Dept - Virtual Department [address] [place] [address] Social History Tobacco Use Types Packs/Day Years [...] It is not the complete legal health record.[facility]
--- OUTSIDE RECORDS SUMMARY | 2025-02-02 10:26 | XMS_ITS | Clinical Summary ---
Author Organization [facility] Address [address] [address] Phone Care Team Providers Care Automatic Coin Machine Mechanic Name Role Phone Unavailable Primary Care Provider [...] each nostril as directed Active Ca cit-D3-mag#11-z jtc-zbaz-xtx-junie r (CALTRATE 600+D) 600 mg calcium- 800 [...] Take 10 mg by mouth daily. Active rbgnsfds-ccw-is rrous gluconate (CENTRUM WITH IRON) 9 mg [...] file Insurance MEDICARE PART A & B [facility] [employer] MEDICARE SUPPLEMENT MEDICARE PART A & B [employer] MEDICARE SUPPLEMENT MEDICARE PART A & B [employer] MEDICARE SUPPLEMENT MEDICARE PART A & B [facility] MEDICARE SUPPLEMENT MEDICARE PART A & B [facility] [employer] MEDICARE SUPPLEMENT MEDICARE PART A & B [facility] [employer] MEDICARE SUPPLEMENT MEDICARE PART A & B [employer] MEDICARE SUPPLEMENT MEDICARE PART A & B [facility] [employer] MEDICARE SUPPLEMENT MEDICARE PART A & B [facility] [employer] MEDICARE SUPPLEMENT Additional Source Comments The information contained in this document represents components of the legal health record. It is not the complete legal health record.[facility]
[2025-02-02 10:34] LABS: MANUAL DIFF FLAG NO
[2025-02-02 10:38] LABS: Hematocrit 39.1 % (37.0-47.0); Hemoglobin 12.7 g/dl (12.0-16.0); Imm Gran Abs Auto 0.01 X10*3/uL (0.00-0.03); Imm Gran Pct Auto 0.3 % (0.0-0.4); Lymphocytes Absolute Auto 1.4 X10*3/uL (1.2-4.9); Mean Corpuscular HGB Conc 32.5 g/dl (31.0-35.0); Mean Corpuscular Hemoglobin 30.8 pg (27.0-33.0); Mean Corpuscular Volume 94.7 fL (80.0-98.0); NRBC Abs Auto 0.000 X10*3/uL (0.0-0.012); NRBC Pct Auto 0.0 /100WBC (0.0-0.2); Platelet Count 224 X10*3/uL (160-400); Red Blood Count 4.13 X10*6/uL (4.20-5.50); White Blood Count 3.9 X10*3/uL (4.8-10.8)
[2025-02-02 11:36] LABS: Alanine Aminotransferase 22 U/L (0-31); Albumin Level 4.4 g/dL (3.5-5.0); Alkaline Phosphatase 72 U/L (39-117); Anion Gap 10 (12-20); Aspartate Amino Transferase 28 U/L (5-31); Blood Urea Nitrogen 9 mg/dL (9-16); Calcium 9.0 mg/dL (8.4-10.2); Carbon Dioxide 30 mmol/L (22-29); Chloride 104 mmol/L (96-108); Estimated Glomerular Filt Rate > 60; Potassium 3.9 mmol/L (3.3-5.1); Sodium 140 mmol/L (135-145); Total Protein 6.7 g/dL (6.5-8.0)
== END 2025-02-02 09:28 | disposition home or self-care (01) ==
LOC: HO.HMGCLDS 09:27
PROVIDERS: PCP Internal Medicine; Visit Provider Internal Medicine
DX: Z13.89 Encounter for screening for other disorder (principal)
CPT/HCPCS: 36415; 80053; 82784; 84443; 85025; 86334

== ENCOUNTER 2025-02-02 13:24 | Outpatient (REF) | payer MEDICARE, OTHER, SELFPAY ==
--- OUTSIDE RECORDS SUMMARY | 2025-02-03 09:39 | XMS_ITS | Clinical Summary ---
Author Organization [facility] Address [address] [address] Phone Care Team Providers Care Tube Heater Name Role Phone Unavailable Primary Care Provider [...] each nostril as directed Active Ca cit-D3-mag#11-z iou-drwq-ray-junie r (CALTRATE 600+D) 600 mg calcium- 800 [...] Take 10 mg by mouth daily. Active fehxhfdn-pgh-ia rrous gluconate (CENTRUM WITH IRON) 9 mg [...] file Insurance MEDICARE PART A & B [facility] [employer] MEDICARE SUPPLEMENT MEDICARE PART A & B [employer] MEDICARE SUPPLEMENT MEDICARE PART A & B [employer] MEDICARE SUPPLEMENT MEDICARE PART A & B [facility] MEDICARE SUPPLEMENT MEDICARE PART A & B [facility] [employer] MEDICARE SUPPLEMENT MEDICARE PART A & B [facility] [employer] MEDICARE SUPPLEMENT MEDICARE PART A & B [employer] MEDICARE SUPPLEMENT MEDICARE PART A & B [employer] MEDICARE SUPPLEMENT MEDICARE PART A & B [facility] [employer] MEDICARE SUPPLEMENT Additional Source Comments The information contained in this document represents components of the legal health record. It is not the complete legal health record.[facility]
--- OUTSIDE RECORDS SUMMARY | 2025-02-03 09:39 | XMS_ITS | Encounter Summary ---
Author Organization [facility] Address [address] [facility] [address] [place] [phone] Phone Care Team Providers Care Needle Punch Machine Operator Helper Name Role Phone Unavailable Primary Care Provider Unavailabl e Encounter Details Date Type Department Care Team (Late st Contact Info) Description 02/12/2022 Procedure Pass OR Admitting Dept - Virtual Department [address] [place] [address] Social History Tobacco Use Types Packs/Day Years [...] not the complete legal health record.[facility]
[2025-02-03 11:40] LABS: Appearance Urine Clear; Glucose Urine UA Negative (Negative); PH 6.0 (5.0-9.0); Specific Gravity - Urine 1.010 (1.005-1.025); UMIC TRIGGER UA YES
== END 2025-02-02 13:25 | disposition home or self-care (01) ==
LOC: HO.HMGCLNP 13:24
PROVIDERS: PCP Internal Medicine; Visit Provider Internal Medicine
DX: Z01.84 Encounter for antibody response examination (principal); R39.15 Urgency of urination; Z13.29 Encounter for screening for other suspected endocrine disorder
CPT/HCPCS: 36415; 80053; 81001; 82784; 84443; 85025; 86334; 87086

== ENCOUNTER 2025-02-08 11:21 | Outpatient (REF) | payer MEDICARE, OTHER, SELFPAY ==
--- NOTE | ~2025-02-08 | XR_ITS ---
EXAMINATION: XR KNEE, LEFT CLINICAL INFORMATION: M25.562 - Pain in left knee COMPARISON: November 17, 2021 TECHNIQUE: AP and lateral views of the left knee. FINDINGS: Joint space narrowing involving the medial lateral compartment and the patellofemoral joint space with the sclerosis along the articular surfaces more pronounced in the medial compartment. No chondrocalcinosis. No suprapatellar bursa joint effusion. No lytic or blastic lesions. No acute fracture or dislocation. Vascular calcifications. No subcutaneous emphysema. No metallic or radiopaque foreign body. XR/XR knee LT 2V IMPRESSION: Tricompartmental osteoporosis/osteoarthritis involving mostly the medial compartment. Moderate to severe. Electronically signed by: Gt Cutler MD 02/08/2025 01:20 PM MARIELA
== END 2025-02-08 11:22 | disposition home or self-care (01) ==
LOC: HO.HMGCX 11:21
PROVIDERS: PCP Internal Medicine; Visit Provider Internal Medicine
DX: Z00.00 Encounter for general adult medical examination without abnormal findings (principal); M25.562 Pain in left knee; M81.0 Age-related osteoporosis without current pathological fracture; F32.9 Major depressive disorder, single episode, unspecified; E03.9 Hypothyroidism, unspecified; M72.2 Plantar fascial fibromatosis; Z79.899 Other long term (current) drug therapy
CPT/HCPCS: 73560

== ENCOUNTER 2025-02-08 11:21 | Outpatient (AMB) | payer MEDICARE, OTHER, SELFPAY ==
[2025-02-08 11:43] VITALS: BP 124/70; PULSE 78; RESP 17; TEMP 37.1; O2SAT 99; BMI 25.9
--- NOTE | 2025-02-08 11:43 | A.OFFVIS_ITS ---
Intake Vital Signs 02/08/25 11:43 Height 5 ft 4 in Weight 151 lb BMI 25.9 BP 124/70 Blood Pressure Location Lt brachial Position Sitting Respiration 17 Pulse 78 Pulse Source Pulse Oximeter Temp 98.8 F Temp Source Oral Pulse Oximetry (%) 99 Oxygen Delivery Method Room Air Intake Visit Reasons: SWV Intake Note: Pt is here today for AWV. Allergies erythromycin base (ERYTHROMYCIN BASE) Adverse Reaction (Intermediate, Verified 02/08/25 11:49) Stomach Upset, Bloating, Constipation Medication List - Last Reconciled 02/08/25 by Emmanuelle Paige MD alendronate 70 mg PO QWEEK azelastine-fluticasone 137-50 mcg/spray 1 spray intranasal BID boron citrate mg PO Breo Ellipta 200-25 mcg/dose (fluticasone furoate-vilanterol) 1 inh inhalation DAILY NS carboxymethylcellulose sodium 0.5% (Refresh Tears) 1 drp ophthalmic (eye) QID PRN cholecalciferol (vitamin D3) 125 mcg PO .every other day compress.stocking,knee,reg,med As directed 15-20cm donepezil 5 mg PO DAILY lamotrigine 250 mg PO DAILY lamotrigine ER 25 mg PO DAILY levothyroxine 1 tabl qd except Wednesday orally daily; loratadine 10 mg PO DAILY memantine 28 mg PO DAILY polyethylene glycol 3350 (Miralax) 17 grams orally twice a week; 30 days sennosides (senna) 8.6 mg PO DAILY venlafaxine 25 mg PO DAILY venlafaxine ER (Effexor XR) 150 mg PO BEDTIME walker with a seat HPI SWV HPI Details Initiated the conversation about Advanced Directives. Advanced Directives help? patients prepare for current and future decisions about their medical treatment? and place of care. Discussed with patient that it is a process where a patients? current condition and prognosis are reviewed, their wishes for information? regarding their illness are elicited, and likely medical dilemmas are presented? and options discussed. The form can be amended as needed, reviewed yearly and? make changes as needed IPPE/AWV ? year old presents? for her ? Annual? Wellness Visit, initial visit.? Medical / Social History Reviewed? Past Medical History ?Yes? . ? [place]? of Care / Care Team list updated ?Yes . ? Surgical/Hospitalization? History ?Yes . ? Current Medications? (including OTC and supplements) ?Yes . ? Family History ?Yes? . ? Tobacco? Control form ?Yes . ? AUDIT-C (Alcohol use) form? ?Yes . ? Illicit drug use in Social? History ?Yes . ? Current diagnosis of? depression? ?No ? Appropriate PHQ2/PHQ9? completed ?Yes . ? Data entered by ?Medical? Microbiology Lab Analyst and reviewed by provider ? Fall Risk ? Fall? History? Have you had any falls with? injury in the past year? ?No . ? Have you had two or more? falls in the past year? ?No . ? Fall Risk Assessment: ?No? falls in the past year . ? HRA filled out by? the patient, reviewed by Provider and scanned. ? IPPE/AWV ? Balance? [place]? ?Yes . ? Tandem? walk ?Yes . ? Walk and? Turn ?Yes . ? Rise from? sit to stand ?Yes . ?Vision? Corrective? lens ?Yes ? Vision? screen ? Up-to-date, has an appointment [] for vision? screening and glaucoma screening ?Hearing? Whisper? test ?pass .? Initiated the conversation about Advanced Directives. Advanced Directives help? patients prepare for current and future decisions about their medical treatment? and place of care. Discussed with patient that it is a process where a patients? current condition and prognosis are reviewed, their wishes for information? regarding their illness are elicited, and likely medical dilemmas are presented? and options discussed. The form can be amended as needed, reviewed yearly and? make changes as needed Written? Plan?Completed. See Patient? Documents. [facility] Medical History (Updated 02/08/25 @ 12:38 by Emmanuelle Paige MD) Osteoporosis COPD (chronic obstructive pulmonary disease) Vascular dementia Environmental allergies Hiatal hernia Varicose veins of both legs with edema Annual physical exam Mammogram normal Seasonal allergic rhinitis Dysuria Multinodular thyroid Edema External hemorrhoid Arthritis Depression ALISON on CPAP Hypothyroidism Rectocele Tubular adenoma of colon GERD (gastroesophageal reflux disease) Surgical History History of esophagogastroduodenoscopy (EGD) Hx laparoscopic cholecystectomy History of Hx of colonoscopy Family History Father Colon polyp Mother Colon polyp Sister Osteoporosis Colon polyp Sister Colon polyp Social History Household Members: Spouse Housing: House Alcohol intake: current Alcohol intake frequency: does not drink Patient Tobacco Use Status: Never used Tobacco e-Cigarette/Vaping Use: Never Used Second Hand Smoke Exposure: No service: No Current occupational status: retired Cognitive needs: No Hearing needs: No Vision needs: Yes Questionnaire Medicare Wellness Checkup What [age] 65-68 What gender do you identify with?: female During the past 4 weeks, how much have you been bothered by emotional problems such as feeling anxious, depressed, irritable, sad or downhearted, and blue?: extremely During the past 4 weeks, has your physical & emotional health limited your social activities with family, friends, neighbors, or groups?: extremely During the past 4 weeks, how much bodily pain have you generally had?: moderate pain During the past 4 weeks, was someone available to help you if you needed & wanted help?: yes, as much as I wanted During the past 4 weeks, what was the hardest physical activity you could do for at least 2 minutes?: moderate Can you get to places out of walking distance without help? (For eg., can you travel alone on buses, taxis or drive your car?): No Can you go shopping for groceries or clothes without someone's help?: No Can you prepare your own meals?: No Can you do your housework without help?: No Because of any health problems, do you need the help of another person with your personal care needs such as eating, bathing, dressing or getting around the house?: No Can you handle your own money without help?: No During the past 4 weeks, how would you rate your health in general?: fair During the past 4 weeks how have things been going for you?: good & bad parts about equal Are you having difficulties driving your car?: yes, often Do you always fasten your seat belt when you are in a car?: yes, usually During past 4 weeks, have you been bothered by the following: never: Trouble eating well? and Teeth or denture problems?, sometimes: Falling or dizzy when standing up and Problems using the telephone? and always: Sexual problems? and Tiredness or fatigue? Have you fallen 2 or more times in the past year?: No Are you afraid of falling?: Yes Are you a smoker?: no During the past 4 weeks, how many drinks of wine, beer, or other alcoholic beverages did you have?: no alcohol at all Do you exercise for about 20 minutes 3 or more times a week?: no, I usually do not exercise this much Have you been given information to help with the following?: yes: Hazards in your house that might hurt you? and yes: Keeping track of your medications? How often do you have trouble taking medicines the way you have been told to take them?: I always take medicine as prescribed How confident are you that you can control & manage most of your health problems?: not very confident What is your race?: White Mini Mental State Exam (MMSE) Orientation What is the (year) (season) (date) (day) (month)?: year, season, date and month Where are we (state) (county) (town or city) (hospital) (floor)?: state, county, town or city, hospital/clinic and floor Registration Name of 3 unrelated objects clearly and slowly, then ask patient to repeat all 3 of them. (1st repeat determines score. Make sure they can repeat all three): object 1 and object 2 Attention & Calculation (CHOOSE ONE) Spell WORLD backwards (DLROW): 2 letters Recall Ask patient to repeat the 3 items from question #3.: object 1 and object 2 Language Show patient a wristwatch & ask what it is. Repeat for pencil.: watch and pencil Ask the patient to repeat the phrase 'No ifs, ands, or buts' after you.: incorrect Ask the patient to 'take a piece of paper with their right hand' 'fold paper in half' 'place paper on floor': take paper in right hand and fold paper in half Give patient a blank piece of paper & ask to write a sentence. Score if it contains a noun & verb.: sentence contains subject and verb Score Score: 20 PHQ-9 Over the last 2 weeks, how often have you been bothered by any of the following problems? 1. Little interest or pleasure in doing things: not at all 2. Feeling down, depressed, or hopeless: not at all 3. Trouble falling or staying asleep, or sleeping too much: not at all 4. Feeling tired or having little energy: not at all 5. Poor appetite or overeating: not at all 6. Feeling bad about yourself - or that you are a failure or have let yourself or your family down: not at all 7. Trouble concentrating on things, such as reading the newspaper or watching television: not at all 8. Moving or speaking so slowly that other people could have noticed. Or the opposite - being so fidgety or restless that you have been moving around a lot more than usual: not at all 9. Thoughts that you would be better off or of hurting yourself in some way: not at all Total score: 0 Depression Screening Interpretation: Negative Depression Screening Done: Yes Source: Developed by Drs. Shakeel Gonzalez, Raven Hernandez, Jim Hill and colleagues, with an educational jamee from [employer] [facility]. Review of Systems Const All systems reviewed & are unremarkable except as noted in HPI and below Eyes Reports no additional complaints ENT Reports no additional complaints Card Reports no additional complaints Resp Reports no additional complaints GI Reports no additional complaints Reports no additional complaints Physical Exam Vital Signs: BMI result Body Mass Index 25.9 Const General: no acute distress HEENT Head: Yes normal to inspection Ears: TM's normal bilaterally Neck Neck: Yes no lymphadenopathy and Yes supple Resp Effort & Inspection: normal respiratory effort Auscultation: clear to auscultation bilaterally Cardio Rhythm: regular rhythm Heart sounds: S1 normal heart sound present and S2 normal heart sound present GI Inspection: Yes normal to inspection Palpation (GI): Soft to palpation Percussion: Yes normal to percussion Auscultation: normal bowel sounds Extrem Other: There is a decreased range of motion and crepitus of left knee, there is no soft tissue swelling erythema warmth General: Yes no clubbing, cyanosis or edema Assessment & Plan Assessment & Plan (1) Knee pain, left: Comment: chronic Code(s): M25.562 - Pain in left knee Plan: CHECK XR, try Meloxicam and PT. If nor better refer to ortho (2) Osteoporosis: Comment: DEXA 11/2022 T score -2.6, started Fosamax, Code(s): M81.0 - Age-related osteoporosis without current pathological fracture Plan: Continue Fosamax vitamin D3 check DEXA after 2 years of taking alendronate (3) Depression: Comment: For 40 years, treated with multiple medications in the past, f/u [facility] Code(s): F32.9 - Major depressive disorder, single episode, unspecified Plan: Follow-up with Psychiatry continue current medications (4) Hypothyroidism: Code(s): E03.9 - Hypothyroidism, unspecified Plan: Continue levothyroxine (5) Tubular adenoma of colon: Comment: May 2020 Small polyp noted on valve removed excisionally, with cold bx forceps - TUBULAR ADENOMA on biopsy second smaller hyperplastic polyp removed in similar fashion in the proximal transverse colon. Photograph of past colonoscopy reviewed - polyp over ICV appears to be a flat polyp Pt advised repeat colonoscopy in 3 yrs (05/2023) to check polypectomy site. Code(s): D12.6 - Benign neoplasm of colon, unspecified Plan: Follow-up with GI for repeat colonoscopy (6) Annual physical exam: Code(s): Z00.00 - Encounter for general adult medical examination without abnormal findings Plan: Well-balanced sciatica physical activity discussed with the patient, she is up-to-date with the mammogram (7) Plantar fasciitis of left foot: Code(s): M72.2 - Plantar fascial fibromatosis Plan: Referred to Podiatry Orders: Orders PT Evaluation and Treatment Today M25.562 - Pain in left knee XR DEXA axial skeleton Today M81.0 - Age-related osteoporosis without current pathological fracture Complete Blood Count Auto Diff 1 Year E03.9 - Hypothyroidism, unspecified, E55.9 - Vitamin D deficiency, unspecified, Z00.00 - Encounter for general adult medical examination without abnormal findings Vitamin D 25-OH Total 1 Year E03.9 - Hypothyroidism, unspecified, E55.9 - Vitamin D deficiency, unspecified, Z00.00 - Encounter for general adult medical examination without abnormal findings UA w Microscopic 1 Year E03.9 - Hypothyroidism, unspecified, E55.9 - Vitamin D deficiency, unspecified, Z00.00 - Encounter for general adult medical exa mination without abnormal findings Comprehensive [place]. Panel Fast 1 Year E03.9 - Hypothyroidism, unspecified, E55.9 - Vitamin D deficiency, unspecified, Z00.00 - Encounter for general adult medical examination without abnormal findings Lipid Panel 1 Year E03.9 - Hypothyroidism, unspecified, E55.9 - Vitamin D deficiency, unspecified, Z00.00 - Encounter for general adult medical examination without abnormal findings TSH reflex Free T4 1 Year E03.9 - Hypothyroidism, unspecified, E55.9 - Vitamin D deficiency, unspecified, Z00.00 - Encounter for general adult medical examination without abnormal findings Referrals Podiatry Referral M72.2 - Plantar fascial fibromatosis Medications: New meloxicam 15 mg PO DAILY 14 tabs 0RF Quality Reporting (2019) Depression/Bipolar (159/160/161/177) PHQ-9: Total score: 0 Coding Level of Care Code Medicare Subsequent (G0439) Diagnoses Knee pain, left M25.562 Osteoporosis M81.0 Depression F32.9 Hypothyroidism E03.9 Tubular adenoma of colon D12.6 Annual physical exam Z00.00 Plantar fasciitis of left foot M72.2 CPT Codes Advance Care Planning - Advance Care Planning discussion: On file, no changes ([id number]) Advance Care Planning - Time spent: 1-15 minutes, on File ([id number]) Advance Care Planning Advance Care Planning discussion: On file, no changes Forms completed: Health Care Proxy Time spent: 1-15 minutes, on File
--- OUTSIDE RECORDS SUMMARY | 2025-02-08 14:11 | XMS_ITS | Clinical Summary ---
Author Organization [facility] Address [address] [address] Phone Care Team Providers Care Night Time Babysitter Name Role Phone Unavailable Primary Care Provider [...] each nostril as directed Active Ca cit-D3-mag#11-z cgh-naxj-nru-junie r (CALTRATE 600+D) 600 mg calcium- 800 [...] Take 10 mg by mouth daily. Active joowcioc-mjq-by rrous gluconate (CENTRUM WITH IRON) 9 mg [...] file Insurance MEDICARE PART A & B [facility] MEDIC[facility] SUPPLEMENT MEDICARE PART A & B [employer] MEDICARE SUPPLEMENT MEDICARE PART A & B [employer] MEDICARE SUPPLEMENT MEDICARE PART A & B [facility] MEDICARE SUPPLEMENT MEDICARE PART A & B [facility] MED[facility] SUPPLEMENT MEDICARE PART A & B [facility] MEDIC[facility] SUPPLEMENT MEDICARE PART A & B [employer] MEDICARE SUPPLEMENT MEDICARE PART A & B [employer] MEDICARE SUPPLEMENT MEDICARE PART A & B [facility] MEDIC[facility] SUPPLEMENT Additional Source Comments The information contained in this document represents components of the legal health record. It is not the complete legal health record.[facility]
--- OUTSIDE RECORDS SUMMARY | 2025-02-08 14:11 | XMS_ITS | Encounter Summary ---
Author Organization [facility] Address [address] [facility] [address] [place] [id number] Phone Care Team Providers Care Airport Skilled Maintenance Supervisor Name Role Phone Unavailable Primary Care Provider Unavailabl e Encounter Details Date Type Department Care Team (Late st Contact Info) Description 02/12/2022 Procedure Pass OR Admitting Dept - Virtual Department [address] [place] [address] Social History Tobacco Use Types Packs/Day Years [...] It is not the complete legal health record.[facility]
== END 2025-02-08 12:41 | disposition home or self-care (01) ==
LOC: HO.HMCC 11:22
PROVIDERS: PCP Internal Medicine; Visit Provider Internal Medicine
DX: Z00.00 Encounter for general adult medical examination without abnormal findings (principal); M25.562 Pain in left knee; M81.0 Age-related osteoporosis without current pathological fracture; F32.9 Major depressive disorder, single episode, unspecified; E03.9 Hypothyroidism, unspecified; D12.6 Benign neoplasm of colon, unspecified; M72.2 Plantar fascial fibromatosis

== ENCOUNTER → 2025-02-08 13:10 | Outpatient (BNV) | payer MEDICARE, OTHER, SELFPAY | PROVIDERS: PCP Internal Medicine; Visit Provider Radiology Diagnostic Radiology | DX: M17.12 Unilateral primary osteoarthritis, left knee (principal) | CPT/HCPCS: 73560 ==

== ENCOUNTER 2025-03-13 14:00 | Outpatient (AMB) | payer MEDICARE, OTHER, SELFPAY ==
[2025-03-13 14:12] VITALS: BMI 24.7
--- NOTE | 2025-03-13 14:12 | A.OFFVIS_ITS ---
Vital Signs 03/13/25 14:12 Height 5 ft 4 in Weight 144 lb BMI 24.7 Intake Visit Reasons: Plantar fascial fibromatosis Intake Note: Ruma is a 70 year old female who presents today as a new patient for an evaluation of her right foot plantar fibromatosis. Patient states the pain has been going on and off for 6 months. She also experiences a burning sensation with her pain and it is located in her right heel. Patient has not tried any treatment at this time and there is no previous imaging in patients chart. Allergies erythromycin base (ERYTHROMYCIN BASE) Adverse Reaction (Intermediate, Verified 03/13/25 14:14) Stomach Upset, Bloating, Constipation HPI Comments Details: The patient is a 70 year old female with a past medical history as seen below presenting with right heel pain. The pain began approximately 6 months ago without any specific injury. She describes the pain as a sharp, burning sensation localized to the right heel. The symptoms occur primarily at night while she is in bed, though she recently experienced it for the first time while sitting. The pain is intermittent and does not radiate up the ankle. She has not had prior imaging for this issue. There is a family history of heel spurs, as mentioned by her daughter. The patient reports a history of dementia and is accompanied by her daughter, who assists with providing a history. Patient states she sleeps on her left side to facilitate breathing. The patient also wears compression stockings. Patient also inquired about the discoloration of her toenails. She denies any other pedal concerns. [facility] Medical History (Updated 03/13/25 @ 14:37 by Renetta Baca DPM) Pain of right heel Casey's deformity Knee pain, left Osteoporosis COPD (chronic obstructive pulmonary disease) Vascular dementia Environmental allergies Hiatal hernia Varicose veins of both legs with edema Annual physical exam Mammogram normal Seasonal allergic rhinitis Dysuria Multinodular thyroid Edema External hemorrhoid Arthritis Depression ALISON on CPAP Hypothyroidism Rectocele Tubular adenoma of colon GERD (gastroesophageal reflux disease) Surgical History History of esophagogastroduodenoscopy (EGD) Hx laparoscopic cholecystectomy History of Hx of colonoscopy Family History Father Colon polyp Mother Colon polyp Sister Osteoporosis Colon polyp Sister Colon polyp Social History Household Members: Spouse Housing: House Alcohol intake: current Alcohol intake frequency: does not drink Patient Tobacco Use Status: Never used Tobacco e-Cigarette/Vaping Use: Never Used Second Hand Smoke Exposure: No service: No Current occupational status: retired Cognitive needs: No Hearing needs: No Vision needs: Yes Review of Systems Const Details: - Musculoskeletal: Reports intermittent, sharp, burning pain in the right heel for the past six months, which occurs primarily at night. - Neurological: Reports a burning sensation and describes the pain as electrical in nature. Reports a history of dementia. - Integumentary: Reports discoloration and thickening of her toenails. All systems reviewed & are unremarkable except as noted in HPI and below Physical Exam Vital Signs: BMI result Body Mass Index 24.7 Extrem Other: Bilateral focused physical exam: Derm: Thickened and discolored toenails x10 noted. No hyperkeratotic lesions noted. Skin supple and turgor within normal limits. No maceration noted. No clinical signs of infection noted. Vascular: DP/PT pulses palpable. Capillary refill time less than 3 seconds. Temperature gradient warm to warm. Pedal hair absent. Varicosities noted. Neuro: Protective sensation is grossly intact to light touch. MSK: Pain on palpation to the lateral, plantar, and posterior aspects of the right heel. Palpable bony prominence noted to the posterior aspect of the right heel. No palpable [place] to the Achilles tendon. Range of motion of the forefoot, hindfoot, and ankle slightly reduced. No crepitus or fluctuance noted. Slow gait noted with the use of an assistive device. Results Reviewed Results Reviewed: Laboratory Tests 02/02/25 09:38 WBC 3.9 L Random Glucose 82 AST 28 ALT 22 Ordered right foot weightbearing three-view x-rays to be performed prior to next visit. Assessment & Plan Assessment & Plan (1) Casey's deformity: Code(s): M92.60 - Juvenile osteochondrosis of tarsus, unspecified ankle Category: Medical (2) Pain of right heel: Code(s): M79.671 - Pain in right foot Category: Medical (3) Casey's deformity: Code(s): M92.60 - Juvenile osteochondrosis of tarsus, unspecified ankle Category: Medical (4) Pain of right heel: Code(s): M79.671 - Pain in right foot Category: Medical Plan Patient was informed and verbally consented to the use of an ambient scribe for clinic note documentation during this visit. I discussed with the patient and her daughter that the burning and sharp pain in her heel is likely nerve-related. I explained that pressure from lying in bed can exacerbate these symptoms due to increased pressure to the heel. I recommended X-rays to further evaluate the bone structure. We reviewed management options, and I provided a prescription for a multi-podus boot to offload the heel during rest and sleep. I also mentioned topical capsaicin as an alternative for the burning pain. Regarding her toenails, I explained the discoloration and thickening could be from mild fungus or repetitive trauma from shoes, and we scheduled an appointment for routine nail care in 3 weeks, to be followed by appointments every 9 weeks. - An order was placed for X-rays of the right foot to assess for stress fractures or bone spurs. - A prescription was provided for a multi-podus boot to offload the heels, particularly during sleep. - The patient was advised she could also use a pillow for cushioning. - The use of topical capsaicin cream was discussed as an option for managing nerve-related burning pain. - Recommended routine nail care. RTC in 3 weeks. Orders: Orders XR foot RT min 3V 03/13/25 M79.671 - Pain in right foot, M92.60 - Juvenile osteochondrosis of tarsus, unspecified ankle Medications: New 2 [Soft Offloading heel boots] As directed 1 ea 0RF M79.671 - Pain in right foot, M92.60 - Juvenile osteochondrosis of tarsus, unspecified ankle Coding Level of Care Code New Pt Level 4 (85084) Diagnoses Casey's deformity M92.60 Pain of right heel M79.671 Time Spent (min) 46
--- OUTSIDE RECORDS SUMMARY | 2025-03-13 20:00 | XMS_ITS | Encounter Summary ---
Author Organization [facility] Address [address] [facility] [address] [place] [address] Phone Care Team Providers Care Inspector And Hand Packager Name Role Phone Unavailable Primary Care Provider Unavailabl e Encounter Details Date Type Department Care Team (Late st Contact Info) Description 02/12/2022 Procedure Pass OR Admitting Dept - Virtual Department [address] [place] [address] Social History Tobacco Use Types Packs/Day Years [...] It is not the complete legal health record.[facility]
--- OUTSIDE RECORDS SUMMARY | 2025-03-13 20:00 | XMS_ITS | Clinical Summary ---
Author Organization [facility] Address [address] [address] Phone Care Team Providers Care Customer Complaint Clerk Name Role Phone Unavailable Primary Care Provider [...] each nostril as directed Active Ca cit-D3-mag#11-z tuz-oytd-cam-junie r (CALTRATE 600+D) 600 mg calcium- 800 [...] Take 10 mg by mouth daily. Active utokmnmg-sdj-aq rrous gluconate (CENTRUM WITH IRON) 9 mg [...] file Insurance MEDICARE PART A & B [facility] [employer] MEDICARE SUPPLEMENT MEDICARE PART A & B [employer] MEDICARE SUPPLEMENT MEDICARE PART A & B [employer] MEDICARE SUPPLEMENT MEDICARE PART A & B [facility] MEDICARE SUPPLEMENT MEDICARE PART A & B [facility] [employer] MEDICARE SUPPLEMENT MEDICARE PART A & B [facility] [employer] MEDICARE SUPPLEMENT MEDICARE PART A & B [employer] MEDICARE SUPPLEMENT MEDICARE PART A & B [employer] MEDICARE SUPPLEMENT MEDICARE PART A & B [facility] [employer] MEDICARE SUPPLEMENT Additional Source Comments The information contained in this document represents components of the legal health record. It is not the complete legal health record.[facility]
== END 2025-03-13 14:44 | disposition home or self-care (01) ==
LOC: HO.HPODS 14:01
PROVIDERS: PCP Internal Medicine; Visit Provider Student in an Organized Health Care Education/Training Program
DX: M92.60 Juvenile osteochondrosis of tarsus, unspecified ankle (principal); M79.671 Pain in right foot
CPT/HCPCS: 99204

== ENCOUNTER → 2025-03-13 14:00 | Outpatient (BNVA) | payer MEDICARE, OTHER, SELFPAY | PROVIDERS: PCP Internal Medicine; Visit Provider Student in an Organized Health Care Education/Training Program | DX: M92.61 Juvenile osteochondrosis of tarsus, right ankle (principal); M79.671 Pain in right foot | CPT/HCPCS: 99202 ==